=== PATIENT | female | born 1945 | race Caucasian/White ===

== ENCOUNTER 2023-05-03 10:59 | Outpatient (OUT) | payer MEDICARE, SELFPAY ==
--- NOTE | 2023-05-03 | XR_ITS ---
The [address] [address] Patient Name: MONO LUNA MRN: [id number] date: 1945 Sex: F Assigned Patient Location: [facility] Current Patient Location: [facility] Accession/Order Number: [id number] Exam Date: 05/03/2023 11:10 Report Date: 05/03/2023 12:39 At the request of: LANE JORDAN Procedure: XR ankle LT min 3V EXAM: XR ankle LT min 3V HISTORY: LEFT ANKLE PAIN COMPARISON: None. TECHNIQUE: 3 views FINDINGS: No acute fracture or dislocation. Maintained ankle mortise. Significant soft tissue swelling. XR/XR ankle LT min 3V IMPRESSION: Significant soft tissue swelling without acute fracture. If symptoms persist, further evaluation with MRI is recommended. Electronically authenticated by: DARINEL GUNTER Date: 05/03/2023 12:39
== END 2023-05-03 11:00 | disposition home or self-care (01) ==
LOC: RAD 10:59
PROVIDERS: Visit Provider Podiatrist Foot & Ankle Surgery
DX: M25.572 Pain in left ankle and joints of left foot (principal)
CPT/HCPCS: 73610

== ENCOUNTER 2023-10-04 15:08 | Outpatient (OUT) | payer MEDICARE, SELFPAY ==
--- NOTE | 2023-10-04 15:15 | XR_ITS ---
The [address] [address] Patient Name: MONO LUNA MRN: [id number] date: 1945 Sex: F Assigned Patient Location: [facility] Current Patient Location: [facility] Accession/Order Number: [id number] Exam Date: 10/04/2023 15:20 Report Date: 10/04/2023 15:35 At the request of: DURGA HANEY Procedure: XR chest 2V EXAM: XR chest 2V HISTORY: Cough and shortness of breath; technologist also state chest pain for 4 weeks. COMPARISON: Chest radiograph dated 11/15/2020. TECHNIQUE: PA and lateral views of the chest performed. FINDINGS: The trachea is midline. Stable mild prominence of the cardiac silhouette. Stable moderate atheromatous calcification at the aortic arch. The hilar shadows are stable and unremarkable. There is no consolidation, infiltrate, pleural effusion or pulmonary vascular congestion. There is no pneumothorax. The bony structures are osteopenic. There is no acute osseous abnormality. XR/XR chest 2V IMPRESSION: There is no acute cardiopulmonary process. Electronically authenticated by: LANE BRAVO Date: 10/04/2023 15:35
== END 2023-10-04 15:09 | disposition home or self-care (01) ==
LOC: RAD 15:10
PROVIDERS: PCP Nurse Practitioner; Visit Provider Nurse Practitioner
DX: R06.02 Shortness of breath (principal); R05.9 Cough, unspecified
CPT/HCPCS: 71046

== ENCOUNTER 2024-03-29 12:51 | Outpatient (OUT) | payer MEDICARE, SELFPAY ==
--- NOTE | 2024-03-29 13:00 | RT_ITS ---
The [facility] Test Date: 2024-03-29 Pat Name: MONO LUNA Department: Room: - Gender: Female Web Marketing Manager: Sabina Cox RRT : 1945 Requested By: [id number] Order Number: [id number] Reading MD: Con May Interpretive Statements Pulmonary function testing was completed according to ATS criteria. Findings were considered accurate and reproducible. Both pre- and post-bronchodilator values utilized for spirometry. Spirometry (based on pre-bronchodilator values): -FEV1/FVC: Reduced @ 69% -FEV1: Normal @ 84% -FVC: Normal @ 91% -SHF28-08%: Reduced @ 74% -There is a positive bronchodilator resposne in AQF74-22%, but diagnostic and clinical significance is unclear. Lung volumes by plethysmography (based on pre-bronchodilator values): -RV: Normal @ 98% -TLC: Normal @ 95% Diffusion capacity: -DLCO: Mild reduction @ *72% when corrected for Hb 14g/dL Flow-volume loop: -Mild obstructive pattern Impressions: -Spirometry suggests mild obstruction. There is no bronchodilator response. Lung volumes are normal. There is a mildly reduced diffusion capacity. Overall study is compatible with COPD/emphysema. Clinical correlation required. Electronically Signed On 04-03-2024 16:54:39 EDT by Con May
--- OUTSIDE RECORDS SUMMARY | 2024-03-29 13:10 | XMS_ITS | CCD ---
Author Organization [facility] CliniSyut Care Team Providers Care Any Commodity Buyer Name Role Phone LANE JORDAN Consulting Unavailable LANE JORDAN Admitting Unavailable LANE JORDAN Attending Unavailable NEELY ., DR REBEL Ji Primary Care Unavailable NEELY ., DR REBEL Ji Primary Care Unavailable LANE JORDAN Admitting Unavailable LANE JORDAN Attending Unavailable LANE JORDAN Consulting Unavailable MARIA FERNANDA JACK Consulting Unavailable NEELY ., DR REBEL Ji Primary Care Unavailable NEELY ., DR REBEL Ji Admitting Unavailable NEELY ., DR REBEL Ji Attending Unavailable NEELY ., DR REBEL Ji Consulting Unavailable EMILIA ., RONNA Consulting Unavailable NEELY ., DR REBEL Ji Primary Care Unavailable EMILIA ., RONNA Admitting Unavailable EMILIA ., RONNA Attending Unavailable NEELY ., DR REBEL Ji Consulting Unavailable NEELY ., DR REBEL Ji Primary Care Unavailable NEELY ., DR REBEL Ji Admitting Unavailable NEELY ., DR REBEL Ji Attending Unavailable ZIEBER, DR ANGLE Quan Consulting Unavailable RICK PETER Attending Unavailable RICK PETER Consulting Unavailable RICK PETER Admitting Unavailable NEELY ., DR REBEL Ji Primary Care Unavailable LANE FLORES Consulting Unavailable NEELY ., DR REBEL Ji Primary Care Unavailable ALGHOTHANI, MOHAMAD Admitting Unavailable ALGHOTHANI, MOHAMAD Attending Unavailable ALGHOTHANI, MOHAMAD Consulting Unavailable NEELY ., DR REBEL Ji Primary Care Unavailable ROME, RICK Consulting Unavailable ROME, RICK Admitting Unavailable ROME, RICK Attending Unavailable YOLANDA LOYA Consulting Unavailable ZIEBER, DR ANGLE Quan Consulting Unavailable NEELY ., DR REBEL Ji Primary Care Unavailable ROME, RICK Admitting Unavailable ROME, RICK Attending Unavailable RICK PETER Consulting Unavailable NEELY ., DR REBEL Ji Primary Care Unavailable NEELY ., DR REBEL Ji Admitting Unavailable NEELY ., DR REBEL Ji Attending Unavailable NEELY ., DR REBEL Ji Consulting Unavailable NEELY ., DR REBEL Ji Primary Care Unavailable NEELY ., DR REBEL Ji Admitting Unavailable NEELY ., DR REBEL Ji Attending Unavailable LANE JORDAN Consulting Unavailable ROSA ., HOANG PIZANO Consulting Unavailable SHARPNICOLE Consulting Unavailable SUSAN IBARRA Consulting Unavailable EMILIA ., RONNA Admitting Unavailable EMILIA ., RONNA Consulting Unavailable NEELY ., DR REBEL Ji Primary Care Unavailable EMILIA ., RONNA Attending Unavailable RICHARD DAVIS Consulting Unavailable BritneyLuzmaria Primary Care Physician [phone] Lopez Collins Referring Unavailable Zumbashley, Lopez Attending Unavailable Zumbar, Lopez Admitting Unavailable Zumbar, Lopez Attending Unavailable ZumbarLopez Admitting Unavailable Britney, Luzmaria Blake Attending Unavailable Britney, Luzmaria Blake Attending Unavailable Britney, Luzmaria Blake Attending Unavailable Britney, Luzmaria Blake Attending Unavailable Britney, Luzmaria Blake Attending Unavailable Britney, Luzmaria Blake Admitting Unavailable Britney, Luzmaria Blake Attending Unavailable Britney, Luzmaria Blake Admitting Unavailable Britney, Luzmaria Blake Referring Unavailable Danyelle Kellogg Attending Unavailable PIPER Kellogg Admitting UnavailLopez Camp Attending Unavailable Britney, Luzmaria Blake Referring Unavailable MD Lopez Collins Admitting Unavailable Zumbashley, Lopez Attending Unavailable Britney, Luzmaria Blake Referring Unavailable MD Lopez Collins Admitting Unavailable Junito Salvador Referring Unavailable Junito Salvador Attending Unavailable MD Junito Salvador Admitting Unavailable Britney, Luzmaria Blake Attending Unavailable Britney, Luzmaria Blake Consulting Unavailable Britney, Luzmaria Blake Admitting Unavailable Britney, Luzmaria Blake Referring Unavailable Britney, Luzmaria Blake Consulting Unavailable Britney, Luzmaria Blake Consulting Unavailable PANFILO DANILE Attending Unavailable GERRI TRIVEDI Attending Unavailable GERRI TRIVEDI Attending Unavailable PANFILO DANIEL Attending Unavailable VIRGILIO THOMAS Attending Unavailable VIRGILIO THOMAS Attending Unavailable Allergies Allergy Classification Reported Allergen(s) Allergy Type Date of Onset Reaction(s) Facility Angiotensin Converting Enzyme (NENA) Inhibitors (1 source) quinapril; Translations: [QUINAPRIL] Drug Allergy 05-19-20 [facility] Repository Azole Antifungals (1 source) Fluconazole; Translations: [FLUCONAZOLE] Drug Allergy 05-19-20 [facility] Repository Cephalosporins (antibiotic) (1 source) Cephalexin; Translations: [CEPHALEXIN] Drug Allergy 05-19-20 [facility] Repository NSAIDs (1 source) Naproxen; Translations: [NAPROXEN SODIUM] Drug Allergy 05-19-20 [facility] Repository Quinolones (antibiotic) (1 source) moxifloxacin; Translations: [MOXIFLOXACIN] Drug Allergy 05-19-20 [facility] Repository Sulfamethoxazole / Trimethoprim (1 source) Sulfamethoxazole / Trimethoprim; Translations: [SULFAMETHOXAZOLE-T RIMETHOPRIM] Drug Allergy 01-27-20 21 [facility] Repository Sulfonamides (antibiotic) (1 source) Sulfonamides (Antibiotic); Translations: [SULFA (SULFONAMIDE ANTIBIOTICS)] Drug Allergy 05-19-20 [facility] Repository Unclassified (1 source) AMOXICILLIN-POT CLAVULANATE; Translations: [AMOXICILLIN-POT CLAVULANATE] Propensity to adverse reactions to drug (disorder) 01-27-20 [facility] Repository (1 source) Amoxicillin / Clavulanate Drug Allergy 02-14-20 15 [facility] Repository (1 source) Aspirin Drug Allergy [facility] Repository (2 sources) Cephalexin; Translations: [cephalexin] Drug Allergy 05-29-20 13 [facility] Repository (1 source) Erythromycin Drug Allergy 05-29-20 13 [facility] Repository (2 sources) Fluconazole; Translations: [Diflucan] Drug Allergy [facility] Repository (1 source) Fluconazole Drug Allergy [facility] Repository (2 sources) moxifloxacin; Translations: [Avelox] Drug Allergy 05-29-20 13 [facility] Repository (2 sources) Naproxen; Translations: [Anaprox] Drug Allergy [facility] Repository (1 source) Sulfamethoxazole / Trimethoprim Drug Allergy 05-29-20 13 [facility] Repository (1 source) COVID-19 (SARS-CoV-2) vaccine, josee cell Drug allergy (disorder) 10-30-19 21 [facility] Repository (10 sources) Cephalexin; Translations: [cephalexin] Drug Allergy Unknown (qualifier value) [facility] (10 sources) Fluconazole; Translations: [fluconazole] Drug Allergy Unknown (qualifier value) [facility] (10 sources) moxifloxacin; Translations: [moxifloxacin] Drug Allergy Unknown (qualifier value) [facility] (10 sources) Naproxen; Translations: [naproxen] Drug Allergy Unknown (qualifier value) [facility] (11 sources) quinapril; Translations: [quinapril] Drug Allergy Unknown (qualifier value) [facility] (11 sources) Sulfonamides (Antibiotic); Translations: [sulfa drugs] Drug allergy Unknown (qualifier value) [facility] (5 sources) Erythromycin; Translations: [erythromycin] Drug Allergy Stomach upset [facility] Medications Current Medications Medication Drug Class(es) Dates Sig (Normalized) Sig (Original) Albuterol (Eqv-Ventolin HFA) 90 mcg/inh inhalation aerosol (10 sources) Start: 01-04-2023 take 2 puff(s) by inhalation every six hours Albuterol (Eqv-Ventolin HFA) 90 mcg/inh inhalation aerosol 2 puff(s), Inhalation, q6hr, 8.5 gm, Refill(s) 2, INHALE 2 PUFFS BY MOUTH EVERY 4 HOURS, [facility], 167, cm, 01/04/23 11:24:00 EDT, Height/Length Dosing, 79.3, kg, 01/04/23 11:24:00 EDT, Weight Dosing Start Date: 01/04/23 Status: Ordered amLODIPine 10 mg oral tablet (10 sources) Dihydropyridine Calcium Channel Edel Start: 11-25-2022 take 1 tablet by mouth in the morning amLODIPine 10 mg Tab TAKE 1 TABLET BY MOUTH IN THE MORNING Start Date: 11/25/22 Status: Ordered baclofen 10 mg oral tablet (2 sources) gamma-Aminobutyric Acid-ergic Agonist Start: 11-25-2022 baclofen 10 mg Tab Refills(s) 0 Start Date: 11/25/22 Status: Ordered Breast prosthetic and bra (1 source) Start: 11-14-2023 Breast prosthetic and bra Breast prosthetic and bra, See Instructions, 4 EA, 0, due to mastectomy 4 bras 1prostetic, Supply Start Date: 11/14/23 Status: Ordered calcium citrate 950 mg oral tablet (8 sources) Start: 02-10-2023 calcium (as calcium citrate) 200 mg oral tablet See Instructions, Daily, Refills(s) 0 Start Date: 02/10/23 Status: Ordered Collagen Skin Renewal (4 sources) Start: 04-21-2023 Collagen Skin Renewal Refill(s) 0 Start Date: 04/21/23 Status: Ordered famotidine 40 mg oral tablet (10 sources) Histamine-2 Receptor Antagonist Start: 01-05-2024 End: 12-30-2024 take 1 tablet by mouth once daily at bedtime famotidine 40 mg Tab 40 mg = 1 tab(s), Oral, Once a day (at bedtime), X 90 day(s), # 90 tab(s), Refills(s) 3, Pharmacy: [facility], 167, cm, 01/05/24 11:25:00 EDT, Height/Length Dosing, 80.1, kg, 01/05/24 11:25:00 EDT, Weight Dosing Start Date: 01/05/24 Stop Date: 12/30/24 Status: Ordered Start: 05-05-2023 take 1 tablet by lizeth th once daily at bedtime famotidine 40 mg Tab 40 mg = 1 tab(s), Oral, Once a day (at bedtime), # 90 tab(s), Refills(s) 0, Pharmacy: [facility], 167, cm, 03/17/23 14:09:00 EDT, Height/Length Dosing, 78, kg, 02/10/23 14:07:00 EDT, Weight Dosing Start Date: 05/05/23 Status: Ordered Start: 02-10-2023 take 1 tablet by lizeth th once daily at bedtime famotidine 40 mg Tab 40 mg = 1 tab(s), Oral, Once a day (at bedtime), # 90 tab(s), Refills(s) 0, Pharmacy: [facility], 167, cm, 01/04/23 11:24:00 EDT, Height/Length Dosing, 79.3, kg, 01/04/23 11:24:00 EDT, Weight Dosing Start Date: 02/10/23 Status: Ordered Start: 11-30-2022 take 1 tablet by lizeth th once daily at bedtime famotidine 40 mg Tab 40 mg = 1 tab(s), Oral, Once a day (at bedtime), # 90 tab(s), Refills(s) 0, Pharmacy: [facility] Start Date: 11/30/22 Status: Ordered 120 actuat fluticasone propionate 0.044 mg/actuat metered dose inhaler (11 sources) Corticosteroid Start: 01-05-2024 take 2 puff(s) by inhalation twice daily Flovent HFA 44 Aerosol = 2 puff(s), Inhalation, BID, # 10.6 gram, Refills(s) 0, Pharmacy: [facility], 167, cm, 01/05/24 11:25:00 EDT, Height/Length Dosing, 80.1, kg, 01/05/24 11:25:00 EDT, Weight Dosing Start Date: 01/05/24 Status: Ordered Start: 11-25-2022 fluticasone Na cas 0.05 mg/inh Keasbey Refill(s) 0 Start Date: 11/25/22 Status: Ordered Fosfomycin Tromethamine 3 g oral granule for reconstitution (2 sources) Start: 11-25-2022 Fosfomycin Tromethamine 3 g oral granule for reconstitution USE 1 PACKET BY MOUTH DIRECTED Start Date: 11/25/22 Status: Ordered Glucosamine (5 sources) Start: 02-10-2023 glucosamine See Instructions, daily, Refills(s) 0 Start Date: 02/10/23 Status: Ordered losartan potassium 100 mg oral tablet (10 sources) Angiotensin 2 Receptor Edel Start: 11-25-2022 take 1 tablet by mouth once daily losartan 100 mg Tab 100 mg = 1 tab(s), Oral, Daily, Refills(s) 0 Start Date: 11/25/22 Status: Ordered meloxicam 15 mg oral tablet (8 sources) Nonsteroidal Anti-inflammatory Drug Start: 12-21-2022 take 1 tablet by mouth once daily meloxicam 15 mg Tab 15 mg = 1 tab(s), Oral, Daily, # 30 tab(s), Refills(s) 0, Pharmacy: [facility], 167, cm, 12/21/22 13:10:00 EDT, Height/Length Dosing, 79.3, kg, 12/21/22 13:10:00 EDT, Weight Dosing Start Date: 12/21/22 Status: Ordered metFORMIN hydrochloride 500 mg oral tablet (1 source) Biguanide Start: 01-05-2024 take 1 tablet by mouth twice daily metformin 500 mg Tab 500 mg = 1 tab(s), Oral, BID, # 180 tab(s), Refills(s) 3, Pharmacy: [facility], 167, cm, 01/05/24 11:25:00 EDT, Height/Length Dosing, 80.1, kg, 01/05/24 11:25:00 EDT, Weight Dosing Start Date: 01/05/24 Status: Ordered Multi Vitamin+ (3 sources) Start: 04-21-2023 Multi Vitamin+ Refill(s) 0 Start Date: 04/21/23 Status: Ordered Nature's Bounty Probiotic (4 sources) Start: 04-21-2023 Nature's Bounty Probiotic Refill(s) 0 Start Date: 04/21/23 Status: Ordered predniSONE 10 mg oral tablet (2 sources) Start: 11-25-2022 take 7 tablets by mouth once daily, then take 1 tablet by mouth once daily predniSONE 10 mg Tab TAKE 7 TABLETS BY MOUTH THE FIRST DAY, THEN DECREASE BY 1 TABLET A DAY Start Date: 11/25/22 Status: Ordered Problems Active Problems Problem Classification Problem Date Documented Da te Episodic/Chronic Abdominal hernia (1 source) Diaphragmatic hernia without obstruction or gangrene; Translations: [DIAPH HERNIA W/O OBST/GANGRENE] Onset: 3 Episodic Benign neoplasm of uterus (10 sources) Uterine leiomyoma 11-26-2022 Episodic Cancer of breast (8 sources) Malignant tumor of breast 02-10-2023 Chronic Cancer of breast (1 source) Personal history of malignant neoplasm of breast; Translations: [PERS HX MALIGNANT NEOPLASM BREAST] Onset: 3 Episodic Cardiac dysrhythmias (4 sources) Supraventricular tachycardia; Translations: [SUPRAVENTRICULAR TACHYCARDIA] Onset: 2 Chronic Diabetes mellitus without complication (16 sources) Type 2 diabetes mellitus without complications; Translations: [Type 2 diabetes mellitus] Onset: 2 11-25-2022 Chronic Diabetes mellitus without complication (1 source) Prediabetes; Translations: [PREDIABETES] Onset: 3 Episodic Disorders of lipid metabolism (4 sources) Hyperlipidemia, unspecified; Translations: [Hypercholesterolemia] Onset: 2 01-05-2024 Chronic Esophageal disorders (11 sources) Gastro-esophageal reflux disease without esophagitis; Translations: [Gastroesophageal reflux disease] Onset: 3 11-25-2022 Chronic Essential hypertension (13 sources) Essential (primary) hypertension; Translations: [Hypertensive disorder] Onset: 3 11-25-2022 Chronic Genitourinary symptoms and ill-defined conditions (1 source) Personal history of urinary (tract) infections; Translations: [PERS HX URINARY TRACT INFECTIONS] Onset: 3 Episodic Glaucoma (10 sources) Glaucoma 11-26-2022 Chronic Headache; including migraine (10 sources) Episodic tension-type headache 11-25-2022 Chronic Hemorrhoids (10 sources) Hemorrhoids 11-26-2022 Episodic Malaise and fatigue (4 sources) Other fatigue; Translations: [Fatigue] Onset: 2 06-01-2023 Episodic Noninfectious gastroenteritis (1 source) Noninfective gastroenteritis and colitis, unspecified; Translations: [NONINFECTIVE GE AND COLITIS UNS] Onset: 3 Episodic Osteoarthritis (20 sources) Unspecified osteoarthritis, unspecified site; Translations: [Arthritis] Onset: 3 11-25-2022 Chronic Comment on above: L spine W L5-S1 narr owing Osteoporosis (11 sources) Age-related osteoporosis without current pathological fracture; Translations: [Osteoporosis] Onset: 3 11-26-2022 Chronic Other aftercare (1 source) Other prison (current) drug therapy; Translations: [OTH CLOTH BALE HEADER CURRENT DRUG THERAPY] Onset: 3 Episodic Other connective tissue disease (10 sources) Achilles tendinitis 11-26-2022 Episodic Other ear and sense organ disorders (8 sources) Hearing loss 02-10-2023 Chronic Other gastrointestinal disorders (4 sources) Diarrhea, unspecified; Translations: [DIARRHEA UNSPECIFIED] Onset: 3 Episodic Other lower respiratory disease (8 sources) Chronic cough 02-10-2023 Episodic Other lower respiratory disease (1 source) Cough 10-04-2023 Episodic Other lower respiratory disease (1 source) Dyspnea 10-04-2023 Episodic Other lower respiratory disease (2 sources) Other forms of dyspnea; Translations: [Other forms of dyspnea] Onset: 2 Episodic Other nutritional; endocrine; and metabolic disorders (3 sources) Excessive thirst 06-01-2023 Episodic Pneumonia (except that caused by tuberculosis or sexually transmitted disease) (10 sources) Pneumonia 11-26-2022 Episodic Residual codes; unclassified (1 source) Acquired absence of other specified parts of digestive tract; Translations: [ACQ ABSENCE OTH PART DIGESTV TRACT] Onset: 3 Episodic Residual codes; unclassified (1 source) Acquired absence of unspecified breast and nipple; Translations: [ACQUIRED ABSENCE UNS BREAST AND NIPPLE] Onset: 3 Episodic Spondylosis; intervertebral disc disorders; other back problems (4 sources) Spondylosis without myelopathy or radiculopathy, lumbar region; Translations: [SPONDYLS W/O MYELO-/RADICULOP LUMB] Onset: 3 Chronic Spondylosis; intervertebral disc disorders; other back problems (20 sources) Sciatica, unspecified side; Translations: [Sciatica, left side] Onset: 3 Episodic Thyroid disorders (10 sources) Hypothyroidism 11-25-2022 Chronic Unclassified (1 source) PERSONAL HISTORY OF COVID-19; Translations: [PERSONAL HISTORY OF COVID-19] Onset: 3 Unclassified (1 source) CONTACT W/AND (SUSP) EXPOS COVID-19; Translations: [CONTACT W/AND (SUSP) EXPOS COVID-19] Onset: 2 Unclassified (3 sources) Patient encounter status 06-01-2023 Unclassified (1 source) Other ventricular tachycardia; Translations: [Other ventricular tachycardia] Onset: 3 Viral infection (10 sources) Infectious mononucleosis 11-25-2022 Episodic Past or Other Problems Problem Classification Problem Date Documented Da te Episodic/Chronic Cardiac dysrhythmias (4 sources) Bradycardia, unspecified; Translations: [BRADYCARDIA UNSPECIFIED] Onset: 03-16-2022 Episodic Conditions associated with dizziness or vertigo (1 source) Dizziness and giddiness; Translations: [DIZZINESS AND GIDDINESS] Onset: 03-21-2022 Episodic Deficiency and other anemia (1 source) Anemia, unspecified; Translations: [ANEMIA UNSPECIFIED] Onset: 07-21-2022 Episodic Other connective tissue disease (5 sources) Peroneal tendinitis, left leg; Translations: [PERONEAL TENDINITIS LEFT LEG] Onset: 06-26-2022 Episodic Other connective tissue disease (1 source) Pain in left foot; Translations: [PAIN IN LEFT FOOT] Onset: 07-21-2022 Episodic Other non-traumatic joint disorders (5 sources) Pain in left ankle and joints of left foot; Translations: [PAIN IN LEFT ANKLE] Onset: 07-21-2022 Episodic Other non-traumatic joint disorders (1 source) Other instability, left ankle; Translations: [OTHER INSTABILITY LEFT ANKLE] Onset: 07-21-2022 Episodic Other non-traumatic joint disorders (1 source) Other specified joint disorders, left ankle and foot; Translations: [OTHER SPEC JOINT D/O LT ANKLE FOOT] Onset: 07-21-2022 Episodic Sprains and strains (2 sources) Strain of muscle(s) and tendon(s) of peroneal muscle group at lower leg level, left leg, sequela; Translations: [Sprain of other ligament of left ankle, sequela] Onset: 04-27-2022 Episodic Unclassified (10 sources) BRCA2 mutation carrier detection test 11-26-2022 Unclassified (1 source) Other ventricular tachycardia; Translations: [Other ventricular tachycardia] Onset: 03-14-2024 Viral infection (10 sources) Disease caused by 2019-nCoV 11-26-2022 Results Test Name Value Interpretation Reference Range Facility Office Visiton 03-14-2024 Follow-up visit [id number] Stephanie Wasserman 1945 F Date Provider Department Center 03/14/2024 VIRGILIO RAMÍREZ [facility] Family History Problem Relation Age of Onset Lung disease Mother Diabetes Mother's Sister Family Status - Relation Status Age at Mother Father Mother's Sister Other Level of Service:59746 AL OFFICE/OUTPATIENT ESTABLISHED MOD MDM 30 MIN Normal [facility] Reminderson 01-09-2024 Reminders - From: Luzmaria Lamas To: [facility] - Clinical; Sent: 01/06/2024 12:27:23 EDT Show up: 01/06/2024 12:27:00 EDT Subject: Ambulatory Reminder Due Date/Time: 01/07/2024 12:26:00 EDT HGBA1C is much better. continue taking metformin as she has been. Cholesterol is a little better but still elevated, triglycerides went up a little. Should consider starting a statin. would she like me to send to pharmacy? Results: Date Result Name Ind Value Ref Range 01/05/2024 11:54 Hgb A1C % 5.9 % ( - <=5.9) 01/05/2024 11:54 Chol ((H)) 215 mg/dL (120 - 200) 01/05/2024 11:54 Trig ((H)) 371 mg/dL ( - <=149) 01/05/2024 11:54 HDL 45 mg/dL 01/05/2024 11:54 LDL Direct ((H)) 137 mg/dL ( - <=129) 01/05/2024 11:54 VLDL ((H)) 74 mg/dL (7 - 40) From: Antonieta Wick (B - Clinical) To: Luzmaria Lamas; Sent: 01/09/2024 08:50:03 EDT Show up: 01/09/2024 08:49:00 EDT Subject: RE: Ambulatory Reminder Patient informed of test results and voices understanding. Patient agrees to starting statin medication. Prescription should be a 90 day script and sent to [facility]. Normal [facility] Ambulatory Visit Summaryon 0 01-05-2024 Ambulatory Visit Summary STEPHANIE WASSERMAN :1945 Visit Date:01/05/2024 Ambulatory Visit Instructions Your Diagnosis Hypercholesteremia Type 2 diabetes mellitus BMI 28.0-28.9,adult Non-smoker Your Care Team Attending Physician - Luzmaria Lamas Primary Care Physician - Luzmaria Lamas This Is Your Medications List [facility] [place]cription (Breast prosthetic and bra) albuterol (Albuterol (Eqv-Ventolin HFA) 90 mcg/inh inhalation aerosol) amlodipine (amLODIPine 10 mg Tab) ascorbic acid-collagen (Collagen Skin Renewal) bifidobacterium-lacto bacillus (Nature's Bounty Probiotic) calcium citrate (calcium (as calcium citrate) 200 mg oral tablet) famotidine (famotidine 40 mg Tab) fluticasone (Flovent HFA 44 Aerosol) fluticasone nasal (fluticasone Nasal 0.05 mg/inh Keasbey) losartan (losartan 100 mg Tab) metformin (metformin 500 mg Tab) Procedures Performed Epidural injection of lumbar spine using fluoroscopic guidance (05/09/2023), Ankle (06/12/2022), Cholecystectomy, Mastectomy. Discharge Vitals Heart Rate (Peripheral) 62 Respiratory Rate 18 Blood Pressure 118/70 Height 167.0 cm Height 66 in Weight 80.1 kg Weight 176.22 lb BMI 28.72 Medications What How Much When Why Instructions New famotidine (famotidine 40 mg Tab) 1 Tablets By Mouth Once a day (at bedtime) Duration: 90 Days Refills: 3 Pickup at [facility] New fluticasone (Flovent HFA 44 Aerosol) 2 Puffs Inhalation 2 times a day Hypercholesteremia Type 2 diabetes mellitus BMI 28.0-28.9,adult Non-smoker Pickup at [facility] New metformin (metformin 500 mg Tab) 1 Tablets By Mouth 2 times a day Type 2 diabetes mellitus Refills: 3 Pickup at [facility] Delivery Unchanged albuterol (Albuterol (Eqv-Ventolin HFA) 90 mcg/ inh inhalation aerosol) 2 Puffs Inhalation Every 6 hours INHALE 2 PUFFS BY MOUTH EVERY 4 HOURS Unchanged amlodipine (amLODIPine 10 mg Tab) TAKE 1 TABLET BY MOUTH IN THE MORNING Unchanged ascorbic acid-collagen (Collagen Skin Renewal) Unchanged bifidobacterium-lacto bacillus (Nature's Bounty Probiotic) Unchanged calcium citrate (calcium (as calcium citrate) 200 mg oral tablet) See instructions Daily Unchanged fluticasone nasal (fluticasone Nasal 0.05 mg/ inh [place]bey) Unchanged losartan (losartan 100 mg Tab) 1 Tablets By Mouth Every day Unchanged Misc Prescription (Breast prosthetic and bra) See instructions S/P mastectomy due to mastectomy 4 bras 1prostetic Pharmacy Information [facility]: [address] [place], [place] [id number] [phone] Allergies Accupril (Unknown) Anaprox (Unknown) Avelox (Unknown) Diflucan (Unknown) cephalexin (Unknown) erythromycin (Stomach upset) sulfa drugs (Unknown) Problems Ongoing - Any problem that you are currently receiving treatment for. Arthritis Breast cancer Cervical radiculitis Chronic cough Cough Diabetes mellitus, type II Episodic tension type headache Excessive thirst Fatigue GERD (gastroesophageal reflux disease) Hearing deficit HTN (hypertension) Hypercholesteremia Hypothyroidism Lower back pain Mononucleosis Osteoarthritis S/P mastectomy Sciatica Shortness of breath Type 2 diabetes mellitus Wellness examination Historical - Any problem that you are no longer receiving treatment for. 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 Please share your experience with us by completing your survey. We appreciate your feedback and thank you for choosing us for your care. Normal [facility] CHEMISTRYOrdered By: SYSTEM SYSTEM on 01-05-2024 Cholesterol [Mass/Vol] 215 mg/dL High 120 - 200 mg/dL Remisol Chem Cholesterol in HDL [Mass/Vol] 45 mg/dL Invalid Interpretation Code Remisol Chem Comment on above: Result Comment: '>= 60 LOW RISK' '<= 40 HIGH RISK' Cholesterol in LDL [Mass/Vol] 137 mg/dL High <=129mg/dL Remisol Chem Cholesterol in VLDL [Mass/Vol] 74 mg/dL High 7 - 40 mg/dL Remisol Chem Triglyceride [Mass/Vol] 371 mg/dL High <=149mg/dL Remisol Chem CHEMISTRYOrdered By: Tamiko Rowell on 01-05-2024 HbA1c (Bld) [Mass fraction] 5.9 % Normal <=5.9% [facility] ChemAutoSS Family Medicine Office/Clini c Noteon 01-05-2024 Family Medicine Office/Clinic Note HPI Staff Stephanie is a 78 year old female presenting for check up Patient is here for follow up on Diabetes. How often are you checking your blood sugars? _ times per day What are your average readings? _ Paresthesias, Ulcerations or sores? no Lisinopril, aspirin, statin therapy? Yes Foot Exam: Eye Exam: Last A1c: Hgb A1C %: 6.1 % High (06/01/23 12:04:00) Pt has only been taking Metformin once daily due to second tablet making her feel tired. Needs refill on metformin and famotidine. Over the last 2 months pt has noticed that when out walking she becomes short of breath easier. Denies being sick recently. History of Present Illness pt presents today for follow up on DM. will draw HGBA1C today Review of Systems PHQ Score Initial Depression Screen Score: 0 SCORE Physical Exam Vitals & Measurements HR: 62(Peripheral) RR: 18 BP: 118/70 SpO2: 94% HT: 66 in HT: 167.0 cm WT: 80.1 kg WT: 176.22 lb BMI: 28.72 General: alert, no acute distress ENMT: oral mucosa moist, no pharyngeal erythema or exudate Cardiovascular: regular rate and rhythm, normal peripheral perfusion Respiratory: Lungs CTA, respirations non labored Extremities: no deformity, no trauma Neurological: oriented x 4, LOC appropriate for age, CN II-XII intact, motor strength equal & normal bilaterally, speech normal Assessment/Plan 1. Hypercholesteremia (E78.00: Pure hypercholesterolemia, unspecified) will recheck lipid panel today. may consider statin. RTC 3 months Ordered: fluticasone, = 2 puff(s), Inhalation, BID, # 10.6 gram, Refills(s) 0, Pharmacy: [facility], 167, cm, 01/05/24 11:25:00 EDT, Height/Length Dosing, 80.1, kg, 01/05/24 11:25:00 EDT, Weight Dosing HgbA1c Lab Specimen Collect [id number] Lipid Panel 2. Type 2 diabetes mellitus (E11.9: Type 2 diabetes mellitus without complications) Will draw HGBA1C today. pt is taking 1/2 tab in am and 1/2 tab in Pm of metformin Ordered: fluticasone, = 2 puff(s), Inhalation, BID, # 10.6 gram, Refills(s) 0, Pharmacy: [facility], 167, cm, 01/05/24 11:25:00 EDT, Height/Length Dosing, 80.1, kg, 01/05/24 11:25:00 EDT, Weight Dosing metformin, 500 mg = 1 tab(s), Oral, BID, # 60 tab(s), Refills(s) 0, Pharmacy: [facility], 167, cm, 10/04/23 14:41:00 EST, Height/Length Dosing, 79.5, kg, 10/04/23 14:41:00 EST, Weight Dosing metformin, 500 mg = 1 tab(s), Oral, BID, # 180 tab(s), Refills(s) 3, Pharmacy: [facility], 167, cm, 01/05/24 11:25:00 EDT, Height/Length Dosing, 80.1, kg, 01/05/24 11:25:00 EDT, Weight Dosing HgbA1c Lab Specimen Collect [id number] Lipid Panel 3. BMI 28.0-28.9,adult (Z68.28: Body mass index [BMI] 28.0-28.9, adult) BMI education complete Ordered: fluticasone, = 2 puff(s), Inhalation, BID, # 10.6 gram, Refills(s) 0, Pharmacy: [facility], 167, cm, 01/05/24 11:25:00 EDT, Height/Length Dosing, 80.1, kg, 01/05/24 11:25:00 EDT, Weight Dosing HgbA1c Lab Specimen Collect [id number] Lipid Panel 4. Non-smoker (Z78.9: Other specified health status) continue not smoking Ordered: fluticasone, = 2 puff(s), Inhalation, BID, # 10.6 gram, Refills(s) 0, Pharmacy: [facility], 167, cm, 01/05/24 11:25:00 EDT, Height/Length Dosing, 80.1, kg, 01/05/24 11:25:00 EDT, Weight Dosing HgbA1c Lab Specimen Collect [id number] Lipid Panel Orders: famotidine, 40 mg = 1 tab(s), Oral, Once a day (at bedtime), X 90 day(s), # 90 tab(s), Refills(s) 3, Pharmacy: [facility], 167, cm, 01/05/24 11:25:00 EDT, Height/Length Dosing, 80.1, kg, 01/05/24 11:25:00 EDT, Weight Dosing famotidine, 40 mg = 1 tab(s), Oral, Once a day (at bedtime), # 90 tab(s), Refills(s) 1, Pharmacy: [facility], 167, cm, 06/06/23 14:18:00 EDT, Height/Length Dosing, 81.1, kg, 06/01/23 11:40:00 EDT, Weight Dosing Follow-up No qualifying data available Problem List/Past Medical History Ongoing Arthritis Breast cancer Cervical radiculitis Chronic cough Cough Diabetes mellitus, type II Episodic tension type headache Excessive thirst Fatigue GERD (gastroesophageal reflux disease) Hearing deficit HTN (hypertension) Hypercholesteremia Hypothyroidism Lower back pain Mononucleosis Osteoarthritis S/P mastectomy Sciatica Shortness of breath Type 2 diabetes mellitus Wellness examination Historical Achilles tendonitis Arthritis Breast cancer 2, 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 Medications Albuterol (Eqv-Ventolin HFA) 90 mcg/inh inhalation aerosol, 2 puff(s), Inhalation, q6hr, 2 refills amLODIPine 10 mg Tab Breast prosthetic and bra, See Instructions calcium (as calcium citrate) 200 mg o (more content not included)... Normal [facility] Comment on above: Result Comment: Elec tronically Signed By: Luzmaria Lamas\.br\Date and Time Signed: 01/05/24 13:00 EDT [id number] 01-05-2024 HbA1c (Bld) [Mass fraction] 5.9 % Normal <=5.9 [facility] Comment on above: Performed By: #### 2 [id number], [id number] ####[facility] [address] [place] [address] Lipid Panelon 01-05-2024 Cholesterol [Mass/Vol] 215 mg/dL High 120-200 [facility] Comment on above: Performed By: #### 2 [id number], [id number] ####[facility] [address] [place] [address] Cholesterol in HDL [Mass/Vol] 45 mg/dL Invalid Interpretation Code [facility] Comment on above: Result Comment: '>= 60 LOW RISK' '<= 40 HIGH RISK' Performed By: #### 2 [id number], [id number] ####[facility] [address] [place] [address] Cholesterol in LDL [Mass/Vol] 137 mg/dL High <=129 [facility] Comment on above: Performed By: #### 2 [id number], [id number] ####[facility] [address] [place] [address] Cholesterol in VLDL [Mass/Vol] 74 mg/dL High 7-40 [facility] Comment on above: Performed By: #### 2 [id number], [id number] ####[facility] [address] [place] [address] Triglyceride [Mass/Vol] 371 mg/dL High <=149 [facility] Comment on above: Performed By: #### 2 [id number], [id number] ####[facility] [address] [place] [address] RAD - MISCon 10-06-2023 RAD - MISC [id number] [facility] Physician Orderon 10-05-2023 Physician Order [id number] [facility] Ambulatory Visit Summaryon 0 10-04-2023 Ambulatory Visit Summary STEPHANIE WASSERMAN :1945 Visit Date:10/04/2023 Ambulatory Visit Instructions Your Diagnosis Cough Shortness of breath BMI 29.0-29.9,adult Non-smoker Your Care Team Attending Physician - Luzmaria Lamas Primary Care Physician - Britney PROSTHETICS ASSISTANT, Luzmaria L This Is Your Medications List albuterol (Albuterol (Eqv-Ventolin HFA) 90 mcg/inh inhalation aerosol) amlodipine (amLODIPine 10 mg Tab) ascorbic acid-collagen (Collagen Skin Renewal) azithromycin (azithromycin 250 mg Tab) benzonatate (benzonatate 200 mg oral capsule) bifidobacterium-lacto bacillus (Nature's Bounty Probiotic) calcium citrate (calcium (as calcium citrate) 200 mg oral tablet) famotidine (famotidine 40 mg Tab) fluticasone nasal (fluticasone Nasal 0.05 mg/inh Ke[place]bey) losartan (losartan 100 mg Tab) methylPREDNISolone (Medrol 4 mg Tab) multivitamin (Multi Vitamin+) Procedures Performed Epidural injection of lumbar spine using fluoroscopic guidance (05/09/2023), Ankle (06/12/2022), Cholecystectomy, Mastectomy. Discharge Vitals Temperature (Tympanic) 36.8 ?C Heart Rate (Peripheral) 80 Respiratory Rate 18 Blood Pressure 162/74 Height 167.0 cm Height 66 in Weight 79.5 kg Weight 174.9 lb BMI 28.51 Medications What How Much When Why Instructions New azithromycin (azithromycin 250 mg Tab) 1 Packets By Mouth As Directed Cough Shortness of breath BMI 29.0-29.9,adult Non-smoker Duration: 5 Days as directed on package labeling Pickup at [facility] New benzonatate (benzonatate 200 mg oral capsule) 1 Capsules By Mouth 3 times a day Cough Shortness of breath BMI 29.0-29.9,adult Non-smoker Duration: 10 Days Pickup at [facility] New methylPREDNISolone (Medrol 4 mg Tab) 1 Packets By Mouth As Directed Cough Shortness of breath BMI 29.0-29.9,adult Non-smoker Duration: 6 Days as directed on package labeling Pickup at [facility] Unchanged albuterol (Albuterol (Eqv-Ventolin HFA) 90 mcg/ inh inhalation aerosol) 2 Puffs Inhalation Every 6 hours INHALE 2 PUFFS BY MOUTH EVERY 4 HOURS Unchanged amlodipine (amLODIPine 10 mg Tab) TAKE 1 TABLET BY MOUTH IN THE MORNING Unchanged ascorbic acid-collagen (Collagen Skin Renewal) Unchanged bifidobacterium-lacto bacillus (Nature's Bounty Probiotic) Unchanged calcium citrate (calcium (as calcium citrate) 200 mg oral tablet) See instructions Daily Unchanged famotidine (famotidine 40 mg Tab) 1 Tablets By Mouth Once a day (at bedtime) Unchanged fluticasone nasal (fluticasone Nasal 0.05 mg/ inh [place]bey) Unchanged losartan (losartan 100 mg Tab) 1 Tablets By Mouth Every day Unchanged multivitamin (Multi Vitamin+) Pharmacy Information [facility]: [address] [place], [place] [id number] [phone] Allergies Accupril (Unknown) Anaprox (Unknown) Avelox (Unknown) Diflucan (Unknown) cephalexin (Unknown) erythromycin (Stomach upset) sulfa drugs (Unknown) Problems Ongoing - Any problem that you are currently receiving treatment for. Arthritis Breast cancer Cervical radiculitis Chronic cough Cough Diabetes mellitus, type II Episodic tension type headache Excessive thirst Fatigue GERD (gastroesophageal reflux disease) Hearing deficit HTN (hypertension) Hypothyroidism Lower back pain Mononucleosis Osteoarthritis Sciatica Shortness of breath Type 2 diabetes mellitus Wellness examination Historical - Any problem that you are no longer receiving treatment for. 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 Please share your experience with us by completing your survey. We appreciate your feedback and thank you for choosing us for your care. Normal [facility] Family Medicine Office/Clini c Noteon 10-04-2023 Family Medicine Office/Clinic Note HPI Staff Stephanie is a 77 year old female presenting for acute visit Pt states 2 days ago chest would hurt when taking deep breaths, has had persistent non productive cough for 1 month. Pt states did have episode of diarrhea this morning but feels better now. Denies any sinus symptoms. Has been taking Robitussin DM max. Pt states is more short of breath with excertion History of Present Illness pt presents today with cough for 1 month and worsening shortness of breath Review of Systems PHQ Score Initial Depression Screen Score: 0 SCORE ROS - Provider Constitutional: no fever, no chills, no sweats, no fatigue Respiratory: no shortness of breath, no cough, no orthopnea, no wheezing. Cardiovascular: no chest pain, no palpitations, no edema. Neurologic: no headache, no dizziness, no numbness, no weakness. Physical Exam Vitals & Measurements T: 36.8 ?C(Tympanic) HR: 80(Peripheral) RR: 18 BP: 162/74 SpO2: 97% HT: 66 in HT: 167.0 cm WT: 79.5 kg WT: 174.9 lb BMI: 28.51 General: alert, no acute distress ENMT: oral mucosa moist, no pharyngeal erythema or exudate Cardiovascular: regular rate and rhythm, normal peripheral perfusion Respiratory: Lungs CTA, respirations non labored Extremities: no deformity, no trauma Neurological: oriented x 4, LOC appropriate for age, CN II-XII intact, motor strength equal & normal bilaterally, speech normal Assessment/Plan 1. Cough (R05.9: Cough, unspecified) pt presents today with cough for 4 weeks and worsening shortness of breath. will order chest x ray pt will go to [facility]. pt states she does use her inhaler when she has coughing fits. will order z pack and medrol dose pack. as well as tessalon pearls. all questions answered. if this treatment does not help with cough will refer to pulmonology Ordered: azithromycin, = 1 packet(s), Oral, As Directed, as directed on package labeling, X 5 day(s), # 6 tab(s), Refills(s) 0, Pharmacy: [facility], 167, cm, 10/04/23 14:41:00 EST, Height/Length Dosing, 79.5, kg, 10/04/23 14:41:00 EST, Weight Dosing benzonatate, 200 mg = 1 cap(s), Oral, TID, X 10 day(s), # 30 cap(s), Refills(s) 0, Pharmacy: [facility], 167, cm, 10/04/23 14:41:00 EST, Height/Length Dosing, 79.5, kg, 10/04/23 14:41:00 EST, Weight Dosing methylPREDNISolone, = 1 packet(s), Oral, As Directed, as directed on package labeling, X 6 day(s), # 21 tab(s), Refills(s) 0, Pharmacy: [facility], 167, cm, 10/04/23 14:41:00 EST, Height/Length Dosing, 79.5, kg, 10/04/23 14:41:00 EST, Weight Dosing 2. Shortness of breath (R06.02: Shortness of breath) chest x ray ordered Ordered: azithromycin, = 1 packet(s), Oral, As Directed, as directed on package labeling, X 5 day(s), # 6 tab(s), Refills(s) 0, Pharmacy: [facility], 167, cm, 10/04/23 14:41:00 EST, Height/Length Dosing, 79.5, kg, 10/04/23 14:41:00 EST, Weight Dosing benzonatate, 200 mg = 1 cap(s), Oral, TID, X 10 day(s), # 30 cap(s), Refills(s) 0, Pharmacy: [facility], 167, cm, 10/04/23 14:41:00 EST, Height/Length Dosing, 79.5, kg, 10/04/23 14:41:00 EST, Weight Dosing methylPREDNISolone, = 1 packet(s), Oral, As Directed, as directed on package labeling, X 6 day(s), # 21 tab(s), Refills(s) 0, Pharmacy: [facility], 167, cm, 10/04/23 14:41:00 EST, Height/Length Dosing, 79.5, kg, 10/04/23 14:41:00 EST, Weight Dosing 3. BMI 29.0-29.9,adult (Z68.29: Body mass index [BMI] 29.0-29.9, adult) BMI education complete Ordered: azithromycin, = 1 packet(s), Oral, As Directed, as directed on package labeling, X 5 day(s), # 6 tab(s), Refills(s) 0, Pharmacy: [facility], 167, cm, 10/04/23 14:41:00 EST, Height/Length Dosing, 79.5, kg, 10/04/23 14:41:00 EST, Weight Dosing benzonatate, 200 mg = 1 cap(s), Oral, TID, X 10 day(s), # 30 cap(s), Refills(s) 0, Pharmacy: [facility], 167, cm, 10/04/23 14:41:00 EST, Height/Length Dosing, 79.5, kg, 10/04/23 14:41:00 EST, Weight Dosing methylPREDNISolone, = 1 packet(s), Oral, As Directed, as directed on package labeling, X 6 day(s), # 21 tab(s), Refills(s) 0, Pharmacy: [facility], 167, cm, 10/04/23 14:41:00 EST, Height/Length Dosing, 79.5, kg, 10/04/23 14:41:00 EST, Weight Dosing 4. Non-smoker (Z78.9: Other specified health status) continue not smoking Ordered: azithromycin, = 1 packet(s), Oral, As Directed, as directed on package labeling, X 5 day(s), # 6 tab(s), Refills(s) 0, [facility], 167, cm, 10/04/23 14:41:00 EST, Height/Length Dosing, 79.5, kg, 10/04/23 14:41:00 EST, Weight Dosing benzonatate, 200 mg = 1 cap(s), Oral, TID, X 10 day(s), # 30 cap(s), Refills(s) 0, Pharmacy: [facility], 167, cm, 10/04/23 14:41:00 EST, Height/Length Dosing, 79.5, kg, 10/04/23 14:41:00 EST, Weight Dosing methylPREDNISolone, = 1 packet(s), Oral, As Directed, as directed on package labelin (more content not included)... [facility] Comment on above: Result Comment: Elec tronically Signed By: Luzmaria Lamas\.br\Date and Time Signed: 10/04/23 15:03 EST Consent for Treatmenton 05-14 Consent for Treatment [id number] .00CD:127 [facility] Consultation Noteon 06-06-20 Consultation Note Patient: STEPHANIE WASSERMAN Age: 77 years Sex: Female : 1945 Associated Diagnoses: None Author: Danyelle Kellogg PA-C Subjective Chief complaint Continued lower back pain. Patient is a 77-year-old female. She presents today for follow-up after undergoing L5-S1 epidural steroid injection. This was done on 05/09/2023 and she states did not help her lower back pain very much?25% but does state that her radicular symptoms are resolved. Unfortunate, she still has lower back pain. She states that this is very bothersome. It can be a 6/10 depending on her activities. Walking and standing makes it worse. It does get better if she sits down. Walking, standing, bending, twisting, and being physically active makes the back hurt. Previous physical therapy did not help. Anti-inflammatory medications do not help. She wonders what her options are to get some of her lower back pain resolved. She states though that she is somewhat frustrated about how much she had to pay for the injection so she is unsure how many of these she wants to have to do. Health Status Allergies: Allergic Reactions (Selected) Severity Not Documented Accupril- Unknown. Anaprox- Unknown. Avelox- Unknown. Cephalexin- Unknown. Diflucan- Unknown. Erythromycin- Stomach upset. Sulfa drugs- Unknown., Allergies (7) Active Reaction Accupril Unknown Anaprox Unknown Avelox Unknown cephalexin Unknown Diflucan Unknown erythromycin Stomach upset sulfa drugs Unknown Current medications: (Selected) Prescriptions Prescribed Albuterol (Eqv-Ventolin HFA) 90 mcg/inh inhalation aerosol: 2 puff(s), Inhalation, q6hr, 8.5 gm, Refill(s) 2, INHALE 2 PUFFS BY MOUTH EVERY 4 HOURS, [facility], 167, cm, 01/04/23 11:24:00 EDT, Height/Length Dosing, 79.3, kg, 01/04/23 11:24:00 EDT, Weight Dosing famotidine 40 mg Tab: 40 mg = 1 tab(s), Oral, Once a day (at bedtime), # 90 tab(s), Refills(s) 0, Pharmacy: [facility], 167, cm, 03/17/23 14:09:00 EDT, Height/Length Dosing, 78, kg, 02/10/23 14:07:00 EDT, Weight Dosing Documented Medications Documented Collagen Skin Renewal: Refill(s) 0 Multi Vitamin+: Refill(s) 0 Nature's Bounty Probiotic: Refill(s) 0 amLODIPine 10 mg Tab: TAKE 1 TABLET BY MOUTH IN THE MORNING calcium (as calcium citrate) 200 mg oral tablet: See Instructions, Daily, Refills(s) 0 fluticasone Nasal 0.05 mg/inh Keasbey: Refill(s) 0 losartan 100 mg Tab: Refills(s) 0 Problem list: All Problems Cervical radiculitis / SNOMED CT 16669846 / Confirmed Episodic tension type headache / SNOMED CT 200178275 / Confirmed GERD (gastroesophageal reflux disease) / SNOMED CT 309590678 / Confirmed HTN (hypertension) / SNOMED CT 8802755470 / Confirmed Hypothyroidism / SNOMED CT 53412650 / Confirmed Diabetes mellitus, type II / SNOMED CT 776427677 / Confirmed Sciatica / SNOMED CT 18932003 / Confirmed Arthritis / SNOMED CT 8400665 / Confirmed Mononucleosis / SNOMED CT 882706105 / Confirmed Chronic cough / SNOMED CT 136667792 / Confirmed Hearing deficit / SNOMED CT 34105344 / Confirmed Breast cancer / SNOMED CT 826599234 / Confirmed Osteoarthritis / SNOMED CT 7292457734 / Confirmed Lower back pain / SNOMED CT 370344478 / Confirmed Wellness examination / SNOMED CT 767829475 / Confirmed Fatigue / SNOMED CT 450465877 / Confirmed Type 2 diabetes mellitus / SNOMED CT 087716321 / Confirmed Excessive thirst / SNOMED CT 13524651 / Confirmed Resolved: COVID-19 / SNOMED CT 1620702473 Resolved: Hemorrhoids / SNOMED CT 944371202 Resolved: Pneumonia / SNOMED CT 533031087 Resolved: Arthritis / SNOMED CT 3595113 L spine W L5-S1 narrowing Resolved: Breast cancer 2, 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 Eye: Normal conjunctiva. HENT: Normocephalic, Normal hearing. Cardiovascular: No edema. Musculoskeletal Normal range of motion. Normal strength. Pain with compression the bilateral lumbar facet joints Increased lower back pain with bilateral facet loading 5/5 lower extremity strength Integumentary: Warm, Dry, [place]. Injection site well-healed Neurologic: Alert, Oriented. Psychiatric: Cooperative, Appropriate mood & affect. Results Review * Final Report * Reason For Exam M54.17, M48.062 POWERSCRIBE REPORT IMPRESSION: DEGENERATIVE CHANGES OF THE LUMBAR SPINE DETAILED. EXAM: MRI of the lumbar spine without contrast History: Low back pain Technique: Multiplanar multisequence MRI of the lum (more content not included)... Normal [facility] Comment on above: Result Comment: Elec tronically Signed By: Danyelle Kellogg PA-C\.br\Date and Time Signed: 06/06/23 14:31 EDT\.br\Electronically Co-Signed By: Harlan Solomon DO\.br\Date and Time Co-Signed: 06/07/23 11:02 EDT Office/Clinic Note-Physician on 06-06-2023 Office/Clinic Note-Physician [id number] .00CD:[address] [facility] Patient Correspondenceon Patient Correspondence [id number] .00CD:[address] [facility] Patient Correspondence [id number] .00CD:127 [facility] Patient History Officeon Patient History Office [id number] .00CD:127 [facility] Ambulatory Visit Summaryon 0 06-01-2023 Ambulatory Visit Summary OMIDSTEPHANIE RAJAN :1945 Visit Date:06/01/2023 Ambulatory Visit Instructions Your Diagnosis Wellness examination Fatigue Type 2 diabetes mellitus Excessive thirst Your Care Team Attending Physician - Luzmaria Lamas Primary Care Physician - Luzmaria Lamas This Is Your Medications List albuterol (Albuterol (Eqv-Ventolin HFA) 90 mcg/inh inhalation aerosol) amlodipine (amLODIPine 10 mg Tab) ascorbic acid-collagen (Collagen Skin Renewal) bifidobacterium-lacto bacillus (Nature's Bounty Probiotic) calcium citrate (calcium (as calcium citrate) 200 mg oral tablet) famotidine (famotidine 40 mg Tab) fluticasone nasal (fluticasone Nasal 0.05 mg/inh Keasbey) losartan (losartan 100 mg Tab) meloxicam (meloxicam 15 mg Tab) multivitamin (Multi Vitamin+) Procedures Performed Ankle (06/12/2022), Cholecystectomy, Mastectomy. Discharge Vitals Heart Rate (Peripheral) 60 Respiratory Rate 18 Blood Pressure 138/70 Height 167 cm Height 66 in Weight 81.14 kg Weight 178.508 lb BMI 29.09 What to do next Scheduled Follow-Up Appointments Tuesday 2:00 PM EDT With: Danyelle Kellogg PA-C Where: [facility] Medications What How Much When Instructions Unchanged albuterol (Albuterol (Eqv-Ventolin HFA) 90 mcg/ inh inhalation aerosol) 2 Puffs Inhalation Every 6 hours INHALE 2 PUFFS BY MOUTH EVERY 4 HOURS Unchanged amlodipine (amLODIPine 10 mg Tab) TAKE 1 TABLET BY MOUTH IN THE MORNING Unchanged ascorbic acid-collagen (Collagen Skin Renewal) Unchanged bifidobacterium-lacto bacillus (Nature's Bounty Probiotic) Unchanged calcium citrate (calcium (as calcium citrate) 200 mg oral tablet) See instructions Daily Unchanged famotidine (famotidine 40 mg Tab) 1 Tablets By Mouth Once a day (at bedtime) Unchanged fluticasone nasal (fluticasone Nasal 0.05 mg/ inh [place]) Unchanged losartan (losartan 100 mg Tab) Unchanged meloxicam (meloxicam 15 mg Tab) 1 Tablets By Mouth Every day Unchanged multivitamin (Multi Vitamin+) Allergies Accupril (Unknown) Anaprox (Unknown) Avelox (Unknown) Diflucan (Unknown) cephalexin (Unknown) erythromycin (Stomach upset) sulfa drugs (Unknown) Problems Ongoing - Any problem that you are currently receiving treatment for. Arthritis Breast cancer Cervical radiculitis Chronic cough Diabetes mellitus, type II Episodic tension type headache Excessive thirst Fatigue GERD (gastroesophageal reflux disease) Hearing deficit HTN (hypertension) Hypothyroidism Lower back pain Mononucleosis Osteoarthritis Sciatica Type 2 diabetes mellitus Wellness examination Historical - Any problem that you are no longer receiving treatment for. 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 Auto Diffon 06-01-2023 Basophils/100 WBC (Bld) 1.2 % Normal 0.0-2.0 [facility] Comment on above: Order Comment: Order Added by Discern Expert. Performed By: #### 2 394563, 5806408, 5121076, 483674887, 18979015, 6333867, 0047111 ####[facility] [address] [place] [address] Basophils/Leukocytes Auto (Bld) [Pure # fraction] 0.1 E9/L Normal 0.0-0.2 [facility] Comment on above: Order Comment: Order Added by Discern Expert. Performed By: #### 2 203949, 0736918, 8050255, 498480547, 19470534, 6074212, 3436062 ####[facility] [address] [place] [address] Eosinophils/100 WBC (Bld) 4.1 % Normal 0.0-8.0 [facility] Comment on above: Order Comment: Order Added by Discern Expert. Performed By: #### 2 265218, 5810534, 9536204, 354322243, 16863237, 7953260, 2322165 ####[facility] [address] [place] [address] Eosinophils/Leukocyte s Auto (Bld) [Pure # fraction] 0.3 E9/L Normal 0.0-0.5 [facility] Comment on above: Order Comment: Order Added by Eemly Expert. Performed By: #### 2 498987, 5252050, 7347551, 887115075, 17845003, 7855763, 7201523 ####[facility] [address] [place] [address] Lymphocytes/100 WBC (Bld) 33.7 % Normal 14.0-50.0 [facility] Comment on above: Order Comment: Order Added by Discern Expert. Performed By: #### 2 313955, 4482216, 3938698, 870079046, 68243290, 7467502, 8642376 ####[facility] [address] [place] [address] Lymphocytes/Leukocyte s Auto (Bld) [Pure # fraction] 2.1 E9/L Normal 1.0-4.0 [facility] Comment on above: Order Comment: Order Added by Discern Expert. Performed By: #### 2 488554, 6189568, 3940596, 282084473, 80965019, 3748051, 7127553 ####[address] [address] Monocytes/100 WBC (Bld) 12.7 % Normal 4.0-14.0 [facility] Comment on above: Order Comment: Order Added by Emely Expert. Performed By: #### 2 804785, 5863697, 5760087, 498612370, 77770744, 1105070, 0374485 ####[facility] [address] [place] [address] Monocytes/Leukocytes Auto (Bld) [Pure # fraction] 0.8 E9/L Normal 0.2-1.0 [facility] Comment on above: Order Comment: Order Added by Emely Expert. Performed By: #### 2 003434, 4924358, 2912451, 548486834, 76861041, 5693329, 2029367 ####[facility] [address] [place] [address] Neutrophils/100 WBC (Bld) 48.3 % Normal 36.0-75.0 [facility] Comment on above: Order Comment: Order Added by Emely Expert. Performed By: #### 2 816559, 6688422, 7886146, 802802647, 08202454, 2642407, 6477430 ####[facility] [address] [place] [address] Neutrophils/Leukocyte s Auto (Bld) [Pure # fraction] 3.0 E9/L Normal 2.0-7.5 [facility] Comment on above: Order Comment: Order Added by Discern Expert. Performed By: #### 2 454147, 6853057, 6069416, 845776583, 55363281, 3645036, 2872540 ####[facility] [address] [place] [address] CBC w/ Auto Diffon Erythrocyte distribution width (RBC) [Ratio] 14.4 % High 10.9-14.2 [facility] Comment on above: Performed By: #### 2 785032, 2482048, 8315683, 031568718, 18019221, 8419522, 0943446 ####[address] [place] [address] Hematocrit (Bld) [Volume fraction] 41.3 % Normal 34.0-46.0 [facility] Comment on above: Performed By: #### 2 747371, 1155338, 7762901, 216642451, 38134833, 2169733, 1387000 ####[facility] [address] [place] [address] Hemoglobin (Bld) [Mass/Vol] 13.9 g/dL Normal 12.0-16.0 [facility] Comment on above: Performed By: #### 2 430935, 7665581, 8052280, 419685238, 03124472, 4899607, 5985844 ####[facility] [address] [place] [address] MCH (RBC) [Entitic mass] 29.6 pg Normal 27.0-34.0 [facility] Comment on above: Performed By: #### 2 328141, 9792130, 4765928, 990509765, 69552335, 1567509, 2626474 ####[facility] [address] [place] [address] MCHC (RBC) [Mass/Vol] 33.7 g/dL Normal 31.4-36.0 [facility] Comment on above: Performed By: #### 2 268238, 2681637, 2365389, 485968902, 89507025, 7495100, 5013832 ####[address] [place] [address] MCV (RBC) [Entitic vol] 87.7 fL Normal 80.0-100.0 [facility] Comment on above: Performed By: #### 2 382949, 8561017, 5062364, 838584552, 98555028, 9934748, 2493155 ####[address] [address] Platelet mean volume (Bld) [Entitic vol] 8.8 fL Normal 6.4-10.8 [facility] Comment on above: Performed By: #### 2 359497, 8369508, 3891654, 748344105, 75074693, 4689192, 6245489 ####[address] [address] Platelets (Bld) [#/Vol] 258.0 E9/L Normal 150.0-500.0 [facility] Comment on above: Performed By: #### 2 581541, 6145659, 7962610, 267202076, 61329874, 2790906, 9095541 ####[address] [address] RBC (Bld) [#/Vol] 4.7 E12/L Normal 4.3-5.9 [facility] Comment on above: Performed By: #### 2 305789, 1794258, 6109463, 459056091, 19198534, 8740097, 0469846 ####[address] [address] WBC corrected for nucl RBC Auto (Bld) [#/Vol] 6.2 E9/L Normal 4.0-11.0 [facility] Comment on above: Performed By: #### 2 701420, 1260209, 3125241, 671538841, 69175979, 5318600, 1413951 ####[facility] [address] [place] [address] CHEMISTRYOrdered By: SYSTEM SYSTEM on 06-01-2023 Albumin [Mass/Vol] 4.3 g/dL Normal 3.3 - 5.0 gm/dL [facility] Albumin/Globulin [Mass ratio] 1.2 {ratio} Normal 1.1 - 2.2 [facility] ALP [Catalytic activity/Vol] 61 [iU]/d Normal 21 - 98 Int._Unit/L [facility] ALT No additional P-5'-P [Catalytic activity/Vol] 19 [iU]/d Normal 6 - 46 Int._Unit/L [facility] Anion gap [Moles/Vol] 10 mmol/L Normal 6 - 16 mEq/L F [facility] AST [Catalytic activity/Vol] 20 [iU]/d Normal 5 - 43 Int._Unit/L [facility] Bilirubin [Mass/Vol] 0.6 mg/dL Normal 0.0 - 1 .1 mg/dL [facility] Calcium [Mass/Vol] 10.2 mg/dL Normal 8.9 - 11. 1 mg/dL [facility] Chloride [Moles/Vol] 108 mmol/L Normal 101 - 1 11 mmol/L [facility] Cholesterol [Mass/Vol] 252 mg/dL High 120 - 200 mg/dL [facility] Cholesterol in HDL [Mass/Vol] 55 mg/dL Invalid Interpretation Code [facility] Cholesterol in LDL [Mass/Vol] 156 mg/dL High <=129mg/dL [facility] Cholesterol in VLDL [Mass/Vol] 61 mg/dL High 7 - 40 mg/dL [facility] CO2 [Moles/Vol] 27 mmol/L Normal 21 - 31 mmol/L [facility] Creatinine [Mass/Vol] 0.8 mg/dL Normal 0.5 - 1.3 mg/dL [facility] GFR/1.73 sq M.predicted among non-blacks MDRD (S/P/Bld) [Vol rate/Area] 75 mL/min/1.73 m2 Normal >=59mL/min/1. 73 m2 [facility] Chem S Globulin (S) [Mass/Vol] 3.6 g/dL Normal 1.4 - 4.0 gm/dL [facility] Glucose [Mass/Vol] 113 mg/dL Normal 55 - 199 mg/dL [facility] Potassium [Moles/Vol] 4.3 mmol/L Normal 3.5 - 5.3 mmol/L [facility] Protein [Mass/Vol] 7.9 g/dL High 6.0 - 7.8 gm/dL [facility] Sodium [Moles/Vol] 141 mmol/L Normal 135 - 145 mmol/L [facility] Triglyceride [Mass/Vol] 303 mg/dL High <=149mg/dL [facility] TSH Qn 2.15 m[IU]/L Normal 0.34 - 5.60 mcIU/mL [facility] Urea nitrogen [Mass/Vol] 24 mg/dL High 5 - 21 mg/dL [facility] Urea nitrogen/Creatinine [Mass ratio] 30 mg/mg High 10 - 20 [facility] CHEMISTRYOrdered By: Judith Quick se on 06-01-2023 HbA1c (Bld) [Mass fraction] 6.1 % High <=5.9% [facility] ChemAutoSS CMPon 06-01-2023 Albumin [Mass/Vol] 4.3 g/dL Normal 3.3-5.0 [facility] Comment on above: Performed By: #### 2 284895, 3721254, 7087819, 585708651, 94869290, 2635193, 8573503 ####[facility] [address] [place] [address] Albumin/Globulin (S) [Mass conc ratio] 1.2 Normal 1.1-2.2 [facility] Comment on above: Performed By: #### 2 003267, 4021748, 3599871, 993938320, 25802450, 1092144, 5632882 ####[facility] [address] [place] [address] ALP [Catalytic activity/Vol] 61 Int._Unit/L Normal 21-98 [facility] Comment on above: Performed By: #### 2 324575, 4322969, 1807717, 867860903, 48012955, 9920136, 4347270 ####[facility] [address] [place] [address] ALT No additional P-5'-P [Catalytic activity/Vol] 19 Int._Unit/L Normal 6-46 [facility] Comment on above: Performed By: #### 2 536525, 2560882, 7748054, 591142053, 88846987, 5651023, 4997473 ####[facility] [address] [place] [address] Anion gap [Moles/Vol] 10 mmol/L Normal 6-16 [facility] Comment on above: Performed By: #### 2 116371, 4621111, 4588682, 524544422, 96924878, 1170923, 2185165 ####[facility] [address] [place] [address] AST [Catalytic activity/Vol] 20 Int._Unit/L Normal 5-43 [facility] Comment on above: Performed By: #### 2 558659, 4565522, 5776114, 127606286, 89278524, 6264341, 8613137 ####[facility] [address] [place] [address] Bilirubin [Mass/Vol] 0.6 mg/dL Normal 0.0-1.1 [facility] Comment on above: Performed By: #### 2 077007, 9428579, 0375824, 548805943, 39070868, 0413840, 0727450 ####[facility] [address] [place] [address] Calcium [Mass/Vol] 10.2 mg/dL Normal 8.9-11.1 [facility] Comment on above: Performed By: #### 2 900112, 2351929, 9429395, 813686872, 44984187, 2106399, 6550474 ####[facility] [address] [place] [address] Chloride [Moles/Vol] 108 mmol/L Normal 101-111 [facility] Comment on above: Performed By: #### 2 519666, 4637612, 8436524, 100217809, 87999438, 3978085, 4567091 ####[facility] [address] [place] [address] CO2 [Moles/Vol] 27 mmol/L Normal 21-31 [facility] Comment on above: Performed By: #### 2 869851, 1167704, 6113720, 367469827, 79382945, 6674181, 9430412 ####[facility] [address] [place] [address] Creatinine [Mass/Vol] 0.8 mg/dL Normal 0.5-1.3 [facility] Comment on above: Performed By: #### 2 309862, 7379506, 3007827, 434644721, 40538877, 0962298, 5451813 ####[facility] [address] [place] [address] Globulin (S) [Mass/Vol] 3.6 g/dL Normal 1.4-4.0 [facility] Comment on above: Performed By: #### 2 428984, 5401426, 4752044, 374686449, 99305997, 9497515, 4301476 ####[facility] [address] [place] [address] Glucose [Mass/Vol] 113 mg/dL Normal 55-199 [facility] Comment on above: Result Comment: If t his glucose result represents a fasting glucose, interpretation should refer to the following reference range: 55-99 mg/dL Performed By: #### 2 950070, 9333625, 1064021, 964745275, 41299321, 0081142, 4700619 ####[facility] [address] [place] [address] Potassium [Moles/Vol] 4.3 mmol/L Normal 3.5-5.3 [facility] Comment on above: Performed By: #### 2 289818, 9985682, 5438011, 130747263, 45092261, 0334010, 6112315 ####[facility] [address] [place] [address] Protein [Mass/Vol] 7.9 g/dL High 6.0-7.8 [facility] Comment on above: Performed By: #### 2 897947, 4717614, 9829329, 638906124, 53879959, 6941173, 9168123 ####[facility] [address] [place] [address] Sodium [Moles/Vol] 141 mmol/L Normal 135-145 [facility] Comment on above: Performed By: #### 2 022143, 1137679, 2199420, 383411680, 95194874, 0829273, 2756001 ####[facility] [address] [place] [address] Urea nitrogen [Mass/Vol] 24 mg/dL High 5-21 [facility] Comment on above: Performed By: #### 2 908657, 6904055, 9849370, 980587777, 13721179, 3921976, 1848464 ####[facility] [address] [place] [address] Urea nitrogen/Creatinine [Mass ratio] 30 No Units High 10-20 [facility] Comment on above: Performed By: #### 2 328621, 4418186, 6209041, 040355456, 72236446, 4388182, 9457968 ####[facility] [address] [place] [address] Family Medicine Office/Clini c Noteon 06-01-2023 Family Medicine Office/Clinic Note HPI Staff Stephanie is a 77 year old female presenting to discuss DM Patient is here for follow up on Diabetes. How often are you checking your blood sugars? 1 times per day What are your average readings? 120'140's Paresthesias, Ulcerations or sores? no Lisinopril, aspirin, statin therapy? Yes Foot Exam: Eye Exam: Last A1c: no labs within the last year, did have ER visit in 12/2022 [facility] Questions/Concerns: pt states BS are running in the 140's and has been more thirsty Todays fasting blood sugar was 128 and yesterday 142 History of Present Illness pt presents today to establish care. is in need of well visit with labs Review of Systems PHQ Score Initial Depression Screen Score: 0 ROS - Provider Constitutional: no fever, no chills, no sweats, no fatigue Respiratory: no shortness of breath, no cough, no orthopnea, no wheezing. Cardiovascular: no chest pain, no palpitations, no edema. Neurologic: no headache, no dizziness, no numbness, no weakness. Physical Exam Vitals & Measurements HR: 60(Peripheral) RR: 18 BP: 138/70 SpO2: 97% HT: 66 in HT: 167 cm WT: 81.14 kg WT: 178.508 lb BMI: 29.09 General: alert, no acute distress ENMT: oral mucosa moist, no pharyngeal erythema or exudate Cardiovascular: regular rate and rhythm, normal peripheral perfusion Respiratory: Lungs CTA, respirations non labored Extremities: no deformity, no trauma Neurological: oriented x 4, LOC appropriate for age, CN II-XII intact, motor strength equal & normal bilaterally, speech normal Assessment/Plan 1. Wellness examination (Z00.00: Encounter for general adult medical examination without abnormal findings) pt presents today to establish care. wellness labs drawn in office today. all questions answered. RTC as needed Ordered: CBC w/ Auto Diff Comprehensive Metabolic Panel HgbA1c Lab Specimen Collect 14493 Lipid Panel Thyroid Stimulating Hormone 2. Fatigue (R53.83: Other fatigue) will order CBC and TSH Ordered: CBC w/ Auto Diff Comprehensive Metabolic Panel HgbA1c Lab Specimen Collect 43270 Lipid Panel Thyroid Stimulating Hormone 3. Type 2 diabetes mellitus (E11.9: Type 2 diabetes mellitus without complications) pt states she is not sure when her last HGBA1C was checked. will draw in office today. Fasting BS has been elevated recently Ordered: CBC w/ Auto Diff Comprehensive Metabolic Panel HgbA1c Lab Specimen Collect 40566 Lipid Panel Thyroid Stimulating Hormone 4. Excessive thirst (R63.1: Polydipsia) HGBA1C done in office today Ordered: CBC w/ Auto Diff Comprehensive Metabolic Panel HgbA1c Lab Specimen Collect 52466 Lipid Panel Thyroid Stimulating Hormone Follow-up No qualifying data available Problem List/Past Medical History Ongoing Arthritis Breast cancer Cervical radiculitis Chronic cough Diabetes mellitus, type II Episodic tension type headache Excessive thirst Fatigue GERD (gastroesophageal reflux disease) Hearing deficit HTN (hypertension) Hypothyroidism Lower back pain Mononucleosis Osteoarthritis Sciatica Type 2 diabetes mellitus Wellness examination Historical Achilles tendonitis Arthritis Breast cancer 2, 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 Medications Albuterol (Eqv-Ventolin HFA) 90 mcg/inh inhalation aerosol, 2 puff(s), Inhalation, q6hr, 2 refills amLODIPine 10 mg Tab calcium (as calcium citrate) 200 mg oral tablet, See Instructions Collagen Skin Renewal famotidine 40 mg Tab, 40 mg= 1 tab(s), Oral, Once a day (at bedtime) fluticasone Nasal 0.05 mg/inh [place] losartan 100 mg Tab meloxicam 15 mg Tab, 15 mg= 1 tab(s), Oral, Daily Multi Vitamin+ Nature's Bounty Probiotic Allergies Accupril (Unknown) Anaprox (Unknown) Avelox (Unknown) Diflucan (Unknown) cephalexin (Unknown) erythromycin (Stomach upset) sulfa drugs (Unknown) Social History Alcohol - Denies Alcohol Use, 01/04/2023 Household alcohol concerns: No., 01/04/2023 Substance Abuse - Denies Substance Abuse, 01/04/2023 Household substance abuse concerns: No., 01/04/2023 Tobacco - Denies Tobacco Use, 01/04/2023 Never (less than 100 in lifetime) Tobacco Use:. Never Smokeless Tobacco Use:. Household tobacco concerns: No., 06/01/2023 Family History Family history is negative Immunizations Vaccine Date Status influenza virus vaccine, inactivated 05/27/2022 Recorded influenza virus vaccine, inactivated 06/19/2021 Recorded SARS-CoV-2 (COVID-19) mRNA-1273 vaccine 10/30/2020 Recorded influenza virus vaccine, inactivated 05/27/2020 Recorded influenza virus vaccine, inactivated 06/07/2019 Recorded influenza virus vaccine, inactivated 05/31/2018 Recorded pneumococcal 13-valent vaccine 04/10/2018 Recorded influenza virus vaccine, inactivated 08/29/2017 Recorded (more content not included)... Normal [facility] Comment on above: Result Comment: Elec tronically Signed By: Britney PATEL, Luzmaria Blake\.br\Date and Time Signed: 06/01/23 13:07 EDT HEMATOLOGYOrdered By: SYSTEM SYSTEM on 06-01-2023 Basophils/100 WBC (Bld) 1.2 % Normal 0.0 - 2.0 % [facility] HemeAutoSS Basophils/Leukocytes Auto (Bld) [Pure # fraction] 0.1 E9/L Normal 0.0 - 0.2 E9/L [facility] HemeAutoSS Eosinophils/100 WBC (Bld) 4.1 % Normal 0.0 - 8.0 % [facility] HemeAutoSS Eosinophils/Leukocyte s Auto (Bld) [Pure # fraction] 0.3 E9/L Normal 0.0 - 0.5 E9/L [facility] HemeAutoSS Lymphocytes/100 WBC (Bld) 33.7 % Normal 14.0 - 50.0 % [facility] HemeAutoSS Lymphocytes/Leukocyte s Auto (Bld) [Pure # fraction] 2.1 E9/L Normal 1.0 - 4.0 E9/L [facility] HemeAutoSS Monocytes/100 WBC (Bld) 12.7 % Normal 4.0 - 14.0 % [facility] HemeAutoSS Monocytes/Leukocytes Auto (Bld) [Pure # fraction] 0.8 E9/L Normal 0.2 - 1.0 E9/L [facility] HemeAutoSS Neutrophils/100 WBC (Bld) 48.3 % Normal 36.0 - 75.0 % [facility] HemeAutoSS Neutrophils/Leukocyte s Auto (Bld) [Pure # fraction] 3.0 E9/L Normal 2.0 - 7.5 E9/L [facility] HemeAutoSS HEMATOLOGYOrdered By: Daryl Daniel on 06-01-2023 Erythrocyte distribution width (RBC) [Ratio] 14.4 % High 10.9 - 14.2 % [facility] HemeAutoSS Hematocrit (Bld) [Volume fraction] 41.3 % Normal 34.0 - 46.0 % [facility] HemeAutoSS Hemoglobin (Bld) [Mass/Vol] 13.9 g/dL Normal 12.0 - 16.0 gm/dL [facility] HemeAutoSS MCH (RBC) [Entitic mass] 29.6 pg Normal 27.0 - 34.0 pg [facility] HemeAutoSS MCHC (RBC) [Mass/Vol] 33.7 g/dL Normal 31.4 - 36.0 gm/dL [facility] HemeAutoSS MCV (RBC) [Entitic vol] 87.7 fL Normal 80.0 - 100.0 fL [facility] HemeAutoSS Platelet mean volume (Bld) [Entitic vol] 8.8 fL Normal 6.4 - 10.8 fL [facility] HemeAutoSS Platelets (Bld) [#/Vol] 258.0 E9/L Normal 150.0 - 500.0 E9/L [facility] HemeAutoSS RBC (Bld) [#/Vol] 4.7 E12/L Normal 4.3 - 5.9 E12/L [facility] HemeAutoSS WBC corrected for nucl RBC Auto (Bld) [#/Vol] 6.2 E9/L Normal 4.0 - 11.0 E9/L [facility] HemeAutoSS [id number] 06-01-2023 HbA1c (Bld) [Mass fraction] 6.1 % High <=5.9 [facility] Comment on above: Performed By: #### 2 205497, 9514623, 0719274, 434045750, 06462487, 8789926, 3093701 ####[facility] [address] [place] [address] Lipid Panelon 06-01-2023 Cholesterol [Mass/Vol] 252 mg/dL High 120-200 [facility] Comment on above: Performed By: #### 2 440207, 7801980, 1236461, 753757423, 66016367, 0066218, 7478107 ####[facility] [address] [place] [address] Cholesterol in HDL [Mass/Vol] 55 mg/dL Invalid Interpretation Code [facility] Comment on above: Result Comment: HDL > or equal to 60 mg/dL: Low cardiovascular risk HDL < 40 mg/dL : High cardiovascular risk Performed By: #### 2 313198, 4365603, 0968646, 130505634, 97140869, 8677851, 9239701 ####[facility] [address] [place] [address] Cholesterol in LDL [Mass/Vol] 156 mg/dL High <=129 [facility] Comment on above: Performed By: #### 2 750720, 9690599, 8466472, 565342983, 05904082, 0925479, 3071580 ####[facility] [address] [place] [address] Cholesterol in VLDL [Mass/Vol] 61 mg/dL High 7-40 [facility] Comment on above: Performed By: #### 2 963257, 8593973, 8094066, 603913690, 48615462, 0980334, 6001184 ####[facility] [address] [place] [address] Triglyceride [Mass/Vol] 303 mg/dL High <=149 [facility] Comment on above: Performed By: #### 2 355716, 7866847, 3808928, 496265144, 67559560, 4405197, 0421259 ####[facility] [address] [place] [address] TSHon 06-01-2023 TSH Qn 2.15 m[IU]/L Normal 0.34-5.60 [facility] Comment on above: Performed By: #### 2 186744, 9305239, 2126691, 856379912, 74296541, 4060880, 6478757 ####[facility] [address] [place] [address] eGFRon 06-01-2023 GFR/1.73 sq M.predicted among non-blacks MDRD (S/P/Bld) [Vol rate/Area] 75 mL/min/1.73 m2 Normal >=59 [facility] Comment on above: Order Comment: Order added by Discern Expert. Result Comment: Phone Manager darnell kidney disease could be indicated at eGFR's of less than 60 mL/min/1.73m2. Kidney failure is indicated at less than 15 mL/min/1.73m2. Performed By: #### 2 424187, 1864191, 8921861, 713719857, 10971644, 0403134, 6607773 ####[facility] [address] [place] [address] Consultation Noteon 05-10-20 Consultation Note [id number]#1 .00CD:127 [facility] Consultation Note [id number]#1. 00CD:127 [facility] CHEMISTRYOrdered By: Lab ROP User on 05-09-2023 Glucose [Mass/Vol] 93 mg/dL Normal 55 - 99 mg/dL FTM C POC Subsection POC Device SN [id number] Invalid Interpretation Code [facility] POC Subsection POC User ID [id number] Invalid Interpretation Code [facility] POC Subsection POC Username JESSICA KIRKPATRICK Invalid Interpretation Code [facility] POC Subsection Capillary Glucose POCon 04-13 Glucose [Mass/Vol] 93 mg/dL Normal 55-99 [facility] Comment on above: Performed By: #### 2 [id number] ####[facility] [address] [place] [address] Consent for Procedure/Surger yon 05-09-2023 Consent for Procedure/Surgery [id number] .00CD:127 [facility] Consent for Treatmenton 04-13 Consent for Treatment [id number]#1 .00CD:127 [facility] Discharge Instructionson Discharge Instructions [id number]#1 .00CD:127 [facility] IntraOperative Documentson 0 05-09-2023 IntraOperative Documents [id number] .00CD:127 [facility] Main OR Intraoperative Recor don 05-09-2023 Main OR Intraoperative Record IntraOp Document Type [facility] Summary Primary Physician: Junito Salvador MD Finalized Date/Time: 05/09/23 13:15:11 Pt. Name: STEPHANIE WASSERMAN/Sex: 1945 Female Med Rec #: [id number] Physician: Junito Salvador MD Financial #: [id number] Pt. Type: P Room/Bed: / Admit/Disch: 05/09/23 12:26:45 - Institution: Case Times [facility] Entry 1 Patient Times In Room 05/09/23 13:08:00 Out Room 05/09/23 13:15:00 Procedure Times Start 05/09/23 13:11:00 Stop 05/09/23 13:14:00 Anesthesia Times Last Modified By: Tamiko Martinez RN 05/09/23 13:14:46 Case Attendance FTPM Entry 1 Entry 2 Entry 3 Case Attendee Madeleine GARSIA, Junito Martinez RN, Tamiko Davila RN, Radha Role Performed Surgeon - Primary Service Unit Operator - Primary Scrub - Primary Time In 05/09/23 13:08:00 05/09/23 13:08:00 05/09/23 13:08:00 Time Out 05/09/23 13:15:00 05/09/23 13:15:00 05/09/23 13:15:00 Procedure LUMBAR EPIDURAL STEROID LUMBAR EPIDURAL STEROID LUMBAR EPIDURAL STEROID INJECTION(.) INJECTION(.) INJECTION(.) Comments Last Modified By: Tamiko Martinez RN, RN, Tamiko Barrett RN 05/09/23 13:14:47 05/09/23 13:14:47 05/09/23 13:14:47 Entry 4 Case Attendee Raheem DONG(RJohanne Cerrato Role Performed Hvac Journeyman Time In 05/09/23 13:08:00 Time Out 05/09/23 13:15:00 Procedure LUMBAR EPIDURAL STEROID INJECTION(.) Comments Last Modified By: Tamiko Martinez RN 05/09/23 13:14:47 Perioperative Protocols FTPM Pre-Care Text: Implements protective measures prior to operative or invasive procedure, confirms identity before the operative or invasive procedure, verifies operative procedure, surgical site, and laterality Entry 1 Procedure(s) LUMBAR EPIDURAL STEROID Patient Identity Birthday, ID Band INJECTION(.) Verified (select at Check, Patient least 2): Participation Consents / H and P HandP, Surgery/Procedure Operative Site Present Verified Consent Marking Verified Surgical Site Yes Laterality Verified Yes Verified Procedure Verified Yes Correct Patient Yes Position Verified Availability Equipment, Medication, Prep Dry Yes Verified (If X-ray Applicable) PreOp Antibiotic No Time Out Tamiko Martinez RN, Giovanni HENDRICKSON, Madeleine Garcia MD, Raheem Jeffery(R), Johanne Time Out Complete 05/09/23 13:08:00 Outcomes Met? Yes Last Modified By: Tamiko Martinez RN 05/09/23 13:08:35 Post-Care Text: The patient is free from signs and symptoms of injury caused by extraneous objects Allergy Information FTPM Pre-Care Text: Verifies allergies Entry 1 Allergies Reviewed? Yes Allergies Reviewed Self/Patient With Outcomes Met? Yes Last Modified By: Tamiko Martinez RN 05/09/23 12:54:02 Post-Care Text: The patient received appropriate medication(s) safely administered during the perioperative period Surgical Procedures FTPM Entry 1 Procedure Description Procedure LUMBAR EPIDURAL STEROID Modifiers . INJECTION Surgeon Description L5-S1 LESI Primary Procedure Yes Primary Surgeon Madeleine GARSIA, Junito Weldon Start 05/09/23 13:11:00 Stop 05/09/23 13:14:00 Anesthesia Type None Surgical Service Pain Management Wound Class 1 - Clean Last Modified By: Tamiko Martinez RN 05/09/23 13:14:49 General Case Data FTPM Pre-Care Text: Classifies surgical wound, implements aseptic technique, initiates traffic control Entry 1 Case Information OR Pain Proc Room Case Level Level 2 Wound Class 1 - Clean Specialty Pain Management Preop Diagnosis M54.17 Postop Same As Preop Yes Postop Diagnosis M54.17 Outcomes Met? Yes Last Modified By: Tamiko Martinez RN 05/09/23 13:08:44 Post-Care Text: The patient is free from signs and symptoms of infection Skin Assessment (Pre Procedure) FTPM Pre-Care Text: Implements protective measures to prevent skin/ tissue injury due to thermal or mechanical sources Evaluates for signs and symptoms of physical injury to skin and tissue Entry 1 Skin Integrity Intact, [place], Warm, and Skin Abnormality No Dry Outcomes Met? Yes Last Modified By: Tamiko Martinez RN 05/09/23 12:54:10 Post-Care Text: The patient is free from signs and symptoms of injury caused by extraneous objects Patient Positioning FTPM Pre-Care Text: Identifies physical alterations that require additional precautions for procedure-specific positioning, verifies presence of prosthetics or corrective devices, positions the patient, evaluates the patient for signs and symptoms of injury as a result of positioning Entry 1 Procedure LUMBAR EPIDURAL STEROID Body Position Prone INJECTION(.) Feet Uncrossed? Yes Left Arm Position Resting at Side Right Arm Position Resting at Side Left Leg Position Extended Right Leg Position Extended Positioning Device Pillow Under Head Large, Safety Strap, Pillow Large Under Knees Press Points Checked Yes By Tamiko Martinez RN Outcomes (more content not included)... Normal [facility] Main OR Preoperative Recordo n 05-09-2023 Main OR Preoperative Record Holding Area Document Type FTPM Summary Primary Physician: Junito Salvador MD Finalized Date/Time: 05/09/23 12:49:52 Pt. Name: JEREMY STEPHANIECHRISTINA KinneyB./Sex: 1945 Female Med Rec #: [id number] Physician: Junito Salvador MD Financial #: [id number] Pt. Type: P Room/Bed: / Admit/Disch: 05/09/23 12:26:45 - Institution: Case Times Holding FTPM Pre-Care Text: Verifies consent for planned procedure, identifies individual values and wishes concerning care, includes family members in perioperative teaching Secures patient's records' belongings, and valuables, maintains patient's dignity and privacy, and maintains patient confidentiality Entry 1 In Holding 05/09/23 12:46:00 Outcomes Met? Yes Last Modified By: Bruna Kirkpatrick RN 05/09/23 12:47:02 Post-Care Text: The patient participates in decisions affecting his or her perioperative plan of care The patient's right to privacy is maintained Surgery Checklist FTPM Entry 1 Patient Birthday, ID Band Procedure History and Physical, Identification: Check, Patient Verification: Surgical Consent, With Participation Patient NPO after Midnight: No Date/Time: 05/09/23 12:47:00 Results Reviewed 0800 eggs toast and Personal Items: Cataract Lens Implant, Comments: water. Glasses, Jewelry Personal Items Pt. wearing glasses, Complaints of Pain: Yes Comment: three rings and bilateral hearing aids Pain Comment: 8/10 lower back pain Operative Site Yes Marking: Marked By: Dr. Salvador Location: L5-S1 Availability Equipment, X-Ray Verified: Does Patient Smoke No Patient states Yes Comment - Adult daughter-Nancy postop adult Supervision supervision available Case Cancelled in No Holding Area see comments below for reason Last Modified By: Bruna Kirkpatrick RN 05/09/23 12:49:51 Finalized By: Bruna Kirkpatrick RN Document Signatures Signed By: Bruna Kirkpatrick RN 05/09/23 12:49 Normal [facility] Operative Reporton Operative Report Patient: STEPHANIE WASSERMAN Age: 77 years Sex: Female : 1945 Associated Diagnoses: None Author: Junito Salvador MD Procedure Procedure: Lumbar Epidural Steroid Injection with Fluoroscopic Guidance at L5/S1 Diagnosis: Lumbosacral radiculitis Anesthesia: Local The patient was identified in the pre-op area. The procedure, including risks benefits and alternatives was discussed with the patient. The patient agreed to proceed. Informed consent was obtained and the site(s) marked. The patient was brought to the procedure room and placed in the prone position with padding under the abdomen to reduce lumbar lordosis. Time out was taken. The back was prepped and draped in sterile fashion with Chloraprep. Skin and subcutaneous tissues were anesthetized with 6 mL of Lidocaine 2% through a 25G needle. An 18G Touhy needle was then advanced under fluoroscopic guidance (A/P and contralateral oblique views) onto the inferior lamina and then advanced cephalad into the L5/S1 epidural space using loss of resistance technique with a plastic BIANCA syringe. Isovue 2mL was injected under live fluoroscopy which demonstrated appropriate epidural spread without vascular uptake. After confirmation of negative aspiration, 6mL of PF normal saline and 10mg of PF dexamethasone (in 1mL) were injected. The needle was removed and a bandage applied. The patient was brought to the recovery area in stable condition and then monitored for an appropriate period of time. The patient was discharged home in good condition with post-procedure instructions. No apparent complications. Epidural injection procedure Physical Exam: vital signs Vital Signs 05/09/2023 12:42 EDT Heart Rate Monitored 58 bpm LOW SpO2 98 % 05/09/2023 12:41 EDT Temperature Axillary 36.8 DegC HI 05/09/2023 12:41 EDT Systolic Blood Pressure 155 mmHg HI Diastolic Blood Pressure 80 mmHg Mean Arterial Pressure, Monitered 105 mmHg 05/09/2023 12:41 EDT Respiratory Rate 15 br/min . Normal [facility] Comment on above: Result Comment: Elec tronically Signed By: Madeleine GARSIA, Junito Weldon\.br\Date and Time Signed: 05/09/23 13:15 EDT Office Visiton 05-06-2023 Follow-up visit [id number] Stephanie Wasserman 1945 F Date Provider Department Center 05/06/2023 VIRGILIO RAMÍREZ CARD [facility] Family History Problem Relation Age of Onset Lung disease Mother Diabetes Mother's Sister Family Status - Relation Status Age at Mother Father Mother's Sister Other Level of Service:53737 AL OFFICE/OUTPATIENT ESTABLISHED MOD MDM 30-39 MIN Normal [facility] Patient Correspondenceon Patient Correspondence [id number]# 1.00CD:[address] [facility] Insurance Correspondence Off iceon 04-21-2023 Insurance Correspondence Office [id number]#1 .00CD:[address] [facility] Retail - Clinical Noteon Retail - Clinical Note [id number]#1 .00CD:127 [facility] Consent for Treatmenton Consent for Treatment [id number]# 1.00CD:127 [facility] Consultation Noteon 03-17-20 Consultation Note Chief complaint: Low back and left leg pain History of present illness: This is a 77-year-old female here for a chief complaint of low back and left leg pain. The patient rates the pain as a 0-1 out of 10 at rest. She states that if she is standing the pain will get more severe and it can get up to an 8 out of 10. She has been doing her physical therapy exercises which do seem to have helped. She states the pain will still go down her left leg but it has not been nearly as problematic. She does not have any significant right-sided symptoms. She denies numbness or weakness. The patient denies additional neurologic symptoms or issues with bladder or bowel control. The patient's past medical, surgical, and social history along with medications and allergies were reviewed. Review of systems was done on 10 systems Physical examination: General: Pleasant white female in no acute distress. Patient appears well-nourished. Vital signs stable Head exam: Head is normocephalic and external ears are normal Neck exam: No tenderness Cardiovascular exam: No signs of poor perfusion and no peripheral edema Respiratory exam: Breathing is unlabored and there is no wheezing present Abdomen exam: Abdomen soft and nondistended Back exam: No tenderness Musculoskeletal exam: Strength 5 out of 5. Muscle tone is normal. Neurologic exam: Sensation intact. Reflexes diminished but symmetric Psych exam: Affect is appropriate. Alert and oriented Skin exam: No lesions Assessment: The patient's signs and symptoms are consistent with lumbosacral radiculopathy, lumbar stenosis with neurogenic claudication, and lumbosacral spondylosis. We reviewed the patient's imaging. Her MRI was notable for multilevel degenerative disc disease and spondylosis but most significantly she has severe central spinal stenosis at L4-5 and moderate stenosis at L3-4 and L5-S1. Oswestry disability index score was 20% OARRS report was reviewed and was appropriate Plan: We discussed options. She has had pain for over 3 months. She has had some benefit from physical therapy and is able to manage things for now so we can hold off on interventions. If the pain were to worsen she would be an appropriate candidate for an lumbar epidural steroid injection. In a worst case scenario we could consider surgical consultation but I think she would have to get a lot worse before she would really need to consider that. For now I advised her to continue with the exercises she learned in therapy. We discussed the potential risks and benefits of this plan and the patient was in agreement to proceed. We will have the patient follow-up on an as-needed basis for repeat evaluation. Normal [facility] Comment on above: Result Comment: Chantelle armendariz Signed By: Lopez Collins MD\.boogie\Date and Time Signed: 03/17/23 21:39 EDT Office/Clinic Note-Physician on 03-17-2023 Office/Clinic Note-Physician [id number]# 1.00CD:[address] [facility] Patient Correspondenceon Patient Correspondence [id number]# 1.00CD:[address] [facility] Patient History Officeon Patient History Office [id number]# 1.00CD:[address] [facility] MRI Spine Lumbar w/o Contras ton 03-07-2023 MRI Spine Lumbar w/o Contrast Exam Date/Time: 03/01/2023 16:20 EDT Reason for Exam: M54.17, M48.062 Report IMPRESSION: DEGENERATIVE CHANGES OF THE LUMBAR SPINE DETAILED. EXAM: MRI of the lumbar spine without contrast History: Low back pain Technique: Multiplanar multisequence MRI of the lumbar spine was obtained without intravenous contrast. Comparison: MRI lumbar spine 11/11/2017 Findings: The conus medullaris ends normally. Mild dextroscoliosis of the lower lumbar spine. Straightening of the lumbar lordosis. The vertebral body heights are well maintained. There is no aggressive bone marrow signal abnormality. Disc desiccation throughout the lumbar spine. Moderate intervertebral disc height loss at L3-L4 and L4-L5 and mild intervertebral disc height loss at L1-L2 and L2-L3. Multilevel degenerative endplate spurring. L1-L2: Small disc bulge. Mild facet arthropathy. Mild bilateral neuroforaminal stenosis. No spinal canal stenosis. L2-L3: Small disc bulge. Mild facet arthropathy. Ligamentum flavum thickening. Mild spinal canal stenosis. Mild bilateral neuroforaminal stenosis. L3-L4: Small disc bulge. Moderate facet arthropathy. Ligament flavum thickening. Moderate spinal canal stenosis. Moderate right and severe left neuroforaminal stenosis. L4-L5: Small disc bulge. Moderate facet arthropathy. Ligamentum flavum thickening. Severe spinal canal stenosis. Moderate to severe bilateral neuroforaminal stenosis. L5-S1: Small disc bulge. Moderate facet arthropathy. Moderate left and severe right neuroforaminal stenosis. Moderate spinal canal stenosis. Overall these degenerative changes have mildly progressed since prior examination. Visualized paravertebral soft tissues appear within normal limits as visualized. A few round hyperintense T2 structures of the right kidney most likely represent renal cysts. Report Ordering Provider: Lopez Collins FINAL REPORT Dictated: 03/07/2023 10:28 am King Salazar DO Signed (Electronic Signature): 03/07/2023 10:28 am Signed by: King Salazar DO Transcribed by: ALEXANDREA Technologist: GWYN Technical Comments None [facility] Consent for Treatmenton 02-11 Consent for Treatment [id number]#1 .00CD:[address] [facility] RAD - MRI Screening Formon 0 03-01-2023 RAD - MRI Screening Form [id number]# 1.00CD:127 [facility] Insurance Correspondence Off iceon 02-21-2023 Insurance Correspondence Office [id number]# 1.00CD:127 [facility] Outside Records Officeon Outside Records Office [id number]# 1.00CD:127 [facility] Physician Orderon 02-21-2023 Physician Order [id number]#1 .00CD:127 [facility] Physician Order [id number]# 1.00CD:127 [facility] Radiology Outside Office [employer] yon 02-16-2023 Radiology Outside Office Copy [id number]# 1.00CD:127 [facility] Patient History Officeon Patient History Office [id number]# 1.00CD:127 [facility] XR Hip 2-3 Views Lefton XR Hip 2-3 Views Left Exam Date/Time: 02/10/2023 15:24 EDT Reason for Exam: M54.17, M16.12 Report IMPRESSION: NEGATIVE LEFT HIP. EXAM: XR Hip 2-3 Views Left DATE: 02/10/2023 CLINICAL HISTORY: M54.17, M16.12. COMPARISON: None available. TECHNIQUE: AP and lateral radiographs of the left hip were obtained. FINDINGS: There is no displaced fracture, dislocation, significant degenerative changes, evidence of avascular necrosis, or other findings of concern identified. Ordering Provider: Lopez Collins FINAL REPORT Dictated: 02/13/2023 5:03 pm Andrea Dudley MD Signed (Electronic Signature): 02/13/2023 5:03 pm Signed by: Andrea Dudley MD Transcribed by: ALEXANDREA Technologist: HAYDE, Technical Comments Radiation Dose: Ka,r in mGy = na DAP = na Normal [facility] XR Spine Lumbar Complete Inc luding Bendion 02-13-2023 XR Spine Lumbar Complete Including Bendi Exam Date/Time: 02/10/2023 15:25 EDT Reason for Exam: M54.17, M16.12 Report IMPRESSION: MODERATE ROTARY DEXTROSCOLIOSIS AND ADVANCED LUMBAR SPONDYLOSIS, DESCRIBED. NO EVIDENCE OF INSTABILITY WITH FLEXION OR EXTENSION POSITIONING. EXAM: XR Spine Lumbar Complete Including Bendi DATE: 02/10/2023 CLINICAL HISTORY: M54.17, M16.12. COMPARISON: None available. TECHNIQUE: Upright AP, neutral, flexion and extension lateral, and routine oblique and coned-down AP and lateral views of the lumbar spine were obtained. FINDINGS: Moderate rotary dextroscoliosis is present with advanced asymmetric degenerative disc disease predominantly along the left side of the convexity of the curvature, with prominent posterolateral endplate osteophytosis and hypertrophic facet changes. Approximately 5 to 6 mm of retrolisthesis of L3 over L4 (and to a lesser extent L2 or L3 and L4 over L5) do not significantly change with flexion and extension positioning. There is no acute fracture, worrisome bone destruction, or acute findings identified. The sacroiliac joints are unremarkable. Ordering Provider: Lopez Collins FINAL REPORT Dictated: 02/13/2023 5:06 pm Andrea Dudley MD Signed (Electronic Signature): 02/13/2023 5:06 pm Signed by: Andrea Dudley MD Transcribed by: ALEXANDREA Technologist: HAYDE Technical Comments Radiation Dose: Ka,r in mGy = na DAP = na Normal [facility] Consultation Noteon 02-12-20 Consultation Note Chief complaint: Low back and left leg pain History of present illness: This is a 77-year-old female here for a chief complaint of severe low back and left leg pain. The patient rates the pain as a 5 out of 10. She reports that she has had the symptoms for over 6 months. There was no obvious cause. The pain is constant but much worse when she is standing and walking. She reports that she can stand for about 10 minutes before she has to sit. When she does sit the symptoms will improve rather quickly. In addition to the pain in the left leg she will get a sensation of heaviness and weakness. She denies loss of bladder or bowel control or loss of balance. She denies any significant right-sided symptoms. She has tried ibuprofen with limited benefit. She has been through physical therapy with limited benefit. She does not want to be on opiates. She also does not want to have surgery but is interested in a cortisone injection if that would help. The patient denies additional neurologic symptoms or issues with bladder or bowel control. The patient's past medical, surgical, and social history along with medications and allergies were reviewed. Review of systems was done on 10 systems Physical examination: General: Pleasant white female in no acute distress. Patient appears well-nourished. Vital signs stable Head exam: Head is normocephalic and external ears are normal Neck exam: No tenderness Cardiovascular exam: No signs of poor perfusion and no peripheral edema Respiratory exam: Breathing is unlabored and there is no wheezing present Abdomen exam: Abdomen soft and nondistended Back exam: No tenderness Musculoskeletal exam: Strength 5 out of 5 with exception of 4-5 for dorsiflexion of the left foot and left great toe. Pain with external rotation of the left hip. Neurologic exam: Sensation intact. Reflexes diminished but symmetric. Psych exam: Affect is appropriate. Alert and oriented Skin exam: No lesions Assessment: The patient's signs and symptoms are consistent with lumbosacral radiculopathy, lumbar stenosis with neurogenic claudication, and arthropathy of the left hip. We reviewed the patient's imaging. Her lumbar x-ray was notable for a mild dextroscoliosis centered at L4 as well as some severe multilevel degenerative disc disease. Oswestry disability index score was 46% OARRS report was reviewed and was appropriate Plan: We discussed options. We will check an x-ray of her left hip to rule out coexisting hip pathology however her symptoms are very consistent with neurogenic claudication so we will check a lumbar MRI to evaluate for significant neural impingement. If this is confirmed we will most likely proceed with a lumbar epidural steroid injection however before we decide for sure on that I went to get the imaging first. We discussed the potential risks and benefits of this plan and the patient was in agreement to proceed. I will see the patient for follow-up after the MRI for repeat evaluation. [facility] Comment on above: Result Comment: Elec tronically Signed By: Dennis GARSIA, Lopez\.br\Date and Time Signed: 02/10/23 22:28 EDT Consent for Treatmenton Consent for Treatment [id number]#1 .00CD:127 [facility] Consent for Treatment [id number]#1 .00CD:127 [facility] HIPAA Forms Officeon 023 HIPAA Forms Office [id number]#1 .00CD:127 [facility] Legal Correspondence Officeo n 02-10-2023 Legal Correspondence Office [id number]#1 .00CD:127 [facility] Legal Correspondence Office [id number]#1 .00CD:127 [facility] Office/Clinic Note-Physician on 02-10-2023 Office/Clinic Note-Physician [id number]#1 .00CD:127 [facility] Patient Correspondenceon Patient Correspondence [id number]#1 .00CD:127 [facility] Patient Correspondence [id number]#1 .00CD:[address] [facility] Patient Correspondence [id number]#1 .00CD:[address] [facility] Patient Correspondence [id number]#1 .00CD:127 [facility] Patient Correspondence [id number]#1 .00CD:127 [facility] Patient Correspondence [id number]#1 .00CD:127 [facility] Physician Orderon 02-10-2023 Physician Order [id number]#1 .00CD:127 [facility] Physician Order [id number]# 1.00CD:127 [facility] Lab Reportson 02-08-2023 Lab Reports [id number]#1 .00CD:127 [facility] RAD - Mammography Reporton 0 01-21-2023 RAD - Mammography Report [id number]# 1.00CD:127 [facility] MA Mamm Screen w/CAD if perf and 3D RTon 01-20-2023 MA Mamm Screen w/CAD if perf and 3D RT Exam Date/Time: 01/19/2023 15:47 EDT Reason for Exam: Z12.31;Screening Report IMPRESSION: BIRADS 2 BENIGN FINDINGS, NORMAL INTERVAL FOLLOW-UP.12 MONTH RECALL. CLINICAL HISTORY: Screening, Z12.31. COMPARISON: 02/12/2020. COMMENT: The patient has had prior left mastectomy. Routine views and tomosynthesis views of the right breast were obtained. There are scattered areas of fibroglandular density. Small nodular densities are stable in appearance. There are benign breast calcifications. No dominant breast mass nor neoplastic calcifications are identified. There has been no significant change from the previous exam. The examination was reviewed with Computer Aided Detection. Breast Density: No Mammography is very important to your health. The current [employer] [place] [employer] and National [employer] guidelines recommends annual mammography beginning at age 40. This facility utilizes a reminder system to ensure all patients receive reminder notifications at the appropriate time based on the recommendations of this exam. Board Certified Radiologists. Accredited by the ACR and FDA. Ordering Provider: Luzmaria Tan FINAL REPORT Dictated: 01/20/2023 2:26 pm Jamin Garcias M.D. Signed (Electronic Signature): 01/20/2023 2:26 pm Signed by: Jamin Garcias M.D. Transcribed by: ALEXANDREA Technologist: MENA Assessment: BI-RADS Category 2-Benign finding Recommendation: Normal interval follow-up Normal [facility] RAD - Mammography Reporton 0 01-20-2023 RAD - Mammography Report [id number]# 1.00CD:[address] [facility] Consent for Treatmenton 01-10 Consent for Treatment [id number]#1 .00CD:[address] [facility] GI PANEL (PCR)on 01-10-2023 Adenovirus F 40/41 Not detected Normal NOT DETECTED [facility] Comment on above: Performed By: #### G IPANEL #### [facility] [address] [place] [address] Dr. Lakshmi Smith Astrovirus Not detected Normal NOT DETECTED [facility] Comment on above: Performed By: #### G IPANEL #### [facility] [address] [place] [address] Dr. Lakshmi Smith C. Diff toxin A/B Not detected Normal NOT DETECTED [facility] Comment on above: Performed By: #### G IPANEL #### [facility] [address] [place] [address] Dr. Lakshmi Smith Campylobacter Not detected Normal NOT DETECTED [facility] Comment on above: Performed By: #### G IPANEL #### [facility] [address] [place] [address] Dr. Lakshmi Smith Cryptosporidium Not detected Normal NOT DETECTED [facility] Comment on above: Performed By: #### G IPANEL #### [facility] [address] [address] [address] Lakshmi Smith Cyclos. Cayetanensis Not detected Normal NOT DETECTED [facility] Comment on above: Performed By: #### G IPANEL #### [facility] [address] [address] [address] Lakshmi Smith E. Coli O157 Not Applicable Normal Not Applicable [facility] Comment on above: Performed By: #### G IPANEL #### [facility] [address] [address] [address] Lakshmi Smith E. histolytica Not detected Normal NOT DETECTED [facility] Comment on above: Performed By: #### G IPANEL #### [facility] [address] [address] [address] Lakshmi Smith EAEC Not detected Normal NOT DETECTED [facility] Comment on above: Performed By: #### G IPANEL #### [facility] [address] [address] [address] Lakshmi Smith EIEC Not detected Normal NOT DETECTED [facility] Comment on above: Performed By: #### G IPANEL #### [facility] [address] [place] [address] Dr. Lakshmi Smith EPEC Not detected Normal NOT DETECTED [facility] Comment on above: Performed By: #### G IPANEL #### [facility] [address] [place] [address] Dr. Lakshmi Smith ETEC Not detected Normal NOT DETECTED [facility] Comment on above: Performed By: #### G IPANEL #### [facility] [address] [place] [address] Dr. Lakshmi Smith G. Lamblia Not detected Normal NOT DETECTED [facility] Comment on above: Performed By: #### G IPANEL #### [facility] [address] [place] [address] Dr. Lakshmi Smith GIPANEL CONTROLS PASSED Normal [facility] Comment on above: Performed By: #### G IPANEL #### [facility] [address] [place] [address] Dr. Lakshmi NOONAN [facility] HEAD[facility] GI PANEL BACTERIA Normal T [facility] Comment on above: Performed By: #### G IPANEL #### [facility] [address] [place] [address] Dr. Lakshmi PEREZ ECOLI GI PANEL DIARRHEAGENIC E.COLI / SHIGELLA Normal [facility] Comment on above: Performed By: #### G IPANEL #### [facility] [address] [place] [address] Dr. Lakshmi PEREZ INFO SEE BELOW Normal [facility] Comment on above: Result Comment: EAEC - Enteroaggregative E. Coli EPEC- Enteropathogenic E. Coli ETEC- Enterotoxigenic E. Coli lt/st STEC- Shigella-like toxin-producing E. Coli stx1/stx2 EIEC- Shigella/Enteroinvasive E. Coli Performed By: #### G IPANEL #### [facility] [address] [place] [address] Dr. Lakshmi PEREZ PARASITES GI PANEL PARASITES Normal [facility] Comment on above: Performed By: #### G IPANEL #### [facility] [address] [place] [address] Dr. Lakshmi PEREZ VIRUS GI PANEL VIRUSES Normal [facility] Comment on above: Performed By: #### G IPANEL #### [facility] [address] [place] [address] Dr. Lakshmi Smith Norovirus GI/GII Not detected Normal NOT DETECTED [facility] Comment on above: Performed By: #### G IPANEL #### [facility] [address] [place] [address] Dr. Lakshmi Smith P. Shigelloides Not detected Normal NOT DETECTED [facility] Comment on above: Performed By: #### G IPANEL #### [facility] [address] [place] [address] Dr. Lakshmi Smith Rotavirus A Detected Abnormal NOT DETECTED [facility] Comment on above: Performed By: #### G IPANEL #### [facility] [address] [place] [address] Dr. Lakshmi Smith Salmonella Not detected Normal NOT DETECTED [facility] Comment on above: Performed By: #### G IPANEL #### [facility] [address] [place] [address] Dr. Lakshmi Smith Sapovirus Not detected Normal NOT DETECTED [facility] Comment on above: Performed By: #### G IPANEL #### [facility] [address] [place] [address] Dr. Lakshmi Smith STEC Not detected Normal NOT DETECTED [facility] Comment on above: Performed By: #### G IPANEL #### [facility] [address] [place] [address] Dr. Lakshmi Smith Vibrio Not detected Normal NOT DETECTED [facility] Comment on above: Performed By: #### G IPANEL #### [facility] [address] [place] [address] Dr. Lakshmi Smith Vibrio Cholera Not detected Normal NOT DETECTED [facility] Comment on above: Performed By: #### G IPANEL #### [facility] [address] [place] [address] Dr. Lakshmi Smith Y. Enterocolitica Not detected Normal NOT DETECTED [facility] Comment on above: Performed By: #### G IPANEL #### [facility] [address] [place] [address] Dr. Lakshmi Smith CBC AUTO DIFFon 01-09-2023 BASO # 0.0 103/ul Normal 0.0-0.1 [facility] Comment on above: Performed By: #### C BC ####[facility] [address] [place], [place] [address]Dr. Lakshmi Smith Basophils/100 WBC (Bld) 0.3 % Normal 0.2-2.0 [facility] Comment on above: Performed By: #### C BC ####[facility] [address] [place], [place] [address]Dr. Lakshmi Smith EO # 0.5 103/ul Normal 0.0-0.7 [facility] Comment on above: Performed By: #### C BC ####[facility] [address] [place], [place] [address]Dr. Lakshmi Smith Eosinophils/100 WBC (Bld) 5.6 % Normal 0.9-7.0 [facility] Comment on above: Performed By: #### C BC ####[facility] [address] [address]Dr. Lakshmi Smith Erythrocyte distribution width (RBC) [Ratio] 13.9 % Normal 11.0-15.0 [facility] Comment on above: Performed By: #### C BC ####[facility] [address] [address]Dr. Lakshmi Smith Hematocrit (Bld) [Volume fraction] 45.6 % Normal 36.0-48.0 [facility] Comment on above: Performed By: #### C BC ####[facility] [address] [place], [place] [address]Dr. Lakshmi Smith Hemoglobin (Bld) [Mass/Vol] 15.2 g/dL Normal 12.0-16.0 [facility] Comment on above: Performed By: #### C BC ####[facility] [address] [place], [place] [address]Dr. Lakshmi Smith IG # 0.06 10e3/ul Critically high 0.00-0.03 [facility] Comment on above: Performed By: #### C BC ####[facility] [address] [place], [place] [address]Dr. Lakshmi Smith IG % 0.6 % Critically high 0.0-0.5 [facility] Comment on above: Performed By: #### C BC ####[facility] [address] [place], [place] [address]Dr. Lakshmi Smith LYMPH # 2.2 103/ul Normal 1.2-3.8 [facility] Comment on above: Performed By: #### C BC ####[facility] [address] [place], [place] [address]Dr. Lakshmi Smith Lymphocytes/100 WBC (Bld) 23.4 % Normal 20.5-60.0 [facility] Comment on above: Performed By: #### C BC ####[facility] [address] [address]Dr. Lakshmi Luis MANUAL DIFF REQ NO Normal [facility] Comment on above: Performed By: #### C BC ####[facility] [address] [address]Dr. Lakshmi Smith MCH (RBC) [Entitic mass] 29.8 pg Normal 26.7-34.0 [facility] Comment on above: Performed By: #### C BC ####[facility] [address] [address]Dr. Lakshmi Luis MCHC (RBC) [Mass/Vol] 33.3 g/dL Normal 29.9-35.2 [facility] Comment on above: Performed By: #### C BC ####[facility] [address] [place], [place] [address]Dr. Lakshmi Luis MCV (RBC) [Entitic vol] 89.4 fL Normal 81.0-99.0 [facility] Comment on above: Performed By: #### C BC ####[facility] [address] [place], [place] [address]Dr. Lakshmi Luis MONO # 1.3 103/ul Critically high 0.3-0.8 [facility] Comment on above: Performed By: #### C BC ####[facility] [address] [place], [place] [address]Dr. Robertajulien Smith Monocytes/100 WBC (Bld) 13.1 % Critically high 1.7-12.0 [facility] Comment on above: Performed By: #### C BC ####[facility] [address] [address]Dr. Robertajulien Luis NEUT # 5.4 103/ul Normal 1.4-6.5 [facility] Comment on above: Performed By: #### C BC ####[facility] [address] [place], [place] [address]Dr. Lakshmi Smith Neutrophils/100 WBC (Bld) 57.0 % Normal 43.0-75.0 [facility] Comment on above: Performed By: #### C BC ####[facility] [address] [place], [place] [address]Nr. Lakshmi Smith Platelet mean volume (Bld) [Entitic vol] 10.4 fL Normal 9.5-13.5 [facility] Comment on above: Performed By: #### C BC ####[facility] [address] [place], [place] [address]Cr. Lakshmi Smith PLT 290 103/ul Normal 150-450 [facility] Comment on above: Performed By: #### C BC ####[facility] [address] [place], [place] [address]Gq. Lakshmi Smith RBC 5.10 106/ul Normal 4.20-5.40 [facility] Comment on above: Performed By: #### C BC ####[facility] [address] [place], [place] [address]Vx. Lakshmi Smith WBC 9.5 103/ul Normal 4.0-11.0 [facility] Comment on above: Performed By: #### C BC ####[facility] [address] [place], [place] [address]Wb. Lakshmi Smith CT ABD/PELVIS WO CONon 01-09 CT ABD/PELVIS WO CON EXAMINATION: CT ABDOMEN AND PELVIS WITHOUT IV CONTRAST CLINICAL HISTORY: Generalized abdominal pain with nausea, vomiting and diarrhea TECHNIQUE: Non-IV contrast imaging of the abdomen and pelvis was performed using standard technique, scanning from just above the dome of the diaphragm to the symphysis pubis. Unenhanced imaging is limited for the evaluation of some intra-abdominal and pelvic pathology. All CT scans at this facility use dose modulation, iterative reconstruction, and/or weight based dosing when appropriate to reduce radiation dose to as low as reasonably achievable. Contrast: IV: None COMPARISON: None. RESULT: Abdomen / Pelvis: Liver: Diffuse hepatic steatosis. No focal hepatic lesion. Biliary: S/p cholecystectomy. Spleen: No splenomegaly. Pancreas: Unremarkable. Adrenals: Normal. Kidneys: 2 mm left inferior pole nonobstructing calculus. No hydronephrosis. Subcentimeter right interpolar region simple cyst. GI Tract: No bowel dilation. Fluid filled nondistended small bowel and colonic loops, nonspecific, but can be seen in the setting of enterocolitis. Otherwise, no significant bowel dilation or wall thickening.. Colonic diverticulosis without diverticulitis. Appendix is unremarkable. Lymph Nodes: No lymphadenopathy. Mesentery/peritoneum: No ascites. Retroperitoneum: No mass. Vasculature: Atherosclerotic vascular disease without aneurysm. Pelvis: No mass or ascites. Urinary bladder is unremarkable. Bones/Soft Tissues: No acute abnormality. Lower thorax: Unremarkable. IMPRESSION: 1. Nonspecific fluid-filled small bowel and colonic loops, concerning for enterocolitis. 2. Colonic diverticulosis without diverticulitis. 3. 2 mm left inferior pole nonobstructing calculus. No hydronephrosis. Electronically authenticated by: RICHARD DAVIS Date: 2023-01-09 10:41 Normal [facility] ER URINE PROFILEon 3 Bilirubin Ql (U) Negative Normal NEGATIVE [facility] Comment on above: Performed By: #### E RUR #### [facility] [address] [place] [address] Dr. Lakshmi Smith Clarity (U) CLEAR Normal CLEAR [facility] Comment on above: Performed By: #### E RUR #### [facility] [address] [place] [address] Dr. Lakshmi Smith Color (U) YELLOW Normal YELLOW [facility] Comment on above: Performed By: #### E RUR #### [facility] [address] [place] [address] Dr. Lakshmi VERMA A micrscopic examination will be performed if indicated. Normal [facility] Comment on above: Performed By: #### E RUR #### [facility] [address] [place] [address] Dr. Lakshmi Smith Glucose Ql (U) Negative Normal NEGATIVE [facility] Comment on above: Performed By: #### E RUR #### [facility] [address] [place] [address] Dr. Lakshmi Smith Hemoglobin Ql (U) Negative Normal NEGATIVE [facility] Comment on above: Performed By: #### E RUR #### [facility] [address] [place] [address] Dr. Lakshmi Smtih Ketones Ql (U) Negative Normal NEGATIVE [facility] Comment on above: Performed By: #### E RUR #### [facility] [address] [place] [address] Dr. Lakshmi Smith LEUKOCYTES Negative Normal NEGATIVE [facility] Comment on above: Performed By: #### E RUR #### [facility] [address] [place] [address] Dr. Lakshmi Smith Nitrite Ql (U) Negative Normal NEGATIVE [facility] Comment on above: Performed By: #### E RUR #### [facility] [address] [place] [address] Dr. Lakshmi Smith pH (U) 5.5 [pH] Normal 5-9 [facility] Comment on above: Performed By: #### E RUR #### [facility] [address] [place] [address] Dr. Lakshmi Smith Protein (U) [Mass/Vol] 30 mg/dL Abnormal NEGATIVE/ TRACE [facility] Comment on above: Performed By: #### E RUR #### [facility] [address] [place] [address] Dr. Lakshmi Smith SPEC GRAVITY 1.025 Normal 1.005-<=1.025 [facility] Comment on above: Performed By: #### E RUR #### [facility] [address] [place] [address] Dr. Lakshmi Smith UR MICRO IND NOT INDICATED Normal [facility] Comment on above: Performed By: #### E RUR #### [facility] [address] [place] [address] Dr. Lakshmi Smith Urobilinogen Qn (U) 0.2 {Jamir'U}/dL Normal 0.2 - 1. 0 [facility] Comment on above: Performed By: #### E RUR #### [facility] [address] [place] [address] Dr. Lakshmi Smith LIPASEon 01-09-2023 Lipase [Catalytic activity/Vol] 111.0 U/L Normal 73.0-393.0 [facility] Comment on above: Performed By: #### L IPA, CMP #### [facility] [address] [place] [address] Dr. Lakshmi Smith PROF 14(COMP METB)on 023 Albumin [Mass/Vol] 3.6 g/dL Normal 3.4-5.0 [facility] Comment on above: Performed By: #### L IPA, CMP #### [facility] [address] [place] [address] Dr. Lakshmi Smith Albumin/Globulin [Mass ratio] 0.8 {ratio} Normal [facility] Comment on above: Performed By: #### L IPA, CMP #### [facility] [address] [place] [address] Dr. Lakshmi Smith ALP [Catalytic activity/Vol] 72 U/L Normal 46-116 [facility] Comment on above: Performed By: #### L IPA, CMP #### [facility] [address] [place] [address] Dr. Lakshmi Smith ALT [Catalytic activity/Vol] 32 U/L Normal 14-59 [facility] Comment on above: Performed By: #### L IPA, CMP #### [facility] [address] [place] [address] Dr. Lakshmi Smith Anion gap [Moles/Vol] 11.6 mmol/L Normal [facility] Comment on above: Performed By: #### L IPA, CMP #### [facility] [address] [place] [address] Dr. Lakshmi Smith AST [Catalytic activity/Vol] 29 U/L Normal 15-37 [facility] Comment on above: Performed By: #### L IPA, CMP #### [facility] [address] [place] [address] Dr. Lakshmi Smith Bilirubin [Mass/Vol] 0.3 mg/dL Normal 0.2-1.0 [facility] Comment on above: Performed By: #### L IPA, CMP #### [facility] [address] [place] [address] Dr. Lakshmi Smith Calcium [Mass/Vol] 8.2 mg/dL Critically low 8.5-10.1 [facility] Comment on above: Performed By: #### L IPA, CMP #### [facility] [address] [address] [address] Lakshmi Smith Chloride [Moles/Vol] 110 mmol/L Critically high 98-107 [facility] Comment on above: Performed By: #### L IPA, CMP #### [facility] [address] [address] [address] Lakshmi Smith CO2 [Moles/Vol] 22.7 mmol/L Normal 21.0-32.0 [facility] Comment on above: Performed By: #### L IPA, CMP #### [facility] [address] [address] [address] Lakshmi Smith Creatinine [Mass/Vol] 1.01 mg/dL Normal 0.55-1.02 [facility] Comment on above: Performed By: #### L IPA, CMP #### [facility] [address] [place] [address] Dr. Lakshmi Smith EGFR-AF RWANDAN >60 Normal >=60 [facility] Comment on above: Performed By: #### L IPA, CMP #### [facility] [address] [address] [address] Lakshmi Smith EGFR-NON AF RWANDAN 53 mL/min/1.73m2 Critically low >=60 [facility] Comment on above: Performed By: #### L IPA, CMP #### [facility] [address] [address] [address] Lakshmi Smith Globulin (S) [Mass/Vol] 4.3 g/dL Normal [facility] Comment on above: Performed By: #### L IPA, CMP #### [facility] [address] [address] [address] Lakshmi Smith Glucose [Mass/Vol] 113 mg/dL Critically high 74-106 [facility] Comment on above: Performed By: #### L IPA, CMP #### [facility] [address] [address] [address] Lakshmi Smith Potassium [Moles/Vol] 3.3 mmol/L Critically low 3.5-5.1 [facility] Comment on above: Performed By: #### L IPA, CMP #### [facility] [address] [address] [address] Lakshmi Smith Protein [Mass/Vol] 7.9 g/dL Normal 6.4-8.2 [facility] Comment on above: Performed By: #### L IPA, CMP #### [facility] [address] [address] [address] Lakshmi Smith Sodium [Moles/Vol] 141 mmol/L Normal 136-145 [facility] Comment on above: Performed By: #### L IPA, CMP #### [facility] [address] [address] [address] Lakshmi Smith Urea nitrogen [Mass/Vol] 26.0 mg/dL Critically high 7.0-18.0 [facility] Comment on above: Performed By: #### L IPA, CMP #### [facility] [address] [address] [address] Lakshmi Smith Urea nitrogen/Creatinine [Mass ratio] 25.7 mg/mg Normal [facility] Comment on above: Performed By: #### L IPA, CMP #### [facility] [address] [address] [address] Lakshmi Smith XR LSPINE MIN 4 VIEWSon 10-13 XR LSPINE MIN 4 VIEWS EXAMINATION: XR LSPINE MIN 4 VIEWS HISTORY: Low back pain co-occurrent with neuralgia of left sciatic nerve ; low back and right leg pain COMPARISON: XR L-spine 08/18/2020 FINDINGS: BONES: Prominent right convex curvature of lumbar spine. Straightening of the normal lordotic curvature. No compression fracture or bone lesion. Moderate degenerative facet arthropathy L3-4 through L5-S1. DISC SPACES: Moderate marked narrowing L2-3 through L4-5. Mild narrowing L5-S1. PARASPINOUS: Atherosclerotic disease of the distal aorta. OTHER: Negative. IMPRESSION: 1. Multilevel moderate marked degenerative changes of the lumbar spine; slightly progressed. Electronically authenticated by: ANGLE NGUYEN Date: 2022-10-27 15:02 Normal [facility] XR ANKLE LT MIN 3 Von 2021 XR ANKLE LT MIN 3 V EXAM: XR ANKLE LT NC N 3 V HISTORY: Pain of left ankle joint COMPARISON: 04/08/2022 TECHNIQUE: 3 views of the left ankle were obtained. FINDINGS: There is no evidence of an acute fracture or dislocation. There may be mild diffuse narrowing of the ankle joint. No osteochondral injury is identified. The subtalar joints are intact. A small osteophyte arises from the insertion site of the Achilles tendon. Diffuse soft tissue swelling is seen about the distal leg, ankle and foot, more prominent along the lateral aspect. IMPRESSION: No acute fracture or dislocation. No osteochondral injury. Mild diffuse narrowing of the ankle joint may be present and is unchanged. Remainder the joint spaces are intact. A tiny osteophyte arises from the insertion site of the Achilles tendon. Diffuse soft tissue swelling about the distal leg, ankle and foot is noted, more prominent along the lateral aspect of the ankle. Except for increasing soft tissue swelling at the ankle, the overall appearance is unchanged. Electronically authenticated by: LANE FLORES Date: 2022-08-25 20:09 Normal [facility] POINT OF CARE GLUCOSEon 06-13 Glucose [Mass/Vol] 110 mg/dL Critically high 74-106 [facility] Comment on above: Performed By: #### P OCGLUC ####[facility] [address] [place], [place] [address]Ml. Lakshmi Smith Glucose [Mass/Vol] 125 mg/dL Critically high 74-106 [facility] Comment on above: Performed By: #### P OCGLUC ####[facility] [address] [place], [place] [address]Ps. Lakshmi Smith Covid-19 PCR ([facility])on 06-13 SARS-CoV-2 (COVID-19) RNA EDWARD+probe Ql (Unsp spec) Not detected Normal NOT DETECTED [facility] Comment on above: Result Comment: This test is not yet approved or cleared by the [place] FDA. When there are no FDA-approved or cleared tests available, and other criteria are met, FDA can make tests available under an emergency access mechanism called an Emergency Use Authorization (EUA). The EUA for this test is supported by the [place] of Health and Human Service's (HHS's) declaration that circumstances exist to justify the emergency use of in vitro diagnostics for the detection and/or diagnosis of the virus that causes COVID-19. This EUA will remain in effect (meaning this test can be used) for the duration of the COVID-19 declaration justifying emergency of IVDs, unless it is terminated or revoked by FDA (after which the test may no longer be used). When diagnostic testing is negative, the possibility of a false negative should be considered in the context of a patient's recent exposures and the presence of clinical signs and symptoms consistent with SARS-CoV-2. Performed By: #### C VDSHRIN[facility] CHILDREN'[facility] #### [facility] [address] [address] [address] Lakshmi Smith CBC AUTO DIFFon 06-24-2022 BASO # 0.1 103/ul Normal 0.0-0.1 [facility] Comment on above: Performed By: #### C BC ####[facility] [address] [place] [address]DrCristal Smith Basophils/100 WBC (Bld) 1.3 % Normal 0.2-2.0 [facility] Comment on above: Performed By: #### C BC ####[facility] Qchbtmmlzu25[address] [place] [address]DrCristal Smith EO # 0.5 103/ul Normal 0.0-0.7 [facility] Comment on above: Performed By: #### C BC ####[facility] Hviosfnqrs46[address] [place] [address]DrCristal Smith Eosinophils/100 WBC (Bld) 6.8 % Normal 0.9-7.0 [facility] Comment on above: Performed By: #### C BC ####[facility] Vhmhxdxcjr[address] [place] [address]Dr. Lakshmi Smith Erythrocyte distribution width (RBC) [Ratio] 13.7 % Normal 11.0-15.0 [facility] Comment on above: Performed By: #### C BC ####[facility] [address]onmbyxls5[address] [place] [address]DrCristal Smith Hematocrit (Bld) [Volume fraction] 36.5 % Normal 36.0-48.0 [facility] Comment on above: Performed By: #### C BC ####[facility] Xxttucwpam44[address] [place] [id number]. Lakshmi Smith Hemoglobin (Bld) [Mass/Vol] 12.3 g/dL Normal 12.0-16.0 [facility] Comment on above: Performed By: #### C BC ####[facility] Euqvlsrcvv85[address] [place] [id number]. Lakshmi Smith IG # 0.03 10e3/ul Normal 0.00-0.03 [facility] Comment on above: Performed By: #### C BC ####[facility] Sjitvowwci[address] [place], [place] [address]Dr. Lakshmi Smith IG % 0.4 % Normal 0.0-0.5 [facility] Comment on above: Performed By: #### C BC ####[facility] [address]fzb[address] [place], [place] [address]Dr. Lakshmi Smith LYMPH # 2.1 103/ul Normal 1.2-3.8 [facility] Comment on above: Performed By: #### C BC ####[facility] Wwyhdovicj[address] [place], [place] [address]Dr. Lakshmi Smith Lymphocytes/100 WBC (Bld) 28.2 % Normal 20.5-60.0 [facility] Comment on above: Performed By: #### C BC ####[facility] Qvhvhskpjq[address] [place], [place] [address]Dr. Lakshmi Smith MANUAL DIFF REQ NO Normal [facility] Comment on above: Performed By: #### C BC ####[facility] [address]jhssoyb[address] [place], [place] [address]Dr. Lakshmi Smith MCH (RBC) [Entitic mass] 29.4 pg Normal 26.7-34.0 [facility] Comment on above: Performed By: #### C BC ####[facility] Tlytqxivbs[address] [place], [place] [address]Dr. Lakshmi Smith MCHC (RBC) [Mass/Vol] 33.7 g/dL Normal 29.9-35.2 [facility] Comment on above: Performed By: #### C BC ####[facility] Snwcvirekv60[address] [place] [id number]. Lakshmi Smith MCV (RBC) [Entitic vol] 87.3 fL Normal 81.0-99.0 [facility] Comment on above: Performed By: #### C BC ####[facility] Uixyzzyxrr45[address] [place] [id number]. Lakshmi Smith MONO # 0.7 103/ul Normal 0.3-0.8 [facility] Comment on above: Performed By: #### C BC ####[facility] Kacgfnzrpp38[address] [place] [id number]. Lakshmi Smith Monocytes/100 WBC (Bld) 9.6 % Normal 1.7-12.0 [facility] Comment on above: Performed By: #### C BC ####[facility] Ecxtckttig[address] [place], [place] [address]Dr. Lakshmi Smith NEUT # 4.1 103/ul Normal 1.4-6.5 [facility] Comment on above: Performed By: #### C BC ####[facility] Gatxayyld[address] [place], [place] [address]Dr. Lakshmi Smith Neutrophils/100 WBC (Bld) 53.7 % Normal 43.0-75.0 [facility] Comment on above: Performed By: #### C BC ####[facility] Unkne[address]iru[address] [place], [place] [id number]. Lakshmi Smith Platelet mean volume (Bld) [Entitic vol] 10.2 fL Normal 9.5-13.5 [facility] Comment on above: Performed By: #### C BC ####[facility] Lvhdeeyopg[address] [place] [id number]. Lakshmi Smith PLT 252 103/ul Normal 150-450 [facility] Comment on above: Performed By: #### C BC ####[facility] V[address]qtqstmuv[address] [place], [place] [address]Dr. Lakshmi Smith RBC 4.18 106/ul Critically low 4.20-5.40 [facility] Comment on above: Performed By: #### C BC ####[facility] Mkeukmaawx[address] [place] [address]Dr. Lakshmi Smith WBC 7.5 103/ul Normal 4.0-11.0 [facility] Comment on above: Performed By: #### C BC ####[facility] [address]iajfrxauz[address] [place] [id number]. Lkashmi Smith PROF CHEM 8 (BAS METB)on Anion gap [Moles/Vol] 11.7 mmol/L Normal [facility] Comment on above: Performed By: #### B MP #### [facility] [address] [place] [address] [address] Lakshmi Smith Calcium [Mass/Vol] 9.9 mg/dL Normal 8.5-10.1 [facility] Comment on above: Performed By: #### B MP #### [facility] [address] [place] [address] [address] Lakshmi Smith Chloride [Moles/Vol] 103 mmol/L Normal 98-107 [facility] Comment on above: Performed By: #### B MP #### [facility] [address] [place] [address] [address] Lakshmi Smith CO2 [Moles/Vol] 31.1 mmol/L Normal 21.0-32.0 [facility] Comment on above: Performed By: #### B MP #### [facility] [address] [address] [address] Lakshmi Smith Creatinine [Mass/Vol] 1.03 mg/dL Critically high 0.55-1.02 [facility] Comment on above: Performed By: #### B MP #### [facility] [address] [address] [address] Lakshmi Smith EGFR-AF RWANDAN >60 Normal >=60 [facility] Comment on above: Performed By: #### B MP #### [facility] [address] [address] [address] Lakshim Smith EGFR-NON AF RWANDAN 52 mL/min/1.73m2 Critically low >=60 [facility] Comment on above: Performed By: #### B MP #### [facility] [address] [place] [address] [address] Lakshmi Smith Glucose [Mass/Vol] 148 mg/dL Critically high 74-106 T [facility] Comment on above: Performed By: #### B MP #### [facility] [address] [address] [address] Lakshmi Smith Potassium [Moles/Vol] 3.8 mmol/L Normal 3.5-5.1 [facility] Comment on above: Performed By: #### B MP #### [facility] [address] [address] [address] Lakshmi Smith Sodium [Moles/Vol] 142 mmol/L Normal 136-145 [facility] Comment on above: Performed By: #### B MP #### [facility] [address] [address] [address] Lakshmi Smith Urea nitrogen [Mass/Vol] 24.0 mg/dL Critically high 7.0-18.0 [facility] Comment on above: Performed By: #### B MP #### [facility] [address] [address] [address] Lakshmi Smith Urea nitrogen/Creatinine [Mass ratio] 23.3 mg/mg Normal [facility] Comment on above: Performed By: #### B MP #### [facility] [address] [address] [address] Lakshmi Smith ECHOCARDIO M/2D COMPLETEon 0 04-30-2022 ECHOCARDIO M/2D COMPLETE Patient: STEPHANIE WASSERMAN Exam Date: 04/30/2022 : 1945 Gender:F Ordering : CARYN GRECO Admission #: [id number] Family : Order #: [id number] CLICK HERE TO VIEW EXAM ECHOCARDIOGRAM REPORT PROCEDURE: CARDIO PULMONARY ECHOCARDIO M/2D COMP INDICATIONS: Supraventricular tachycardia COMPARISON: None. DESCRIPTION: COMPLETE ECHOCARDIOGRAM Real-time transthoracic echocardiography with 2D, M-mode, spectral and color flow Doppler performed. QUALITY: Technical quality was good. LEFT VENTRICLE: Normal chamber size. Moderate concentric left ventricular hypertrophy. Global left ventricular systolic function is normal. Calculated left ventricular ejection fraction is 62%. LV EF: DIASTOLIC: Diastolic function is indeterminate. ATRIAL SEPTUM: LEFT ATRIUM: Moderate dilatation. RIGHT ATRIUM: Mild dilatation. RIGHT VENTRICLE: Normal chamber size. Normal right ventricular systolic function. TRICUSPID VALVE: Normal mobility and thickness. No stenosis with trivial regurgitation. No evidence of pulmonary hypertension. RVSP is 30 mmHg MITRAL VALVE: Normal mobility and thickness. No mitral valve prolapse. No evidence of mitral valve stenosis. There is no mitral annular calcification. Trivial mitral regurgitation. AORTIC VALVE: Normal trileaflet appearance. No visible sclerosis. Normal leaflet mobility. No evidence of aortic valve stenosis. Trivial aortic regurgitation. AORTIC ROOT: Normal diameter and appearance. PULMONIC VALVE: Normal thickness and mobility. No stenosis. Trivial regurgitation. PERICARDIUM: No evidence of pericardial effusion. IVC: Collapses with inspirations. PLEURA: CONCLUSION: 1. There is moderate concentric left ventricular hypertrophy. Overall systolic function is normal with no segmental wall motion abnormalities. LVEF is 60 to 65%. 2. Right ventricle is normal in size and systolic function. 3. Mild to moderate atrial dilatation. 4. No significant valvular dysfunction. 5. Normal right-sided pressures. 6. No pericardial effusion. Dictated by: Daniel Florian M.D. on 04/30/2022 at 19:07 Approved by: Daniel Florian M.D. on 04/30/2022 at 19:10 Normal [facility] MRI ANKLE LT WO CONon 2021 MRI ANKLE LT WO CON EXAM: MRI ANKLE LT W O CON HISTORY: Peroneal tendinitis chronic posterior left ankle pain. Previous tendon repair June 2021. COMPARISON: Left ankle x-rays 04/08/2022. MRI 03/13/2021. TECHNIQUE: Multiplanar multisequence MRI of the left ankle was performed without contrast. This included axial T1, axial T2, oblique axial PD fat-sat, sagittal T1, sagittal T2, sagittal PD fat-sat, coronal T1 and coronal T2 imaging. FINDINGS: JOINTS: No talar dome osteochondral lesion is seen. The talonavicular and calcaneocuboid joints appear preserved. Subtalar joints appear preserved. The tarsometatarsal alignment appears preserved on this non-weightbearing study. The interosseous component of the Lisfranc ligament is identified and is intact. BONES: No focal bone marrow edema is identified. No T1 fracture line is noted. LIGAMENTS: The anterior talofibular ligament is intact. The calcaneofibular and posterior talofibular ligament appears intact. The deep and superficial fibers of the deltoid ligament are intact. Superior medial band of the spring ligament is identified and is intact. The anterior and posterior tibiofibular ligaments are intact. TENDONS: Flexor and extensor tendons are intact. There is thickening of the peroneal retinaculum compatible with scar. Peroneal tendons appear intact. No tenosynovitis is identified. Achilles tendon is intact. SINUS TARSI: Normal fat signal is seen sinus tarsi. PLANTAR FASCIA: Plantar fascia is intact. No adjacent soft tissue or bone marrow edema identified. TARSAL TUNNEL: No mass lesion in tarsal tunnel is identified. IMPRESSION: 1. Susceptibility artifact along the lateral ankle with some thickening of the common peroneal retinaculum. No tendon tear or tenosynovitis is identified. 2. No talar dome osteochondral lesion. No fracture. No acute ligamentous injury. Electronically authenticated by: YOLANDA LOYA Date: 2022-04-25 16:47 Normal [facility] XR pre/post mri xrayon 03-13 XR pre/post mri xray [facility] Main [place] [address] [place] [address] MRI Report Signed Patient: Stephanie Wasserman MR#: [id number] : 1945 Acct:[id number] Age/Sex: 75 / F ADM Date: 03/13/21 Loc: Room: Type: [facility] Attending Dr: Dalila Rodriguez NP Ordering Provider: Dalila Rodriguez NP Date of Service: 03/13/21 MR/MR ankle LT wo con: S93.492A ([id number]) XR/XR pre/post mri xray: S93.492A Copies to: Dalila Rodriguez NP MRI left ankle and plain radiographs left ankle 03/13/2021. CLINICAL DATA: Lateral ankle pain. TECHNIQUE: MRI of the left ankle was performed. Two plain radiographs of the left ankle were obtained. COMPARISON: None. MRI FINDINGS: The posterior talofibular ligament is thickened and demonstrates signal changes consistent with partial tearing. There may also be partial tearing of the calcaneofibular ligament. The anterior talofibular ligament is intact. The tibiofibular and deltoid ligaments also appear intact. The anterior and posterior tibial tendons, the flexor and tar boiler tendons, the peroneus tendons, and the Achilles tendon appear intact. No suspicious bony signal abnormality is identified. Mild soft tissue edematous changes are seen. No fluid collection is visualized. PLAIN RADIOGRAPHS FINDINGS: No acute fracture or dislocation is identified. No other bony abnormality is seen. Mild generalized soft tissue swelling is noted. MR/MR ankle LT wo con IMPRESSION: 1. Thickened posterior talofibular ligament demonstrating signal changes consistent with partial tearing. 2. Potential partial tearing of the calcaneofibular ligament. 3. No tendon injury or bony abnormality. 4. Mild soft tissue edematous changes. Impression dictated by: Cuba Powell Jr., M.D.03/13/2021 8:30 PM Dictation Location: [place] [address] Transcribed By: [facility] 03/13/212029 Dictated By: Cuba Powell Jr, MD 03/13/212004 Signed By: 03/13/212029 [facility] Vital Signs Date Time Vital Sign Value Performing Clinician Emmanuel jacobson 06-06-2023 14:10-0400 Diastolic blood pressure 70 mm[Hg] [facility] 06-06-2023 14:10-0400 Heart rate 67 /min [facility] 06-06-2023 14:10-0400 Mean blood pressure 93 mm[Hg] [facility] 06-06-2023 14:10-0400 Respiratory rate 14 /min [facility] 06-06-2023 14:10-0400 Systolic blood pressure 140 mm[Hg] Danyelle Kellogg [facility] 05-09-2023 13:18-0400 Heart rate 59 /min Junito Salvador [facility] 05-09-2023 13:18-0400 SaO2% (BldA) [Mass fraction] 100 % Junito Salvador [facility] 05-09-2023 13:18-0400 Diastolic blood pressure 66 mm[Hg] Junito Madeleine [facility] 05-09-2023 13:18-0400 Mean blood pressure 98 mm[Hg] Junito Madeleine [facility] 05-09-2023 13:18-0400 Systolic blood pressure 161 mm[Hg] Junito Madeleine [facility] 05-09-2023 13:18-0400 Respiratory rate 16 /min Junito Madeleine [facility] 05-09-2023 13:10-0400 Diastolic blood pressure 81 mm[Hg] Junito Madeleine [facility] 05-09-2023 13:10-0400 Heart rate 72 /min Junito Madeleine [facility] 05-09-2023 13:10-0400 Respiratory rate 14 /min Junito Madeleine [facility] 05-09-2023 13:10-0400 SaO2% (BldA) [Mass fraction] 98 % Junito Madeleine [facility] 05-09-2023 13:10-0400 Systolic blood pressure 165 mm[Hg] Junito Madeleine [facility] 05-09-2023 12:42-0400 Heart rate 58 /min Junito Madeleine [facility] 05-09-2023 12:42-0400 SaO2% (BldA) [Mass fraction] 98 % Junito Madeleine [facility] 05-09-2023 12:41-0400 Body temperature 98.24 [degF] Junito Madeleine [facility] 05-09-2023 12:41-0400 Diastolic blood pressure 80 mm[Hg] Junito Madeleine [facility] 05-09-2023 12:41-0400 Mean blood pressure 105 mm[Hg] Junito Madeleine [facility] 05-09-2023 12:41-0400 Systolic blood pressure 155 mm[Hg] Junito Madeleine [facility] 05-09-2023 12:41-0400 Respiratory rate 15 /min Junito Madeleine [facility] 03-17-2023 14:02-0400 Diastolic blood pressure 66 mm[Hg] Lopez Zumbar [facility] 03-17-2023 14:02-0400 Heart rate 64 /min Lopez Zumbar [facility] 03-17-2023 14:02-0400 Mean blood pressure 94 mm[Hg] Lopez Zumbar [facility] 03-17-2023 14:02-0400 Respiratory rate 14 /min Lopez Zumbar [facility] 03-17-2023 14:02-0400 Systolic blood pressure 149 mm[Hg] Lopez Zumbar [facility] 02-10-2023 13:42-0400 Diastolic blood pressure 71 mm[Hg] Lopez Zumbar [facility] 02-10-2023 13:42-0400 Heart rate 64 /min Lopez Zumbar [facility] 02-10-2023 13:42-0400 Mean blood pressure 94 mm[Hg] Lopez Zumbar [facility] 02-10-2023 13:42-0400 Respiratory rate 12 /min Lopez Collins [facility] 02-10-2023 13:42-0409 Systolic blood pressure 141 mm[Hg] Lopez Collins [facility] Encounters Encounter Date Encounter Type Care Provider Facility Start: 03-14-2024 End: 03-16-2024 ambulatory VIRGILIO WILLIAM [facility] Start: 03-06-2024 End: 03-06-2024 ambulatory PANFILO A FELTER Not Available Start: 02-28-2024 End: 02-28-2024 ambulatory GERRI TRIVEDI Not Available Start: 02-02-2024 End: 02-02-2024 ambulatory GERRI TRIVEDI Not Available Start: 01-10-2024 End: 01-10-2024 ambulatory PANFILO A FELTER Not Available Start: 01-05-2024 End: 01-06-2024 ambulatory Luzmaria L Britney Facility:[facility] Start: 01-05-2024 End: 01-05-2024 Lab Drop off Luzmaria L Britney [facility] Start: 10-04-2023 End: 10-05-2023 ambulatory Luzmaria L Britney Facility:[facility] Start: 06-06-2023 End: 06-07-2023 ambulatory Luzmaria L Britney Facility:[facility] Start: 06-06-2023 End: 06-06-2023 Pain Management Danyelle Kellogg [facility] Start: 06-01-2023 End: 06-02-2023 ambulatory Luzmaria L Britney Facility:[facility] Start: 06-01-2023 End: 06-01-2023 Lab Drop off Luzmaria L Britney [facility] Start: 05-09-2023 End: 05-10-2023 ambulatory Junito Salvador Facility:[facility] Start: 05-09-2023 End: 05-09-2023 Pain Management Junito Salvador [facility] Start: 05-06-2023 End: 05-06-2023 ambulatory VIRGILIO THOMAS [facility] Start: 03-17-2023 End: 03-18-2023 ambulatory Lopez Zumbar Facility:[facility] Start: 03-17-2023 End: 03-17-2023 Pain Management Lopez Zumbar [facility] Start: 03-01-2023 End: 03-02-2023 ambulatory Lopez Zumbar Facility:[facility] Start: 03-01-2023 End: 03-01-2023 Patient encounter procedure Lopez Zumbar [facility] Start: 02-10-2023 End: 02-11-2023 ambulatory Lopez Zumbar Facility:[facility] Start: 02-10-2023 End: 02-11-2023 ambulatory Lopez Zumbar Facility:[facility] Start: 02-10-2023 End: 02-10-2023 Patient encounter procedure Lopez Zumbar [facility] Start: 02-10-2023 End: 02-10-2023 Pain Management Lopez Zumbar [facility] Start: 01-19-2023 End: 01-20-2023 ambulatory Luzmaria L Britney Facility:[facility] Start: 01-19-2023 End: 01-19-2023 Patient encounter procedure Luzmaria L Britney [facility] Start: 01-10-2023 End: 01-10-2023 ambulatory RONNA NIETO . Facility: Start: 01-09-2023 End: 01-09-2023 ambulatory RONNA NIETO . Facility:[facility] Start: 12-23-2022 End: 01-14-2023 Pre-admission assessment Lopez Collins [facility] Start: 11-02-2022 End: 11-19-[address] REBEL NEELY . Facility:[facility] Start: 10-27-2022 End: 10-28-[address] ERBEL NEELY . Facility:[facility] Start: 08-24-2022 End: 08-25-2022 ambulatory RICK PETER Facility:[facility] Start: 07-11-2022 Encounter for preprocedural laboratory examination [facility] Start: 07-08-2022 End: 07-09-[address] REBEL NEELY . Facility:[facility] Start: 07-05-2022 End: 07-06-2022 ambulatory [facility] Fatemeh [facility] Facility:[facility] Start: 07-05-2022 End: 07-06-2022 Encounter for preprocedural laboratory examination [facility] Fatemeh [facility] Facility:[facility] Start: 06-26-2022 Encounter for preprocedural cardiovascular examination [facility] Start: 06-24-2022 End: 06-25-[address] REBEL NEELY . Facility:[facility] Start: 04-30-2022 End: 05-01-[address] REBEL NEELY . Facility:[facility] Start: 04-23-2022 End: 04-24-[address] REBEL NEELY . Facility:[facility] Start: 04-08-2022 End: 04-09-[address] ANGLE NGUYEN Facility:[facility] Start: 03-16-2022 End: 03-17-[address] REBEL NEELY . Facility:[facility] Procedures Date Procedure Procedure Detail Performing Clinician Start: 05-09-2023 Epidural injection o f lumbar spine using fluoroscopic guidance Danyelle Kellogg Comment on above: L5/S1- 25% relief Start: 06-12-2022 Ankle region structu re (body structure) Lopez Collins Comment on above: [facility] Lopez Zumb ar Excision of breast tissue Melvina hall Zumbar History of mastectomy S/P mastectomy Luzmaria Tan Immunizations Immunization Date Immunization Notes Care Provider Yvette mantilla 05-27-2022 influenza virus vaccine, unspecified formulation Lopez Zumbar [facility] 06-19-2021 influenza virus vaccine, unspecified formulation Lopez Zumbar [facility] 10-30-2020 SARS-CoV-2 (COVID-19 ) mRNA-1273 vaccine Lopez Zumbar [facility] 05-27-2020 influenza virus vaccine, unspecified formulation Lopez Zumbar [facility] 06-07-2019 influenza virus vaccine, unspecified formulation Lopez Zumbar [facility] 05-31-2018 influenza virus vaccine, unspecified formulation Lopez Zumbar [facility] 04-10-2018 pneumococcal conjuga te vaccine, 13 valent Lopez Zumbar [facility] 08-29-2017 influenza virus vaccine, unspecified formulation Lopez Zumbar [facility] 06-28-2017 influenza virus vaccine, unspecified formulation Lopez Zumbar [facility] 06-11-2016 influenza virus vaccine, unspecified formulation Lopez Zumbar [facility] 06-12-2015 influenza virus vaccine, unspecified formulation Lopez Zumbar [facility] 05-23-2015 influenza virus vaccine, unspecified formulation Lopez Zumbar [facility] Payers Date Payer Category Payer Medicare [id number] 1945 Unknown [id number] 2.16.84 [id number] 1945 Unknown [id number] 2.16.84 [id number] 1945 Unknown [id number] 2.16.84 [id number] 1945 Unknown [id number] 2.16.84 [id number] 1945 Unknown [id number] 2.16.84 0.1.884856.3.579.2.593 1945 Unknown [id number] 2.16.84 0.1.305918.3.579.2.593 1945 Unknown [id number] 2.16.84 0.1.028150.3.579.2.593 1945 Unknown [id number] 2.16.84 0.1.685888.3.579.2.593 1945 Unknown [id number] 2.16.84 0.1.176251.3.579.2.593 1945 Unknown [id number] 2.16.84 0.1.990491.3.579.2.593 1945 Unknown [id number] 2.16.84 0.1.191346.3.579.2.593 1945 Unknown [id number] 2.16.84 0.1.243070.3.579.2.593 1945 Unknown [id number] 2.16.8 40.1.877123.3.579.2.727 1944 Unknown [id number] 2.16.8 40.1.089164.3.579.2.727 1944 Unknown [id number] 2.16.8 40.1.979310.3.579.2.727 1944 Unknown [id number] 2.16.8 40.1.414702.3.579.2.727 1944 Unknown [id number] 2.16.8 40.1.279882.3.579.2.727 1944 Unknown [id number] 2.16.8 40.1.111812.3.579.2.727 1944 Unknown [id number] 2.16.8 40.1.140671.3.579.2.727 1944 Unknown [id number] 2.16.8 40.1.815316.3.579.2.727 1944 Unknown [id number] 2.16.8 40.1.172072.3.579.2.727 1944 Unknown [id number] 2.16.8 40.1.246210.3.579.2.727 1944 Unknown [id number] 2.16.8 40.1.166956.3.579.2.727 1944 Unknown [id number] 2.16.8 40.1.805636.3.579.2.727 1944 Unknown [id number] 2.16.8 40.1.542069.3.579.2.727 1944 Unknown [id number] 2.16.84 0.1.448829.3.579.2.1259 1944 Unknown [id number] 2.16.84 0.1.937202.3.579.2.1259 1944 Unknown [id number] 2.16.84 0.1.554669.3.579.2.1259 1944 Unknown [id number] 2.16.84 0.1.780289.3.579.2.1259 Social History Date Type Detail Facility Start: 01-04-2023 End: 01-05-2024 Tobacco smoking status Never smoked tobacco (finding) [facility] Sex Assigned At Female [facility] Functional Status Date Assessment Result Facility 06-06-2023 Functional Status N/A [facility] 05-09-2023 Functional Status N/A [facility] 03-17-2023 Functional Status N/A [facility] 02-10-2023 Functional Status N/A [facility] Clinical Notes 04-09-2022 to 03-14-2024 Laboratory Note Date & Type Note Facility [facility]-14[facility]24 [facility] FULLER, no SOB with res t or ADLs Will order echocardiogram to assess cardiac function and valvular function Pulm function test to assess function for any obstructive process- and asked pt to F/U with PCP to review PFT [facility] 03-14-2024 Note PCP has started pt o n lipitor for elevated Chol/LDL Denied any myalgias [facility] 03-14-2024 Note Pt admits b/p at ruperto e typically is <130/76-80 and controlled Continue losartan and norvasc [facility] 03-14-2024 Note Stable, no concernin g symptoms, palpitations, lightheadedness/dizziness or syncope [facility] 03-14-2024 Note [facility] CARDIOLOGY PROGR ESS NOTE HPI: Stephanie Wasserman is a 78 y.o. female here for routine 1 year f/U HPI Pleasant 78-year-old female presents to clinic for routine follow-up. Known history of hypertension, hyperlipidemia, nonsustained VT of which she has refused ischemic evaluation or taking a beta-edel for Management. Admits worsening SOB with exertion over the last 2-3 months, denied SOB with ADLs or rest. Denied orthopnea, chest pain, palpitations, lightheadedness or syncope. Admits worsening swelling of lower legs especially with the heat this summer. Visit Vitals BP 152/74 (BP Location: Right arm, Patient Position: Sitting) Pulse 66 Ht 1.676 m (5' 6 ) Wt 78.5 kg (173 lb) SpO2 96% BMI 27.92 kg/m??? Smoking Status Never BSA 1.91 m??? Allergies Allergen Reactions Accupril [Quinapril] Amoxicillin-Pot Clavulanate Other reaction(s): GI Disturbance Anaprox [Naproxen Sodium] Avelox [Moxifloxacin] Cephalexin Diflucan [Fluconazole] Sulfa (Sulfonamide Antibiotics) Sulfamethoxazole-Trimethoprim Hives Medications: Current Outpatient Medications on File Prior to Visit Medication Sig Dispense Refill albuterol 90 mcg/actuation inhaler INHALE 2 PUFFS BY MOUTH EVERY 4 HOURS amLODIPine (Norvasc) 10 mg tablet TAKE 1 TABLET EVERY MORNING 90 tablet 3 atorvastatin (Lipitor) 20 mg tablet Take 20 mg by mouth at bedtime. calcium citrate (Calcitrate) 200 mg (950 mg) tablet See Instructions, Daily, Refills(s) 0 famotidine (Pepcid) 40 mg tablet fluticasone (Flonase) 50 mcg/actuation nasal spray USE 2 SPRAY(S) IN EACH NOSTRIL ONCE DAILY losartan (Cozaar) 100 mg tablet Take 1 tablet (100 mg) by mouth once daily as directed. 90 tablet 3 metFORMIN (Glucophage) 500 mg tablet Take 500 mg by mouth with breakfast and with evening meal. omeprazole (PriLOSEC) [address] capsule Take 20 mg by mouth before breakfast. No current facility-administered medications on file prior to visit. Physical Exam: Constitutional: Appearance: Normal appearance. Without apparent distress HENT: Head: Normocephalic and atraumatic. Nose: Nose normal. Mouth/Throat: Mouth: Mucous membranes are moist. Eyes: Extraocular Movements: Extraocular movements intact. Conjunctiva/sclera: Conjunctivae normal. Neck: Vascular: No JVD. Cardiovascular: Rate and Rhythm: Normal rate and regular rhythm. Pulses: Dorsalis pedis pulses are 3 on the right side and 3on the left side. Posterior tibial pulses are 3 on the right side and 3 on the left side. Heart sounds: Normal heart sounds, S1 normal and S2 normal. Pulmonary: Effort: Pulmonary effort is normal. Breath sounds: Normal breath sounds. Abdominal: General: Bowel sounds are normal. Palpations: Abdomen is soft. Musculoskeletal: General: Normal range of motion. Cervical back: Normal range of motion. Right lower le-2+ pitting edema. Left lower le-2+ pitting edema. Skin: General: Skin is warm and dry. Capillary Refill: Capillary refill takes less than 2 seconds. Neurological: General: No focal deficit present. Mental Status: She is alert and oriented to person, place, and time. Psychiatric: Mood and Affect: Mood normal. Behavior: Behavior normal. Thought Content: Thought content normal. Judgment: Judgment normal. Labs:- reviewed with pt 01/05/24 A1C 5.9- normal Chol 215, Trig 371, HDL 45, LDL 137 01/20/2019 Chol 209, Trig 179, HDL 49, LDL 124 12/2022 CBC normal Renal function normal Liver function normal Last lab values have been reviewed CV Testin04/30/22 Echo 03/16/22 Holter Assessment/Plan: Non-sustained ventricular tachycardia (CMS/HCC) Stable, no concerning symptoms, palpitations, lightheadedness/dizziness or syncope Hypertension Pt admits b/p at home typically is <130/76-80 and controlled Continue losartan and norvasc Hyperlipidemia PCP has started pt on lipitor for elevated Chol/LDL Denied any myalgias Dyspnea on exertion FULLER, no SOB with rest or ADLs Will order echocardiogram to assess cardiac function and valvular function Pulm function test to assess function for any obstructive process- and asked pt to F/U with PCP to review PFT Diabetes mellitus, type II (CMS/HCC) Diabetes is managed by PCP RTC 3 months after diagnostic testing completed [facility] 03-14-2024 Note Patient here for 1 y ear follow up NSVT, hypertension, and hyperlipidemia. Had lipid profile in December 2023 and was started on atorvastatin per PCP. She is c/o worsening FULLER. Denies chest pain and palpitations. Has LE edema but denies increased or weight gain. Review of Systems Constitutional: Positive for malaise/fatigue. Cardiovascular: Positive for dyspnea on exertion (worsening) and leg swelling. Musculoskeletal: Positive for arthritis, back pain and joint pain. Neurological: Positive for light-headedness and loss of balance. All other systems reviewed and are negative. [facility] 10-06-2023 Evaluation + Plan note Future Scheduled [id number] 10/06/23 [facility] 06-06-2023 Evaluation + Plan note Extrac wendi from: Title:Pain Managment Follow up Author:Danyelle Goins Date:06/06/23 Impression and Plan Patient is a 77-year-old female with a past medical history significant lumbar stenosis, lumbosacral neuritis, and lumbosacral spondylosis. Recent L5-S1 epidural steroid injection did resolve her radicular symptoms but her back pain is still very much a problem. This affects her ambulatory status. This affects her quality of life and her activities throughout the day. Affects her ability to get comfortable. We reviewed the MRI. Based on her MRI findings, her pain pattern, and her failure to get any significant relief with previous conservative treatments I recommended to patient bilateral L4-5 and L5-S1 facet medial branch block for diagnostic purposes. This to be done under fluoroscopy. If she gets significant relief she may be a future candidate for RFA. Procedure was discussed. Risks and benefits were discussed. Patient is unsure yet what she wants to do. She will take the information home and call us with what she decides to do. ALFREDA score: 24% [facility]08-28-2023 Note [id number]:[id number] 05-06-2023 NotePrescription for lipid profile provided to patient Continue heart healthy dietOhio[facility]23 Note Hypertension is Well-controlled blood pressure 108/64 continue amlodipine and losartan Recent kidney function in December [facility] 05-06-2023 NoteCurrently patient denies any concerning symptoms She still does not want to take a beta-edel or have any ischemic evaluation Discussed with patient red flag symptoms and when to call office or 911 and she voiced understanding and agreementOhioHealth [facility]08-25-2023 NoteUTP CARDIOLOGY PROGRESS NOTE HPI: Stephanie Wasserman is a 77 y.o. female here for Routine follow-up for nonsustained VT, hypertension, hyperlipidemia HPI Pleasant 77-year-old female presents to clinic for routine follow-up. Known history of hypertension, hyperlipidemia, nonsustained VT of which she has refused ischemic evaluation or taking a beta-edel for Management. Currently denies chest pain, orthopnea, palpitations, lightheadedness, dizziness, syncope and she reports typical shortness of breath with exertion. States stairclimbing is what makes her the most short of breath with exertion. Review of Systems Constitutional: Negative. Respiratory: Reports typical shortness of breath with exertion no worse than usual Cardiovascular: Negative. Neurological: Negative. All other systems reviewed and are negative. Visit Vitals BP 108/64 (BP Location: Right arm, Patient Position: Sitting) Pulse 60 Ht 1.676 m (5' 6 ) Wt 79.8 kg (176 lb) SpO2 99% BMI 28.41 kg/m??? Smoking Status Never BSA 1.93 m??? Allergies Allergen Reactions Accupril [Quinapril] Amoxicillin-Pot Clavulanate Other reaction(s): GI Disturbance Anaprox [Naproxen Sodium] Avelox [Moxifloxacin] Cephalexin Diflucan [Fluconazole] Sulfa (Sulfonamide Antibiotics) Sulfamethoxazole-Trimethoprim Hives Medications: Current Outpatient Medications on File Prior to Visit Medication Sig Dispense Refill albuterol 90 mcg/actuation inhaler INHALE 2 PUFFS BY MOUTH EVERY 4 HOURS amLODIPine (Norvasc) 10 mg tablet Take 1 tablet (10 mg) by mouth in the morning. 90 tablet 3 calcium citrate (Calcitrate) 200 mg (950 mg) tablet See Instructions, Daily, Refills(s) 0 famotidine (Pepcid) 40 mg tablet fluticasone (Flonase) 50 mcg/actuation nasal spray USE 2 SPRAY(S) IN EACH NOSTRIL ONCE DAILY losartan (Cozaar) 100 mg tablet Take 1 tablet (100 mg) by mouth in the morning. 90 tablet 3 [DISCONTINUED] acetaminophen (Tylenol) 500 mg tablet TAKE 1 TABLET BY MOUTH 4 TIMES DAILY NEEDED FOR PAIN [DISCONTINUED] BD Alcohol Swabs pads, medicated [DISCONTINUED] fosfomycin (Monurol) 3 gram packet USE 1 PACKET BY MOUTH DIRECTED [DISCONTINUED] meloxicam (Mobic) 15 mg tablet Take 15 mg by mouth in the morning. [DISCONTINUED] ondansetron ODT (Zofran-ODT) 4 mg disintegrating tablet DISSOLVE 1 TABLET IN MOUTH ONCE DAILY NEEDED FOR NAUSEA [DISCONTINUED] Senna Laxative 8.6 mg tablet TAKE 1 TABLET BY MOUTH TWICE DAILY NEEDED FOR CONSTIPATION [DISCONTINUED] traMADol (Ultram) 50 mg tablet Take 50-100 mg by mouth every 6 (six) hours if needed. [DISCONTINUED] True Metrix Glucose Test Strip strip [DISCONTINUED] TRUEplus Lancets 33 gauge misc No current facility-administered medications on file prior to visit. Physical Exam: Constitutional: Appearance: Normal appearance. Without apparent distress HENT: Head: Normocephalic and atraumatic. Nose: Nose normal. Mouth/Throat: Mouth: Mucous membranes are moist. Eyes: Extraocular Movements: Extraocular movements intact. Conjunctiva/sclera: Conjunctivae normal. Neck: Vascular: No JVD. Cardiovascular: Rate and Rhythm: Normal rate and regular rhythm. Pulses: Dorsalis pedis pulses are 3 on the right side and 3on the left side. Posterior tibial pulses are 3 on the right side and 3 on the left side. Heart sounds: Normal heart sounds, S1 normal and S2 normal. Pulmonary: Effort: Pulmonary effort is normal. Breath sounds: Normal breath sounds. Abdominal: General: Bowel sounds are normal. Palpations: Abdomen is soft. Musculoskeletal: General: Normal range of motion. Cervical back: Normal range of motion. Right lower leg: Non pitting edema. Left lower leg: No pitting edema. Skin: General: Skin is warm and dry. Capillary Refill: Capillary refill takes less than 2 seconds. Neurological: General: No focal deficit present. Mental Status: She is alert and oriented to person, place, and time. Psychiatric: Mood and Affect: Mood normal. Behavior: Behavior normal. Thought Content: Thought content normal. Judgment: Judgment normal. Labs: Reviewed labs from December 2022 states she was inpatient for rotavirus CBC normal, renal function normal, potassium was slightly low, liver function was normal Last lab values have been reviewed CV Testin04/30/22 Echo 03/16/22 Holter No echocardiogram results found for the past 12 months Assessment/Plan: Non-sustained ventricular tachycardia (CMS/HCC) Currently patient denies any concerning symptoms She still does not want to take a beta-edel or have any ischemic evaluation Discussed with patient red flag symptoms and when to call office or 911 and she voiced understanding and agreement Hypertension Hypertension is Well-controlled blood pressure 108/64 continue amlodipine and losartan Recent kidney function in December was normal Hyperlipidemia Prescription for lipid profile provided to patient (more content not included)...[facility]08-25-2023 NotePatient here for 6 mo follow up hypertension and NSVT. She had labs in December 2022. Denies chest pain and palpitations. Says her FULLER may be slightly worse than last visit. Review of Systems Cardiovascular: Positive for dyspnea on exertion and leg swelling. Musculoskeletal: Positive for arthritis, back pain and joint pain. Neurological: Positive for loss of balance. All other systems reviewed and are negative.[facility] 03-17-2023 Evaluation + Plan noteExtracted from: Title:Clinical Document Author:Arielle Collins MD Date:03/17/23 Chief complaint: Low back an d left leg pain History of present illness: This is a 77-year-old female here for a chief complaint of low back and left leg pain. The patient rates the pain as a 0-1 out of 10 at rest. She states that if she is standing the pain will get more severe and it can get up to an 8 out of 10. She has been doing her physical therapy exercises which do seem to have helped. She states the pain will still go down her left leg but it has not been nearly as problematic. She does not have any significant right-sided symptoms. She denies numbness or weakness. The patient denies additional neurologic symptoms or issues with bladder or bowel control. The patient's past medical, surgical, and social history along with medications and allergies were reviewed. Review of systems was done on 10 systems Physical examination: General: Pleasant white female in no acute distress. Patient appears well- nourished. Vital signs stable Head exam: Head is normocephalic and external ears are normal Neck exam: No tenderness Cardiovascular exam: No signs of poor perfusion and no peripheral edema Respiratory exam: Breathing is unlabored and there is no wheezing present Abdomen exam: Abdomen soft and nondistended Back exam: No tenderness Musculoskeletal exam: Strength 5 out of 5. Muscle tone is normal. Neurologic exam: Sensation intact. Reflexes diminished but symmetric Psych exam: Affect is appropriate. Alert and oriented Skin exam: No lesions Assessment: The patient's signs and symptoms are consistent with lumbosacral radiculopathy, lumbar stenosis with neurogenic claudication, and lumbosacral spondylosis. We reviewed the patient's imaging. Her MRI was notable for multilevel degenerative disc disease and spondylosis but most significantly she has severe central spinal stenosis at L4-5 and moderate stenosis at L3-4 and L5-S1. Oswestry disability index score was 20% OAR[facility] report was reviewed and was appropriate Plan: We discussed options. She has had pain for over 3 months. She has had some benefit from physical therapy and is able to manage things for now so we can hold off on interventions. If the pain were to worsen she would be an appropriate candidate for an lumbar epidural steroid injection. In a worst case scenario we could consider surgical consultation but I think she would have to get a lot worse before she would really need to consider that. For now I advised her to continue with the exercises she learned in therapy. We discussed the potential risks and benefits of this plan and the patient was in agreement to proceed. We will have the patient follow-up on an as-needed basis for repeat evaluation. [facility]06-01-2023 Evaluation + Plan noteExtracted from: Title:Clinical Document Author:Arielle Collins MD Date:02/10/23 Chief complaint: Low back an d left leg pain History of present illness: This is a 77-year-old female here for a chief complaint of severe low back and left leg pain. The patient rates the pain as a 5 out of 10. She reports that she has had the symptoms for over 6 months. There was no obvious cause. The pain is constant but much worse when she is standing and walking. She reports that she can stand for about 10 minutes before she has to sit. When she does sit the symptoms will improve rather quickly. In addition to the pain in the left leg she will get a sensation of heaviness and weakness. She denies loss of bladder or bowel control or loss of balance. She denies any significant right-sided symptoms. She has tried ibuprofen with limited benefit. She has been through physical therapy with limited benefit. She does not want to be on opiates. She also does not want to have surgery but is interested in a cortisone injection if that would help. The patient denies additional neurologic symptoms or issues with bladder or bowel control. The patient's past medical, surgical, and social history along with medications and allergies were reviewed. Review of systems was done on 10 systems Physical examination: General: Pleasant white female in no acute distress. Patient appears well- nourished. Vital signs stable Head exam: Head is normocephalic and external ears are normal Neck exam: No tenderness Cardiovascular exam: No signs of poor perfusion and no peripheral edema Respiratory exam: Breathing is unlabored and there is no wheezing present Abdomen exam: Abdomen soft and nondistended Back exam: No tenderness Musculoskeletal exam: Strength 5 out of 5 with exception of 4-5 for dorsiflexion of the left foot and left great toe. Pain with external rotation of the left hip. Neurologic exam: Sensation intact. Reflexes diminished but symmetric. Psych exam: Affect is appropriate. Alert and oriented Skin exam: No lesions Assessment: The patient's signs and symptoms are consistent with lumbosacral radiculopathy, lumbar stenosis with neurogenic claudication, and arthropathy of the left hip. We reviewed the patient's imaging. Her lumbar x-ray was notable for a mild dextroscoliosis centered at L4 as well as some severe multilevel degenerative disc disease. Oswestry disability index score was 46% OARRS report was reviewed and was appropriate Plan: We discussed options. We will check an x-ray of her left hip to rule out coexisting hip pathology however her symptoms are very consistent with neurogenic claudication so we will check a lumbar MRI to evaluate for significant neural impingement. If this is confirmed we will most likely proceed with a lumbar epidural steroid injection however before we decide for sure on that I went to get the imaging first. We discussed the potential risks and benefits of this plan and the patient was in agreement to proceed. I will see the patient for follow-up after the MRI for repeat evaluation. Future Appointments Appointment Date:03/17/2023 01:45:00 PM Scheduled Provider:Lopez Collins MD Location:[facility] Appointment Type:Pain Management - Follow Up (FT) [facility]07-29-2022 NotePROCEDURE: XR ANKLE LT MIN 3 V HISTORY: Pain of left ankle joint after falling COMPARISON: XR ankle left 07/06/2021 FINDINGS: BONES:No fracture, acute abnormality, or significant arthropathy. SOFT TISSUES:No visible soft tissue swelling. EFFUSION:None visible. OTHER: Negative. IMPRESSION: 1. No acute bone abnormality or significant degenerative joint disease. Electronically authenticated by: ANGLE NGUYEN Date: 2022-04-09 08:05[facility] No data available for this section [facility] Future Appointments Appointment Date:03/17/2023 01:45:00 PM Scheduled Provider:Lopez Collins MD Location:[facility] Appointment Type:Pain Management - Follow Up ([facility]) [facility] Future Appointments Appointment Date:06/06/2023 02:00:00 PM Scheduled Provider:Danyelle Kellogg PA-C Location:[facility] Appointment Type:Pain Management - Follow Up ([facility]) [facility] No data available for this section [facility] No data available for this section [facility] Summary Purpose Family History No Family History Records FoundNo Family History Records Found No data available for this section No Family History Records FoundNo Family History Records FoundNo Family History Records Found Advance Directives No Advanced Directives Records FoundNo Advanced Directives Records FoundNo Advanced Directives Records FoundNo Advanced Directives Records FoundNo Advanced Directives Records Found Additional Source Comments INFORMATION SOURCE (unrecogn ized section and content) DATE CREATED AUTHOR 12/15/2021 [facility] DATE CREATED AUTHOR AUTHOR'S ORGANIZ ATION 01/14/2023 [facility] DATE CREATED AUTHOR AUTHOR'S ORGANIZ ATION 01/09/2024 [facility] DATE CREATED AUTHOR AUTHOR'S ORGANIZ ATION 03/07/2024 [facility] DATE CREATED AUTHOR AUTHOR'S ORGANIZ ATION 03/16/2024 [facility] Patient Care team informatio n (unrecognized section and content) Personnel Name: Luzmaria Lamas Address: Address: [address] [place] [address]- Personnel Name: Luzmaria Lamas Address: Address: [address] [place] [address]- Personnel Name: Luzmraia Lamas Address: Address: [address] [place] [address]- Personnel Name: Luzmaria Lamas Address: Address: [address] [place] [address]- Personnel Name: Luzmaria Lamas Address: Address: [address] [place] [address]- Personnel Name: Luzmaria Lamas Address: Address: [address] [place], [place] [address]- Personnel Name: Luzmaria Lamas Address: Address: [address] [place] [id number]- Personnel Name: Luzmaria Lamas Address: Address: [address] [place], [place] [address]- Personnel Name: Luzmaria Lamas Address: Address: [address] [place] [address]- Personnel Name: Luzmaria Lamas Address: Address: [address] [place] [address]- FOR RECORDS PERTAINING TO PATIENTS WHO ARE OR HAVE BEEN ENROLLED IN A CHEMICAL DEPENDENCY/SUBSTANCEABUSE PROGRAM, SOME INFORMATION MAY BE OMITTED. This clinical summary was aggregated from multiple sources. Caution should be exercised in using it in the provision of clinical care. This summary normalizes information from multiple sources, and as a consequence, information in this document may materially change the coding, format and clinical context of patient data. In addition, data may be omitted in some cases. CLINICAL DECISIONS SHOULD BE BASED ON THE PRIMARY CLINICAL RECORDS. [facility] [employer] [facility]. provides no warranty or guarantee of the accuracy or completeness of information in this document.
[2024-03-29] MEDS: ALBUTEROL SULFATE 2.5 MG/3 ML VIAL NEB IH (14:22)
== END 2024-03-29 12:52 | disposition home or self-care (01) ==
PROVIDERS: PCP Nurse Practitioner; Visit Provider Nurse Practitioner
DX: R06.09 Other forms of dyspnea (principal)
CPT/HCPCS: 36415; 85018; 94060; 94726; 94729

== ENCOUNTER 2024-04-13 12:45 | Outpatient (OUT) | payer MEDICARE, SELFPAY ==
--- NOTE | 2024-04-13 12:47 | CA_ITS ---
Patient Name: MONO LUNA MR#: [id number] : 1945 Exam Date: 04/13/2024 Ordering Doctor: VIRGILIO THOMAS ECHOCARDIOGRAM REPORT PROCEDURE: CA ECHO DOPPLER COMPLETE INDICATIONS: FULLER COMPARISON: None. DESCRIPTION: COMPLETE ECHOCARDIOGRAM Real-time transthoracic echocardiography with 2D, M-mode, spectral and color flow Doppler performed. QUALITY: Technical quality was good. LEFT VENTRICLE: Normal chamber size. Moderate concentric left ventricular hypertrophy. Global left ventricular systolic function is normal. LV EF: Visual estimation of left ventricular ejection fraction is 65-70%. DIASTOLIC: Grade I diastolic dysfunction. ATRIAL SEPTUM: LEFT ATRIUM: Normal chamber size. RIGHT ATRIUM: Moderate dilatation. RIGHT VENTRICLE: Normal chamber size. Normal right ventricular systolic function. TRICUSPID VALVE: Normal mobility and thickness. No stenosis with mild regurgitation. Mild pulmonary hypertension. RVSP 37 mmHg MITRAL VALVE: Normal mobility and thickness. No evidence of mitral valve stenosis. Mild mitral annular calcification. Trivial mitral regurgitation. AORTIC VALVE: Normal trileaflet appearance. No visible sclerosis. Normal leaflet mobility. No evidence of aortic valve stenosis. No aortic regurgitation. AORTIC ROOT: Normal diameter and appearance. PULMONIC VALVE: Normal thickness and mobility. No stenosis. Trivial regurgitation. PERICARDIUM: No evidence of pericardial effusion. IVC: Collapses with inspirations. Normal size. PLEURA: CONCLUSION: 1. Moderate concentric left ventricular hypertrophy with normal systolic function. LVEF is 65 to 70%. 2. Normal right ventricular size and systolic function. 3. No significant valvular dysfunction. 4. Grade 1 diastolic dysfunction. 5. Mildly elevated right-sided pressures. Adult Echocardiography Procedure Report Left Ventricle LVEDD (3.7 - 5.6 cm): 4.63 cm LVESD (2.2 - 4.0 cm): 2.88 cm LVIVS thickness (0.6 - 1.2 cm): 1.26 cm LVPW thickness (0.5 - 1.0 cm): 1.20 cm e': 0.07 m/s E - e': 11.32 LVOT Max Gradient: 5.08 mm[Hg] LVOT Area (cm2): 1.13 m/s Peak Velocity (LVOT): 1.13 m/s Mean Velocity (LVOT): 0.79 m/s LVOT Diameter 1.83 cm Left Ventricular Ejection Fraction: 65-70 % Left Atrium LA Volume Index (2D A2C): 26.15 ml/m2 Left Atrium Systolic Dimension: 3.15 cm Mitral Valve MV E to A Ratio: 0.66 Mitral Valve A-Wave Peak Velocity: 1.17 m/s Mitral Valve E-Wave Peak Velocity: 0.77 m/s Right Ventricle RV Internal Diastolic Dimension: 2.87 cm Aorta AO Root Diam: 2.77 cm Ascending Ao Diam: 2.95 cm Aortic Valve AoV Area (Peak Anton): 1.73 cm2, 1.73 cm2 AoV Area (VTI): 1.73 cm2, 1.73 cm2 Peak Velocity(Antegrade Flow): 1.71 m/s Peak Gradient(Antegrade Flow): 11.75 mm[Hg] Mean Velocity(Antegrade Flow): 1.16 m/s Mean Gradient(Antegrade Flow): 6.14 mm[Hg] Velocity Time Integral: 40.37 cm Tricuspid Valve Peak Velocity (Regurgitant Flow): 2.78 m/s, 2.91 m/s, 2.92 m/s Pulmonic Valve Mean Gradient: 4.19 mm[Hg] Mean Velocity: 0.97 m/s Peak Velocity: 1.33 m/s, 1.34 m/s Peak Gradient: 7.08 mm[Hg], 7.18 mm[Hg] Right Atrium Right Atrium Systolic Pressure: 33.53 ml, 33.53 ml Dictated by: Daniel Florian M.D. on 04/13/2024 at 17:16 Approved by: Daniel Florian M.D. on 04/13/2024 at 17:19
--- OUTSIDE RECORDS SUMMARY | 2024-04-13 12:54 | XMS_ITS | CCD ---
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 Role Phone LANE JORDAN Consulting Unavailable [...] RICK Admitting Unavailable ROME, RICK Attending Unavailable LOYA, YOLANDA Consulting Unavailable ZIEBER, DR ANGLE Quan Consulting Unavailable NEELY ., DR REBEL Ji Primary Care Unavailable ROME, RICK Admitting Unavailable RICK PETER Attending Unavailable ROME, RICK Consulting Unavailable NEELY ., DR REBEL Ji Primary Care Unavailable NEELY ., DR REBEL Ji Admitting Unavailable NEELY ., DR REBEL Ji Attending Unavailable NEELY ., DR REBEL Ji Consulting Unavailable NEELY ., DR REBEL Ji Primary Care Unavailable NEELY ., DR REBEL Ji Admitting Unavailable NEELY ., DR REBEL Ji Attending Unavailable LANE JORDAN Consulting Unavailable ROSA ., HOANG PIZANO Consulting Unavailable SHARP, NICOLE Consulting Unavailable STACEYSUSAN Consulting Unavailable EMILIA ., RONNA Admitting Unavailable EMILIA ., RONNA Consulting Unavailable NEELY ., DR REBEL Ji Primary Care Unavailable EMILIA ., RONNA Attending Unavailable RICHARD DAVIS Consulting Unavailable BritneyLuzmaria fererira Primary Care Physician [phone] PANFILO DANIEL Attending Unavailable FAROOQ, GERRI Ji Attending Unavailable FAROOQ, GERRI Ji Attending Unavailable FELTER, PANFILO Malik Attending Unavailable WILLIAM, VIRGILIO Attending Unavailable WILLIAM, VIRGILIO Attending Unavailable Britney, Luzmaria Blake Admitting Unavailable Britney, Luzmaria Blake Attending Unavailable Britney, Luzmaria Blake Admitting Unavailable Britney, Luzmaria Blake Attending Unavailable PIPER Kellogg Danyelle Admitting Unavailabl Danyelle Salas Attending Unavailable Britney, Luzmaria Blake Referring Unavailable Britney, Luzmaria Blake Attending Unavailable Britney, Luzmaria Blake Attending Unavailable Britney, Luzmaria Blake Attending Unavailable Britney, Luzmaria Blake Attending Unavailable Britney, Luzmaria Blkae Attending Unavailable Britney, Luzmaria Blake Attending Unavailable Junito Salvador Attending Unavailable Junito Salvador Referring Unavailable MD Junito Salvador Admitting Unavailable Allergies Allergy Classification Reported Allergen(s) Allergy Type Date of Onset Reaction(s) Facility Angiotensin Converting Enzyme (NENA) Inhibitors (1 source) quinapril; Translations: [QUINAPRIL] Drug Allergy 05-19-20 [facility] Repository Azole Antifungals (1 source) Fluconazole; Translations: [FLUCONAZOLE] Drug Allergy 05-19-20 [facility] Cephalosporins (antibiotic) (1 source) Cephalexin; Translations: [CEPHALEXIN] Drug Allergy 05-19-20 [facility] NSAIDs (1 source) Naproxen; Translations: [NAPROXEN SODIUM] Drug Allergy 05-19-20 [facility] Quinolones (antibiotic) (1 source) moxifloxacin; Translations: [MOXIFLOXACIN] Drug Allergy 05-19-20 [facility] Sulfamethoxazole / Trimethoprim (1 source) Sulfamethoxazole / Trimethoprim; Translations: [SULFAMETHOXAZOLE-T RIMETHOPRIM] Drug Allergy 01-27-20 21 [facility] Rep[facility] Sulfonamides (antibiotic) (1 source) Sulfonamides (Antibiotic); Translations: [SULFA (SULFONAMIDE ANTIBIOTICS)] Drug Allergy 05-19-20 [facility] Unclassified (1 source) AMOXICILLIN-POT CLAVULANATE; Translations: [AMOXICILLIN-POT CLAVULANATE] Propensity to adverse reactions to drug (disorder) 01-27-20 21 [facility] Repository (1 source) Amoxicillin / Clavulanate Drug Allergy 02-14-20 15 [facility] Repository (1 source) Aspirin Drug Allergy [facility] Rep[facility] (2 sources) Cephalexin; Translations: [cephalexin] Drug Allergy 05-29-20 13 [facility] Repository (1 source) Erythromycin Drug Allergy 05-29-20 13 [facility] Rep[facility] (2 sources) Fluconazole; Translations: [Diflucan] Drug Allergy [facility] (1 source) Fluconazole Drug Allergy [facility] Rep[facility] (2 sources) moxifloxacin; Translations: [Avelox] Drug Allergy 05-29-20 13 [facility] (2 sources) Naproxen; Translations: [Anaprox] Drug Allergy [facility] (1 source) Sulfamethoxazole / Trimethoprim Drug Allergy 05-29-20 13 [facility] Rep[facility] (1 source) COVID-19 (SARS-CoV-2) vaccine, josee cell Drug allergy (disorder) 10-30-19 21 [facility] Repository (10 sources) Cephalexin; Translations: [cephalexin] Drug Allergy Unknown (qualifier value) [facility] (10 sources) Fluconazole; Translations: [fluconazole] Drug Allergy Unknown (qualifier value) [facility] (10 sources) moxifloxacin; Translations: [moxifloxacin] Drug Allergy Unknown (qualifier value) [facility] (10 sources) Naproxen; Translations: [naproxen] Drug Allergy Unknown (qualifier value) [facility] (11 sources) quinapril; Translations: [quinapril] Drug Allergy Unknown (qualifier value) [facility] (11 sources) Sulfonamides (Antibiotic); Translations: [sulfa drugs] Drug allergy Unknown (qualifier value) [facility] (5 sources) Erythromycin; Translations: [erythromycin] Drug Allergy Stomach upset [facility] Medications Current Medications Medication Drug Class(es) Dates Sig (Normalized) Sig (Original) Albuterol (Eqv-Ventolin HFA) 90 mcg/inh inhalation aerosol (10 sources) Start: 01-04-2023 take 2 puff(s) by inhalation every six hours Albuterol (Eqv-Ventolin HFA) 90 mcg/inh inhalation aerosol 2 puff(s), Inhalation, q6hr, 8.5 gm, Refill(s) 2, INHALE 2 PUFFS BY MOUTH EVERY 4 HOURS, [facility], 167, cm, 01/04/23 11:24:00 EDT, [...] day(s), # 90 tab(s), Refills(s) 3, Pharmacy: [facility], 167, cm, 01/05/24 11:25:00 EDT, Height/Length Dosing, 80.1, kg, 01/05/24 11:25:00 EDT, Weight Dosing Start Date: 01/05/24 Stop Date: 12/30/24 Status: Ordered Start: 05-05-2023 take 1 tablet by lizeth th once daily at bedtime famotidine 40 mg Tab 40 mg = 1 tab(s), Oral, Once a day (at bedtime), # 90 tab(s), Refills(s) 0, Pharmacy: [facility], 167, cm, 03/17/23 14:09:00 EDT, Height/Length Dosing, 78, kg, 02/10/23 14:07:00 EDT, Weight Dosing Start Date: 05/05/23 Status: Ordered Start: 02-10-2023 take 1 tablet by lizeth th once daily at bedtime famotidine 40 mg Tab 40 mg = 1 tab(s), Oral, Once a day (at bedtime), # 90 tab(s), Refills(s) 0, Pharmacy: [facility], 167, cm, 01/04/23 11:24:00 EDT, Height/Length Dosing, 79.3, kg, 01/04/23 11:24:00 EDT, Weight Dosing Start Date: 02/10/23 Status: Ordered Start: 11-30-2022 take 1 tablet by lizeth th once daily at bedtime famotidine 40 mg Tab 40 mg = 1 tab(s), Oral, Once a day (at bedtime), # 90 tab(s), Refills(s) 0, Pharmacy: [facility] Start Date: 11/30/22 Status: Ordered 120 actuat fluticasone propionate 0.044 mg/actuat metered dose inhaler (11 sources) Corticosteroid Start: 01-05-2024 take 2 puff(s) by inhalation twice daily Flovent HFA 44 Aerosol = 2 puff(s), Inhalation, BID, # 10.6 gram, Refills(s) 0, Pharmacy: [facility], 167, cm, 01/05/24 11:25:00 EDT, Height/Length Dosing, 80.1, kg, 01/05/24 11:25:00 EDT, Weight Dosing Start Date: 01/05/24 Status: Ordered Start: 11-25-2022 fluticasone Na cas 0.05 mg/inh Nowata Refill(s) 0 Start Date: 11/25/22 Status: Ordered [...] Daily, # 30 tab(s), Refills(s) 0, Pharmacy: [facility], 167, cm, 12/21/22 13:10:00 EDT, Height/Length Dosing, 79.3, kg, 12/21/22 13:10:00 EDT, Weight Dosing Start Date: 12/21/22 Status: Ordered metFORMIN hydrochloride 500 mg oral tablet (1 source) Biguanide Start: 01-05-2024 take 1 tablet by mouth twice daily metformin 500 mg Tab 500 mg = 1 tab(s), Oral, BID, # 180 tab(s), Refills(s) 3, Pharmacy: [facility], 167, cm, 01/05/24 11:25:00 [...] 11-26-2022 Chronic Other aftercare (1 source) Other longterm (current) drug therapy; Translations: [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 CURRENT DRUG THERAPY] Onset: 3 Episodic Other [...] and metabolic disorders (3 sources) Excessive thirst 09-20-2023 Episodic Pneumonia (except that caused by tuberculosis [...] Test Name Value Interpretation Reference Range Facility Family Medicine Office/Clini c Noteon 03-28-2024 Family Medicine Office/Clinic Note Family Medicine Office/Clinic Note HPI Staff Stephanie is a 78 year old female presenting to discuss medications and other options Put on metformin and she cannot take it, makes her feel dizzy and was fainting, feels it was making her glucose levels drop Stopped it this week History of Present Illness pt presents today to discuss metformin Review of Systems PHQ Score Initial Depression Screen Score: 0 SCORE Physical Exam Vitals & Measurements T: 36.8 ?C(Temporal Artery) HR: 68(Peripheral) RR: 16 BP: 130/72 SpO2: 98% HT: 66 in HT: 167 cm WT: 80.2 kg WT: 176.44 lb BMI: 28.76 General: alert, no acute distress ENMT: oral mucosa moist, no pharyngeal erythema or exudate Cardiovascular: regular rate and rhythm, normal peripheral perfusion Respiratory: Lungs CTA, respirations non labored Extremities: no deformity, no trauma Neurological: oriented x 4, LOC appropriate for age, CN II-XII intact, motor strength equal & normal bilaterally, speech normal Assessment/Plan 1. Type 2 diabetes mellitus with hypercholesterolemia (E11.69: Type 2 diabetes mellitus with other specified complication) HGBA1C is 5.3 in December. pt feels her sugars have been low and stopped taking metformin this week. will check HGBA1C in 3 months. we will then determine if we need to restart medication. pt encouraged to keep low carb low sugar diet. Ordered: budesonide/formoterol/g lycopyrrolate, 2 puff(s), Inhalation, BID, 10.7 gm, Refill(s) 5, [facility], 167, cm, 03/28/24 15:04:00 EDT, Height/Length Dosing, 80.2, kg, 03/28/24 15:04:00 EDT, Weight Dosing Body Mass Index (BMI) documented 3008F Current tobacco non-user 1036F Depression Screening Negative 3352F Most recent diastolic blood pressure <80 mm Hg 3078F Patient screen for fall risk: no falls in last year or 1 fall with no injury in last year 1101F Systolic BP 130-139 mm Hg (Most Recent) 3075F 2. Shortness of breath (R06.02: Shortness of breath) still having SOB on exertion is scheduled for PFT tomorrow. refill on albuterol sent. breztri samples provided and rx sent. also has echo scheduled next week 3. BMI 28.0-28.9,adult (Z68.28: Body mass index [BMI] 28.0-28.9, adult) BMI education given Ordered: budesonide/formoterol/g lycopyrrolate, 2 puff(s), Inhalation, BID, 10.7 gm, Refill(s) 5, [facility], 167, cm, 03/28/24 15:04:00 EDT, Height/Length Dosing, 80.2, kg, 03/28/24 15:04:00 EDT, Weight Dosing fluticasone, = 2 puff(s), Inhalation, BID, # 10.6 gram, Refills(s) 0, Pharmacy: [facility], 167, cm, 01/05/24 11:25:00 EDT, Height/Length Dosing, 80.1, kg, 01/05/24 11:25:00 EDT, Weight Dosing Body Mass Index (BMI) documented 3008F Current tobacco non-user 1036F Depression Screening Negative 3352F Most recent diastolic blood pressure <80 mm Hg 3078F Patient screen for fall risk: no falls in last year or 1 fall with no injury in last year 1101F Systolic BP 130-139 mm Hg (Most Recent) 3075F 4. Overweight (E66.3: Overweight) see above Ordered: budesonide/formoterol/g lycopyrrolate, 2 puff(s), Inhalation, BID, 10.7 gm, Refill(s) 5, [facility], 167, cm, 03/28/24 15:04:00 EDT, Height/Length Dosing, 80.2, kg, 03/28/24 15:04:00 EDT, Weight Dosing Body Mass Index (BMI) documented 3008F Current tobacco non-user 1036F Depression Screening Negative 3352F Most recent diastolic blood pressure <80 mm Hg 3078F Patient screen for fall risk: no falls in last year or 1 fall with no injury in last year 1101F Systolic BP 130-139 mm Hg (Most Recent) 3075F 5. Nonsmoker (Z78.9: Other specified health status) continue not smoking Ordered: budesonide/formoterol/g lycopyrrolate, 2 puff(s), Inhalation, BID, 10.7 gm, Refill(s) 5, [facility], 167, cm, 03/28/24 15:04:00 EDT, Height/Length Dosing, 80.2, kg, 03/28/24 15:04:00 EDT, Weight Dosing fluticasone, = 2 puff(s), Inhalation, BID, # 10.6 gram, Refills(s) 0, Pharmacy: [facility], 167, cm, 01/05/24 11:25:00 EDT, Height/Length Dosing, 80.1, kg, 01/05/24 11:25:00 EDT, Weight Dosing Body Mass Index (BMI) documented 3008F Current tobacco non-user 1036F Depression Screening Negative 3352F Most recent diastolic blood pressure <80 mm Hg 3078F Patient screen for fall risk: no falls in last year or 1 fall with no injury in last year 1101F Systolic BP 130-139 mm Hg (Most Recent) 3075F Orders: albuterol, 2 puff(s), Inhalation, q6hr, 8.5 gm, Refill(s) 6, INHALE 2 PUFFS BY MOUTH EVERY 4 HOURS, [facility], 167, cm, 03/28/24 15:04:00 EDT, Height/Length Dosing, 80.2, kg, 03/28/24 15:04:00 EDT, Weight Dosing albuterol, 2 puff(s), Inhalation, q6hr, 8.5 gm, Refill(s) 2, INHALE 2 PUFFS BY MOUTH EVERY 4 HOURS, [facility], 167, cm, 01/04/23 11:24:00 EDT, Height/Length Dosing, 79.3, kg, 01/04/23 11:24:00 EDT, Weight Dosing Follow-up No qualifying data available Problem List/Past Medical Hist (more content not included)... Normal [facility] Comment on above: Result Comment: Elec tronically Signed By: Luzmaria Lamas\.br\Date and Time Signed: 03/28/24 15:31 EDT Office Visiton 03-14-2024 Follow-up visit [id number] Stephanie Wasserman 1945 F Date Provider Department Center 03/14/2024 VIRGILIO RAM[facility]REZ [facility] Family History Problem Relation Age of Onset Lung disease Mother Diabetes Mother's Sister Family Status - Relation Status Age at Mother Father Mother's Sister Other Level of Service:41755 NH OFFICE/OUTPATIENT ESTABLISHED MOD MDM 30 MIN Normal [facility] Reminderson 01-09-2024 Reminders - From: Luzmaria Lamas To: [facility] - Clinical; Sent: 01/06/2024 12:27:23 EDT Show [...] a 90 day script and sent to [facility]. Normal [facility] Ambulatory Visit Summaryon 0 01-05-2024 Ambulatory Visit Summary STEPHANIE WASSERMAN :1945 Visit Date:01/05/2024 Ambulatory Visit Instructions Your Diagnosis Hypercholesteremia Type 2 diabetes mellitus BMI 28.0-28.9,adult Non-smoker Your Care Team Attending Physician - Luzmaria Lamas Primary Care Physician - Luzmaria Lamas This Is Your Medications List [facility] Prescription (Breast prosthetic and bra) albuterol (Albuterol (Eqv-Ventolin HFA) 90 mcg/inh inhalation aerosol) amlodipine (amLODIPine 10 mg Tab) ascorbic acid-collagen (Collagen Skin Renewal) bifidobacterium-lactoba cillus (Nature's Bounty Probiotic) calcium citrate (calcium (as calcium citrate) 200 mg oral tablet) famotidine (famotidine 40 mg Tab) fluticasone (Flovent HFA 44 Aerosol) fluticasone nasal (fluticasone Nasal 0.05 mg/inh Nowata) losartan (losartan 100 mg Tab) metformin (metformin [...] Duration: 90 Days Refills: 3 Pickup at [facility] New fluticasone (Flovent HFA 44 Aerosol) 2 Puffs Inhalation 2 times a day Hypercholesteremia Type 2 diabetes mellitus BMI 28.0-28.9,adult Non-smoker Pickup at [facility] New metformin (metformin 500 mg Tab) 1 Tablets By Mouth 2 times a day Type 2 diabetes mellitus Refills: 3 Pickup at [facility] Delivery Unchanged albuterol (Albuterol (Eqv-Ventolin HFA) 90 mcg/ inh inhalation aerosol) 2 Puffs Inhalation Every 6 hours INHALE 2 PUFFS BY MOUTH EVERY 4 HOURS Unchanged amlodipine (amLODIPine 10 mg Tab) TAKE 1 TABLET BY MOUTH IN THE MORNING Unchanged ascorbic acid-collagen (Collagen Skin Renewal) Unchanged bifidobacterium-lactoba cillus (Nature's Bounty Probiotic) Unchanged calcium citrate (calcium (as calcium citrate) 200 mg oral tablet) See instructions Daily Unchanged fluticasone nasal (fluticasone Nasal 0.05 mg/ inh Nowata) Unchanged losartan (losartan 100 mg Tab) 1 Tablets By Mouth Every day Unchanged Misc Prescription (Breast prosthetic and bra) See instructions 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 Normal [facility] CHEMISTRYOrdered By: Oopl[employer] SYSTEM on 01-05-2024 Cholesterol [Mass/Vol] 215 mg/dL [...] (Bld) [Mass fraction] 5.9 % Normal <=5.9% [facility] ChemAutoSS Family Medicine Office/Clini c Noteon 01-05-2024 [...] BID, # 10.6 gram, Refills(s) 0, Pharmacy: [facility], 167, cm, 01/05/24 11:25:00 EDT, Height/Length Dosing, 80.1, kg, 01/05/24 11:25:00 EDT, Weight Dosing HgbA1c Lab Specimen Collect [id number] Lipid Panel 2. Type 2 diabetes mellitus (E11.9: Type 2 diabetes mellitus without complications) Will draw HGBA1C today. pt is taking 1/2 tab in am and 1/2 tab in Pm of metformin Ordered: fluticasone, = 2 puff(s), Inhalation, BID, # 10.6 gram, Refills(s) 0, Pharmacy: [facility], 167, cm, 01/05/24 11:25:00 EDT, Height/Length Dosing, 80.1, kg, 01/05/24 11:25:00 EDT, Weight Dosing metformin, 500 mg = 1 tab(s), Oral, BID, # 60 tab(s), Refills(s) 0, Pharmacy: [facility], 167, cm, 10/04/23 14:41:00 EST, Height/Length Dosing, 79.5, kg, 10/04/23 14:41:00 EST, Weight Dosing metformin, 500 mg = 1 tab(s), Oral, BID, # 180 tab(s), Refills(s) 3, Pharmacy: [facility], 167, cm, 01/05/24 11:25:00 EDT, Height/Length Dosing, 80.1, kg, 01/05/24 11:25:00 EDT, Weight Dosing HgbA1c Lab Specimen Collect [id number] Lipid Panel 3. BMI 28.0-28.9,adult (Z68.28: Body mass index [BMI] 28.0-28.9, adult) BMI education complete Ordered: fluticasone, = 2 puff(s), Inhalation, BID, # 10.6 gram, Refills(s) 0, [email or web address], 167, cm, 01/05/24 11:25:00 EDT, Height/Length Dosing, 80.1, kg, 01/05/24 11:25:00 EDT, Weight Dosing HgbA1c Lab Specimen Collect [id number] Lipid Panel 4. Non-smoker (Z78.9: Other specified health status) continue not smoking Ordered: fluticasone, = 2 puff(s), Inhalation, BID, # 10.6 gram, Refills(s) 0, Pharmacy: [facility], 167, cm, 01/05/24 11:25:00 EDT, Height/Length Dosing, 80.1, kg, 01/05/24 11:25:00 EDT, Weight Dosing HgbA1c Lab Specimen Collect [id number] Lipid Panel Orders: famotidine, 40 mg = 1 tab(s), Oral, Once a day (at bedtime), X 90 day(s), # 90 tab(s), Refills(s) 3, Pharmacy: [facility], 167, cm, 01/05/24 11:25:00 EDT, Height/Length Dosing, 80.1, kg, 01/05/24 11:25:00 EDT, Weight Dosing famotidine, 40 mg = 1 tab(s), Oral, Once a day (at bedtime), # 90 tab(s), Refills(s) 1, Pharmacy: [facility], 167, cm, 06/06/23 14:18:00 EDT, [...] o (more content not included)... Normal [facility] Comment on above: Result Comment: Elec tronically Signed By: Luzmaria Lamas\.boogie\Date and Time Signed: 01/05/24 13:00 EDT [id number] 01-05-2024 HbA1c (Bld) [Mass fraction] 5.9 % Normal <=5.9 [facility] Comment on above: Performed By: #### 2 [id number], [id number] ####[facility] [address] [place] [address] Lipid Panelon 01-05-2024 Cholesterol [Mass/Vol] 215 mg/dL High 120-200 [facility] Comment on above: Performed By: #### 2 [id number], [id number] ####[facility] [address] [place] [address] Cholesterol in HDL [Mass/Vol] 45 mg/dL Invalid Interpretation Code [facility] Comment on above: Result Comment: '>= 60 LOW RISK' '<= 40 HIGH RISK' Performed By: #### 2 [id number], [id number] ####[facility] [address] [place] [address] Cholesterol in LDL [Mass/Vol] 137 mg/dL High <=129 [facility] Comment on above: Performed By: #### 2 [id number], [id number] ####[facility] [address] [place] [address] Cholesterol in VLDL [Mass/Vol] 74 mg/dL High 7-40 [facility] Comment on above: Performed By: #### 2 [id number], [id number] ####[facility] [address] [place] [address] Triglyceride [Mass/Vol] 371 mg/dL High <=149 [facility] Comment on above: Performed By: #### 2 [id number], [id number] ####[facility] [address] [place] [address] RAD - MISCon 10-06-2023 RAD - MISC [id number] IFF Normal [facility] Physician Orderon 10-05-2023 Physician Order [id number] IFF Normal [facility] Ambulatory Visit Summaryon 0 10-04-2023 Ambulatory [...] Tab) benzonatate (benzonatate 200 mg oral capsule) bifidobacterium-lactoba cillus (Nature's Bounty Probiotic) calcium citrate (calcium (as calcium citrate) 200 mg oral tablet) famotidine (famotidine 40 mg Tab) fluticasone nasal (fluticasone Nasal 0.05 mg/inh Nowata) losartan (losartan 100 mg Tab) methylPREDNISolone (Medrol [...] as directed on package labeling Pickup at [facility] New benzonatate (benzonatate 200 mg oral capsule) 1 Capsules By Mouth 3 times a day Cough Shortness of breath BMI 29.0-29.9,adult Non-smoker Duration: 10 Days Pickup at [facility] New methylPREDNISolone (Medrol 4 mg Tab) 1 Packets By Mouth As Directed Cough Shortness of breath BMI 29.0-29.9,adult Non-smoker Duration: 6 Days as directed on package labeling Pickup at [facility] Unchanged albuterol (Albuterol (Eqv-Ventolin HFA) 90 mcg/ inh inhalation aerosol) 2 Puffs Inhalation Every 6 hours INHALE 2 PUFFS BY MOUTH EVERY 4 HOURS Unchanged amlodipine (amLODIPine 10 mg Tab) TAKE 1 TABLET BY MOUTH IN THE MORNING Unchanged ascorbic acid-collagen (Collagen Skin Renewal) Unchanged bifidobacterium-lactoba cillus (Nature's Bounty Probiotic) Unchanged calcium citrate (calcium (as calcium citrate) 200 mg oral tablet) See instructions Daily Unchanged famotidine (famotidine 40 mg Tab) 1 Tablets By Mouth Once a day (at bedtime) Unchanged fluticasone nasal (fluticasone Nasal 0.05 mg/ inh Nowata) Unchanged losartan (losartan 100 mg Tab) 1 Tablets By Mouth Every day Unchanged multivitamin (Multi Vitamin+) Pharmacy Information [facility]: [address], [place] [phone] Allergies Accupril (Unknown) Anaprox (Unknown) Avelox (Unknown) [...] choosing us for your care. Normal [facility] Family Medicine Office/Clini c Noteon [...] chest x ray pt will go to [facility]. pt states she does use her inhaler when she has coughing fits. will order z pack and medrol dose pack. as well as tessalon pearls. all questions answered. if this treatment does not help with cough will refer to pulmonology Ordered: azithromycin, = 1 packet(s), Oral, As Directed, as directed on package labeling, X 5 day(s), # 6 tab(s), Refills(s) 0, Pharmacy: [facility], 167, cm, 10/04/23 14:41:00 EST, Height/Length Dosing, 79.5, kg, 10/04/23 14:41:00 EST, Weight Dosing benzonatate, 200 mg = 1 cap(s), Oral, TID, X 10 day(s), # 30 cap(s), Refills(s) 0, [email or web address], [facility], cm, 10/04/23 14:41:00 EST, Height/Length Dosing, 79.5, kg, 10/04/23 14:41:00 EST, Weight Dosing methylPREDNISolone, = 1 packet(s), Oral, As Directed, as directed on package labeling, X 6 day(s), # 21 tab(s), Refills(s) 0, [email or web address], 167, cm, 10/04/23 14:41:00 EST, Height/Length Dosing, 79.5, kg, 10/04/23 14:41:00 EST, Weight Dosing 2. Shortness of breath (R06.02: Shortness of breath) chest x ray ordered Ordered: azithromycin, = 1 packet(s), Oral, As Directed, as directed on package labeling, X 5 day(s), # 6 tab(s), Refills(s) 0, [email or web address], 167, cm, 10/04/23 14:41:00 EST, Height/Length Dosing, 79.5, kg, 10/04/23 14:41:00 EST, Weight Dosing benzonatate, 200 mg = 1 cap(s), Oral, TID, X 10 day(s), # 30 cap(s), Refills(s) 0, Pharmacy: [facility], 167, cm, 10/04/23 14:41:00 EST, Height/Length Dosing, 79.5, kg, 10/04/23 14:41:00 EST, Weight Dosing methylPREDNISolone, = 1 packet(s), Oral, As Directed, as directed on package labeling, X 6 day(s), # 21 tab(s), Refills(s) 0, Pharmacy: [facility], 167, cm, 10/04/23 14:41:00 EST, Height/Length Dosing, 79.5, kg, 10/04/23 14:41:00 EST, Weight Dosing 3. BMI 29.0-29.9,adult (Z68.29: Body mass index [BMI] 29.0-29.9, adult) BMI education complete Ordered: azithromycin, = 1 packet(s), Oral, As Directed, as directed on package labeling, X 5 day(s), # 6 tab(s), Refills(s) 0, Pharmacy: [facility], 167, cm, 10/04/23 14:41:00 EST, Height/Length Dosing, 79.5, kg, 10/04/23 14:41:00 EST, Weight Dosing benzonatate, 200 mg = 1 cap(s), Oral, TID, X 10 day(s), # 30 cap(s), Refills(s) 0, Pharmacy: [facility], 167, cm, 10/04/23 14:41:00 EST, Height/Length Dosing, 79.5, kg, 10/04/23 14:41:00 EST, Weight Dosing methylPREDNISolone, = 1 packet(s), Oral, As Directed, as directed on package labeling, X 6 day(s), # 21 tab(s), Refills(s) 0, Pharmacy: [facility], 167, cm, 10/04/23 14:41:00 EST, Height/Length Dosing, 79.5, kg, 10/04/23 14:41:00 EST, Weight Dosing 4. Non-smoker (Z78.9: Other specified health status) continue not smoking Ordered: azithromycin, = 1 packet(s), Oral, As Directed, as directed on package labeling, X 5 day(s), # 6 tab(s), Refills(s) 0, Pharmacy: [facility], 167, cm, 10/04/23 14:41:00 EST, Height/Length Dosing, 79.5, kg, 10/04/23 14:41:00 EST, Weight Dosing benzonatate, 200 mg = 1 cap(s), Oral, TID, X 10 day(s), # 30 cap(s), Refills(s) 0, Pharmacy: [facility], 167, cm, 10/04/23 14:41:00 EST, Height/Length Dosing, 79.5, kg, 10/04/23 14:41:00 EST, Weight Dosing methylPREDNISolone, = 1 packet(s), Oral, As Directed, as directed on package labelin (more content not included)... Normal [facility] Comment on above: Result Comment: Elec tronically Signed By: Britney PATEL, Luzmaria Blake\.br\Date and Time Signed: 10/04/23 15:03 EST Consent for Treatmenton 05-14 Consent for Treatment [id number]#1.00C D:[address] [facility] Consultation Noteon 06-06-20 Consultation Note Patient: [...] 2 PUFFS BY MOUTH EVERY 4 HOURS, [facility], 167, cm, 01/04/23 11:24:00 EDT, Height/Length Dosing, 79.3, kg, 01/04/23 11:24:00 EDT, Weight Dosing famotidine 40 mg Tab: 40 mg = 1 tab(s), Oral, Once a day (at bedtime), # 90 tab(s), Refills(s) 0, Pharmacy: [facility], 167, cm, 03/17/23 14:09:00 EDT, Height/Length Dosing, 78, kg, 02/10/23 14:07:00 EDT, Weight Dosing Documented Medications Documented Collagen Skin Renewal: Refill(s) 0 Multi Vitamin+: Refill(s) 0 Nature's Bounty Probiotic: Refill(s) 0 amLODIPine 10 mg Tab: TAKE 1 TABLET BY MOUTH IN THE MORNING calcium (as calcium citrate) 200 mg oral tablet: See Instructions, Daily, Refills(s) 0 fluticasone Nasal 0.05 mg/inh Nowata: Refill(s) 0 losartan 100 mg Tab: Refills(s) 0 Problem list: All Problems Cervical radiculitis / SNOMED CT 19174340 / Confirmed Episodic tension type headache / SNOMED CT 313644178 / Confirmed GERD (gastroesophageal reflux disease) / SNOMED CT 092959925 / Confirmed HTN (hypertension) / SNOMED CT 4108674140 / Confirmed Hypothyroidism / SNOMED CT 09034169 / Confirmed Diabetes mellitus, type II / SNOMED CT 161058606 / Confirmed Sciatica / SNOMED CT 02800423 / Confirmed Arthritis / SNOMED CT 0770469 / Confirmed Mononucleosis / SNOMED CT 540496886 / Confirmed Chronic cough / SNOMED CT 060687587 / Confirmed Hearing deficit / SNOMED CT 09624303 / Confirmed Breast cancer / SNOMED CT 339566884 / Confirmed Osteoarthritis / SNOMED CT 1203020527 / Confirmed Lower back pain / SNOMED CT 112932746 / Confirmed Wellness examination / SNOMED CT 883553732 / Confirmed Fatigue / SNOMED CT 597370676 / Confirmed Type 2 diabetes mellitus / SNOMED CT 780621808 / Confirmed Excessive thirst / SNOMED CT 49054468 / Confirmed Resolved: COVID-19 / SNOMED CT 0738652196 Resolved: Hemorrhoids / SNOMED CT 062458188 Resolved: Pneumonia / SNOMED CT 594884530 Resolved: Arthritis / SNOMED CT 2369195 L spine W L5-S1 narrowing Resolved: Breast cancer 2, early onset gene mutation carrier detection test / SNOMED CT 9681128716 Resolved: Fibroids / SNOMED CT 574239921 Resolved: Glaucoma / SNOMED CT 49059117 Resolved: Achilles tendonitis / SNOMED CT 2704944271 Resolved: Osteoporosis / SNOMED CT 109193639 Objective Vital Signs 06/06/2023 14:10 EDT Peripheral [...] 5/5 lower extremity strength Integumentary: Warm, Dry, [place]. Injection site well-healed Neurologic: Alert, Oriented. Psychiatric: Cooperative, Appropriate mood & affect. Results Review * Final Report * Reason For Exam M54.17, M48.062 POWERSCRIBE REPORT IMPRESSION: DEGENERATIVE CHANGES OF THE LUMBAR SPINE DETAILED. EXAM: MRI of the lumbar spine without contrast History: Low back pain Technique: Multiplanar multisequence MRI of the lum (more content not included)... Normal [facility] Comment on above: Result Comment: Elec tronically Signed By: Danyelle Kellogg PA-C\.br\Date and Time Signed: 06/06/23 14:31 EDT\.br\Electronically Co-Signed By: Harlan Solomon DO\.br\Date and Time Co-Signed: 06/07/23 11:02 EDT Office/Clinic Note-Physician on 06-06-2023 Office/Clinic Note-Physician [id number]#1.00C D:[address] [facility] Patient Correspondenceon Patient Correspondence [id number]#1.00C D:[address] [facility] Patient Correspondence [id number]#1.00C D:[address] [facility] Patient History Officeon Patient History Office [id number]#1.00C D:[address] [facility] Ambulatory Visit Summaryon 0 06-01-2023 Ambulatory Visit Summary STEPHANIE WASSERMAN :1945 Visit Date:06/01/2023 Ambulatory Visit Instructions Your Diagnosis Wellness examination Fatigue Type 2 diabetes mellitus Excessive thirst Your Care Team Attending Physician - Luzmaria Lamas Primary Care Physician - Luzmaria Lamas This Is Your Medications List albuterol (Albuterol (Eqv-Ventolin HFA) 90 mcg/inh inhalation aerosol) amlodipine (amLODIPine 10 mg Tab) ascorbic acid-collagen (Collagen Skin Renewal) bifidobacterium-lactoba cillus (Nature's Bounty Probiotic) calcium citrate (calcium (as calcium citrate) 200 mg oral tablet) famotidine (famotidine 40 mg Tab) fluticasone nasal (fluticasone Nasal 0.05 mg/inh [place]) losartan (losartan 100 mg Tab) meloxicam (meloxicam [...] Unchanged ascorbic acid-collagen (Collagen Skin Renewal) Unchanged bifidobacterium-lactoba cillus (Nature's Bounty Probiotic) Unchanged calcium citrate (calcium (as calcium citrate) 200 mg oral tablet) See instructions Daily Unchanged famotidine (famotidine 40 mg Tab) 1 Tablets By Mouth Once a day (at bedtime) Unchanged fluticasone nasal (fluticasone Nasal 0.05 mg/ inh [place]) Unchanged losartan (losartan 100 mg Tab) Unchanged [...] Fibroids Glaucoma Hemorrhoids Osteoporosis Pneumonia Normal [facility] Auto Diffon 06-01-2023 Basophils/100 WBC (Bld) 1.2 % Normal 0.0-2.0 [facility] Comment on above: Order Comment: Order Added by Discern Expert. Performed By: #### 2 400735, 2970398, 2990865, 099778712, 92136415, 5123601, 7997350 ####[address] [place] [address] Basophils/Leukocytes Auto (Bld) [Pure # fraction] 0.1 E9/L Normal 0.0-0.2 [facility] Comment on above: Order Comment: Order Added by Discern Expert. Performed By: #### 2 019119, 7725609, 8845075, 198727367, 00019537, 6238200, 7088263 ####[address] [address] Eosinophils/100 WBC (Bld) 4.1 % Normal 0.0-8.0 [facility] Comment on above: Order Comment: Order Added by Discern Expert. Performed By: #### 2 988694, 7447335, 2222878, 136503430, 18807173, 4954082, 3116680 ####[address] [address] Eosinophils/Leukocyt es Auto (Bld) [Pure # fraction] 0.3 E9/L Normal 0.0-0.5 [facility] Comment on above: Order Comment: Order Added by Discern Expert. Performed By: #### 2 090731, 8663026, 2171208, 278991702, 78115236, 1973733, 3829506 ####[address] [address] Lymphocytes/100 WBC (Bld) 33.7 % Normal 14.0-50.0 [facility] Comment on above: Order Comment: Order Added by Discern Expert. Performed By: #### 2 284121, 3852065, 3967989, 379493092, 82290624, 8506174, 6274707 ####[address] [address] Lymphocytes/Leukocyt es Auto (Bld) [Pure # fraction] 2.1 E9/L Normal 1.0-4.0 [facility] Comment on above: Order Comment: Order Added by Discern Expert. Performed By: #### 2 486086, 5487469, 0622270, 165962493, 19293720, 1763513, 3997505 ####[address] [place] [address] Monocytes/100 WBC (Bld) 12.7 % Normal 4.0-14.0 [facility] Comment on above: Order Comment: Order Added by Discern Expert. Performed By: #### 2 688710, 6184474, 9444883, 985676230, 83932337, 7026835, 7799458 ####[address] [place] [address] Monocytes/Leukocytes Auto (Bld) [Pure # fraction] 0.8 E9/L Normal 0.2-1.0 [facility] Comment on above: Order Comment: Order Added by Emely Expert. Performed By: #### 2 778103, 3266671, 0468198, 612924970, 74314236, 8307772, 5016281 ####[address] [address] Neutrophils/100 WBC (Bld) 48.3 % Normal 36.0-75.0 [facility] Comment on above: Order Comment: Order Added by Discern Expert. Performed By: #### 2 002325, 4058249, 2164050, 536397216, 64262840, 9300081, 8994872 ####[address] [address] Neutrophils/Leukocyt es Auto (Bld) [Pure # fraction] 3.0 E9/L Normal 2.0-7.5 [facility] Comment on above: Order Comment: Order Added by Discern Expert. Performed By: #### 2 931584, 2001199, 5169109, 431045374, 12160592, 0027766, 4929666 ####[address] [place] [address] CBC w/ Auto Diffon 3 Erythrocyte distribution width (RBC) [Ratio] 14.4 % High 10.9-14.2 [facility] Comment on above: Performed By: #### 2 208876, 7087883, 1881593, 548172268, 59863756, 3990677, 3620064 ####[facility] [address] [place] [address] Hematocrit (Bld) [Volume fraction] 41.3 % Normal 34.0-46.0 [facility] Comment on above: Performed By: #### 2 251133, 1418981, 7380047, 628949260, 97365959, 5927045, 1233025 ####[facility] [address] [place] [address] Hemoglobin (Bld) [Mass/Vol] 13.9 g/dL Normal 12.0-16.0 [facility] Comment on above: Performed By: #### 2 361419, 7039442, 5720763, 491992481, 14665984, 0961780, 7475200 ####[address] [address] MCH (RBC) [Entitic mass] 29.6 pg Normal 27.0-34.0 [facility] Comment on above: Performed By: #### 2 701620, 2363043, 9377880, 213298574, 32446044, 6603397, 6750459 ####[address] [address] MCHC (RBC) [Mass/Vol] 33.7 g/dL Normal 31.4-36.0 [facility] Comment on above: Performed By: #### 2 881351, 5064814, 0516996, 433027500, 57574666, 8613091, 3000465 ####[address] [address] MCV (RBC) [Entitic vol] 87.7 fL Normal 80.0-100.0 [facility] Comment on above: Performed By: #### 2 826832, 2829656, 0737328, 354861149, 53134656, 1080905, 7211209 ####[facility] [address] [place] [address] Platelet mean volume (Bld) [Entitic vol] 8.8 fL Normal 6.4-10.8 [facility] Comment on above: Performed By: #### 2 780616, 0055855, 1837090, 571720686, 53622701, 7448046, 0116776 ####[facility] [address] [place] [address] Platelets (Bld) [#/Vol] 258.0 E9/L Normal 150.0-500.0 [facility] Comment on above: Performed By: #### 2 755820, 4423988, 8322078, 020630298, 30228097, 5979075, 7924950 ####[facility] [address] [place] [address] RBC (Bld) [#/Vol] 4.7 E12/L Normal 4.3-5.9 [facility] Comment on above: Performed By: #### 2 312676, 9588327, 0170492, 890213681, 33520152, 1466479, 2500876 ####[address] [place] [address] WBC corrected for nucl RBC Auto (Bld) [#/Vol] 6.2 E9/L Normal 4.0-11.0 [facility] Comment on above: Performed By: #### 2 417885, 8277543, 6907444, 281879064, 87681077, 6999881, 2447305 ####[facility] [address] [place] [address] CHEMISTRYOrdered By: SYSTEM SYSTEM on 06-01-2023 Albumin [...] 10 mmol/L Normal 6 - 16 mEq/L [facility] Remisol AST [Catalytic activity/Vol] 20 [iU]/d Normal [...] 75 mL/min/1.73 m2 Normal >=59mL/min/1. 73 m2 [facility] Chem S Globulin (S) [Mass/Vol] 3.6 g/dL Normal 1.4 - 4.0 gm/dL [facility] Remisol Glucose [Mass/Vol] 113 mg/dL Normal 55 - 199 mg/dL [facility] Remisol Potassium [Moles/Vol] 4.3 mmol/L Normal 3.5 - 5.3 mmol/L [facility] Remisol Protein [Mass/Vol] 7.9 g/dL High 6.0 - 7.8 gm/dL [facility] Remisol Sodium [Moles/Vol] 141 mmol/L Normal 135 - 145 mmol/L [facility] Remisol Triglyceride [Mass/Vol] 303 mg/dL High <=149mg/dL [facility] Remisol TSH Qn 2.15 m[IU]/L Normal 0.34 - 5.60 mcIU/mL [facility] Remisol Urea nitrogen [Mass/Vol] 24 mg/dL High 5 - 21 mg/dL [facility] Remisol Urea nitrogen/Creatinine [Mass ratio] 30 mg/mg High 10 - 20 [facility] Remisol CHEMISTRYOrdered By: Judith Quick se on 06-01-2023 HbA1c (Bld) [Mass fraction] 6.1 % High <=5.9% [facility] ChemAutoSS CMPon 06-01-2023 Albumin [Mass/Vol] 4.3 g/dL Normal 3.3-5.0 [facility] Comment on above: Performed By: #### 2 877664, 4270864, 8735609, 308565859, 49330000, 3727998, 9490609 ####[facility] [address] [place] [address] Albumin/Globulin (S) [Mass conc ratio] 1.2 Normal 1.1-2.2 [facility] Comment on above: Performed By: #### 2 156857, 5006409, 5492091, 958630971, 95096553, 0392058, 7077980 ####[facility] [address] [place] [address] ALP [Catalytic activity/Vol] 61 Int._Unit/L Normal 21-98 [facility] Comment on above: Performed By: #### 2 168979, 1501342, 1154830, 742020738, 45063857, 7901915, 3319911 ####[facility] [address] [place] [address] ALT No additional P-5'-P [Catalytic activity/Vol] 19 Int._Unit/L Normal 6-46 [facility] Comment on above: Performed By: #### 2 167957, 9560815, 2998996, 747642901, 84364266, 2046051, 6817213 ####[facility] [address] [place] [address] Anion gap [Moles/Vol] 10 mmol/L Normal 6-16 [facility] Comment on above: Performed By: #### 2 518564, 2908014, 6315586, 949039260, 84505877, 2059204, 8915690 ####[facility] [address] [place] [address] AST [Catalytic activity/Vol] 20 Int._Unit/L Normal 5-43 [facility] Comment on above: Performed By: #### 2 454490, 0747748, 3359540, 006043353, 86779050, 4989139, 5895665 ####[facility] [address] [place] [address] Bilirubin [Mass/Vol] 0.6 mg/dL Normal 0.0-1.1 [facility] Comment on above: Performed By: #### 2 128665, 0046880, 4459270, 804104486, 62732346, 7859929, 6366114 ####[facility] [address] [place] [address] Calcium [Mass/Vol] 10.2 mg/dL Normal 8.9-11.1 [facility] Comment on above: Performed By: #### 2 846907, 5106433, 0566863, 329136837, 31014085, 8504687, 9438156 ####[facility] [address] [place] [address] Chloride [Moles/Vol] 108 mmol/L Normal 101-111 [facility] Comment on above: Performed By: #### 2 618102, 1050013, 5385056, 501149666, 16911884, 8575009, 7013934 ####[facility] [address] [place] [address] CO2 [Moles/Vol] 27 mmol/L Normal 21-31 [facility] Comment on above: Performed By: #### 2 147620, 3018971, 7884469, 545163249, 40269839, 8177454, 9420367 ####[facility] [address] [place] [address] Creatinine [Mass/Vol] 0.8 mg/dL Normal 0.5-1.3 [facility] Comment on above: Performed By: #### 2 007116, 0450327, 2434254, 001222246, 36592008, 2191407, 0281713 ####[facility] [address] [place] [address] Globulin (S) [Mass/Vol] 3.6 g/dL Normal 1.4-4.0 [facility] Comment on above: Performed By: #### 2 218602, 8887579, 2206345, 870418567, 93099485, 1761285, 3940622 ####[facility] [address] [place] [address] Glucose [Mass/Vol] 113 mg/dL Normal 55-199 [facility] Comment on above: Result Comment: If t his glucose result represents a fasting glucose, interpretation should refer to the following reference range: 55-99 mg/dL Performed By: #### 2 868871, 4893140, 6958209, 662580962, 09852762, 2689180, 2865944 ####[facility] [address] [place] [address] Potassium [Moles/Vol] 4.3 mmol/L Normal 3.5-5.3 [facility] Comment on above: Performed By: #### 2 247201, 5577236, 8532031, 061970452, 64127526, 9624593, 4238394 ####[facility] [address] [place] [address] Protein [Mass/Vol] 7.9 g/dL High 6.0-7.8 [facility] Comment on above: Performed By: #### 2 524731, 4271908, 0544806, 221698852, 33364484, 6676868, 3567554 ####[facility] [address] [place] [address] Sodium [Moles/Vol] 141 mmol/L Normal 135-145 [facility] Comment on above: Performed By: #### 2 577694, 7874673, 3684743, 142088010, 40365322, 8176485, 7304756 ####[facility] [address] [place] [address] Urea nitrogen [Mass/Vol] 24 mg/dL High 5-21 [facility] Comment on above: Performed By: #### 2 641252, 0023921, 4302355, 388084073, 45137411, 2547155, 6874831 ####[facility] [address] [place] [address] Urea nitrogen/Creatinine [Mass ratio] 30 No Units High 10-20 [facility] Comment on above: Performed By: #### 2 674781, 3584209, 4905452, 845904636, 37746627, 4857865, 6371762 ####[facility] [address] [place] [address] Family Medicine Office/Clini c Noteon 06-01-2023 Family [...] year, did have ER visit in 12/2022 [facility] Questions/Concerns: pt states BS are running in [...] Comprehensive Metabolic Panel HgbA1c Lab Specimen Collect 75394 Lipid Panel Thyroid Stimulating Hormone 2. Fatigue (R53.83: Other fatigue) will order CBC and TSH Ordered: CBC w/ Auto Diff Comprehensive Metabolic Panel HgbA1c Lab Specimen Collect 56203 Lipid Panel Thyroid Stimulating Hormone 3. Type 2 diabetes mellitus (E11.9: Type 2 diabetes mellitus without complications) pt states she is not sure when her last HGBA1C was checked. will draw in office today. Fasting BS has been elevated recently Ordered: CBC w/ Auto Diff Comprehensive Metabolic Panel HgbA1c Lab Specimen Collect 16467 Lipid Panel Thyroid Stimulating Hormone 4. Excessive thirst (R63.1: Polydipsia) HGBA1C done in office today Ordered: CBC w/ Auto Diff Comprehensive Metabolic Panel HgbA1c Lab Specimen Collect 75300 Lipid Panel Thyroid Stimulating Hormone Follow-up No [...] day (at bedtime) fluticasone Nasal 0.05 mg/inh [place] losartan 100 mg Tab meloxicam 15 mg [...] Recorded (more content not included)... Normal [facility] Comment on above: Result Comment: Elec tronically Signed By: Luzmaria Lamas\.br\Date and Time Signed: 06/01/23 13:07 EDT HEMATOLOGYOrdered By: SYSTEM SYSTEM on 06-01-2023 Basophils/100 WBC (Bld) 1.2 % Normal 0.0 - 2.0 % [facility] HemeAutoSS Basophils/Leukocytes Auto (Bld) [Pure # fraction] 0.1 E9/L Normal 0.0 - 0.2 E9/L [facility] HemeAutoSS Eosinophils/100 WBC (Bld) 4.1 % Normal 0.0 - 8.0 % [facility] HemeAutoSS Eosinophils/Leukocyt es Auto (Bld) [Pure # fraction] 0.3 E9/L Normal 0.0 - 0.5 E9/L [facility] HemeAutoSS Lymphocytes/100 WBC (Bld) 33.7 % Normal 14.0 - 50.0 % [facility] HemeAutoSS Lymphocytes/Leukocyt es Auto (Bld) [Pure # fraction] 2.1 E9/L Normal 1.0 - 4.0 E9/L [facility] HemeAutoSS Monocytes/100 WBC (Bld) 12.7 % Normal 4.0 - 14.0 % [facility] HemeAutoSS Monocytes/Leukocytes Auto (Bld) [Pure # fraction] 0.8 E9/L Normal 0.2 - 1.0 E9/L [facility] HemeAutoSS Neutrophils/100 WBC (Bld) 48.3 % Normal 36.0 - 75.0 % [facility] HemeAutoSS Neutrophils/Leukocyt es Auto (Bld) [Pure # fraction] 3.0 E9/L [...] 87.7 fL Normal 80.0 - 100.0 fL [facility] HemeAutoSS Platelet mean volume (Bld) [Entitic vol] 8.8 fL Normal 6.4 - 10.8 fL [facility] HemeAutoSS Platelets (Bld) [#/Vol] 258.0 E9/L Normal 150.0 - 500.0 E9/L [facility] HemeAutoSS RBC (Bld) [#/Vol] 4.7 E12/L Normal 4.3 - 5.9 E12/L [facility] HemeAutoSS WBC corrected for nucl RBC Auto (Bld) [#/Vol] 6.2 E9/L Normal 4.0 - 11.0 E9/L [facility] HemeAutoSS DycM2mdk 06-01-2023 HbA1c (Bld) [Mass fraction] 6.1 % High <=5.9 [facility] Comment on above: Performed By: #### 2 174382, 2818269, 4182968, 745698871, 14149685, 5545993, 6175935 ####[facility] [address] [place] [address] Lipid Panelon 06-01-2023 Cholesterol [Mass/Vol] 252 mg/dL High 120-200 [facility] Comment on above: Performed By: #### 2 650864, 9364722, 1773297, 827421658, 38550616, 2008205, 2589311 ####[facility] [address] [place] [address] Cholesterol in HDL [Mass/Vol] 55 mg/dL Invalid Interpretation Code [facility] Comment on above: Result Comment: HDL > or equal to 60 mg/dL: Low cardiovascular risk HDL < 40 mg/dL : High cardiovascular risk Performed By: #### 2 698678, 9284660, 1037845, 032062595, 09804870, 1866060, 7613666 ####[facility] [address] [place] [address] Cholesterol in LDL [Mass/Vol] 156 mg/dL High <=129 [facility] Comment on above: Performed By: #### 2 667955, 7650899, 2017765, 488475788, 89706228, 0285841, 9503087 ####[facility] [address] [place] [address] Cholesterol in VLDL [Mass/Vol] 61 mg/dL High 7-40 [facility] Comment on above: Performed By: #### 2 125484, 9334523, 3904017, 329169074, 56838660, 2056522, 6579153 ####[facility] [address] [place] [address] Triglyceride [Mass/Vol] 303 mg/dL High <=149 [facility] Comment on above: Performed By: #### 2 441395, 6978596, 6835188, 741204564, 59014985, 2966997, 4756882 ####[facility] [address] [place] [address] TSHon 06-01-2023 TSH Qn 2.15 m[IU]/L Normal 0.34-5.60 [facility] Comment on above: Performed By: #### 2 743944, 5737755, 9274949, 445198762, 94120271, 5774084, 0319623 ####[facility] [address] [place] [address] eGFRon 06-01-2023 GFR/1.73 sq M.predicted among non-blacks MDRD (S/P/Bld) [Vol rate/Area] 75 mL/min/1.73 m2 Normal >=59 [facility] Comment on above: Order Comment: Order added by Discern Expert. Result Comment: Sailing Officer darnell kidney disease could be indicated at eGFR's of less than 60 mL/min/1.73m2. Kidney failure is indicated at less than 15 mL/min/1.73m2. Performed By: #### 2 [id number], [id number], [id number], [id number], [id number], [id number], [id number] ####[facility] [address] [place] [address] Consultation Noteon 05-10-20 23 Consultation Note [id number]#1.00C D:[address] [facility] Consultation Note [id number] [id number]#1.00CD :127 Normal [facility] CHEMISTRYOrdered By: Lab ROP User on 05-09-2023 Glucose [Mass/Vol] 93 mg/dL Normal 55 - 99 mg/dL FTM C POC Subsection POC Device SN [id number] Invalid Interpretation Code [facility] POC Subsection POC User ID [id number] Invalid Interpretation Code [facility] POC Subsection POC Username JESSICA KIRKPATRICK Invalid Interpretation Code [facility] POC Subsection Capillary Glucose POCon 04-13 Glucose [Mass/Vol] 93 mg/dL Normal 55-99 [facility] Comment on above: Performed By: #### 2 [id number] ####[facility] [address] [place] [address] Consent for Procedure/Surger yon 05-09-2023 Consent for Procedure/Surgery [id number]#1.00C D:[address] [facility] Consent for Treatmenton 04-13 Consent for Treatment [id number]#1.00C D:[address] [facility] Discharge Instructionson Discharge Instructions [id number]#1.00C D:[address] [facility] IntraOperative Documentson 0 05-09-2023 IntraOperative Documents [id number]#1.00C D:[address] [facility] Main OR Intraoperative Recor don 05-09-2023 Main OR Intraoperative Record IntraOp Document Type FTPM Summary Primary Physician: Junito Salvador MD Finalized Date/Time: 05/09/23 13:15:11 Pt. Name: STEPHANIE WASSERMAN/Sex: 1945 Female Med Rec #: [id number] Physician: Junito Salvador MD Financial #: [id number] Pt. Type: P Room/Bed: / Admit/Disch: 05/09/23 12:26:45 - Institution: Case Times FTPM Entry 1 Patient Times In Room 05/09/23 13:08:00 Out Room 05/09/23 13:15:00 Procedure Times Start 05/09/23 13:11:00 Stop 05/09/23 13:14:00 Anesthesia Times Last Modified By: Juan HENDRICKSON, Tamiko Malik 05/09/23 13:14:46 Case Attendance FTPM Entry 1 Entry 2 Entry 3 Case Attendee Madeleine GARSIA, Junito Martinez RN, Radha Hare RN Role Performed Surgeon - Primary Returned Goods Inspector - Primary Scrub - Primary Time In 05/09/23 13:08:00 05/09/23 13:08:00 05/09/23 13:08:00 Time Out 05/09/23 13:15:00 05/09/23 13:15:00 05/09/23 13:15:00 Procedure LUMBAR EPIDURAL STEROID LUMBAR EPIDURAL STEROID LUMBAR EPIDURAL STEROID INJECTION(.) INJECTION(.) INJECTION(.) Comments Last Modified By: Tamiko Martinez RN, RN, Tamiko Barrett RN 05/09/23 13:14:47 05/09/23 13:14:47 05/09/23 13:14:47 Entry 4 Case Attendee Raheem RT(R)Johanne Role Performed Fixed Wing Pilot Time In 05/09/23 13:08:00 Time Out 05/09/23 [...] Antibiotic No Time Out Tamiko Martinez RN, Smith RN, Kelly, Goldner MD, Raheem Jeffery RT(R)Johanne Time Out Complete 05/09/23 13:08:00 Outcomes Met? [...] L5-S1 LESI Primary Procedure Yes Primary Surgeon Junito Salvador MD Start 05/09/23 13:11:00 Stop 05/09/23 13:14:00 Anesthesia [...] and tissue Entry 1 Skin Integrity Intact, [place], Warm, and Skin Abnormality No Dry Outcomes [...] Outcomes (more content not included)... Normal [facility] Main OR Preoperative Recordo n 05-09-2023 Main OR Preoperative Record Holding Area Document Type FTPM Summary Primary Physician: Junito Salvador MD Finalized Date/Time: 05/09/23 12:49:52 Pt. Name: STEPHANIE WASSERMAN.O.B./Sex: 1945 Female Med Rec #: [id number] Physician: Junito Salvador MD Financial #: [id number] Pt. Type: P Room/Bed: / Admit/Disch: 05/09/23 [...] No Patient states Yes Comment - Adult daughter-Nanyc postop adult Supervision supervision available Case Cancelled in No Holding Area see comments below for reason Last Modified By: Bruna Kirkpatrick RN 05/09/23 12:49:51 Finalized By: Bruna Kirkpatrick RN Document Signatures Signed By: Bruna Kirkpatrick RN 05/09/23 12:[address] [facility] Operative Reporton Operative Report Patient: STEPHANIE WASSERMAN [...] Respiratory Rate 15 br/min . Normal [facility] Comment on above: Result Comment: Elec tronically Signed By: Junito Salvador MD\.br\Date and Time Signed: 05/09/23 13:15 EDT Office Visiton 05-06-2023 Follow-up visit [id number] Stephanie Wasserman 1945 F Date Provider Department Center 05/06/2023 Radha-VIRGILIO THOMAS CARD [facility] Family History Problem Relation Age of Onset Lung disease Mother Diabetes Mother's Sister Family Status - Relation Status Age at Mother Father Mother's Sister Other Level of Service:81892 [place] OFFICE/OUTPATIENT ESTABLISHED MOD MDM 30-39 MIN Normal [facility] Patient Correspondenceon Patient Correspondence [id number] CD:[address] [facility] Insurance Correspondence Off iceon 04-21-2023 Insurance Correspondence Office [id number]#1.00C D:[address] [facility] Retail - Clinical Noteon Retail - Clinical Note [id number]#1.00C D:[address] [facility] GI PANEL (PCR)on 01-10-2023 Adenovirus F 40/41 Not detected Normal NOT DETECTED [facility] Comment on above: Performed By: #### G IPANEL #### [facility] [address] [place] [address] Dr. Lakshmi Smith Astrovirus Not detected Normal NOT DETECTED [facility] Comment on above: Performed By: #### G IPANEL #### [facility] [address] [place] [address] Dr. Lakshmi Smith C. Diff toxin A/B Not detected Normal NOT DETECTED [facility] Comment on above: Performed By: #### G IPANEL #### [facility] [address] [address] [address] Lakshmi Smith Campylobacter Not detected Normal NOT DETECTED [facility] Comment on above: Performed By: #### G IPANEL #### [facility] [address] [place] [address] Dr. Lakshmi Smith Cryptosporidium Not detected Normal NOT DETECTED [facility] Comment on above: Performed By: #### G IPANEL #### [facility] [address] [place] [address] Dr. Lakshmi Smith Cyclos. Cayetanensis Not detected Normal NOT DETECTED [facility] Comment on above: Performed By: #### G IPANEL #### [facility] [address] [place] [address] Dr. Lakshmi Smith E. Coli O157 Not Applicable Normal Not Applicable [facility] Comment on above: Performed By: #### G IPANEL #### [facility] [address] [place] [address] Dr. Lakshmi Smith E. histolytica Not detected Normal NOT DETECTED [facility] Comment on above: Performed By: #### G IPANEL #### [facility] [address] [place] [address] Dr. Lakshmi Smith EAEC Not detected Normal NOT DETECTED [facility] Comment on above: Performed By: #### G IPANEL #### [facility] [address] [place] [address] Dr. Lakshmi Smith EIEC Not detected Normal NOT DETECTED [facility] Comment on above: Performed By: #### G IPANEL #### [facility] [address] [place] [address] Dr. Lakshmi Smith EPEC Not detected Normal NOT DETECTED [facility] Comment on above: Performed By: #### G IPANEL #### [facility] [address] [place] [address] Dr. Lakshmi Smith ETEC Not detected Normal NOT DETECTED [facility] Comment on above: Performed By: #### G IPANEL #### [facility] [address] [place] [address] Dr. Lakshmi Talavera. Lamblia Not detected Normal NOT DETECTED [facility] Comment on above: Performed By: #### G IPANEL #### [facility] [address] [place] [address] Dr. Lakshmi PALOMINOL CONTROLS PASSED Normal [facility] Comment on above: Performed By: #### G IPANEL #### [facility] [address] [place] [address] Dr. Lakshmi NOONAN BETSY HEADER GI PANEL BACTERIA Normal [facility] Comment on above: Performed By: #### G IPANEL #### [facility] [address] [place] [address] Dr. Lakshmi PEREZ ECOLI GI PANEL DIARRHEAGEN IC E.COLI / SHIGELLA Normal [facility] Comment on above: Performed By: #### G IPANEL #### [facility] [address] [place] [address] Dr. Lakshmi PEREZ INFO SEE BELOW Normal [facility] Comment on above: Result Comment: EAEC - Enteroaggregative E. Coli EPEC- Enteropathogenic E. Coli ETEC- Enterotoxigenic E. Coli lt/st STEC- Shigella-like toxin-producing E. Coli stx1/stx2 EIEC- Shigella/Enteroinvasive E. Coli Performed By: #### G IPANEL #### [facility] [address] [place] [address] Dr. Lakshmi PEREZ PARASITES GI PANEL PARASITES Normal [facility] Comment on above: Performed By: #### G IPANEL #### [facility] [address] [place] [address] Dr. Lakshmi PEREZ VIRUS GI PANEL VIRUSES Normal [facility] Comment on above: Performed By: #### G IPANEL #### [facility] [address] [place] [address] Dr. Lakshmi Smith Norovirus GI/GII Not detected Normal NOT DETECTED [facility] Comment on above: Performed By: #### G IPANEL #### [facility] [address] [place] [address] Dr. Lakshmi Smith P. Shigelloides Not detected Normal NOT DETECTED [facility] Comment on above: Performed By: #### G IPANEL #### [facility] [address] [place] [address] Dr. Lakshmi Smith Rotavirus A Detected Abnormal NOT DETECTED The [facility] Comment on above: Performed By: #### G IPANEL #### [facility] [address] [place] [address] Dr. Lakshmi Smith Salmonella Not detected Normal NOT DETECTED [facility] Comment on above: Performed By: #### G IPANEL #### [facility] [address] [place] [address] Dr. Lakshmi Smith Sapovirus Not detected Normal NOT DETECTED [facility] Comment on above: Performed By: #### G IPANEL #### [facility] [address] [address] [address] Lakshmi Smith STEC Not detected Normal NOT DETECTED [facility] Comment on above: Performed By: #### G IPANEL #### [facility] [address] [address] [address] Lakshmi Smith Vibrio Not detected Normal NOT DETECTED [facility] Comment on above: Performed By: #### G IPANEL #### [facility] [address] [address] [address] Lakshmi Smith Vibrio Cholera Not detected Normal NOT DETECTED [facility] Comment on above: Performed By: #### G IPANEL #### [facility] [address] [place] [address] Dr. Lakshmi Smith Y. Enterocolitica Not detected Normal NOT DETECTED [facility] Comment on above: Performed By: #### G IPANEL #### [facility] [address] [address] [address] Lakshmi Smith CBC AUTO DIFFon 01-09-2023 BASO # 0.0 103/ul Normal 0.0-0.1 [facility] Comment on above: Performed By: #### C BC ####[facility] [address] [address]Dr. Lakshmi Smith Basophils/100 WBC (Bld) 0.3 % Normal 0.2-2.0 [facility] Comment on above: Performed By: #### C BC ####[facility] [address] [address]DrCristal Smith EO # 0.5 103/ul Normal 0.0-0.7 [facility] Comment on above: Performed By: #### C BC ####[facility] [address] [address]DrCristal Smith Eosinophils/100 WBC (Bld) 5.6 % Normal 0.9-7.0 [facility] Comment on above: Performed By: #### C BC ####[facility] [address] [address]Dr. Lakshmi Smith Erythrocyte distribution width (RBC) [Ratio] 13.9 % Normal 11.0-15.0 [facility] Comment on above: Performed By: #### C BC ####[facility] [address] [address]Dr. Lakshmi Smith Hematocrit (Bld) [Volume fraction] 45.6 % Normal 36.0-48.0 [facility] Comment on above: Performed By: #### C BC ####[facility] [address] [place], [place] [address]Dr. Lakshmi Smith Hemoglobin (Bld) [Mass/Vol] 15.2 g/dL Normal 12.0-16.0 [facility] Comment on above: Performed By: #### C BC ####[facility] [address] [place], [place] [address]Dr. Robetrajulien Smith IG # 0.06 10e3/ul Critically high 0.00-0.03 [facility] Comment on above: Performed By: #### C BC ####[facility] [address] [place], [place] [address]Dr. Lakshmi Smith IG % 0.6 % Critically high 0.0-0.[address] [facility] Comment on above: Performed By: #### C BC ####[facility] [address] [place], [place] [address]Dr. Lakshmi Smith LYMPH # 2.2 103/ul Normal 1.2-3.8 [facility] Comment on above: Performed By: #### C BC ####[facility] [address] [place], [place] [address]Dr. Lakshmi Smith Lymphocytes/100 WBC (Bld) 23.4 % Normal 20.5-60.0 [facility] Comment on above: Performed By: #### C BC ####[facility] [address] [place], [place] [address]Dr. aLkshmi Smith MANUAL DIFF REQ NO Normal The [facility] Comment on above: Performed By: #### C BC ####[facility] [address] [place], [place] [address]Dr. Lakshmi Smith MCH (RBC) [Entitic mass] 29.8 pg Normal 26.7-34.0 [facility] Comment on above: Performed By: #### C BC ####[facility] [address] [address]Dr. Lakshmi Smith MCHC (RBC) [Mass/Vol] 33.3 g/dL Normal 29.9-35.2 [facility] Comment on above: Performed By: #### C BC ####[facility] [address] [address]Dr. Lakshmi Smith MCV (RBC) [Entitic vol] 89.4 fL Normal 81.0-99.0 [facility] Comment on above: Performed By: #### C BC ####[facility] [address] [address]Dr. Lakshmi Smith MONO # 1.3 103/ul Critically high 0.3-0.[address] [facility] Comment on above: Performed By: #### C BC ####[facility] [address] [address]Dr. Lakshmi Smith Monocytes/100 WBC (Bld) 13.1 % Critically high 1.7-12.0 [facility] Comment on above: Performed By: #### C BC ####[facility] [address] [address]Dr. Lakshmi Smith NEUT # 5.4 103/ul Normal 1.4-6.5 [facility] Comment on above: Performed By: #### C BC ####[facility] [address] [address]Dr. Lakshmi Smtih Neutrophils/100 WBC (Bld) 57.0 % Normal 43.0-75.0 [facility] Comment on above: Performed By: #### C BC ####[facility] [address] [address]Dr. Lakshmi Smith Platelet mean volume (Bld) [Entitic vol] 10.4 fL Normal 9.5-13.5 [facility] Comment on above: Performed By: #### C BC ####[facility] [address] [place], [place] [address]Cc. Lakshmi Smith PLT 290 103/ul Normal 150-450 [facility] Comment on above: Performed By: #### C BC ####[facility] [address] [place], [place] [address]Fe. Lakshmi Smith RBC 5.10 106/ul Normal 4.20-5.40 [facility] Comment on above: Performed By: #### C BC ####[facility] [address] [place], [place] [address]Lf. Lakshmi Smith WBC 9.5 103/ul Normal 4.0-11.0 [facility] Comment on above: Performed By: #### C BC ####[facility] [address] [place], [place] [address]Gn. Lakshmi Smith CT ABD/PELVIS WO CONon 01-09 CT ABD/PELVIS WO CON EXAMINATION: CT ABD OMEN AND PELVIS WITHOUT IV CONTRAST CLINICAL HISTORY: [...] RICHARD DAVIS Date: 2023-01-09 10:41 Normal [facility] ER URINE PROFILEon 3 Bilirubin Ql (U) Negative Normal NEGATIVE [facility] Comment on above: Performed By: #### E RUR #### [facility] [address] [place] [address] Dr. Lakshmi Smith Clarity (U) CLEAR Normal CLEAR [facility] Comment on above: Performed By: #### E RUR #### [facility] [address] [place] [address] Dr. Lakshmi Smith Color (U) YELLOW Normal YELLOW [facility] Comment on above: Performed By: #### E RUR #### [facility] [address] [place] [address] Dr. Lakshmi Smith ERUJUDAH A micrscopic examination will be performed if indicated. Normal [facility] Comment on above: Performed By: #### E RUR #### [facility] [address] [place] [address] Dr. Lakshmi Smith Glucose Ql (U) Negative Normal NEGATIVE [facility] Comment on above: Performed By: #### E RUR #### [facility] [address] [address] [address] Lakshmi Smith Hemoglobin Ql (U) Negative Normal NEGATIVE [facility] Comment on above: Performed By: #### E RUR #### [facility] [address] [place] [address] Dr. Lakshmi Smith Ketones Ql (U) Negative Normal NEGATIVE [facility] Comment on above: Performed By: #### E RUR #### [facility] [address] [place] [address] Dr. Lakshmi Smith LEUKOCYTES Negative Normal NEGATIVE [facility] Comment on above: Performed By: #### E RUR #### [facility] [address] [place] [address] Dr. Lakshmi Smith Nitrite Ql (U) Negative Normal NEGATIVE [facility] Comment on above: Performed By: #### E RUR #### [facility] [address] [place] [address] Dr. Lakshmi Smith pH (U) 5.5 [pH] Normal 5-9 [facility] Comment on above: Performed By: #### E RUR #### [facility] [address] [place] [address] Dr. Lakshmi Smith Protein (U) [Mass/Vol] 30 mg/dL Abnormal NEGATIVE/ TRACE [facility] Comment on above: Performed By: #### E RUR #### [facility] [address] [place] [address] Dr. Lakshmi Smith SPEC GRAVITY 1.025 Normal 1.005-<=1.[address] [facility] Comment on above: Performed By: #### E RUR #### [facility] [address] [place] [address] Dr. Lakshmi Smith UR MICRO IND NOT INDICATED Normal The [facility] Comment on above: Performed By: #### E RUR #### [facility] [address] [place] [address] Dr. Lakshmi Smith Urobilinogen Qn (U) 0.2 {Jamir'U}/dL Normal 0.2 - 1. 0 [facility] Comment on above: Performed By: #### E RUR #### [facility] [address] [place] [address] Dr. Lakshmi Smith LIPASEon 01-09-2023 Lipase [Catalytic activity/Vol] 111.0 U/L Normal 73.0-393.0 [facility] Comment on above: Performed By: #### L IPA, CMP #### [facility] [address] [place] [address] Dr. Lakshmi Smith PROF 14(COMP METB)on 023 Albumin [Mass/Vol] 3.6 g/dL Normal 3.4-5.0 [facility] Comment on above: Performed By: #### L IPA, CMP #### [facility] [address] [address] [address] Lakshmi Smith Albumin/Globulin [Mass ratio] 0.8 {ratio} Normal [facility] Comment on above: Performed By: #### L IPA, CMP #### [facility] [address] [address] [address] Lakshmi Smith ALP [Catalytic activity/Vol] 72 U/L Normal 46-116 [facility] Comment on above: Performed By: #### L IPA, CMP #### [facility] [address] [address] [address] Lakshmi Smith ALT [Catalytic activity/Vol] 32 U/L Normal 14-59 [facility] Comment on above: Performed By: #### L IPA, CMP #### [facility] [address] [address] [address] Lakshmi Smith Anion gap [Moles/Vol] 11.6 mmol/L Normal [facility] Comment on above: Performed By: #### L IPA, CMP #### [facility] [address] [address] [address] Lakshmi Smith AST [Catalytic activity/Vol] 29 U/L Normal 15-37 [facility] Comment on above: Performed By: #### L IPA, CMP #### [facility] [address] [address] [address] Lakshmi Smith Bilirubin [Mass/Vol] 0.3 mg/dL Normal 0.2-1.0 [facility] Comment on above: Performed By: #### L IPA, CMP #### [facility] [address] [address] [address] Lakshmi Smith Calcium [Mass/Vol] 8.2 mg/dL Critically low 8.5-10.1 [facility] Comment on above: Performed By: #### L IPA, CMP #### [facility] [address] [address] [address] Lakshmi Smith Chloride [Moles/Vol] 110 mmol/L Critically high 98-107 [facility] Comment on above: Performed By: #### L IPA, CMP #### [facility] [address] [address] [address] Lakshmi Smith CO2 [Moles/Vol] 22.7 mmol/L Normal 21.0-32.0 [facility] Comment on above: Performed By: #### L IPA, CMP #### [facility] [address] [address] [address] Lakshmi Smith Creatinine [Mass/Vol] 1.01 mg/dL Normal 0.55-1.02 [facility] Comment on above: Performed By: #### L IPA, CMP #### [facility] [address] [address] [address] Lakshmi Smith EGFR-AF ITALIAN >60 Normal >=60 [facility] Comment on above: Performed By: #### L IPA, CMP #### [facility] [address] [address] [address] Lakshmi Smith EGFR-NON AF ITALIAN 53 mL/min/1.73m2 Critically low >=60 [facility] Comment on above: Performed By: #### L IPA, CMP #### [facility] [address] [address] [address] Lakshmi Smith Globulin (S) [Mass/Vol] 4.3 g/dL Normal [facility] Comment on above: Performed By: #### L IPA, CMP #### [facility] [address] [address] [address] Lakshmi Smith Glucose [Mass/Vol] 113 mg/dL Critically high 74-106 [facility] Comment on above: Performed By: #### L IPA, CMP #### [facility] [address] [address] [address] Lakshmi Smith Potassium [Moles/Vol] 3.3 mmol/L Critically low 3.5-5.1 [facility] Comment on above: Performed By: #### L IPA, CMP #### [facility] [address] [address] [address] Lakshmi Smith Protein [Mass/Vol] 7.9 g/dL Normal 6.4-8.2 [facility] Comment on above: Performed By: #### L IPA, CMP #### [facility] [address] [address] [address] Lakshmi Smith Sodium [Moles/Vol] 141 mmol/L Normal 136-145 [facility] Comment on above: Performed By: #### L IPA, CMP #### [facility] [address] [address] [address] Lakshmi Smith Urea nitrogen [Mass/Vol] 26.0 mg/dL Critically high 7.0-18.0 [facility] Comment on above: Performed By: #### L IPA, CMP #### [facility] [address] [address] [address] Lakshmi Smith Urea nitrogen/Creatinine [Mass ratio] 25.7 mg/mg Normal [facility] Comment on above: Performed By: #### L IPA, CMP #### [facility] [address] [address] [address] Lakshmi Smith XR LSPINE MIN 4 [...] by: ANGLE NGUYEN Date: 2022-10-27 15:02 Normal [facility] XR ANKLE LT MIN 3 Von 2021 XR ANKLE LT MIN 3 V EXAM: XR ANKLE LT NM N 3 V HISTORY: Pain of left [...] LANE FLORES Date: 2022-08-25 20:09 Normal [facility] POINT OF CARE GLUCOSEon 06-13 Glucose [Mass/Vol] 110 mg/dL Critically high 74-106 [facility] Comment on above: Performed By: #### P OCGLUC ####[facility] [address] [id number]. Lakshmi Smith Glucose [Mass/Vol] 125 mg/dL Critically high 74-106 [facility] Comment on above: Performed By: #### P OCGLUC ####[facility] [address] [phone]. Lakshmi Smith Covid-19 PCR ([facility])on 06-13 SARS-CoV-2 (COVID-19) RNA EDWARD+probe Ql (Unsp spec) Not detected Normal NOT DETECTED [facility] Comment on above: Result Comment: This test is not yet approved or cleared by the [place] FDA. When there are no FDA-approved or cleared tests available, and other criteria are met, FDA can make tests available under an emergency access mechanism called an Emergency Use Authorization (EUA). The EUA for this test is supported by the [place] of Health and Human Service's (HHS's) declaration [...] consistent with SARS-CoV-2. Performed By: #### [facility] #### [facility] [address], [place] [address] Dr. Lakshmi Smith CBC AUTO DIFFon 06-24-2022 BASO # 0.1 103/ul Normal 0.0-0.1 [facility] Comment on above: Performed By: #### C BC ####[facility] [address] [address]Dr. Lakshmi Smith Basophils/100 WBC (Bld) 1.3 % Normal 0.2-2.0 [facility] Comment on above: Performed By: #### C BC ####[facility] [address] [address]Dr. Lakshmi Smith EO # 0.5 103/ul Normal 0.0-0.7 [facility] Comment on above: Performed By: #### C BC ####[facility] [address] [address]Dr. Lakshmi Smith Eosinophils/100 WBC (Bld) 6.8 % Normal 0.9-7.0 [facility] Comment on above: Performed By: #### C BC ####[facility] [address] [phone]. Lakshmi Smith Erythrocyte distribution width (RBC) [Ratio] 13.7 % Normal 11.0-15.0 [facility] Comment on above: Performed By: #### C BC ####[facility] [address] [phone] Smith Hematocrit (Bld) [Volume fraction] 36.5 % Normal 36.0-48.0 [facility] Comment on above: Performed By: #### C BC ####[facility] [address] [phone]. Lakshmi Smith Hemoglobin (Bld) [Mass/Vol] 12.3 g/dL Normal 12.0-16.0 [facility] Comment on above: Performed By: #### C BC ####[facility] [address] [phone]. Lakshmi Smith IG # 0.03 10e3/ul Normal 0.00-0.03 [facility] Comment on above: Performed By: #### C BC ####[facility] [address] [phone]. Lakshmi Smith IG % 0.4 % Normal 0.0-0.5 [facility] Comment on above: Performed By: #### C BC ####[facility] [address] [address]Dr. Lakshmi Luis LYMPH # 2.1 103/ul Normal 1.2-3.8 [facility] Comment on above: Performed By: #### C BC ####[facility] [address] [address]Dr. Lakshmi Smith Lymphocytes/100 WBC (Bld) 28.2 % Normal 20.5-60.0 [facility] Comment on above: Performed By: #### C BC ####[facility] [address] [phone]. Lakshmi Smith MANUAL DIFF REQ NO Normal [facility] Comment on above: Performed By: #### C BC ####[facility] [address] [phone]. Lakshmi Luis MCH (RBC) [Entitic mass] 29.4 pg Normal 26.7-34.0 [facility] Comment on above: Performed By: #### C BC ####[facility] [address] [place], [place] [id number]. Lakshmi Smith MCHC (RBC) [Mass/Vol] 33.7 g/dL Normal 29.9-35.2 [facility] Comment on above: Performed By: #### C BC ####[facility] [address] [phone]. Lakshmi Smith MCV (RBC) [Entitic vol] 87.3 fL Normal 81.0-99.0 [facility] Comment on above: Performed By: #### C BC ####[facility] [address] [phone]. Lakshmi Smith MONO # 0.7 103/ul Normal 0.3-0.8 [facility] Comment on above: Performed By: #### C BC ####[facility] [address] [phone]. Lakshmi Smith Monocytes/100 WBC (Bld) 9.6 % Normal 1.7-12.0 [facility] Comment on above: Performed By: #### C BC ####[facility] [address] [phone]. Lakshmi Smith NEUT # 4.1 103/ul Normal 1.4-6.5 [facility] Comment on above: Performed By: #### C BC ####[facility] [address] [phone]. Lakshmi Smith Neutrophils/100 WBC (Bld) 53.7 % Normal 43.0-75.0 [facility] Comment on above: Performed By: #### C BC ####[facility] [address] [phone]. Lakshmi Smith Platelet mean volume (Bld) [Entitic vol] 10.2 fL Normal 9.5-13.5 [facility] Comment on above: Performed By: #### C BC ####[facility] [address] [phone]. Lakshmi Smith PLT 252 103/ul Normal 150-450 [facility] Comment on above: Performed By: #### C BC ####[facility] [address] [phone]. Lakshmi Smith RBC 4.18 106/ul Critically low 4.20-5.[address] [facility] Comment on above: Performed By: #### C BC ####[facility] [address] [phone]. Lakshmi Smith WBC 7.5 103/ul Normal 4.0-11.0 [facility] Comment on above: Performed By: #### C BC ####[facility] [address] [address]Dr. Lakshmi Smith PROF CHEM 8 (BAS METB)on Anion gap [Moles/Vol] 11.7 mmol/L Normal [facility] Comment on above: Performed By: #### B MP #### [facility] [address] [address] [address] Lakshmi Smith Calcium [Mass/Vol] 9.9 mg/dL Normal 8.5-10.1 [facility] Comment on above: Performed By: #### B MP #### [facility] [address] [address] [address] Lakshmi Smith Chloride [Moles/Vol] 103 mmol/L Normal 98-107 [facility] Comment on above: Performed By: #### B MP #### [facility] [address] [address] [address] Lakshmi Smith CO2 [Moles/Vol] 31.1 mmol/L Normal 21.0-32.0 [facility] Comment on above: Performed By: #### B MP #### [facility] [address] [address] [address] Lakshmi Smith Creatinine [Mass/Vol] 1.03 mg/dL Critically high 0.55-1.02 [facility] Comment on above: Performed By: #### B MP #### [facility] [address] [address] [address] Lakshmi Smith EGFR-AF ITALIAN >60 Normal >=60 [facility] Comment on above: Performed By: #### B MP #### [facility] [address] [address] [address] Lakshmi Smith EGFR-NON AF ITALIAN 52 mL/min/1.73m2 Critically low >=60 [facility] Comment on above: Performed By: #### B MP #### [facility] [address] [address] [address] Lakshmi Smith Glucose [Mass/Vol] 148 mg/dL Critically high 74-106 [facility] Comment on above: Performed By: #### B MP #### [facility] [address], [place] [address] Dr. Lakshmi Smith Potassium [Moles/Vol] 3.8 mmol/L Normal 3.5-5.1 [facility] Comment on above: Performed By: #### B MP #### [facility] [address], [place] [address] Dr. Lakshmi Smith Sodium [Moles/Vol] 142 mmol/L Normal 136-145 [facility] Comment on above: Performed By: #### B MP #### [facility] [address], [place] [address] Dr. Lakshmi Smith Urea nitrogen [Mass/Vol] 24.0 mg/dL Critically high 7.0-18.0 [facility] Comment on above: Performed By: #### B MP #### [facility] [address] [address] [address] Lakshmi Smith Urea nitrogen/Creatinine [Mass ratio] 23.3 mg/mg Normal [facility] Comment on above: Performed By: #### B MP #### [facility] [phone] Lakshmi Smith ECHOCARDIO M/2D COMPLETEon 0 04-30-2022 ECHOCARDIO M/2D COMPLETE Patient: STEPHANIE WASSERMAN Exam Date: 04/30/2022 : 1945 Gender:F Ordering : RODRIGUEJASON FANNIE Admission #: [id number] Family : Order #: [id number] CLICK HERE TO VIEW EXAM ECHOCARDIOGRAM REPORT [...] Florian M.D. on 04/30/2022 at 19:10 Normal [facility] MRI ANKLE LT WO CONon 2021 [...] by: YOLANDA LOYA Date: 2022-04-25 16:47 Normal [facility] XR pre/post mri xrayon 03-13 XR pre/post mri xray [facility] [place] [address] [place] [address] MRI Report Signed Patient: Stephanie Wasserman MR#: [id number] : 1945 Acct:[id number] Age/Sex: 75 / F ADM Date: 03/13/21 Loc: MR Room: Type: [facility] Attending Dr: Dalila Rodriguez NP Ordering Provider: Dalila Rodriguez NP Date of Service: 03/13/21 MR/MR ankle LT wo con: S93.492A ([id number]) XR/XR pre/post mri xray: S93.492A Copies to: [...] and posterior tibial tendons, the flexor and scaffolding helper tendons, the peroneus tendons, and the Achilles [...] Powell Jr., M.D.03/13/2021 8:30 PM Dictation Location: [address] [place] [address] Transcribed By: [facility] 03/13/212029 Dictated By: Cuba Powell Jr, MD 03/13/212004 Signed By: 03/13/212029 [facility] Vital Signs Date Time Vital Sign Value Performing Clinician Emmanuel jacobson 06-06-2023 14:10-0400 Diastolic blood pressure 70 mm[Hg] Danyelle Kellogg [facility] 06-06-2023 14:10-0400 Heart rate 67 /min [place] Kellogg [facility] 06-06-2023 14:10-0400 Mean blood pressure 93 mm[Hg] Danyelle Kellogg [facility] 06-06-2023 14:10-0400 Respiratory rate 14 /min Danyelle Kellogg [facility] 06-06-2023 14:10-0400 Systolic blood pressure 140 mm[Hg] Danyelle Kellogg [facility] 05-09-2023 13:18-0400 Heart rate 59 /min Junito Salvador [facility] 05-09-2023 13:18-0400 SaO2% (BldA) [Mass fraction] 100 % Junito Salvador [facility] 05-09-2023 13:18-0400 Diastolic blood pressure 66 mm[Hg] Junito Salvador [facility] 05-09-2023 13:18-0400 Mean blood pressure 98 mm[Hg] Junito Madeleine [facility] 05-09-2023 13:18-0400 Systolic blood pressure 161 mm[Hg] Junito Madeleine [facility] 05-09-2023 13:18-0400 Respiratory rate 16 /min Junito Madeleine [facility] 05-09-2023 13:10-0400 Diastolic blood pressure 81 mm[Hg] Junito Madeleine [facility] 05-09-2023 13:10-0400 Heart rate 72 /min Junito Madeleine [facility] 05-09-2023 13:10-0400 Respiratory rate 14 /min Junito Madeleine [facility] 05-09-2023 13:10-0400 SaO2% (BldA) [Mass fraction] 98 % Junito Madeleine [facility] 05-09-2023 13:10-0400 Systolic blood pressure 165 mm[Hg] Juntio Madeleien [facility] 05-09-2023 12:42-0400 Heart rate 58 /min Junito Madeleine [facility] 05-09-2023 12:42-0400 SaO2% (BldA) [Mass fraction] 98 % Junito Madeleine [facility] 05-09-2023 12:41-0400 Body temperature 98.24 [degF] Junito Madeleine [facility] 05-09-2023 12:41-0400 Diastolic blood pressure 80 mm[Hg] Junito Madeleine [facility] 05-09-2023 12:41-0400 Mean blood pressure 105 mm[Hg] Junito Madeleine [facility] 05-09-2023 12:41-0400 Systolic blood pressure 155 mm[Hg] Junito Madeleine [facility] 05-09-2023 12:41-0400 Respiratory rate 15 /min Junito Madeleine [facility] 03-17-2023 14:02-0400 Diastolic blood pressure 66 mm[Hg] Lopez Zumbar [facility] 03-17-2023 14:02-0400 Heart rate 64 /min Lopez Zumbar [facility] 03-17-2023 14:02-0400 Mean blood pressure 94 mm[Hg] Lopez Zumbar [facility] 03-17-2023 14:02-0400 Respiratory rate 14 /min Lopez Zumbar [facility] 03-17-2023 14:02-0400 Systolic blood pressure 149 mm[Hg] Lopez Zumbar [facility] 02-10-2023 13:42-0400 Diastolic blood pressure 71 mm[Hg] Lopez Zumbar [facility] 02-10-2023 13:42-0400 Heart rate 64 /min Lopez Zumbar [facility] 02-10-2023 13:42-0400 Mean blood pressure 94 mm[Hg] Lopez Zumbar [facility] 02-10-2023 13:42-0400 Respiratory rate 12 /min Lopez Zumbar [facility] 02-10-2023 13:42-0400 Systolic blood pressure 141 mm[Hg] Lopez Zumbar [facility] Encounters Encounter Date Encounter Type Care Provider Facility Start: 06-28-2024 ambulatory Luzmaria L Britney Facility: [facility] José Start: 03-28-2024 End: 03-28-2024 ambulatory Luzmaria L Britney Facility:[facility] José Start: 03-14-2024 End: 03-16-2024 ambulatory VIRGILIO WILLIAM [facility] Start: 03-06-2024 End: 03-06-2024 ambulatory PANFILO A FELTER Not Available Start: 02-28-2024 End: 02-28-2024 ambulatory GERRI RTIVEDI Not Available Start: 02-02-2024 End: 02-02-2024 ambulatory GERRI TRIVEDI Not Available Start: 01-10-2024 End: 01-10-2024 ambulatory PANFILO A FELTER Not Available Start: 01-05-2024 End: 01-05-2024 Lab Drop off Luzmaria L Britney [facility] Start: 01-05-2024 End: 01-05-2024 ambulatory Luzmaria L Britney Facility:[facility] Start: 10-04-2023 End: 10-04-2023 ambulatory Luzmaria L Britney Facility:[facility] José Start: 06-06-2023 End: 06-06-2023 ambulatory PA-C Danyelle Kellogg Facility:[facility] Start: 06-06-2023 End: 06-06-2023 Pain Management Danyelle Kellogg [facility] Start: 06-01-2023 End: 06-01-2023 Lab Drop off Luzmaria L Britney [facility] Start: 06-01-2023 End: 06-01-2023 ambulatory Luzmaria L Britney Facility:[facility] Start: 05-09-2023 End: 05-09-2023 ambulatory Junito aSlvador Facility:[facility] Start: 05-09-2023 End: 05-09-2023 Pain Management Junito D Madeleine [facility] Start: 05-06-2023 End: 05-06-2023 ambulatory VIRGILIO WILLIAM [facility] Start: 03-17-2023 End: 03-17-2023 Pain Management Lopez Quinonezar [facility] Start: 03-01-2023 End: 03-01-2023 Patient encounter procedure Lopez Blackmanumbar [facility] Start: 02-10-2023 End: 02-10-2023 Patient encounter procedure Lopez Blackmanumbar [facility] Start: 02-10-2023 End: 02-10-2023 Pain Management Lopez Blackmanumbar [facility] Start: 01-19-2023 End: 01-19-2023 Patient encounter procedure Luzmaria Tan [facility] Start: 01-10-2023 End: 01-10-2023 ambulatory RONNA NIETO . Facility:[facility] Start: 01-09-2023 End: 01-09-2023 ambulatory RONNA NIETO . Facility:[facility] Start: 12-23-2022 End: 01-14-2023 Pre-admission assessment Lopez Quinonezar [facility] Start: 11-02-2022 End: 11-19-[address] REBEL NEELY . Facility:[facility] Start: 10-27-2022 End: 10-28-[address] REBEL ENELY . Facility:[facility] Start: 08-24-2022 End: 08-25-2022 ambulatory RICK PETER Facility:[facility] Start: 07-11-2022 Encounter for preprocedural laboratory examination [facility] Start: 07-08-2022 End: 07-09-[address] REBEL NEELY . Facility:[facility] Start: 07-05-2022 End: 07-06-2022 ambulatory [facility] [address] [address] Facility:[facility] Start: 07-05-2022 End: 07-06-2022 Encounter for preprocedural laboratory examination [facility] Facility:[facility] Start: 06-26-2022 Encounter for preprocedural cardiovascular examination [facility] Start: 06-24-2022 End: 06-25-[address] REBEL NEELY . Facility:[facility] Start: 04-30-2022 End: 05-01-[address] REBEL NEELY . Facility:[facility] Start: 04-23-2022 End: 04-24-[address] REBEL NEELY . Facility:[facility] Start: 04-08-2022 End: 04-09-[address] ANGLE NGUYEN Facility:[facility] Start: 03-16-2022 End: 03-17-[address] REBEL NEELY . Facility: Procedures Date Procedure Procedure Detail Performing Clinician Start: 05-09-2023 Epidural injection o f lumbar spine using fluoroscopic guidance Danyelle Kellogg Comment on above: L5/S1- 25% relief Start: 06-12-2022 Ankle region structu re (body structure) Lopez Blackmanumbar Comment on above: josé Cholecystectomy Lopez Zumb ar Excision of breast tissue Za isabel Zumbar History of mastectomy S/P mastectomy Luzmaria Britney Immunizations Immunization Date Immunization Notes Care Provider Yvette mantilla 05-27-2022 influenza virus vaccine, unspecified formulation Lopez Zumbar [facility] 06-19-2021 influenza virus vaccine, unspecified formulation Lopez Zumbar [facility] 10-30-2020 SARS-CoV-2 (COVID-19 ) mRNA-5393 vaccine Lopez Zumbar [facility] 05-27-2020 influenza virus vaccine, unspecified formulation Lopez Zumbar [facility] 06-07-2019 influenza virus vaccine, unspecified formulation Lopez Zumbar [facility] 05-31-2018 influenza virus vaccine, unspecified formulation Lopez Zumbar [facility] 04-10-2018 pneumococcal conjuga te vaccine, 13 valent Lopez Zumbar [facility] 08-29-2017 influenza virus vaccine, unspecified formulation Lopez Zumbar [facility] 06-28-2017 influenza virus vaccine, unspecified formulation Lopez Zumbar [facility] 06-11-2016 influenza virus vaccine, unspecified formulation Lopez Zumbar [facility] 06-12-2015 influenza virus vaccine, unspecified formulation Lopez Zumbar [facility] 05-23-2015 influenza virus vaccine, unspecified formulation Lopez Zumbar [facility] Payers Date Payer Category Payer Medicare [id number] 1945 Unknown [id number] 2.16.84 0.1.080526.3.579.2.593 1945 Unknown [id number] 2.16.84 0.1.419751.3.579.2.593 1945 Unknown [id number] 2.16.84 0.1.268017.3.579.2.593 1945 Unknown [id number] 2.16.84 0.1.975657.3.579.2.593 1945 Unknown [id number] 2.16.84 0.1.470951.3.579.2.593 1945 Unknown [id number] 2.16.84 0.1.139794.3.579.2.593 1945 Unknown [id number] 2.16.84 0.1.242510.3.579.2.593 1945 Unknown [id number] 2.16.84 0.1.152188.3.579.2.593 1945 Unknown [id number] 2.16.84 0.1.999675.3.579.2.593 1945 Unknown [id number] 2.16.84 0.1.515869.3.579.2.593 1945 Unknown [id number] 2.16.84 0.1.791905.3.579.2.593 1945 Unknown [id number] 2.16.84 0.1.911164.3.579.2.593 1945 Unknown [id number] 2.16.84 0.1.813123.3.579.2.1259 1945 Unknown [id number] 2.16.84 0.1.731903.3.579.2.1259 1945 Unknown [id number] 2.16.84 0.1.499525.3.579.2.1259 1945 Unknown [id number] 2.16.84 0.1.858669.3.579.2.1259 1945 Unknown [id number] 2.16.8 40.1.478863.3.579.2.727 1945 Unknown [id number] 2.16.8 40.1.800600.3.579.2.727 1945 Unknown [id number] 2.16.8 40.1.808961.3.579.2.727 1945 Unknown [id number] 2.16.8 40.1.645709.3.579.2.727 1945 Unknown [id number] 2.16.8 40.1.461192.3.579.2.727 1945 Unknown [id number] 2.16.8 40.1.200640.3.579.2.727 1945 Unknown [id number] 2.16.8 40.1.494137.3.579.2.727 1945 Unknown [id number] 2.16.8 40.1.481794.3.579.2.727 1945 Unknown [id number] 2.16.8 40.1.494399.3.579.2.727 1945 Unknown [id number] 2.16.8 40.1.500362.3.579.2.727 Social History Date Type Detail Facility Start: 01-04-2023 End: 01-05-2024 Tobacco smoking status Never smoked tobacco (finding) [facility] Sex Assigned At Female [facility] Tobacco smoking status Never Fishe [facility] Functional Status Date Assessment Result Facility 06-06-2023 Functional Status N/A [facility] 05-09-2023 Functional Status N/A [facility] 03-17-2023 Functional Status N/A [facility] 02-10-2023 Functional Status N/A [facility] Clinical Notes 04-09-2022 to 03-14-2024 Laboratory Note Date & Type Note Facility 03-14-2024 Note Diabetes is managed by PCP Ana [facility] 03-14-2024 Note FULLER, no SOB with res t or ADLs Will order echocardiogram to assess cardiac function and valvular function Pulm function test to assess function for any obstructive process- and asked pt to F/U with PCP to review PFT [facility] 03-14-2024 Note PCP has started pt o n lipitor for elevated Chol/LDL Denied any myalgias [facility] 03-14-2024 Note Pt admits b/p at ruperto e typically is <130/76-80 and controlled Continue losartan and norvasc [facility] 03-14-2024 Note Stable, no concernin g symptoms, palpitations, lightheadedness/dizziness or syncope [facility] 03-14-2024 Note UTP CARDIOLOGY PROGR ESS NOTE [...] 3 months after diagnostic testing completed [facility] 03-14-2024 Note Patient here for 1 y [...] other systems reviewed and are negative. [facility] 10-06-2023 Evaluation + Plan note Future Scheduled [id number] 10/06/23 [facility] 06-06-2023 Evaluation + Plan note Extrac [...] she decides to do. ALFREDA score: 24% [facility]08-28-2023 Note [id number]#[id number]:127Kristian [facility] 05-06-2023 NotePrescription for lipid profile provided to patient Continue heart healthy [facility]Un[facility]08-[facility]-2023 Note Hypertension is Well-controlled blood pressure 108/64 continue amlodipine and losartan Recent kidney function in December was normalUnOhio [facility] 05-06-2023 NoteCurrently patient denies any concerning symptoms She still does not want to take a beta-edel or have any ischemic evaluation Discussed with patient red flag symptoms and when to call office or 911 and she voiced understanding and agreementUnOhio State Health System08-25-2023 NoteUTP CARDIOLOGY PROGRESS NOTE HPI: Stephanie Wasserman [...] provided to patient (more content not included)...[facility]08-25-2023 NotePatient here for 6 mo follow up [...] All other systems reviewed and are negative.[facility] 03-17-2023 Evaluation + Plan noteExtracted from: Title:Clinical [...] on an as-needed basis for repeat evaluation. [facility]06-01-2023 Evaluation + Plan noteExtracted from: Title:Clinical [...] 01:45:00 PM Scheduled Provider:Lopez Collins MD Location:FT.[facility] Appointment Type:Pain Management - Follow Up (FT) [facility]07-29-2022 NotePROCEDURE: XR ANKLE LT MIN 3 V HISTORY: Pain of left ankle joint after falling COMPARISON: XR ankle left 07/06/2021 FINDINGS: BONES:No fracture, acute abnormality, or significant arthropathy. SOFT TISSUES:No visible soft tissue swelling. EFFUSION:None visible. OTHER: Negative. IMPRESSION: 1. No acute bone abnormality or significant degenerative joint disease. Electronically authenticated by: ANGLE NGUYEN Date: 2022-04-09 08:05[facility] No data available for this section [facility] Future Appointments Appointment Date:03/17/2023 01:45:00 PM Scheduled Provider:Lopez Collins MD Location:[facility] Appointment Type:Pain Management - [facility] ([facility] Future Appointments Appointment Date:06/06/2023 02:00:00 PM Scheduled Provider:Danyelle Kellogg PA-C Location:[facility] Appointment Type:Pain Management - [facility] No data available for this section [facility] No data available for this section [facility] Summary Purpose Family History No Family [...] section and content) DATE CREATED AUTHOR 12/15/2021 [facility] DATE CREATED AUTHOR AUTHOR'S ORGANIZ ATION 01/14/2023 [facility] DATE CREATED AUTHOR AUTHOR'S ORGANIZ ATION 03/07/2024 [facility] EPIC DATE CREATED AUTHOR AUTHOR'S ORGANIZ ATION 03/16/2024 [facility] DATE CREATED AUTHOR AUTHOR'S ORGANIZ ATION 03/30/2024 Kristian Car [facility] Patient Care team informatio n (unrecognized section and content) Personnel Name: Luzmaria Lamas L Address: Address: [address] [place] [address]- Personnel Name: Britney PATEL Luzmaria L Address: Address: [address] [place] [address]- Personnel Name: Lee Ann Lamasdi L Address: Address: [address] [place] [address]- Personnel Name: Britney PATEL Luzmaria L Address: Address: [address] [place] [address]- Personnel Name: Britney PATEL Luzmaria L Address: Address: [address] [place] [address]- Personnel Name: Britney PATEL Luzmaria L Address: Address: [address] [place] [address]- Personnel Name: Britney PATEL Luzmaria L Address: Address: [address] [place] [address]- Personnel Name: Britney PATEL Luzmaria L Address: Address: [address] [place] [address]- Personnel Name: Britney PATEL Luzmaria L Address: Address: [address] [place] [address]- Personnel Name: Britney PATEL Luzmaria L Address: Address: [address] [place] [address]- FOR RECORDS PERTAINING TO PATIENTS WHO ARE [...] BE BASED ON THE PRIMARY CLINICAL RECORDS. [facility] [employer] [facility]. provides no warranty or guarantee of the accuracy or completeness of information in this document.
== END 2024-04-13 12:46 | disposition home or self-care (01) ==
LOC: CARD 12:45
PROVIDERS: PCP Nurse Practitioner; Visit Provider Nurse Practitioner
DX: R06.09 Other forms of dyspnea (principal); I10 Essential (primary) hypertension
CPT/HCPCS: 93306

== ENCOUNTER 2024-05-07 10:23 | Outpatient (OUT) | payer MEDICARE, SELFPAY ==
--- OUTSIDE RECORDS SUMMARY | 2024-05-07 10:45 | XMS_ITS | CCD ---
Author Organization [facility] Care Team Providers Care Director Business Systems Name Role Phone LANE JORDAN Consulting Unavailable LANE JORDAN Admitting Unavailable LANE JORDAN Attending Unavailable SNELL ., DR REBEL Ji Primary Care Unavailable SNELL ., DR REBEL Ji Primary Care Unavailable NIKKI, LANE Weldon Admitting Unavailable NIKKI, LANE Weldon Attending Unavailable LANE JORDAN Consulting Unavailable MARIA FERNANDA JACK Consulting Unavailable SNELL ., DR REBEL Ji Primary Care Unavailable SNELL ., DR REBEL Ji Admitting Unavailable SNELL ., DR REBEL Ji Attending Unavailable SNELL ., DR REBEL Ji Consulting Unavailable EMILIA ., RONNA Consulting Unavailable SNELL ., DR REBEL Ji Primary Care Unavailable EMILIA ., RONNA Admitting Unavailable EMILIA ., RONNA Attending Unavailable SNELL ., DR REBEL Ji Consulting Unavailable SNELL ., DR REBEL Ji Primary Care Unavailable SNELL ., DR REBEL Ji Admitting Unavailable SNELL ., DR REBEL Ji Attending Unavailable ZIEBER, DR ANGLE Quan Consulting Unavailable RICK PETER Attending Unavailable RICK PETER Consulting Unavailable RICK PETER Admitting Unavailable SNELL ., DR REBEL Ji Primary Care Unavailable LANE FLORES Consulting Unavailable SNELL ., DR REBEL Ji Primary Care Unavailable ALGHOTHANI, MOHAMAD Admitting Unavailable ALGHOTHANI, MOHAMAD Attending Unavailable ALGHOTHANI, MOHAMAD Consulting Unavailable SNELL ., DR REBEL Ji Primary Care Unavailable ROME, RICK Consulting Unavailable ROME, RICK Admitting Unavailable ROME, RICK Attending Unavailable LOYA, YOLANDA Consulting Unavailable ZIEBER, DR ANGLE Quan Consulting Unavailable SNELL ., DR REBEL Ji Primary Care Unavailable ROME, RICK Admitting Unavailable ROME, RICK Attending Unavailable ROME, RICK Consulting Unavailable SNELL ., DR REBEL Ji Primary Care Unavailable SNELL ., DR REBEL Ji Admitting Unavailable SNELL ., DR REBEL Ji Attending Unavailable SNELL ., DR REBEL Ji Consulting Unavailable SNELL ., DR REBEL Ji Primary Care Unavailable SNELL ., DR REBEL Ji Admitting Unavailable SNELL ., DR REBEL Ji Attending Unavailable LANE JORDAN Consulting Unavailable ROSA ., HOANG PIZANO Consulting Unavailable SHARP, NICOLE Consulting Unavailable STACEYSUSAN CLIFTON Consulting Unavailable EMILIA ., RONNA Admitting Unavailable EMILIA ., RONNA Consulting Unavailable SNELL ., DR REBEL Ji Primary Care Unavailable EMILIA ., RONNA Attending Unavailable CR DAVISKA Consulting Unavailable Britney, Luzmaria L Primary Care Physician PANFILO DANIEL Attending Unavailable GERRI TRIVEDI Attending Unavailable GERRI TRIVEDI Attending Unavailable PANFILO DANIEL Attending Unavailable WILLIAM, PREETI Attending Unavailable WILLIAM, PREETI Attending Unavailable Britney, TARGET WORKER Luzmaria L Attending Unavailable Britney, TARGET WORKER Luzmaria Lou Attending Unavailable Britney, TARGET WORKER Luzmaria L Attending Unavailable Britney, TARGET WORKER Luzmaria L Attending Unavailable Britney, TARGET WORKER Luzmaria L Attending Unavailable Britney, TARGET WORKER Luzmaria L Attending Unavailable MD Junito Salvador Admitting Unavailable Madeleine, Junito Weldon Attending Unavailable Junito Salvador Referring Unavailable Britney, TARGET WORKER Luzmaria L Admitting Unavailable Britney, TARGET WORKER Luzmaria Lou Attending Unavailable Britney, TARGET WORKER Luzmaria L Admitting Unavailable Britney, TARGET WORKER Luzmaria L Attending Unavailable Britney, TARGET WORKER Luzmaria L Admitting Unavailable Britney, TARGET WORKER Luzmaria L Attending Unavailable PIPER Kellogg Admitting UnavailDanyelle Mark Attending Unavailable Britney, TARGET WORKER Luzmaria L Referring Unavailable Jason Timmons Attending Unavailable Jason Timmons Referring Unavailable Britney, TARGET WORKER Luzmaria L Attending Unavailable Britney, TARGET WORKER Luzmaria Lou Attending Unavailable Britney, TARGET WORKER Luzmaria L Admitting Unavailable Britney, TARGET WORKER Luzmaria L Attending Unavailable Britney, TARGET WORKER Luzmaria L Referring Unavailable Allergies Allergy Classification Reported Allergen(s) Allergy Type Date of Onset Reaction(s) Facility (1 source) Amoxicillin / Clavulanate Drug Allergy 02-14-20 15 [facility] Repository (1 source) Aspirin Drug Allergy [facility] Rep[facility] (4 sources) Cephalexin; Translations: [CEPHALEXIN] Drug Allergy 05-29-20 13 [facility] Repository (1 source) Erythromycin Drug Allergy 05-29-20 13 [facility] Rep[facility] (3 sources) Fluconazole; Translations: [Diflucan] Drug Allergy [facility] Rep[facility] (2 sources) Fluconazole; Translations: [FLUCONAZOLE] Drug Allergy 05-19-20 22 [facility] Repository (3 sources) moxifloxacin; Translations: [Avelox] Drug Allergy 05-29-20 13 [facility] Rep[facility] (3 sources) Naproxen; Translations: [Anaprox] Drug Allergy [facility] Repository (1 source) Sulfamethoxazole / Trimethoprim Drug Allergy 05-29-20 13 [facility] Rep[facility] (1 source) COVID-19 (SARS-CoV-2) vaccine, josee cell Drug allergy (disorder) 10-30-19 21 [facility] Rep[facility] (12 sources) Cephalexin; Translations: [cephalexin] Drug Allergy Unknown (qualifier value) [facility] (12 sources) Fluconazole; Translations: [fluconazole] Drug Allergy Unknown (qualifier value) [facility] (13 sources) moxifloxacin; Translations: [moxifloxacin] Drug Allergy 05-19-20 22 Unknown (qualifier value) [facility] (12 sources) Naproxen; Translations: [naproxen] Drug Allergy Unknown (qualifier value) [facility] (15 sources) quinapril; Translations: [quinapril] Drug Allergy 05-19-20 22 Unknown (qualifier value) [facility] (14 sources) Sulfonamides (Antibiotic); Translations: [sulfa drugs] Drug allergy Unknown (qualifier value) [facility] (8 sources) Erythromycin; Translations: [erythromycin] Drug Allergy Stomach upset [facility] (1 source) Naproxen; Translations: [NAPROXEN SODIUM] Drug Allergy 05-19-20 22 [facility] Repository (1 source) Sulfamethoxazole / Trimethoprim; Translations: [SULFAMETHOXAZOLE-T RIMETHOPRIM] Drug Allergy 01-27-20 21 [facility] Repository (1 source) Sulfonamides (Antibiotic); Translations: [SULFA (SULFONAMIDE ANTIBIOTICS)] Propensity to adverse reactions to drug (disorder) 05-19-20 [facility] Repository (1 source) AMOXICILLIN-POT CLAVULANATE; Translations: [AMOXICILLIN-POT CLAVULANATE] Propensity to adverse reactions to drug (disorder) 01-27-20 [facility] Repository Medications Current Medications Medication Drug Class(es) Dates Sig (Normalized) Sig (Original) Albuterol (Eqv-Ventolin HFA) 90 mcg/inh inhalation aerosol (12 sources) Start: 04-23-2024 take 2 puff(s) by inhalation every six hours Albuterol (Eqv-Ventolin HFA) 90 mcg/inh inhalation aerosol 2 puff(s), Inhalation, q6hr, 8.5 gm, Refill(s) 6, INHALE 2 PUFFS BY MOUTH EVERY 4 HOURS, [facility], 167, cm, 04/23/24 15:13:00 EDT, Height/Length Dosing, 79.7, kg, 04/23/24 15:13:00 EDT, Weight Dosing Start Date: 04/23/24 Status: Ordered Start: 01-04-2023 take 2 puff(s) by in halation every six hours Albuterol (Eqv-Ventolin HFA) 90 mcg/inh inhalation aerosol 2 puff(s), Inhalation, q6hr, 8.5 gm, Refill(s) 2, INHALE 2 PUFFS BY MOUTH EVERY 4 HOURS, [facility], 167, cm, 01/04/23 11:24:00 EDT, Height/Length Dosing, 79.3, kg, 01/04/23 11:24:00 EDT, Weight Dosing Start Date: 01/04/23 Status: Ordered amLODIPine 10 mg oral tablet (12 sources) Dihydropyridine Calcium Channel Edel Start: 11-25-2022 take 1 tablet by mouth in the morning amLODIPine 10 mg Tab TAKE 1 TABLET BY MOUTH IN THE MORNING Start Date: 11/25/22 Status: Ordered atorvastatin 20 mg oral tablet (2 sources) HMG-CoA Reductase Inhibitor Start: 01-13-2024 take 1 tablet by mouth once daily atorvastatin 20 mg Tab 20 mg = 1 tab(s), Oral, Daily, # 90 tab(s), Refills(s) 3, Pharmacy: [facility], 167, cm, 01/05/24 11:25:00 EDT, Height/Length Dosing, 80.1, kg, 01/05/24 11:25:00 EDT, Weight Dosing Start Date: 01/13/24 Status: Ordered baclofen 10 mg oral tablet (2 sources) gamma-Aminobutyric Acid-ergic Agonist Start: 11-25-2022 baclofen 10 mg Tab Refills(s) 0 Start Date: 11/25/22 Status: Ordered Breast prosthetic and bra (3 sources) Start: 11-14-2023 Breast prosthetic and bra Breast prosthetic and bra, See Instructions, 4 EA, 0, due to mastectomy 4 bras 1prostetic, Supply Start Date: 11/14/23 Status: Ordered Breztri Aerosphere inhalation aerosol (2 sources) Start: 03-28-2024 take 2 puff(s) by inhalation twice daily Breztri Aerosphere inhalation aerosol 2 puff(s), Inhalation, BID, 10.7 gm, Refill(s) 5, [facility], 167, cm, 03/28/24 15:04:00 EDT, Height/Length Dosing, 80.2, kg, 03/28/24 15:04:00 EDT, Weight Dosing Start Date: 03/28/24 Status: Ordered calcium citrate 950 mg oral tablet (10 sources) Start: 02-10-2023 calcium (as calcium citrate) 200 mg oral tablet See Instructions, Daily, Refills(s) 0 Start Date: 02/10/23 Status: Ordered Collagen Skin Renewal (6 sources) Start: 04-21-2023 Collagen Skin Renewal Refill(s) 0 Start Date: 04/21/23 Status: Ordered famotidine 40 mg oral tablet (12 sources) Histamine-2 Receptor Antagonist Start: 01-05-2024 End: 12-30-2024 take 1 tablet by mouth once daily at bedtime famotidine 40 mg Tab 40 mg = 1 tab(s), Oral, Once a day (at bedtime), X 90 day(s), # 90 tab(s), Refills(s) 3, Pharmacy: [facility], 167, cm, 01/05/24 11:25:00 EDT, Height/Length Dosing, 80.1, kg, 01/05/24 11:25:00 EDT, Weight Dosing Start Date: 01/05/24 Stop Date: 12/30/24 Status: Ordered Start: 05-05-2023 take 1 tablet by lizeth once daily at bedtime famotidine 40 mg Tab 40 mg = 1 tab(s), Oral, Once a day (at bedtime), # 90 tab(s), Refills(s) 0, Pharmacy: [facility], 167, cm, 03/17/23 14:09:00 EDT, Height/Length Dosing, 78, kg, 02/10/23 14:07:00 EDT, Weight Dosing Start Date: 05/05/23 Status: Ordered Start: 02-10-2023 take 1 tablet by [facility] once daily at bedtime famotidine 40 mg Tab 40 mg = 1 tab(s), Oral, Once a day (at bedtime), # 90 tab(s), Refills(s) 0, Pharmacy: [facility], 167, cm, 01/04/23 11:24:00 EDT, Height/Length Dosing, 79.3, kg, 01/04/23 11:24:00 EDT, Weight Dosing Start Date: 02/10/23 Status: Ordered Start: 11-30-2022 take 1 tablet by [facility] once daily at bedtime famotidine 40 mg Tab 40 mg = 1 tab(s), Oral, Once a day (at bedtime), # 90 tab(s), Refills(s) 0, [email or web address] Start Date: 11/30/22 Status: Ordered 120 actuat fluticasone propionate 0.044 mg/actuat metered dose inhaler (13 sources) Corticosteroid Start: 01-05-2024 take 2 puff(s) by inhalation twice daily Flovent HFA 44 Aerosol = 2 puff(s), Inhalation, BID, # 10.6 gram, Refills(s) 0, [facility], 167, cm, 01/05/24 11:25:00 EDT, Height/Length Dosing, 80.1, kg, 01/05/24 11:25:00 EDT, Weight Dosing Start Date: 01/05/24 Status: Ordered Start: 11-25-2022 fluticasone Na cas 0.05 mg/inh [place] Refill(s) 0 Start Date: 11/25/22 Status: Ordered Fosfomycin Tromethamine 3 g oral granule for reconstitution (2 sources) Start: 11-25-2022 Fosfomycin Tromethamine 3 g oral granule for reconstitution USE 1 PACKET BY MOUTH DIRECTED Start Date: 11/25/22 Status: Ordered Glucosamine (5 sources) Start: 02-10-2023 glucosamine See Instructions, daily, Refills(s) 0 Start Date: 02/10/23 Status: Ordered losartan potassium 100 mg oral tablet (12 sources) Angiotensin 2 Receptor Edel Start: 11-25-2022 [...] Daily, # 30 tab(s), Refills(s) 0, Pharmacy: [facility], 167, cm, 12/21/22 13:10:00 EDT, Height/Length Dosing, 79.3, kg, 12/21/22 13:10:00 EDT, Weight Dosing Start Date: 12/21/22 Status: Ordered metFORMIN hydrochloride 500 mg oral tablet (3 sources) Biguanide Start: 04-23-2024 take 1 tablet by mouth twice daily metformin 500 mg Tab 500 mg = 1 tab(s), Oral, BID, # 180 tab(s), Refills(s) 1, Pharmacy: [facility], 167, cm, 04/23/24 15:13:00 EDT, Height/Length Dosing, 79.7, kg, 04/23/24 15:13:00 EDT, Weight Dosing Start Date: 04/23/24 Status: Ordered Start: 01-05-2024 take 1 tablet by lizeth th twice daily metformin 500 mg Tab 500 mg = 1 tab(s), Oral, BID, # 180 tab(s), Refills(s) 3, Pharmacy: [facility], 167, cm, 01/05/24 11:25:00 EDT, Height/Length Dosing, 80.1, kg, 01/05/24 11:25:00 EDT, Weight Dosing Start Date: 01/05/24 Status: Ordered Misc DME Prescription (2 sources) Start: 04-17-2024 Misc DME Presc ription Misc DME Prescription, See Instructions, 1 kit(s), 1, True metrix air meter kit, [facility], Supply, 167, cm, 03/28/24 15:04:00 EDT, Height/Length Dosing, 80.2, kg, 03/28/24 15:04:00 EDT, Weight Dosing Start Date: 04/17/24 Status: Ordered Multi Vitamin+ (3 sources) Start: 04-21-2023 Multi Vitamin+ Refill(s) 0 Start Date: 04/21/23 Status: Ordered Nature's Bounty Probiotic (6 sources) Start: 04-21-2023 Nature's Bount y Probiotic Refill(s) 0 Start Date: 04/21/23 Status: [...] Onset: 3 Episodic Benign neoplasm of uterus (12 sources) Uterine leiomyoma 11-26-2022 Episodic Cancer of breast (8 sources) Malignant tumor of breast 02-10-2023 Chronic Cancer of breast (3 sources) Personal history of malignant neoplasm of breast; Translations: [History of malignant neoplasm of breast] Onset: 3 03-27-2024 Episodic Comment on above: Noted in 11/19/[address] Snell and 12/21/2022 office note. Added per outpatient CDI policy and marked breast cancer as not chronic. Cardiac dysrhythmias (4 sources) Supraventricular tachycardia; Translations: [SUPRAVENTRICULAR TACHYCARDIA] Onset: 2 Chronic Diabetes mellitus without complication (20 sources) Type 2 diabetes mellitus without complications; Translations: [Type 2 diabetes mellitus] Onset: 2 11-25-2022 Chronic Comment on above: Linked per outpatien t CDI policy. Diabetes mellitus without complication (1 source) Prediabetes; Translations: [PREDIABETES] Onset: 3 Episodic Disorders of lipid metabolism (6 sources) Hyperlipidemia, unspecified; Translations: [Hypercholesterolemia] Onset: 2 01-05-2024 Chronic Esophageal disorders (13 sources) Gastro-esophageal reflux disease without esophagitis; Translations: [Gastroesophageal reflux disease] Onset: 3 11-25-2022 Chronic Essential hypertension (15 sources) Essential (primary) hypertension; Translations: [Hypertensive disorder] Onset: 3 11-25-2022 Chronic Genitourinary symptoms and ill-defined conditions (1 source) Personal history of urinary (tract) infections; Translations: [PERS HX URINARY TRACT INFECTIONS] Onset: 3 Episodic Glaucoma (12 sources) Glaucoma 11-26-2022 Chronic Headache; including migraine (12 sources) Episodic tension-type headache 11-25-2022 Chronic Hemorrhoids (12 sources) Hemorrhoids 11-26-2022 Episodic Malaise and fatigue (6 sources) Other fatigue; Translations: [Fatigue] Onset: 2 06-01-2023 Episodic Noninfectious gastroenteritis (1 source) Noninfective gastroenteritis and colitis, unspecified; Translations: [NONINFECTIVE GE AND COLITIS UNS] Onset: 3 Episodic Osteoarthritis (20 sources) Unspecified osteoarthritis, unspecified site; Translations: [Arthritis] Onset: 3 11-25-2022 Chronic Comment on above: L spine W L5-S1 narr owing Osteoporosis (13 sources) Age-related osteoporosis without current pathological fracture; Translations: [Osteoporosis] Onset: 3 11-26-2022 Chronic Other aftercare (1 source) 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; Translations: [OTH SHAKE MAKER CURRENT DRUG THERAPY] Onset: 3 Episodic Other connective tissue disease (12 sources) Achilles tendinitis 11-26-2022 Episodic Other ear and sense organ disorders (10 sources) Hearing loss 02-10-2023 Chronic Other gastrointestinal disorders (4 sources) Diarrhea, unspecified; Translations: [DIARRHEA UNSPECIFIED] Onset: 3 Episodic Other lower respiratory disease (8 sources) Chronic cough 02-10-2023 Episodic Other lower respiratory disease (3 sources) Cough 10-04-2023 Episodic Other lower respiratory disease (3 sources) Dyspnea 10-04-2023 Episodic Other lower respiratory disease (2 sources) Other forms of dyspnea; Translations: [Other forms of dyspnea] Onset: 2 Episodic Other nutritional; endocrine; and metabolic disorders (5 sources) Excessive thirst 06-01-2023 Episodic Pneumonia (except that caused by tuberculosis or sexually transmitted disease) (12 sources) Pneumonia 11-26-2022 Episodic Residual codes; unclassified [...] left side] Onset: 3 Episodic Thyroid disorders (12 sources) Hypothyroidism 11-25-2022 Chronic Unclassified (1 source) PERSONAL HISTORY OF COVID-19; Translations: [PERSONAL HISTORY OF COVID-19] Onset: 3 Unclassified (1 source) CONTACT W/AND (SUSP) EXPOS COVID-19; Translations: [CONTACT W/AND (SUSP) EXPOS COVID-19] Onset: 2 Unclassified (7 sources) Patient encounter status 06-01-2023 Unclassified (1 source) Other ventricular tachycardia; Translations: [Other ventricular tachycardia] Onset: 3 Viral infection (12 sources) Infectious mononucleosis 03-16-2023 Episodic Past or Other Problems Problem Classification [...] left ankle, sequela] Onset: 04-27-2022 Episodic Unclassified (12 sources) BRCA2 mutation carrier detection test 11-26-2022 Unclassified (1 source) Other ventricular tachycardia; Translations: [Other ventricular tachycardia] Onset: 03-14-2024 Viral infection (12 sources) Disease caused by 2019-nCoV 11-26-2022 Results Test Name Value Interpretation Reference Range Facility [place] Mamm Screen w/CAD if perf and 3D RTon 05-04-2024 MA Mamm Screen w/CAD if perf and 3D RT Exam Date/Time: 05/01/2024 10:26 EDT Reason for Exam: Z12.31;Screening Report IMPRESSION: BIRADS 2 BENIGN FINDINGS, NORMAL INTERVAL FOLLOW-UP Follow-up: 12 MONTH RECALL Density: Category B - Scattered areas of fibroglandular density. Vascular calcifications: Present. EXAM: MA Mamm Screen w/CAD if perf and 3D RT DATE: 05/01/2024 10:09 AM CLINICAL HISTORY: Screening, Z12.31. COMPARISONS: 01/19/2023, 02/12/2020, and 01/15/2016. TECHNIQUE: Routine full-field digital mammograms and 3D breast tomosynthesis were obtained of the right breast. FINDINGS: There are no developing densities, suspicious microcalcifications, or areas of architectural distortion identified on the current study. No significant changes are identified from the prior studies, given differences in technique and positioning. Stable nodular densities. Dense Breast: No. CAD analysis was performed and used in the interpretation. Board Certified Radiologists. Accredited by the ACR and FDA. MAMMOGRAPHY IS VERY IMPORTANT TO YOUR HEALTH. THE CURRENT [employer] GUIDELINES RECOMMENDS ANNUAL MAMMOGRAPHY BEGINNING AT AGE 40. THIS FACILITY UTILIZES A REMINDER SYSTEM TO ENSURE ALL PATIENTS RECEIVE REMINDER NOTIFICATIONS AT THE APPROPRIATE TIME BASED ON THE RECOMMENDATIONS OF THIS EXAM. Report Ordering Provider: Luzmaria Tan FINAL REPORT Dictated: 05/04/2024 3:12 pm Andrea Dudley MD Signed (Electronic Signature): 05/04/2024 3:12 pm Signed by: Andrea Dudley MD Transcribed by: ALEXANDREA Technologist: MENA Assessment: BI-RADS Category 2-Benign finding Recommendation: Normal interval follow-up Normal [facility] Reminderson 04-30-2024 Reminders Reminders From: Luzmaria Lamas To: [facility] - Clinical; Sent: 04/30/2024 07:53:00 EDT Show up: 04/30/2024 07:53:00 EDT Subject: Ambulatory Reminder Due Date/Time: 05/01/2024 07:52:00 EDT HGBA1C was 5.7. this is great! Results: Date Result Name Value Ref Range 04/23/2024 15:50 Hgb A1C % 5.7 % ( - <=5.9) Stephanie called and advised of A1C results Normal [facility] [id number] 08-17-2024 HbA1c (Bld) [Mass fraction] 5.7 % Normal <=5.9 [facility] Comment on above: Performed By: #### [id number] #### [facility] [address] [place] [address] Family Medicine Office/Clini c Noteon 04-23-2024 Family Medicine Office/Clinic Note Family Medicine Office/Clinic Note HPI Staff Stephanie is a 78 year old female presenting with discussing meds. Message from 04/16/24- She stopped taking Metformin 500 mg a couple weeks ago. Her fasting blood sugar w/o Metformin 500 mg 120-130's fasting blood sugar w Metformin 500 mg 115 or so She stopped taking this MIRTA.. sugar started going high after a few days later. Started this back up. Sugar has still been high.. yesterday it was good but today she feels really ran down and no energy She states she will need a new prescription at [facility] in [place] ( Metformin 500 mg) History of Present Illness pt presents today for follow up on DM Review of Systems PHQ Score Initial Depression Screen Score: 0 SCORE Physical Exam Vitals & Measurements T: 36.9 ?C(Oral) HR: 60(Peripheral) RR: 16 BP: 120/88 SpO2: 96% HT: 66 in HT: 167.0 cm WT: 79.7 kg WT: 175.34 lb BMI: 28.58 General: alert, no acute distress ENMT: oral mucosa moist, no pharyngeal erythema or exudate Cardiovascular: regular rate and rhythm, normal peripheral perfusion Respiratory: Lungs CTA, respirations non labored Extremities: no deformity, no trauma Neurological: oriented x 4, LOC appropriate for age, CN II-XII intact, motor strength equal & normal bilaterally, speech normal Assessment/Plan 1. Type 2 diabetes mellitus (E11.9: Type 2 diabetes mellitus without complications) pt decided to stop taking metformin then her sugars started running high and she was not feeling the best. she restarted metformin about 1 weeks ago. will check HGAB1C today. pt to return in 3 months for follow up. pt states her blood sugar was 140 this morning and she feels awful, but she ate [employer] last night. discussed making healthy food choices. pt would like refresher on diabetic diet. pt states she is upset that she can't control her blood sugars like she used to. educated her about diabetes being a progressive disease and that as we get older it is more difficult to control. refills sent. RTC 3 months Ordered: metformin, 500 mg = 1 tab(s), Oral, BID, # 180 tab(s), Refills(s) 1, Pharmacy: [facility], 167, cm, 04/23/24 15:13:00 EDT, Height/Length Dosing, 79.7, kg, 04/23/24 15:13:00 EDT, Weight Dosing [facility] Internal Ambulatory Referral HgbA1c 2. Breast cancer screening by mammogram (Z12.31: Encounter for screening mammogram for malignant neoplasm of breast) mammogram ordered Ordered: [place] Mamm Screen w/CAD if perf and 3D Junior 3. BMI 28.0-28.9,adult (Z68.28: Body mass index [BMI] 28.0-28.9, adult) BMI education Ordered: metformin, 500 mg = 1 tab(s), Oral, BID, # 180 tab(s), Refills(s) 1, Pharmacy: [facility], 167, cm, 04/23/24 15:13:00 EDT, Height/Length Dosing, 79.7, kg, 04/23/24 15:13:00 EDT, Weight Dosing [facility] Internal Ambulatory Referral MA Mamm Screen w/CAD if perf and 3D Junior 4. Non-smoker (Z78.9: Other specified health status) continue not smoking Ordered: metformin, 500 mg = 1 tab(s), Oral, BID, # 180 tab(s), Refills(s) 1, Pharmacy: [facility], 167, cm, 04/23/24 15:13:00 EDT, Height/Length Dosing, 79.7, kg, 04/23/24 15:13:00 EDT, Weight Dosing [facility] Internal Ambulatory Referral MA Mamm Screen w/CAD if perf and 3D Junior Orders: albuterol, 2 puff(s), Inhalation, q6hr, 8.5 gm, Refill(s) 6, INHALE 2 PUFFS BY MOUTH EVERY 4 HOURS, [facility] [facility], 167, cm, 03/28/24 15:04:00 EDT, Height/Length Dosing, 80.2, kg, 03/28/24 15:04:00 EDT, Weight Dosing albuterol, 2 puff(s), Inhalation, q6hr, 8.5 gm, Refill(s) 6, INHALE 2 PUFFS BY MOUTH EVERY 4 HOURS, [facility], 167, cm, 04/23/24 15:13:00 EDT, Height/Length Dosing, 79.7, kg, 04/23/24 15:13:00 EDT, Weight Dosing Misc Prescription, test strips true metrix, See Instructions, 100 EA, 12, test stripts to test BS daily e.11.69, [facility], Supply, 167, cm, 03/28/24 15:04:00 EDT, Height/Length Dosing, 80.2, kg, 03/28/24 15:04:00 EDT, Weight Dosing Misc Prescription, lancets, See Instructions, 100 EA, 12, to check BS daily e11.69, [facility], Supply, 167, cm, 03/28/24 15:04:00 EDT, Height/Length Dosing, 80.2, kg, 03/28/24 15:04:00 EDT, Weight Dosing Follow-up No qualifying data available Problem List/Past Medical History Ongoing Breast cancer screening by mammogram Cervical radiculitis Cough Episodic tension type headache Excessive thirst Fatigue GERD (gastroesophageal reflux disease) Hearing deficit History of breast cancer HTN (hypertension) Hypercholesteremia Hypothyroidism Lower back pain Mononucleosis Osteoarthritis S/P mastectomy Sciatica Shortness of breath Type 2 diabetes mellitus Type 2 diabetes mellitus with hypercholesterolemia Wellness examination Historical Achilles tendonitis Arthritis Breast cancer 2, early onset gene mutation carrier detection test COVID-19 Fibroids Glaucoma Hemorrhoids Osteoporosis Pneumonia Procedure/Surgical History Epidural inj (more content not included)... Normal [facility] Comment on above: Result Comment: Elec tronically Signed By: Luzmaria Lamas\.br\Date and Time Signed: 04/23/24 15:43 EDT Orders Onlyon 04-23-2024 Orders Only [id number] Stephanie Wasserman 1945 F Date Provider Department Center 04/23/2024 PREETI RAMÍREZ [facility]. Family History Problem Relation Age of Onset Lung disease Mother Diabetes Mother's Sister Family Status - Relation Status Age at Mother Father Mother's Sister Other [facility] 36on 04-17-2024 36 Regarding echo resul t from 04/13/2024: AREN Díaz MA Provider called pt to review echocardiogram results, and recommended to start hydrochlorothiazide 12.5 mg daily for water retention and HTN, and to call office for any concerns- lightheadedness/dizzine ss, near syncope or syncope. If she does well on this medication will send script for Losartan 100mg/hydrochlorothiazi de 12.5 mg daily- for now sent 30 day script with refills for hydrochlorothiazide in light she thinks she has 3-4 months worth of losartan currently. Asked her to call office when she has only 1-2 months of pills left of losartan so we can send the Thubrikar Aortic Valveo med script into her mail order pharmacy- she voiced understanding. D/W with her to have BMP drawn in 1-2 weeks after starting hydrochlorothiazide to check renal function and electrolytes- she voiced understanding I stopped her losartan- so they don't send her another 3 months of it. Please call her in 1-2 weeks to see how she is doing, is leg swelling ok, B/P ok and remind her to come get BMP done please. Thanks! BMP faxed to [facility]. Margret, can you put this message in your box for a reminder phone call in 1-2 weeks? Thanks. [facility] Orders Onlyon 04-16-2024 Orders Only [id number] Stephanie Wasserman 1945 F Date Provider Department Center 04/16/2024 120-PREETI THOMAS [facility]. Family History Problem Relation Age of Onset Lung disease Mother Diabetes Mother's Sister Family Status - Relation Status Age at Mother Father Mother's Sister Other [facility] Family Medicine Office/Clini c Noteon 03-28-2024 Family [...] puff(s), Inhalation, BID, 10.7 gm, Refill(s) 5, [facility], 167, cm, 03/28/24 15:04:00 [...] puff(s), Inhalation, BID, 10.7 gm, Refill(s) 5, [facility], 167, cm, 03/28/24 15:04:00 EDT, Height/Length Dosing, 80.2, kg, 03/28/24 15:04:00 EDT, Weight Dosing fluticasone, = 2 puff(s), Inhalation, BID, # 10.6 gram, Refills(s) 0, Pharmacy: [email or web address], 167, cm, 01/05/24 11:25:00 [...] puff(s), Inhalation, BID, 10.7 gm, Refill(s) 5, [facility], 167, cm, 03/28/24 15:04:00 [...] puff(s), Inhalation, BID, 10.7 gm, Refill(s) 5, [facility], 167, cm, 03/28/24 15:04:00 EDT, Height/Length Dosing, 80.2, kg, 03/28/24 15:04:00 EDT, Weight Dosing fluticasone, = 2 puff(s), Inhalation, BID, # 10.6 gram, Refills(s) 0, Pharmacy: [facility], 167, cm, 01/05/24 11:25:00 [...] 2 PUFFS BY MOUTH EVERY 4 HOURS, [email or web address], 167, cm, 03/28/24 15:04:00 EDT, Height/Length Dosing, 80.2, kg, 03/28/24 15:04:00 EDT, Weight Dosing albuterol, 2 puff(s), Inhalation, q6hr, 8.5 gm, Refill(s) 2, INHALE 2 PUFFS BY MOUTH EVERY 4 HOURS, [facility]28, 167, cm, 01/04/23 11:24:00 EDT, Height/Length Dosing, 79.3, kg, 01/04/23 11:24:00 EDT, Weight Dosing Follow-up No qualifying data available Problem List/Past Medical Hist (more content not included)... Normal [facility] Comment on above: Result Comment: Elec tronically Signed By: Luzmaria Lamas\.br\Date and Time Signed: 03/28/24 15:31 EDT Office Visiton 03-14-2024 Follow-up visit [id number] Stephanie Wasserman 1945 F Date Provider Department Center 03/14/2024 PREETI RAMÍREZ Family History Problem Relation Age of Onset Lung disease Mother Diabetes Mother's Sister Family Status - Relation Status Age at Mother Father Mother's Sister Other Level of Service:42010 UT OFFICE/OUTPATIENT ESTABLISHED MOD MDM 30 MIN Normal [facility] Reminderson 01-09-2024 Reminders - From: Luzmaria Lamas To: [facility] - Clinical; Sent: 01/06/2024 12:27:23 EDT Show [...] a 90 day script and sent to [email or web address]. Normal [facility] Ambulatory Visit Summaryon 0 01-05-2024 Ambulatory Visit Summary STEPHANIE WASSERMAN :1945 Visit Date:01/05/2024 Ambulatory Visit Instructions Your Diagnosis Hypercholesteremia Type 2 diabetes mellitus BMI 28.0-28.9,adult Non-smoker Your Care Team Attending Physician - Luzmaria Lamas Primary Care Physician - Luzmaria Lamas This Is Your Medications List [facility] Prescription (Breast prosthetic and bra) albuterol (Albuterol (Eqv-Ventolin HFA) 90 mcg/inh inhalation aerosol) amlodipine (amLODIPine 10 mg Tab) ascorbic acid-collagen (Collagen Skin Renewal) bifidobacterium-lactoba cillus (Nature's Bounty Probiotic) calcium citrate (calcium (as calcium citrate) 200 mg oral tablet) famotidine (famotidine 40 mg Tab) fluticasone (Flovent HFA 44 Aerosol) fluticasone nasal (fluticasone Nasal 0.05 mg/inh [place]) losartan (losartan 100 mg Tab) metformin (metformin [...] Duration: 90 Days Refills: 3 Pickup at [facility] New fluticasone (Flovent HFA 44 Aerosol) 2 Puffs Inhalation 2 times a day Hypercholesteremia Type 2 diabetes mellitus BMI 28.0-28.9,adult Non-smoker Pickup at [facility] New metformin (metformin 500 mg Tab) 1 Tablets By Mouth 2 times a day Type 2 diabetes mellitus Refills: 3 Pickup at [facility] Unchanged albuterol (Albuterol (Eqv-Ventolin [...] fluticasone nasal (fluticasone Nasal 0.05 mg/ inh [place]) Unchanged losartan (losartan 100 mg Tab) 1 Tablets By Mouth Every day Unchanged [facility] Prescription (Breast prosthetic and bra) See instructions S/P mastectomy due to mastectomy 4 bras 1prostetic Pharmacy Information [facility]: [address] [place], [place] [phone] Allergies Accupril (Unknown) Anaprox (Unknown) Avelox (Unknown) [...] for choosing us for your care. Normal [facility] CHEMISTRYOrdered By: SYSTEM SYSTEM on 01-05-2024 [...] (Bld) [Mass fraction] 5.9 % Normal <=5.9% [facility] ChemAutoSS Family Medicine Office/Clini c Noteon 01-05-2024 Family Medicine Office/Clinic Note HPI Staff Brown is a 78 year old female presenting [...] BID, # 10.6 gram, Refills(s) 0, Pharmacy: [facility], 167, cm, 01/05/24 11:25:00 EDT, Height/Length Dosing, 80.1, kg, 01/05/24 11:25:00 EDT, Weight Dosing HgbA1c Lab Specimen Collect [id number] Lipid Panel 2. Type 2 diabetes mellitus (E11.9: Type 2 diabetes mellitus without complications) Will draw HGBA1C today. pt is taking 1/2 tab in am and 1/2 tab in Pm of metformin Ordered: fluticasone, = 2 puff(s), Inhalation, BID, # 10.6 gram, Refills(s) 0, Pharmacy: [facility], 167, cm, 01/05/24 11:25:00 EDT, Height/Length Dosing, 80.1, kg, 01/05/24 11:25:00 EDT, Weight Dosing metformin, 500 mg = 1 tab(s), Oral, BID, # 60 tab(s), Refills(s) 0, [facility], 167, cm, 10/04/23 14:41:00 EST, Height/Length Dosing, 79.5, kg, 10/04/23 14:41:00 EST, Weight Dosing metformin, 500 mg = 1 tab(s), Oral, BID, # 180 tab(s), Refills(s) 3, [facility], 167, cm, 01/05/24 11:25:00 EDT, Height/Length Dosing, 80.1, kg, 01/05/24 11:25:00 EDT, Weight Dosing HgbA1c Lab Specimen Collect 79114 Lipid Panel 3. BMI 28.0-28.9,adult (Z68.28: Body mass index [BMI] 28.0-28.9, adult) BMI education complete Ordered: fluticasone, = 2 puff(s), Inhalation, BID, # 10.6 gram, Refills(s) 0, [facility]: [facility], 167, cm, 01/05/24 11:25:00 EDT, Height/Length Dosing, 80.1, kg, 01/05/24 11:25:00 EDT, Weight Dosing HgbA1c Lab Specimen Collect 57478 Lipid Panel 4. Non-smoker (Z78.9: Other specified health status) continue not smoking Ordered: fluticasone, = 2 puff(s), Inhalation, BID, # 10.6 gram, Refills(s) 0, [facility]: [facility], 167, cm, 01/05/24 11:25:00 EDT, Height/Length Dosing, 80.1, kg, 01/05/24 11:25:00 EDT, Weight Dosing HgbA1c Lab Specimen Collect 17718 Lipid Panel Orders: famotidine, 40 mg = 1 tab(s), Oral, Once a day (at bedtime), X 90 day(s), # 90 tab(s), Refills(s) 3, [facility], 167, cm, 01/05/24 11:25:00 EDT, Height/Length Dosing, 80.1, kg, 01/05/24 11:25:00 EDT, Weight Dosing famotidine, 40 mg = 1 tab(s), Oral, Once a day (at bedtime), # 90 tab(s), Refills(s) 1, Pharmacy: [facility], 167, cm, 06/06/23 14:18:00 [...] mg o (more content not included)... Normal [facility] Comment on above: Result Comment: Elec tronically Signed By: Luzmaria Lamas\.boogie\Date and Time Signed: 01/05/24 13:00 EDT [id number] 01-05-2024 HbA1c (Bld) [Mass fraction] 5.9 % Normal <=5.9 [facility] Comment on above: Performed By: #### 2 [id number], [id number] ####[facility] [address] [place] [address] Lipid Panelon 01-05-2024 Cholesterol [Mass/Vol] 215 mg/dL High 120-200 [facility] Comment on above: Performed By: #### 2 [id number], [id number] ####[facility] [address] [place] [address] Cholesterol in HDL [Mass/Vol] 45 mg/dL Invalid Interpretation Code [facility] Comment on above: Result Comment: '>= 60 LOW RISK' '<= 40 HIGH RISK' Performed By: #### 2 [id number], [id number] ####[facility] [address] [place] [address] Cholesterol in LDL [Mass/Vol] 137 mg/dL High <=129 [facility] Comment on above: Performed By: #### 2 [id number], [id number] ####[facility] [address] [place] [address] Cholesterol in VLDL [Mass/Vol] 74 mg/dL High 7-40 [facility] Comment on above: Performed By: #### 2 [id number], [id number] ####[facility] [address] [place] [address] Triglyceride [Mass/Vol] 371 mg/dL High <=149 [facility] Comment on above: Performed By: #### 2 [id number], [id number] ####[facility] [address] [place] [address] RAD - MISCon 10-06-2023 RAD - MISC [id number]#1.00T IFF Normal [facility] Physician Orderon 10-05-2023 Physician Order [id number]#1.00T IFF Normal [facility] Ambulatory Visit Summaryon 0 10-04-2023 Ambulatory [...] Tab) fluticasone nasal (fluticasone Nasal 0.05 mg/inh [place]) losartan (losartan 100 mg Tab) methylPREDNISolone (Medrol [...] as directed on package labeling Pickup at [facility] New benzonatate (benzonatate 200 mg oral capsule) 1 Capsules By Mouth 3 times a day Cough Shortness of breath BMI 29.0-29.9,adult Non-smoker Duration: 10 Days Pickup at [facility] New methylPREDNISolone (Medrol 4 mg Tab) 1 Packets By Mouth As Directed Cough Shortness of breath BMI 29.0-29.9,adult Non-smoker Duration: 6 Days as directed on package labeling Pickup at [facility] Unchanged albuterol (Albuterol (Eqv-Ventolin HFA) 90 mcg/ inh inhalation aerosol) 2 Puffs Inhalation Every 6 hours INHALE 2 PUFFS BY MOUTH EVERY 4 HOURS Unchanged amlodipine (amLODIPine 10 mg Tab) TAKE 1 TABLET BY MOUTH IN THE MORNING Unchanged ascorbic acid-collagen (Collagen Skin Renewal) Unchanged bifidobacterium-lactoba cillus ([employer]'s Bounty Probiotic) Unchanged calcium citrate (calcium (as calcium citrate) 200 mg oral tablet) See instructions Daily Unchanged famotidine (famotidine 40 mg Tab) 1 Tablets By Mouth Once a day (at bedtime) Unchanged fluticasone nasal (fluticasone Nasal 0.05 mg/ inh [place]) Unchanged losartan (losartan 100 mg Tab) 1 Tablets By Mouth Every day Unchanged multivitamin (Multi Vitamin+) Pharmacy Information [facility]: [address] [place], [place] [phone] Allergies Accupril (Unknown) Anaprox (Unknown) Avelox (Unknown) [...] choosing us for your care. Normal [facility] Family Medicine Office/Clini c Noteon 10-04-2023 Family [...] chest x ray pt will go to [facility]. pt states she does use her inhaler when she has coughing fits. will order z pack and medrol dose pack. as well as tessalon pearls. all questions answered. if this treatment does not help with cough will refer to pulmonology Ordered: azithromycin, = 1 packet(s), Oral, As Directed, as directed on package labeling, X 5 day(s), # 6 tab(s), Refills(s) 0, Pharmacy: [facility], 167, cm, 10/04/23 14:41:00 EST, Height/Length Dosing, 79.5, kg, 10/04/23 14:41:00 EST, Weight Dosing benzonatate, 200 mg = 1 cap(s), Oral, TID, X 10 day(s), # 30 cap(s), Refills(s) 0, Pharmacy: [facility], 167, cm, 10/04/23 14:41:00 EST, Height/Length Dosing, 79.5, kg, 10/04/23 14:41:00 EST, Weight Dosing methylPREDNISolone, = 1 packet(s), Oral, As Directed, as directed on package labeling, X 6 day(s), # 21 tab(s), Refills(s) 0, Pharmacy: [facility], 167, cm, 10/04/23 14:41:00 EST, Height/Length Dosing, 79.5, kg, 10/04/23 14:41:00 EST, Weight Dosing 2. Shortness of breath (R06.02: Shortness of breath) chest x ray ordered Ordered: azithromycin, = 1 packet(s), Oral, As Directed, as directed on package labeling, X 5 day(s), # 6 tab(s), Refills(s) 0, Pharmacy: [facility], 167, cm, 10/04/23 14:41:00 EST, Height/Length Dosing, 79.5, kg, 10/04/23 14:41:00 EST, Weight Dosing benzonatate, 200 mg = 1 cap(s), Oral, TID, X 10 day(s), # 30 cap(s), Refills(s) 0, Pharmacy: [facility] Delivery, 167, cm, 10/04/23 14:41:00 EST, Height/Length Dosing, 79.5, kg, 10/04/23 14:41:00 EST, Weight Dosing methylPREDNISolone, = 1 packet(s), Oral, As Directed, as directed on package labeling, X 6 day(s), # 21 tab(s), Refills(s) 0, Pharmacy: [facility], 167, cm, 10/04/23 14:41:00 EST, Height/Length Dosing, 79.5, kg, 10/04/23 14:41:00 EST, Weight Dosing 3. BMI 29.0-29.9,adult (Z68.29: Body mass index [BMI] 29.0-29.9, adult) BMI education complete Ordered: azithromycin, = 1 packet(s), Oral, As Directed, as directed on package labeling, X 5 day(s), # 6 tab(s), Refills(s) 0, Pharmacy: [facility], 167, cm, 10/04/23 14:41:00 EST, Height/Length Dosing, 79.5, kg, 10/04/23 14:41:00 EST, Weight Dosing benzonatate, 200 mg = 1 cap(s), Oral, TID, X 10 day(s), # 30 cap(s), Refills(s) 0, Pharmacy: [facility], 167, cm, 10/04/23 14:41:00 EST, Height/Length Dosing, 79.5, kg, 10/04/23 14:41:00 EST, Weight Dosing methylPREDNISolone, = 1 packet(s), Oral, As Directed, as directed on package labeling, X 6 day(s), # 21 tab(s), Refills(s) 0, Pharmacy: [facility], 167, cm, 10/04/23 14:41:00 EST, Height/Length Dosing, 79.5, kg, 10/04/23 14:41:00 EST, Weight Dosing 4. Non-smoker (Z78.9: Other specified health status) continue not smoking Ordered: azithromycin, = 1 packet(s), Oral, As Directed, as directed on package labeling, X 5 day(s), # 6 tab(s), Refills(s) 0, Pharmacy: [facility], 167, cm, 10/04/23 14:41:00 EST, Height/Length Dosing, 79.5, kg, 10/04/23 14:41:00 EST, Weight Dosing benzonatate, 200 mg = 1 cap(s), Oral, TID, X 10 day(s), # 30 cap(s), Refills(s) 0, Pharmacy: [facility], 167, cm, 10/04/23 14:41:00 EST, Height/Length Dosing, 79.5, kg, 10/04/23 14:41:00 EST, Weight Dosing methylPREDNISolone, = 1 packet(s), Oral, As Directed, as directed on package labelin (more content not included)... Normal [facility] Comment on above: Result Comment: Elec tronically Signed By: Luzmaria Lamas\.br\Date and Time Signed: 10/04/23 15:03 EST Consent for Treatmenton 05-14 Consent for Treatment [id number]#1.00C D:127 [facility] Consultation Noteon 06-06-20 Consultation Note Patient: [...] 2 PUFFS BY MOUTH EVERY 4 HOURS, [facility], 167, cm, 01/04/23 11:24:00 EDT, Height/Length Dosing, 79.3, kg, 01/04/23 11:24:00 EDT, Weight Dosing famotidine 40 mg Tab: 40 mg = 1 tab(s), Oral, Once a day (at bedtime), # 90 tab(s), Refills(s) 0, Pharmacy: [facility], 167, cm, 03/17/23 14:09:00 EDT, Height/Length Dosing, 78, kg, 02/10/23 14:07:00 EDT, Weight Dosing Documented Medications Documented Collagen Skin Renewal: Refill(s) 0 Multi Vitamin+: Refill(s) 0 Nature's Bounty Probiotic: Refill(s) 0 amLODIPine 10 mg Tab: TAKE 1 TABLET BY MOUTH IN THE MORNING calcium (as calcium citrate) 200 mg oral tablet: See Instructions, Daily, Refills(s) 0 fluticasone Nasal 0.05 mg/inh [place]: Refill(s) 0 losartan 100 mg Tab: Refills(s) 0 Problem list: All Problems Cervical radiculitis / SNOMED CT 38922904 / Confirmed Episodic tension type headache / SNOMED CT 825590333 / Confirmed GERD (gastroesophageal reflux disease) / SNOMED CT 508790296 / Confirmed HTN (hypertension) / SNOMED CT 9134571643 / Confirmed Hypothyroidism / SNOMED CT 86698057 / Confirmed Diabetes mellitus, type II / SNOMED CT 436400587 / Confirmed Sciatica / SNOMED CT 62602689 / Confirmed Arthritis / SNOMED CT 0841344 / Confirmed Mononucleosis / SNOMED CT 959190476 / Confirmed Chronic cough / SNOMED CT 043245323 / Confirmed Hearing deficit / SNOMED CT 25488455 / Confirmed Breast cancer / SNOMED CT 742327942 / Confirmed Osteoarthritis / SNOMED CT 2869322920 / Confirmed Lower back pain / SNOMED CT 604222275 / Confirmed Wellness examination / SNOMED CT 066340131 / Confirmed Fatigue / SNOMED CT 336164242 / Confirmed Type 2 diabetes mellitus / SNOMED CT 987836207 / Confirmed Excessive thirst / SNOMED CT 14657930 / Confirmed Resolved: COVID-19 / SNOMED CT 0426847268 Resolved: Hemorrhoids / SNOMED CT 758251746 Resolved: Pneumonia / SNOMED CT 012070907 Resolved: Arthritis / SNOMED CT 5633547 L spine W L5-S1 narrowing Resolved: Breast cancer 2, early onset gene mutation carrier detection test / SNOMED CT 5307286472 Resolved: Fibroids / SNOMED CT 739166206 Resolved: Glaucoma / SNOMED CT 07936409 Resolved: Achilles tendonitis / SNOMED CT 9811732063 Resolved: Osteoporosis / SNOMED CT 834627129 Objective Vital Signs 06/06/2023 14:10 EDT Peripheral [...] 5/5 lower extremity strength Integumentary: Warm, Dry, [place]. Injection site well-healed Neurologic: Alert, Oriented. Psychiatric: Cooperative, Appropriate mood & affect. Results Review * Final Report * Reason For Exam M54.17, M48.062 POWERSCRIBE REPORT IMPRESSION: DEGENERATIVE CHANGES OF THE LUMBAR SPINE DETAILED. EXAM: MRI of the lumbar spine without contrast History: Low back pain Technique: Multiplanar multisequence MRI of the lum (more content not included)... Normal [facility] Comment on above: Result Comment: Elec tronically Signed By: Danyelle Kellogg PA-C\.br\Date and Time Signed: 06/06/23 14:31 EDT\.br\Electronically Co-Signed By: Harlan Solomon DO\.br\Date and Time Co-Signed: 06/07/23 11:02 EDT Office/Clinic Note-Physician on 06-06-2023 Office/Clinic Note-Physician [id number]#1.00C D:127 Normal [facility] Patient Correspondenceon Patient Correspondence [id number]#1.00C D:127 Normal [facility] Patient Correspondence [id number]#1.00C D:127 Normal [facility] Patient History Officeon Patient History Office [id number]#1.00C D:127 Normal [facility] Ambulatory Visit Summaryon 0 06-01-2023 Ambulatory [...] Tab) fluticasone nasal (fluticasone Nasal 0.05 mg/inh [place]) losartan (losartan 100 mg Tab) meloxicam (meloxicam [...] fluticasone nasal (fluticasone Nasal 0.05 mg/ inh [place]) Unchanged losartan (losartan 100 mg Tab) Unchanged [...] COVID-19 Fibroids Glaucoma Hemorrhoids Osteoporosis Pneumonia Normal [facility] Auto Diffon 06-01-2023 Basophils/100 WBC (Bld) 1.2 % Normal 0.0-2.0 [facility] Comment on above: Order Comment: Order Added by Discern Expert. Performed By: #### 2 [id number], [id number], [id number], [id number] ####[facility] [address] [place] [address] Basophils/Leukocytes Auto (Bld) [Pure # fraction] 0.1 E9/L Normal 0.0-0.2 [facility] Comment on above: Order Comment: Order Added by Discern Expert. Performed By: #### 2 [id number], [id number], [id number], [id number] ####[facility] [address] [place] [address] Eosinophils/100 WBC (Bld) 4.1 % Normal 0.0-8.0 [facility] Comment on above: Order Comment: Order Added by Discern Expert. Performed By: #### 2 016995, [id number], [id number], [id number], [id number], [id number], [id number] ####[facility] [address] [place] [address] Eosinophils/Leukocyt es Auto (Bld) [Pure # fraction] 0.3 E9/L Normal 0.0-0.5 [facility] Comment on above: Order Comment: Order Added by Discern Expert. Performed By: #### 2 972109, [id number], [id number], [id number], [id number], [id number], [id number] ####[facility] [address] [place] [address] Lymphocytes/100 WBC (Bld) 33.7 % Normal 14.0-50.0 [facility] Comment on above: Order Comment: Order Added by Discern Expert. Performed By: #### 2 219491, 7356664, 2554502, 441524517, 94496693, 5802393, 4043974 ####[facility] [address] [place] [address] Lymphocytes/Leukocyt es Auto (Bld) [Pure # fraction] 2.1 E9/L Normal 1.0-4.0 [facility] Comment on above: Order Comment: Order Added by Discern Expert. Performed By: #### 2 368970, 6518184, 5225161, 360864174, 50650375, 1244742, 6783635 ####[facility] [address] [place] [address] Monocytes/100 WBC (Bld) 12.7 % Normal 4.0-14.0 [facility] Comment on above: Order Comment: Order Added by Emely Expert. Performed By: #### 2 180383, 0274055, 4766884, 659688726, 05019846, 8719048, 1524578 ####[address] [address] Monocytes/Leukocytes Auto (Bld) [Pure # fraction] 0.8 E9/L Normal 0.2-1.0 [facility] Comment on above: Order Comment: Order Added by Emely Expert. Performed By: #### 2 920487, 3075111, 9799592, 373953648, 72752046, 5621521, 4167210 ####[facility] [address] [place] [address] Neutrophils/100 WBC (Bld) 48.3 % Normal 36.0-75.0 [facility] Comment on above: Order Comment: Order Added by Emely Expert. Performed By: #### 2 491233, 3713991, 7845114, 216733269, 60017734, 5651136, 1618046 ####[facility] [address] [place] [address] Neutrophils/Leukocyt es Auto (Bld) [Pure # fraction] 3.0 E9/L Normal 2.0-7.5 [facility] Comment on above: Order Comment: Order Added by Discern Expert. Performed By: #### 2 117394, 9365815, 0540470, 505825818, 20760273, 5680104, 0437865 ####[address] [place] [address] CBC w/ Auto Diffon 3 Erythrocyte distribution width (RBC) [Ratio] 14.4 % High 10.9-14.2 [facility] Comment on above: Performed By: #### 2 844875, 7005719, 8065917, 004616947, 06365878, 7446346, 5303681 ####[address] [address] Hematocrit (Bld) [Volume fraction] 41.3 % Normal 34.0-46.0 [facility] Comment on above: Performed By: #### 2 251857, 7093197, 8702115, 883968897, 25469053, 2228164, 3248505 ####[address] [address] Hemoglobin (Bld) [Mass/Vol] 13.9 g/dL Normal 12.0-16.0 [facility] Comment on above: Performed By: #### 2 085305, 8242714, 3013721, 751810074, 43162488, 9220070, 0867945 ####[address] [address] MCH (RBC) [Entitic mass] 29.6 pg Normal 27.0-34.0 [facility] Comment on above: Performed By: #### 2 052882, 4861845, 7166904, 338342352, 95259598, 2430883, 5451979 ####[address] [address] MCHC (RBC) [Mass/Vol] 33.7 g/dL Normal 31.4-36.0 [facility] Comment on above: Performed By: #### 2 334779, 9114536, 6107088, 796542357, 46007217, 3023928, 3077668 ####[address] [place] [address] MCV (RBC) [Entitic vol] 87.7 fL Normal 80.0-100.0 [facility] Comment on above: Performed By: #### 2 482474, 6646327, 2611767, 858949380, 63169351, 2789574, 6518375 ####[address] [address] Platelet mean volume (Bld) [Entitic vol] 8.8 fL Normal 6.4-10.8 [facility] Comment on above: Performed By: #### 2 612502, 3575889, 9287086, 399239495, 54505235, 8337843, 7803485 ####[address] [address] Platelets (Bld) [#/Vol] 258.0 E9/L Normal 150.0-500.0 [facility] Comment on above: Performed By: #### 2 904929, 2106022, 2494221, 024670674, 03623418, 9552695, 9125550 ####[address] [address] RBC (Bld) [#/Vol] 4.7 E12/L Normal 4.3-5.9 [facility] Comment on above: Performed By: #### 2 669344, 9022427, 1800673, 595887686, 32772631, 8296659, 7185402 ####[address] [address] WBC corrected for nucl RBC Auto (Bld) [#/Vol] 6.2 E9/L Normal 4.0-11.0 [facility] Comment on above: Performed By: #### 2 107700, 0090464, 3935718, 325058250, 70070440, 1018876, 5051392 ####[facility] [id number] CHEMISTRYOrdered By: SYSTEM SYSTEM on 06-01-2023 Albumin [...] 2.15 m[IU]/L Normal 0.34 - 5.60 mcIU/mL [facility] Remisol Urea nitrogen [Mass/Vol] 24 mg/dL High 5 - 21 mg/dL [facility] Remisol Urea nitrogen/Creatinine [Mass ratio] 30 mg/mg High 10 - 20 [facility] CHEMISTRYOrdered By: Judith Quick se on 06-01-2023 HbA1c (Bld) [Mass fraction] 6.1 % High <=5.9% [facility] ChemAutoSS CMPon 06-01-2023 Albumin [Mass/Vol] 4.3 g/dL Normal 3.3-5.0 [facility] Comment on above: Performed By: #### 2 039978, 6055485, 0438363, 240264446, 10518974, 5308620, 1010097 ####[facility] [address] [place] [address] Albumin/Globulin (S) [Mass conc ratio] 1.2 Normal 1.1-2.2 [facility] Comment on above: Performed By: #### 2 965303, 6954997, 8599055, 143545428, 38659662, 2395404, 0299116 ####[facility] [address] [place] [address] ALP [Catalytic activity/Vol] 61 Int._Unit/L Normal 21-98 [facility] Comment on above: Performed By: #### 2 771276, 8241649, 8880109, 146850427, 52598674, 0928070, 0863599 ####[facility] [address] [place] [address] ALT No additional P-5'-P [Catalytic activity/Vol] 19 Int._Unit/L Normal 6-46 [facility] Comment on above: Performed By: #### 2 697984, 9607025, 9138757, 315397520, 49582946, 8871501, 7439337 ####[facility] [address] [place] [address] Anion gap [Moles/Vol] 10 mmol/L Normal 6-16 [facility] Comment on above: Performed By: #### 2 395413, 2205626, 6180265, 558755683, 91366933, 8080201, 1007868 ####[facility] [address] [place] [address] AST [Catalytic activity/Vol] 20 Int._Unit/L Normal 5-43 [facility] Comment on above: Performed By: #### 2 629200, 9869136, 1771274, 785796895, 70740550, 9473263, 6809425 ####[facility] [address] [place] [address] Bilirubin [Mass/Vol] 0.6 mg/dL Normal 0.0-1.1 [facility] Comment on above: Performed By: #### 2 377381, 8658860, 4219565, 503748094, 61645053, 1883754, 5313749 ####[facility] [address] [place] [address] Calcium [Mass/Vol] 10.2 mg/dL Normal 8.9-11.1 [facility] Comment on above: Performed By: #### 2 182539, 8838007, 9941341, 741165877, 48654254, 2284776, 0737669 ####[facility] [address] [place] [address] Chloride [Moles/Vol] 108 mmol/L Normal 101-111 [facility] Comment on above: Performed By: #### 2 955564, 0826981, 1863910, 486815855, 95815919, 4138832, 9960664 ####[facility] [address] [place] [address] CO2 [Moles/Vol] 27 mmol/L Normal 21-31 [facility] Comment on above: Performed By: #### 2 844911, 9275695, 6668520, 368896158, 97878247, 6599111, 6054509 ####[facility] [address] [place] [address] Creatinine [Mass/Vol] 0.8 mg/dL Normal 0.5-1.3 [facility] Comment on above: Performed By: #### 2 740895, 4521510, 9477245, 907910030, 58975637, 3446369, 0389208 ####[facility] [address] [place] [address] Globulin (S) [Mass/Vol] 3.6 g/dL Normal 1.4-4.0 [facility] Comment on above: Performed By: #### 2 330082, 7338214, 1960715, 902055087, 81759824, 2459542, 6558810 ####[facility] [address] [place] [address] Glucose [Mass/Vol] 113 mg/dL Normal 55-199 [facility] Comment on above: Result Comment: If t his glucose result represents a fasting glucose, interpretation should refer to the following reference range: 55-99 mg/dL Performed By: #### 2 481766, 0440489, 9364066, 973162935, 15448227, 7162815, 7747020 ####[facility] [address] [place] [address] Potassium [Moles/Vol] 4.3 mmol/L Normal 3.5-5.3 [facility] Comment on above: Performed By: #### 2 858279, 1748164, 7099779, 363999348, 32221348, 0968137, 8006263 ####[facility] [address] [place] [address] Protein [Mass/Vol] 7.9 g/dL High 6.0-7.8 [facility] Comment on above: Performed By: #### 2 708682, 9705267, 4787884, 722422864, 22217471, 4267175, 7973244 ####[facility] [address] [place] [address] Sodium [Moles/Vol] 141 mmol/L Normal 135-145 [facility] Comment on above: Performed By: #### 2 454199, 9800807, 4853141, 026956321, 07712316, 2627393, 7448489 ####[facility] [address] [place] [address] Urea nitrogen [Mass/Vol] 24 mg/dL High 5-21 [facility] Comment on above: Performed By: #### 2 496931, 0408137, 7953028, 762652779, 95764456, 2089924, 7823055 ####[facility] [address] [place] [address] Urea nitrogen/Creatinine [Mass ratio] 30 No Units High 10-20 [facility] Comment on above: Performed By: #### 2 312665, 7018621, 1627635, 881821608, 80386923, 6054450, 9986670 ####[facility] [address] [place] [address] Family Medicine Office/Clini c Noteon 06-01-2023 Family [...] year, did have ER visit in 12/2022 [facility] Questions/Concerns: pt states BS are running in [...] Comprehensive Metabolic Panel HgbA1c Lab Specimen Collect 23384 Lipid Panel Thyroid Stimulating Hormone 2. Fatigue (R53.83: Other fatigue) will order CBC and TSH Ordered: CBC w/ Auto Diff Comprehensive Metabolic Panel HgbA1c Lab Specimen Collect 15744 Lipid Panel Thyroid Stimulating Hormone 3. Type 2 diabetes mellitus (E11.9: Type 2 diabetes mellitus without complications) pt states she is not sure when her last HGBA1C was checked. will draw in office today. Fasting BS has been elevated recently Ordered: CBC w/ Auto Diff Comprehensive Metabolic Panel HgbA1c Lab Specimen Collect 45621 Lipid Panel Thyroid Stimulating Hormone 4. Excessive thirst (R63.1: Polydipsia) HGBA1C done in office today Ordered: CBC w/ Auto Diff Comprehensive Metabolic Panel HgbA1c Lab Specimen Collect 78910 Lipid Panel Thyroid Stimulating Hormone Follow-up No [...] day (at bedtime) fluticasone Nasal 0.05 mg/inh [place] losartan 100 mg Tab meloxicam 15 mg [...] 08/29/2017 Recorded (more content not included)... Normal [facility] Comment on above: Result Comment: Elec [...] 87.7 fL Normal 80.0 - 100.0 fL FT HemeAutoSS Platelet mean volume (Bld) [Entitic vol] 8.8 fL Normal 6.4 - 10.8 fL [facility] HemeAutoSS Platelets (Bld) [#/Vol] 258.0 E9/L Normal 150.0 - 500.0 E9/L FT HemeAutoSS RBC (Bld) [#/Vol] 4.7 E12/L Normal 4.3 - 5.9 E12/L [facility] HemeAutoSS WBC corrected for nucl RBC Auto (Bld) [#/Vol] 6.2 E9/L Normal 4.0 - 11.0 E9/L [facility] HemeAutoSS [id number] 06-01-2023 HbA1c (Bld) [Mass fraction] 6.1 % High <=5.9 [facility] Comment on above: Performed By: #### 2 911548, 1900245, 0812010, 279117797, 63206376, 0404007, 9313695 ####[facility] [address] [place] [address] Lipid Panelon 06-01-2023 Cholesterol [Mass/Vol] 252 mg/dL High 120-200 [facility] Comment on above: Performed By: #### 2 702978, 1597515, 7392319, 526964145, 63808387, 3057953, 6531962 ####[facility] [address] [place] [address] Cholesterol in HDL [Mass/Vol] 55 mg/dL Invalid Interpretation Code [facility] Comment on above: Result Comment: HDL > or equal to 60 mg/dL: Low cardiovascular risk HDL < 40 mg/dL : High cardiovascular risk Performed By: #### 2 994658, 5249522, 7137257, 449976712, 61884418, 5456722, 0946278 ####[facility] [address] [place] [address] Cholesterol in LDL [Mass/Vol] 156 mg/dL High <=129 [facility] Comment on above: Performed By: #### 2 948607, 7298912, 7441390, 364010081, 19798766, 8610513, 5199772 ####[facility] [address] [place] [address] Cholesterol in VLDL [Mass/Vol] 61 mg/dL High 7-40 [facility] Comment on above: Performed By: #### 2 692683, 7479536, 9447533, 723104381, 21065908, 3527619, 1892280 ####[facility] [address] [place] [address] Triglyceride [Mass/Vol] 303 mg/dL High <=149 [facility] Comment on above: Performed By: #### 2 887165, 1833832, 0517501, 863194532, 05649827, 8023790, 0711347 ####[facility] [address] [place] [address] TSHon 06-01-2023 TSH Qn 2.15 m[IU]/L Normal 0.34-5.60 [facility] Comment on above: Performed By: #### 2 757395, 1606942, 7984598, 927638923, 82244956, 0644980, 0699979 ####[address] [place] [address] eGFRon 06-01-2023 GFR/1.73 sq M.predicted among non-blacks MDRD (S/P/Bld) [Vol rate/Area] 75 mL/min/1.73 m2 Normal >=59 [facility] Comment on above: Order Comment: Order added by Discern Expert. Result Comment: [employer] darnell kidney disease could be indicated at eGFR's of less than 60 mL/min/1.73m2. Kidney failure is indicated at less than 15 mL/min/1.73m2. Performed By: #### 2 011740, 5920421, 9793528, 645198424, 61142630, 7572494, 0281073 ####[facility] [address] [place] [address] Consultation Noteon 05-10-20 23 Consultation Note [id number]#1.00CD :127 Normal [facility] CHEMISTRYOrdered By: Lab ROP User on 05-09-2023 Glucose [Mass/Vol] 93 mg/dL Normal 55 - 99 mg/dL FT C POC Subsection POC Device SN [id number] Invalid Interpretation Code [facility] POC Subsection POC User ID [id number] Invalid Interpretation Code [facility] POC Subsection POC Username JESSICA KIRKPATRICK Invalid Interpretation Code [facility] POC Subsection Capillary Glucose POCon 04-13 Glucose [Mass/Vol] 93 mg/dL Normal 55-99 [facility] Comment on above: Performed By: #### 2 [id number] ####[facility] [address] [place] [address] Consent for Procedure/Surger yon 05-09-2023 Consent for Procedure/Surgery [id number] D:127 Normal [facility] Consent for Treatmenton 04-13 Consent for Treatment [id number]#1.00C D:127 [facility] Discharge Instructionson Discharge Instructions [id number]#1.00C D:127 Normal [facility] IntraOperative Documentson 0 05-09-2023 IntraOperative Documents [id number]#1.00C D:127 [facility] Main OR Intraoperative Recor don 05-09-2023 Main OR Intraoperative Record IntraOp Document Type FT[facility] Summary Primary Physician: Junito Salvador MD Finalized Date/Time: 05/09/23 13:15:11 Pt. Name: STEPHANIE WASSERMAN/Sex: 1945 Female Med Rec #: [id number] Physician: Junito Salvador MD Financial #: [id number] Pt. Type: P Room/Bed: / Admit/Disch: 05/09/23 12:26:45 - Institution: Case Times FT[facility] Entry 1 Patient Times In Room 05/09/23 13:08:00 Out Room 05/09/23 13:15:00 Procedure Times Start 05/09/23 13:11:00 Stop 05/09/23 13:14:00 Anesthesia Times Last Modified By: Tamiko Matrinez RN 05/09/23 13:14:46 Case Attendance FT[facility] Entry 1 Entry 2 Entry 3 Case Attendee Madeleine GARSIA, Junito Martinez RN, Radha Hare RN Role Performed Surgeon - Primary Director Of Laboratory Operations - Primary Scrub - Primary Time In 05/09/23 13:08:00 05/09/23 13:08:00 05/09/23 13:08:00 Time Out 05/09/23 13:15:00 05/09/23 13:15:00 05/09/23 13:15:00 Procedure LUMBAR EPIDURAL STEROID LUMBAR EPIDURAL STEROID LUMBAR EPIDURAL STEROID INJECTION(.) INJECTION(.) INJECTION(.) Comments Last Modified By: Tamiko Martinez RN, RN, Madison A Pritchard RN, Madison A 05/09/23 13:14:47 05/09/23 13:14:47 05/09/23 13:14:47 Entry 4 Case Attendee Raheem HSIEHRJohanne Cerrato Role Performed Tissue Specialist Time In 05/09/23 13:08:00 Time Out 05/09/23 [...] and tissue Entry 1 Skin Integrity Intact, [place], Warm, and Skin Abnormality No Dry Outcomes [...] RN Outcomes (more content not included)... Normal [facility] Main OR Preoperative Recordo n 05-09-2023 Main OR Preoperative Record Holding Area Document Type [facility] Summary Primary Physician: Junito Salvador MD Finalized Date/Time: 05/09/23 12:49:52 Pt. Name: STEPHANIE WASSERMAN [place]/Sex: 1945 Female Med Rec #: [id number] Physician: Junito Salvador MD Financial #: [id number] Pt. Type: P Room/Bed: / Admit/Disch: 05/09/23 [...] By: Bruna Kirkpatrick RN 05/09/23 12:49 Normal [facility] Operative Reporton Operative Report Patient: STEPHANIE [...] EDT Respiratory Rate 15 br/min . Normal [facility] Comment on above: Result Comment: Elec tronically Signed By: Madeleine GARSIA, Junito Najera.boogie\Date and Time Signed: 05/09/23 13:15 EDT Office Visiton 05-06-2023 Follow-up visit [id number] Stephanie Wasserman 1945 F Date Provider Department Center 05/06/2023 ARIPREETI Trejo CARD [facility] Family History Problem Relation Age of Onset Lung disease Mother Diabetes Mother's Sister Family Status - Relation Status Age at Mother Father Mother's Sister Other Level of Service:59170 UT OFFICE/OUTPATIENT ESTABLISHED MOD MDM 30-39 MIN Normal [facility] GI PANEL (PCR)on 01-10-2023 Adenovirus F 40/41 Not detected Normal NOT DETECTED [facility] Comment on above: Performed By: #### G IPANEL #### [facility] [address] [place] [address] Dr. Lakshmi Smith Astrovirus Not detected Normal NOT DETECTED [facility] Comment on above: Performed By: #### G IPANEL #### [facility] [address] [place] [address] Dr. Lakshmi Smith C. Diff toxin A/B Not detected Normal NOT DETECTED [facility] Comment on above: Performed By: #### G IPANEL #### [facility] [address] [place] [address] Dr. Lakshmi Smith Campylobacter Not detected Normal NOT DETECTED [facility] Comment on above: Performed By: #### G IPANEL #### [facility] [address] [address] [address] Lakshmi Smith Cryptosporidium Not detected Normal NOT DETECTED [facility] Comment on above: Performed By: #### G IPANEL #### [facility] [address] [address] [address] Lakshmi Smith Cyclos. Cayetanensis Not detected Normal NOT DETECTED [facility] Comment on above: Performed By: #### G IPANEL #### [facility] [address] [place] [address] Dr. Lakshmi Smith E. Coli O157 Not Applicable Normal Not Applicable [facility] Comment on above: Performed By: #### G IPANEL #### [facility] [address] [place] [address] Dr. Lakshmi Smith ECristal histolytica Not detected Normal NOT DETECTED [facility] Comment on above: Performed By: #### G IPANEL #### [facility] [address] [place] [address] Dr. Lakshmi Smith EAEC Not detected Normal NOT DETECTED [facility] Comment on above: Performed By: #### G IPANEL #### [facility] [address] [place] [address] Dr. Lakshmi Smith EIEC Not detected Normal NOT DETECTED [facility] Comment on above: Performed By: #### G IPANEL #### [facility] [address] [place] [address] Dr. Lakshmi Smith EPEC Not detected Normal NOT DETECTED [facility] Comment on above: Performed By: #### G IPANEL #### [facility] [address] [place] [address] Dr. Lakshmi Smith ETEC Not detected Normal NOT DETECTED [facility] Comment on above: Performed By: #### G IPANEL #### [facility] [address] [place] [address] Dr. Lakshmi Pedro Lamblia Not detected Normal NOT DETECTED [facility] Comment on above: Performed By: #### G IPANEL #### [facility] [address] [place] [address] Dr. Lakshmi BENAVIDES CONTROLS PASSED Normal [facility] Comment on above: Performed By: #### G IPANEL #### [facility] [address] [place] [address] Dr. Lakshmi NOONAN BETSY HEADER GI PANEL BACTERIA Normal T [facility] Comment on above: Performed By: #### G IPANEL #### [facility] [address] [place] [address] Dr. Lakshmi NOONANHD ECOLI GI PANEL DIARRHEAGEN IC E.COLI / SHIGELLA Normal The [facility] Comment on above: Performed By: #### G IPANEL #### [facility] [address] [place] [address] Dr. Lakshmi PEREZ INFO SEE BELOW Normal [facility] Comment on above: Result Comment: EAEC - Enteroaggregative E. Coli EPEC- Enteropathogenic E. Coli ETEC- Enterotoxigenic E. Coli lt/st STEC- Shigella-like toxin-producing E. Coli stx1/stx2 EIEC- Shigella/Enteroinvasive E. Coli Performed By: #### G IPANEL #### [facility] [address] [address] [address] Lakshmi PEREZ PARASITES GI PANEL PARASITES Normal [facility] Comment on above: Performed By: #### G IPANEL #### [facility] [address] [address] [address] Lakshmi PEREZ VIRUS GI PANEL VIRUSES Normal [facility] Comment on above: Performed By: #### G IPANEL #### [facility] [address] [place] [address] Dr. Lakshmi Smith Norovirus GI/GII Not detected Normal NOT DETECTED [facility] Comment on above: Performed By: #### G IPANEL #### [facility] [address] [address] [address] Lakshmi Smith P. Shigelloides Not detected Normal NOT DETECTED [facility] Comment on above: Performed By: #### G IPANEL #### [facility] [address] [place] [address] Dr. Lakshmi Smith Rotavirus A Detected Abnormal NOT DETECTED [facility] Comment on above: Performed By: #### G IPANEL #### [facility] [address] [place] [address] Dr. Lakshmi Smith Salmonella Not detected Normal NOT DETECTED [facility] Comment on above: Performed By: #### G IPANEL #### [facility] [address] [place] [address] Dr. Lakshmi Smith Sapovirus Not detected Normal NOT DETECTED [facility] Comment on above: Performed By: #### G IPANEL #### [facility] [address] [address] [address] Lakshmi Smith STEC Not detected Normal NOT DETECTED [facility] Comment on above: Performed By: #### G IPANEL #### [facility] [address] [address] [address] Lakshmi Smith Vibrio Not detected Normal NOT DETECTED [facility] Comment on above: Performed By: #### G IPANEL #### [facility] [address] [address] [address] Lakshmi Smith Vibrio Cholera Not detected Normal NOT DETECTED [facility] Comment on above: Performed By: #### G IPANEL #### [facility] [address] [address] [address] Lakshmi Smith Y. Enterocolitica Not detected Normal NOT DETECTED [facility] Comment on above: Performed By: #### G IPANEL #### [facility] [address] [place] [address] Dr. Lakshmi Smith CBC AUTO DIFFon 01-09-2023 BASO # 0.0 103/ul Normal 0.0-0.1 [facility] Comment on above: Performed By: #### C BC ####[facility] [address] [place] [address]Dr. Lakshmi Smith Basophils/100 WBC (Bld) 0.3 % Normal 0.2-2.0 [facility] Comment on above: Performed By: #### C BC ####[facility] W[address] [place], [place] [address]DrCristal Smith EO # 0.5 103/ul Normal 0.0-0.7 [facility] Comment on above: Performed By: #### C BC ####[facility] Abr[address] [place], [place] [address]DrCristal Smith Eosinophils/100 WBC (Bld) 5.6 % Normal 0.9-7.0 [facility] Comment on above: Performed By: #### C BC ####[facility] [address]spwhsv[address] [place] [address]Dr. Lakshmi Smith Erythrocyte distribution width (RBC) [Ratio] 13.9 % Normal 11.0-15.0 [facility] Comment on above: Performed By: #### C BC ####[facility] [address] [place] [address]Dr. Robertajulien Smith Hematocrit (Bld) [Volume fraction] 45.6 % Normal 36.0-48.0 [facility] Comment on above: Performed By: #### C BC ####[facility] [address] [place] [address]Dr. Lakshmi Smith Hemoglobin (Bld) [Mass/Vol] 15.2 g/dL Normal 12.0-16.0 [facility] Comment on above: Performed By: #### C BC ####[facility] Q[address]wl[address] [place], [place] [address]Dr. Lakshmi Smith IG # 0.06 10e3/ul Critically high 0.00-0.03 [facility] Comment on above: Performed By: #### C BC ####[facility] [address]iby[address] [place], [place] [address]Dr. Lakshmi Smith IG % 0.6 % Critically high 0.0-0.5 [facility] Comment on above: Performed By: #### C BC ####[facility] [address] [place], [place] [address]Dr. Lakshmi Smith LYMPH # 2.2 103/ul Normal 1.2-3.8 [facility] Comment on above: Performed By: #### C BC ####[facility] H[address] [place], [place] [address]Dr. Lakshmi Smith Lymphocytes/100 WBC (Bld) 23.4 % Normal 20.5-60.0 [facility] Comment on above: Performed By: #### C BC ####[facility] [address]frc[address] [place], [place] [address]Dr. Lakshmi Smith MANUAL DIFF REQ NO Normal [facility] Comment on above: Performed By: #### C BC ####[facility] V[address]frc[address] [place], [place] [address]Dr. Lakshmi Smith MCH (RBC) [Entitic mass] 29.8 pg Normal 26.7-34.0 [facility] Comment on above: Performed By: #### C BC ####[facility] [address] [place] [id number]. Lakshmi Smith MCHC (RBC) [Mass/Vol] 33.3 g/dL Normal 29.9-35.2 [facility] Comment on above: Performed By: #### C BC ####[facility] [address]eb[address] [place] [id number]. Lakshmi Smith MCV (RBC) [Entitic vol] 89.4 fL Normal 81.0-99.0 [facility] Comment on above: Performed By: #### C BC ####[facility] [address] [place], [place] [address]Dr. Lakshmi Luis MONO # 1.3 103/ul Critically high 0.3-0.8 [facility] Comment on above: Performed By: #### C BC ####[facility] [address] [place] [id number]. Lakshmi Smith Monocytes/100 WBC (Bld) 13.1 % Critically high 1.7-12.0 [facility] Comment on above: Performed By: #### C BC ####[facility] [address] [place], [place] [address]Dr. Lakshmi Smith NEUT # 5.4 103/ul Normal 1.4-6.5 [facility] Comment on above: Performed By: #### C BC ####[facility] On[address] [place], [place] [address]Dr. Lakshmi Smith Neutrophils/100 WBC (Bld) 57.0 % Normal 43.0-75.0 [facility] Comment on above: Performed By: #### C BC ####[facility] [address] [place], [place] [address]Dr. Lakshmi Smith Platelet mean volume (Bld) [Entitic vol] 10.4 fL Normal 9.5-13.5 [facility] Comment on above: Performed By: #### C BC ####[facility] [address] [place], [place] [address]Dr. Lakshmi Smith PLT 290 103/ul Normal 150-450 [facility] Comment on above: Performed By: #### C BC ####[facility] [address] [place], [place] [address]Pb. Lakshmi Smith RBC 5.10 106/ul Normal 4.20-5.40 [facility] Comment on above: Performed By: #### C BC ####[facility] [address] [place], [place] [address]JiCristal Smith WBC 9.5 103/ul Normal 4.0-11.0 [facility] Comment on above: Performed By: #### C BC ####[facility] [address] [place], [place] [address]My. Lak[address] Smith CT ABD/PELVIS WO CONon 01-09 [...] calculus. No hydronephrosis. Electronically authenticated by: RICHARD OWLESLIE Date: 2023-01-09 10:41 Normal [facility] ER URINE PROFILEon 3 Bilirubin Ql (U) Negative Normal NEGATIVE [facility] Comment on above: Performed By: #### E RUR #### [facility] Laboratory [address] [place] [address] Dr. Lakshmi Smith Clarity (U) CLEAR Normal CLEAR [facility] Comment on above: Performed By: #### E RUR #### [facility] [address] [place] [address] Dr. Lakshmi Smith Color (U) YELLOW Normal YELLOW [facility] Comment on above: Performed By: #### E RUR #### [facility] [address] [place] [address] Dr. Lakshmi VERMA A micrscopic examination will be performed if indicated. Normal [facility] Comment on above: Performed By: #### E RUR #### [facility] [address] [place] [address] Dr. Lakshmi Smith Glucose Ql (U) Negative Normal NEGATIVE [facility] Comment on above: Performed By: #### E RUR #### [facility] [address] [place] [address] Dr. Lakshmi Smith Hemoglobin Ql (U) Negative Normal NEGATIVE [facility] Comment on above: Performed By: #### E RUR #### [facility] [address] [place] [address] Dr. Lakshmi Smith Ketones Ql (U) Negative Normal NEGATIVE [facility] Comment on above: Performed By: #### E RUR #### [facility] [address] [place] [address] Dr. Lakshmi Smith LEUKOCYTES Negative Normal NEGATIVE [facility] Comment on above: Performed By: #### E RUR #### [facility] [address] [place] [address] Dr. Lakshmi Smith Nitrite Ql (U) Negative Normal NEGATIVE [facility] Comment on above: Performed By: #### E RUR #### [facility] [address] [place] [address] Dr. Lakshmi Smith pH (U) 5.5 [pH] Normal 5-9 [facility] Comment on above: Performed By: #### E RUR #### [facility] [address] [place] [address] Dr. Lakshmi Smith Protein (U) [Mass/Vol] 30 mg/dL Abnormal NEGATIVE/ TRACE [facility] Comment on above: Performed By: #### E RUR #### [facility] [address] [place] [address] Dr. Lakshmi Smith SPEC GRAVITY 1.025 Normal 1.005-<=1.025 [facility] Comment on above: Performed By: #### E RUR #### [facility] [address] [place] [address] Dr. Lakshmi Smith UR MICRO IND NOT INDICATED Normal [facility] Comment on above: Performed By: #### E RUR #### [facility] [address] [place] [address] Dr. Lakshmi Smith Urobilinogen Qn (U) 0.2 {Jamir'U}/dL Normal 0.2 - 1. 0 [facility] Comment on above: Performed By: #### E RUR #### [facility] [address] [place] [address] Dr. Lakshmi Smith LIPASEon 01-09-2023 Lipase [Catalytic activity/Vol] 111.0 U/L Normal 73.0-393.0 [facility] Comment on above: Performed By: #### L IPA, CMP #### [facility] [address] [place] [address] Dr. Lakshmi Smith PROF 14(COMP METB)on 023 Albumin [Mass/Vol] 3.6 g/dL Normal 3.4-5.0 [facility] Comment on above: Performed By: #### L IPA, CMP #### [facility] [address] [place] [address] Dr. Lakshmi Smith Albumin/Globulin [Mass ratio] 0.8 {ratio} Normal [facility] Comment on above: Performed By: #### L IPA, CMP #### [facility] [address] [address] [address] Lakshmi Smith ALP [Catalytic activity/Vol] 72 U/L Normal 46-116 [facility] Comment on above: Performed By: #### L IPA, CMP #### [facility] [address] [address] [address] Lakshmi Smith ALT [Catalytic activity/Vol] 32 U/L Normal 14-59 [facility] Comment on above: Performed By: #### L IPA, CMP #### [facility] [address] [address] [address] Lakshmi Smith Anion gap [Moles/Vol] 11.6 mmol/L Normal [facility] Comment on above: Performed By: #### L IPA, CMP #### [facility] [address] [address] [address] Lakshmi Smith AST [Catalytic activity/Vol] 29 U/L Normal 15-37 [facility] Comment on above: Performed By: #### L IPA, CMP #### [facility] [address] [address] [address] Lakshmi Smith Bilirubin [Mass/Vol] 0.3 mg/dL Normal 0.2-1.0 [facility] Comment on above: Performed By: #### L IPA, CMP #### [facility] [address] [address] [address] Lakshmi Smith Calcium [Mass/Vol] 8.2 mg/dL Critically low 8.5-10.1 [facility] Comment on above: Performed By: #### L IPA, CMP #### [facility] [address] [address] [address] Lakshmi Smith Chloride [Moles/Vol] 110 mmol/L Critically high 98-107 [facility] Comment on above: Performed By: #### L IPA, CMP #### [facility] [address] [address] [address] Lakshmi Smith CO2 [Moles/Vol] 22.7 mmol/L Normal 21.0-32.0 [facility] Comment on above: Performed By: #### L IPA, CMP #### [facility] [address] [address] [address] Lakshmi Smith Creatinine [Mass/Vol] 1.01 mg/dL Normal 0.55-1.02 [facility] Comment on above: Performed By: #### L IPA, CMP #### [facility] [address] [address] [address] Lakshmi Smith EGFR-AF [place] >60 Normal >=60 [facility] Comment on above: Performed By: #### L IPA, CMP #### [facility] [address] [address] [address] Lakshmi Smith EGFR-NON AF [place] 53 mL/min/1.73m2 Critically low >=60 [facility] Comment on above: Performed By: #### L IPA, CMP #### [facility] [address] [address] [address] Lakshmi Smith Globulin (S) [Mass/Vol] 4.3 g/dL Normal [facility] Comment on above: Performed By: #### L IPA, CMP #### [facility] [address] [address] [address] Lakshmi Smith Glucose [Mass/Vol] 113 mg/dL Critically high 74-106 [facility] Comment on above: Performed By: #### L IPA, CMP #### [facility] [address] [address] [address] Lakshmi Smith Potassium [Moles/Vol] 3.3 mmol/L Critically low 3.5-5.1 [facility] Comment on above: Performed By: #### L IPA, CMP #### [facility] [address] [address] [address] Lakshmi Smith Protein [Mass/Vol] 7.9 g/dL Normal 6.4-8.2 [facility] Comment on above: Performed By: #### L IPA, CMP #### [facility] [address] [address] [address] Lakshmi Smith Sodium [Moles/Vol] 141 mmol/L Normal 136-145 [facility] Comment on above: Performed By: #### L IPA, CMP #### [facility] [address] [address] [address] Lakshmi Smith Urea nitrogen [Mass/Vol] 26.0 mg/dL Critically high 7.0-18.0 [facility] Comment on above: Performed By: #### L IPA, CMP #### [facility] [address] [address] [address] Lakshmi Smith Urea nitrogen/Creatinine [Mass ratio] 25.7 mg/mg [facility] Comment on above: Performed By: #### L IPA, CMP #### [facility] [address] [address] [address] Lakshmi Smith XR LSPINE MIN 4 [...] by: ANGLE NGUYEN Date: 2022-10-27 15:02 Normal [facility] XR ANKLE LT MIN 3 Von 2021 XR ANKLE LT MIN 3 V EXAM: XR ANKLE LT AZ N 3 V HISTORY: Pain of left [...] LANE FLORES Date: 2022-08-25 20:09 Normal [facility] POINT OF CARE GLUCOSEon 06-13 Glucose [Mass/Vol] 110 mg/dL Critically high 74-106 [facility] Comment on above: Performed By: #### P OCGLUC ####[facility] [address] [place] [address]Dr. Lakshmi Smith Glucose [Mass/Vol] 125 mg/dL Critically high 74-106 [facility] Comment on above: Performed By: #### P OCGLUC ####[facility] [address] [place] [address]Dr. Lakshmi Smith Covid-19 PCR (CVDTBH)on 06-13 SARS-CoV-2 (COVID-19) RNA EDWARD+probe Ql (Unsp spec) Not detected Normal NOT DETECTED [facility] Comment on above: Result Comment: This test is not yet approved or cleared by the [place] FDA. When there are no FDA-approved or cleared tests available, and other criteria are met, FDA can make tests available under an emergency access mechanism called an Emergency Use Authorization (EUA). The EUA for this test is supported by the [employer] of Health and Human Service's (HHS's) declaration [...] consistent with SARS-CoV-2. Performed By: #### C VDTBH #### [facility] [address] [place], [place] [address] Dr. Lakshmi Smith CBC AUTO DIFFon 06-24-2022 BASO # 0.1 103/ul Normal 0.0-0.1 [facility] Comment on above: Performed By: #### C BC ####[facility] [address] [place] [id number] Smith Basophils/100 WBC (Bld) 1.3 % Normal 0.2-2.0 [facility] Comment on above: Performed By: #### C BC ####[facility] [address] [place] [address]DrCristal Smith EO # 0.5 103/ul Normal 0.0-0.7 [facility] Comment on above: Performed By: #### C BC ####[facility] [address] [place] [address]DrCristal Smith Eosinophils/100 WBC (Bld) 6.8 % Normal 0.9-7.0 [facility] Comment on above: Performed By: #### C BC ####[facility] [address] [place] [address]DrCristal Smith Erythrocyte distribution width (RBC) [Ratio] 13.7 % Normal 11.0-15.0 [facility] Comment on above: Performed By: #### C BC ####[facility] [address] [place] [address]DrCristal Smith Hematocrit (Bld) [Volume fraction] 36.5 % Normal 36.0-48.0 [facility] Comment on above: Performed By: #### C BC ####[facility] [address] [place] [id number] Smith Hemoglobin (Bld) [Mass/Vol] 12.3 g/dL Normal 12.0-16.0 [facility] Comment on above: Performed By: #### C BC ####[facility] [address] [place] [id number] Smith IG # 0.03 10e3/ul Normal 0.00-0.03 [facility] Comment on above: Performed By: #### C BC ####[facility] [address] [place] [address]Dr. Lakshmi Smith IG % 0.4 % Normal 0.0-0.5 [facility] Comment on above: Performed By: #### C BC ####[facility] [address] [place] [id number]. Lakshmi Smith LYMPH # 2.1 103/ul Normal 1.2-3.8 [facility] Comment on above: Performed By: #### C BC ####[facility] [address] [place] [address]Dr. Lakshmi Smith Lymphocytes/100 WBC (Bld) 28.2 % Normal 20.5-60.0 [facility] Comment on above: Performed By: #### C BC ####[facility] [address] [place], [place] [address]Dr. Lakshmi Smith MANUAL DIFF REQ NO Normal [facility] Comment on above: Performed By: #### C BC ####[facility] [address] [place] [id number]. Lakshmi Smith MCH (RBC) [Entitic mass] 29.4 pg Normal 26.7-34.0 [facility] Comment on above: Performed By: #### C BC ####[facility] [address] [place] [address]Dr. Lakshmi Smith MCHC (RBC) [Mass/Vol] 33.7 g/dL Normal 29.9-35.2 [facility] Comment on above: Performed By: #### C BC ####[facility] [address] [place] [address]Dr. Lakshmi Smith MCV (RBC) [Entitic vol] 87.3 fL Normal 81.0-99.0 [facility] Comment on above: Performed By: #### C BC ####[facility] [address] [place], [place] [address]Dr. Lakshmi Smith MONO # 0.7 103/ul Normal 0.3-0.8 [facility] Comment on above: Performed By: #### C BC ####[facility] [address] [place] [id number]. Lakshmi Smith Monocytes/100 WBC (Bld) 9.6 % Normal 1.7-12.0 [facility] Comment on above: Performed By: #### C BC ####[facility] [address] [place] [id number]. Lakshmi Smith NEUT # 4.1 103/ul Normal 1.4-6.5 [facility] Comment on above: Performed By: #### C BC ####[facility] [address] [place] [id number]. Lakshmi Smith Neutrophils/100 WBC (Bld) 53.7 % Normal 43.0-75.0 [facility] Comment on above: Performed By: #### C BC ####[facility] [address] [place] [address]Dr. Lakshmi Smith Platelet mean volume (Bld) [Entitic vol] 10.2 fL Normal 9.5-13.5 [facility] Comment on above: Performed By: #### C BC ####[facility] [address] [place] [address]Dr. Lakshmi Smith PLT 252 103/ul Normal 150-450 [facility] Comment on above: Performed By: #### C BC ####[facility] [address] [place] [id number]. Lakshmi Smith RBC 4.18 106/ul Critically low 4.20-5.40 [facility] Comment on above: Performed By: #### C BC ####[facility] [address] [place] [phone]. Lakshmi Smith WBC 7.5 103/ul Normal 4.0-11.0 [facility] Comment on above: Performed By: #### C BC ####[facility] [address] [place] [id number]. Lakshmi Smith PROF CHEM 8 (BAS METB)on Anion gap [Moles/Vol] 11.7 mmol/L Normal [facility] Comment on above: Performed By: #### B MP #### [facility] [address] [address] [address] Lakshmi Smith Calcium [Mass/Vol] 9.9 mg/dL Normal 8.5-10.1 [facility] Comment on above: Performed By: #### B MP #### [facility] [address] [address] [address] Lakshmi Smith Chloride [Moles/Vol] 103 mmol/L Normal 98-107 [facility] Comment on above: Performed By: #### B MP #### [facility] [address] [address] [address] Lakshmi Smith CO2 [Moles/Vol] 31.1 mmol/L Normal 21.0-32.0 [facility] Comment on above: Performed By: #### B MP #### [facility] [address] [address] [address] Lakshmi Smith Creatinine [Mass/Vol] 1.03 mg/dL Critically high 0.55-1.02 [facility] Comment on above: Performed By: #### B MP #### [facility] [address] [address] [address] Lakshmi Smith EGFR-AF [place] >60 Normal >=60 [facility] Comment on above: Performed By: #### B MP #### [facility] [address] [address] [address] Lakshmi Smith EGFR-NON AF [place] 52 mL/min/1.73m2 Critically low >=60 [facility] Comment on above: Performed By: #### B MP #### [facility] [address] [address] [address] Lakshmi Smith Glucose [Mass/Vol] 148 mg/dL Critically high 74-106 [facility] Comment on above: Performed By: #### B MP #### [facility] [address] [address] [address] Lakshmi Smith Potassium [Moles/Vol] 3.8 mmol/L Normal 3.5-5.1 [facility] Comment on above: Performed By: #### B MP #### [facility] [address] [place], [place] [address] Dr. Lakshmi Smith Sodium [Moles/Vol] 142 mmol/L Normal 136-145 [facility] Comment on above: Performed By: #### B MP #### [facility] [address] [place], [place] [address] Dr. Lakshmi Smith Urea nitrogen [Mass/Vol] 24.0 mg/dL Critically high 7.0-18.0 [facility] Comment on above: Performed By: #### B MP #### [facility] [address] [place], [place] [address] Dr. Lakshmi Smith Urea nitrogen/Creatinine [Mass ratio] 23.3 mg/mg Normal [facility] Comment on above: Performed By: #### B MP #### [facility] [address] [place], [place] [address] Dr. Lakshmi Smith ECHOCARDIO M/2D COMPLETEon 0 04-30-2022 ECHOCARDIO M/2D COMPLETE Patient: STEPHANIE WASSERMAN Exam Date: 04/30/2022 : 1945 Gender:F Ordering : CARYN GRECO Admission #: [id number] Family : Order #: [id number] CLICK HERE TO VIEW EXAM ECHOCARDIOGRAM REPORT [...] Florian M.D. on 04/30/2022 at 19:10 Normal [facility] MRI ANKLE LT WO CONon 2021 MRI [...] by: YOLANDA LOYA Date: 2022-04-25 16:47 Normal [facility] XR pre/post mri xrayon 03-13 XR pre/post mri xray [facility] Main [place] [address] [place] [address] MRI Report Signed Patient: Stephanie Wasserman MR#: [id number] 565 : 1945 Acct:[id number] Age/Sex: 75 / F ADM Date: 03/13/21 Loc: MR Room: Type: [facility] Attending Dr: Dalila Rodriguez NP Ordering Provider: Dalila Rodriguez NP Date of Service: 03/13/21 MR/MR ankle LT wo con: [id number] ([id number]) XR/XR pre/post mri xray: [id number] Copies to: [...] and posterior tibial tendons, the flexor and flagsetter tendons, the peroneus tendons, and the Achilles [...] Powell Jr., M.D.03/13/2021 8:30 PM Dictation Location: [place] [address] Transcribed By: [facility] 03/13/212029 Dictated By: Cuba Powell Jr, MD 03/13/212004 Signed By: 03/13/212029 [facility] Vital Signs Date Time Vital Sign Value Performing Clinician Faci lity 06-06-2023 14:10-0400 Diastolic blood pressure 70 mm[Hg] Danyelle [email or web address] [facility] 06-06-2023 14:10-0400 Heart rate 67 /min Grover [email or web address] [facility] 06-06-2023 14:10-0400 Mean blood pressure 93 mm[Hg] Danyelle [email or web address] [facility] 06-06-2023 14:10-0400 Respiratory rate 14 /min Danyelle [email or web address] [facility] 06-06-2023 14:10-0400 Systolic blood pressure 140 mm[Hg] Danyelle [email or web address] [facility] 05-09-2023 13:18-0400 Heart rate 59 /min Junito Salvador [facility] 05-09-2023 13:18-0400 SaO2% (BldA) [Mass fraction] 100 % Junito Madeleine [facility] 05-09-2023 13:18-0400 Diastolic blood pressure 66 mm[Hg] Junito Madeleine [facility] 05-09-2023 13:18-0400 Mean blood pressure 98 mm[Hg] Junitoanirudh Salvador [facility] 05-09-2023 13:18-0400 Systolic blood pressure 161 mm[Hg] Junito Madeleine [facility] 05-09-2023 13:18-0400 Respiratory rate 16 /min Junito Madeleine [facility] 05-09-2023 13:10-0400 Diastolic blood pressure 81 mm[Hg] Junito Madeleine [facility] 05-09-2023 13:10-0400 Heart rate 72 /min Junito Madeleine [facility] 05-09-2023 13:10-0400 Respiratory rate 14 /min Junito Madeleine [facility] 05-09-2023 13:10-0400 SaO2% (BldA) [Mass fraction] 98 % Junito Madeleine [facility] 05-09-2023 13:10-0400 Systolic blood pressure 165 mm[Hg] Junito Madeleine [facility] 05-09-2023 12:42-0400 Heart rate 58 /min Junito Madeleine [facility] 05-09-2023 12:42-0400 SaO2% (BldA) [Mass fraction] 98 % Junito Madeleine [facility] 05-09-2023 12:41-0400 Body temperature 98.24 [degF] Junito Madeleine [facility] 05-09-2023 12:41-0400 Diastolic blood pressure 80 mm[Hg] Junito Madeleine [facility] 05-09-2023 12:41-0400 Mean blood pressure 105 mm[Hg] Junito Madeleine [facility] 05-09-2023 12:41-0400 Systolic blood pressure 155 mm[Hg] Junito Madeleine [facility] 05-09-2023 12:41-0400 Respiratory rate 15 /min Junito Madeleine [facility] 03-17-2023 14:02-0400 Diastolic blood pressure 66 mm[Hg] Lopez Zumbar [facility] 03-17-2023 14:02-0400 Heart rate 64 /min Lopez Zumbar [facility] 03-17-2023 14:02-0400 Mean blood pressure 94 mm[Hg] Lopez Zumbar [facility] 03-17-2023 14:02-0400 Respiratory rate 14 /min Lopez Zumbar [facility] 03-17-2023 14:02-0400 Systolic blood pressure 149 mm[Hg] Lopez Zumbar [facility] 02-10-2023 13:42-0400 Diastolic blood pressure 71 mm[Hg] Lopez Zumbar [facility] 02-10-2023 13:42-0400 Heart rate 64 /min Lopez Zumbar [facility] 02-10-2023 13:42-0400 Mean blood pressure 94 mm[Hg] Lopez Zumbar [facility] 02-10-2023 13:42-0400 Respiratory rate 12 /min Lopez Zumbar [facility] 02-10-2023 13:42-0400 Systolic blood pressure 141 mm[Hg] Lopez Zumbar [facility] Encounters Encounter Date Encounter Type Care Provider Facility Start: 07-26-2024 ambulatory [employer] Luzmaria Swanson ity:[facility] [place] Start: 06-28-2024 ambulatory [employer] Luzmaria L Britney Facil ity:[facility] José Start: 05-01-2024 ambulatory Jason Timmons Facility :[facility] Start: 05-01-2024 End: 05-01-2024 ambulatory [employer] Luzmaria L Britney Facility:[facility] Start: 05-01-2024 End: 05-01-2024 Patient encounter procedure Luzmaria L Britney [facility] Start: 04-23-2024 End: 04-23-2024 Lab Drop off Luzmaria L Britney [facility] Start: 04-23-2024 End: 04-23-2024 ambulatory [employer] Luzmaria L Britney Facility:[facility] Start: 03-28-2024 End: 03-28-2024 ambulatory [employer] Luzmaria L Britney Facility:[facility] [place] Start: 03-14-2024 End: 03-16-2024 ambulatory [facility] Start: 03-06-2024 End: 03-06-2024 ambulatory PANFILO A FELTER Not Available Start: 02-28-2024 End: 02-28-2024 ambulatory GERRI TRIVEDI Not Available Start: 02-02-2024 End: 02-02-2024 ambulatory GERRI TRIVEDI Not Available Start: 01-10-2024 End: 01-10-2024 ambulatory PANFILO A FELTER Not Available Start: 01-05-2024 End: 01-05-2024 Lab Drop off Luzmaria L Britney [facility] Start: 01-05-2024 End: 01-05-2024 ambulatory [employer] Luzmaria L Britney Facility:[facility] Start: 10-04-2023 End: 10-04-2023 ambulatory [employer] Luzmaria L Britney Facility:[facility] [place] Start: 06-06-2023 End: 06-06-2023 ambulatory PIPER Kellogg Facility:[facility] Start: 06-06-2023 End: 06-06-2023 Pain Management Danyelle Kellogg [facility] Start: 06-01-2023 End: 06-01-2023 Lab Drop off Luzmaria Tan [facility] Start: 06-01-2023 End: 06-01-2023 ambulatory [employer] Luzmaria Tan Facility:[facility] Start: 05-09-2023 End: 05-09-2023 ambulatory MD Junito Salvador Facility:[facility] Start: 05-09-2023 End: 05-09-2023 Pain Management Junito Salvador [facility] Start: 05-06-2023 End: 05-06-2023 ambulatory [facility] Start: 03-17-2023 End: 03-17-2023 Pain Management Lopez Blackmanumbar [facility] Start: 03-01-2023 End: 03-01-2023 Patient encounter procedure Lopez Hiralumbar [facility] Start: 02-10-2023 End: 02-10-2023 Patient encounter procedure Lopez Zumbar [facility] Start: 02-10-2023 End: 02-10-2023 Pain Management Lopez Zumbar [facility] Start: 01-19-2023 End: 01-19-2023 Patient encounter procedure Luzmaria L Britney [facility] Start: 01-10-2023 End: 01-10-2023 ambulatory RONNA NIETO . Facility:[facility] Start: 01-09-2023 End: 01-09-2023 ambulatory RONNA NIETO . Facility:[facility] Start: 12-23-2022 End: 01-14-2023 Pre-admission assessment Lopez Collins [facility] Start: 11-02-2022 End: 11-19-[address] REBEL SNELL . Facility:[facility] Start: 10-27-2022 End: 10-28-[address] REBEL SNELL . Facility:[facility] Start: 08-24-2022 End: 08-25-2022 ambulatory RICK PETER Facility:[facility] Start: 07-11-2022 Encounter for preprocedural laboratory examination [facility] Start: 07-08-2022 End: 07-09-[address] REBEL SNELL . Facility:[facility] Start: 07-05-2022 End: 07-06-2022 ambulatory [facility] Fatemeh [facility] Facility:[facility] Start: 07-05-2022 End: 07-06-2022 Encounter for preprocedural laboratory examination [facility] Facility:[facility] Start: 06-26-2022 Encounter for preprocedural cardiovascular examination [facility] Start: 06-24-2022 End: 06-25-[address] REBEL SNELL . Facility:[facility] Start: 04-30-2022 End: 05-01-[address] REBEL SNELL . Facility:[facility] Start: 04-23-2022 End: 04-24-[address] REBEL SNELL . Facility:[facility] Start: 04-08-2022 End: 04-09-[address] ANGLE NGUYEN Facility:[facility] Start: 03-16-2022 End: 03-17-[address] REBEL SNELL . Facility:[facility] Procedures Date Procedure Procedure Detail Performing Clinician Start: 05-09-2023 Epidural injection o f lumbar spine using fluoroscopic guidance Danyelle Kellogg Comment on above: L5/S1- 25% relief Start: 06-12-2022 Ankle region structu re (body structure) Lopez Collins Comment on above: josé Cholecystectomy Lopez Zumb ar Excision of breast tissue Za isabel Zumbar History of mastectomy S/P mastectomy Luzmaria Britney Immunizations Immunization Date Immunization Notes Care Provider Fa [facility] 06-02-2023 influenza virus vaccine, unspecified formulation Luzmaria Britney [facility] 05-27-2022 influenza virus vaccine, unspecified formulation Lopez Zumbar [facility] 06-19-2021 influenza virus vaccine, unspecified formulation Lopez Zumbar [facility] 10-30-2020 SARS-CoV-2 (COVID-19 ) mRNA-1273 vaccine Lopez Zumbar [facility] 05-27-2020 influenza virus vaccine, unspecified formulation Lopez Zumbar [facility] 06-07-2019 influenza virus vaccine, unspecified formulation Lopez Zumbar [facility] 05-31-2018 influenza virus vaccine, unspecified formulation Lopez Zumbar [facility] 04-10-2018 pneumococcal conjuga te vaccine, 13 valent Lopez Zumbar [facility] 08-29-2017 influenza virus vaccine, unspecified formulation Lopez Zumbar [facility] 06-28-2017 influenza virus vaccine, unspecified formulation Lopez Zumbar [facility] 06-11-2016 influenza virus vaccine, unspecified formulation Lopez Zumbar [facility] 06-12-2015 influenza virus vaccine, unspecified formulation Lopez Collins [facility] 05-23-2015 influenza virus vaccine, unspecified formulation Lopez Collins [facility] Payers Date Payer Category Payer Medicare [id number] 1945 Unknown [id number] 2.16.84 0.1.999056.3.579.2.593 1945 Unknown [id number] 2.16.84 0.1.898940.3.579.2.593 1944 Unknown [id number] 2.16.84 0.1.824057.3.579.2.593 1944 Unknown [id number] 2.16.84 0.1.673655.3.579.2.593 1944 Unknown [id number] 2.16.84 0.1.923955.3.579.2.593 1944 Unknown [id number] 2.16.84 0.1.292722.3.579.2.593 1944 Unknown [id number] 2.16.84 0.1.391143.3.579.2.593 1944 Unknown [id number] 2.16.84 0.1.151571.3.579.2.593 1944 Unknown [id number] 2.16.84 0.1.599599.3.579.2.593 1944 Unknown [id number] 2.16.84 0.1.320607.3.579.2.593 1944 Unknown [id number] 2.16.84 0.1.960588.3.579.2.593 1944 Unknown [id number] 2.16.84 0.1.273745.3.579.2.593 1944 Unknown [id number] 2.16.84 0.1.303804.3.579.2.1259 --194 Unknown [id number] 2.16.84 0.1.520277.3.579.2.1259 194 Unknown [id number] 2.16.84 0.1.066454.3.579.2.1259 194 Unknown [id number] 2.16.84 0.1.878688.3.579.2.1259 1944 Unknown [id number] 2.16.8 40.1.014727.3.579.2.727 1944 Unknown [id number] 2.16.8 40.1.462923.3.579.2.727 1944 Unknown [id number] 2.16.8 40.1.740240.3.579.2.727 1944 Unknown [id number] 2.16.8 40.1.647694.3.579.2.727 1944 Unknown [id number] 2.16.8 40.1.169937.3.579.2.727 194 Unknown [id number] 2.16.8 40.1.141067.3.579.2.727 1944 Unknown [id number] 2.16.8 40.1.777482.3.579.2.727 1944 Unknown [id number] 2.16.8 40.1.878046.3.579.2.727 1944 Unknown [id number] 2.16.8 40.1.119127.3.579.2.727 194 Unknown [id number] 2.16.8 40.1.726981.3.579.2.727 1944 Unknown [id number] 2.16.8 40.1.398062.3.579.2.727 194 Unknown [id number] 2.16.8 40.1.773819.3.579.2.727 1944 Unknown [id number] 2.16.8 40.1.965596.3.579.2.727 1944 Unknown [id number] 2.16.8 40.1.687296.3.579.2.727 1944 Unknown [id number] 2.16.8 40.1.324590.3.579.2.727 Social History Date Type Detail Facility Start: 01-04-2023 End: 04-23-2024 Tobacco smoking status Never smoked tobacco (finding) [facility] Sex Assigned At Female [facility] Tobacco smoking status Never [facility] Medical Equipment Procedure Code Equipment Code Equipment Origin al Text Equipment Identifier Dates lancets, See Instructions, 100 EA, 12, to check BS daily e11.69, [employer], Supply, 167, cm, 03/28/24 15:04:00 EDT, Height/Length Dosing, 80.2, kg, 03/28/24 15:04:00 EDT, Weight Dosing Start: 04-23-2024 test strips true metrix, See Instructions, 100 EA, 12, test stripts to test BS daily e.11, [employer], Supply, 167, cm, 03/28/24 15:04:00 EDT, Height/Length Dosing, 80.2, kg, 03/28/24 15:04:00 EDT, Weight Dosing Start: 04-23-2024 lancets, See Instructions, 100 EA, 12, to check BS daily e11.69, [employer], Supply, 167, cm, 03/28/24 15:04:00 EDT, Height/Length Dosing, 80.2, kg, 03/28/24 15:04:00 EDT, Weight Dosing Start: 04-23-2024 test strips true metrix, See Instructions, 100 EA, 12, test stripts to test BS daily e.11.69, [employer], Supply, 167, cm, 03/28/24 15:04:00 EDT, Height/Length Dosing, 80.2, kg, 03/28/24 15:04:00 EDT, Weight Dosing Start: 04-23-2024 Functional Status Date Assessment Result Facility 06-06-2023 Functional Status N/A [facility] 05-09-2023 Functional Status N/A [facility] 03-17-2023 Functional Status N/A [facility] 02-10-2023 Functional Status N/A [facility] Clinical Notes 04-09-2022 to 04-23-2024 Laboratory Note Date & Type Note Facility 04-23-2024 Note Pt called office to report that since starting hydrochlorothiazide she has felt aweful Therefore, pt may stop hydrochlorothiazide and continue lorsartan 100 mg daily Have BMP and BNP labs completed to assess renal function and electrolytes, and CHF Preeti Thomas [facility] Cardiology Available 7a-5pm via [employer] Chat Pager [phone] [facility] 04-16-2024 Note Provider called pt t o review echocardiogram results, and recommended to start hydrochlorothiazide 12.5 mg daily for water retention and HTN, and to call office for any concerns- lightheadedness/dizziness, near syncope or syncope. If she does well on this medication will send script for Losartan 100mg/hydrochlorothiazide 12.5 mg daily- for now sent 30 day script with refills for hydrochlorothiazide in light she thinks she has 3-4 months worth of losartan currently. Asked her to call office when she has only 1-2 months of pills left of losartan so we can send the combo med script into her mail order pharmacy- she voiced understanding. D/W with her to have BMP drawn in 1-2 weeks after starting hydrochlorothiazide to check renal function and electrolytes- she voiced understanding Preeti Thomas [facility] Cardiology Available 7a-5pm via [employer] Chat Pager [phone] [facility] 03-14-2024 Note [facility], no SOB with res t or ADLs Will order echocardiogram to assess cardiac function and valvular function Pulm function test to assess function for any obstructive process- and asked pt to F/U with PCP to review PFT [facility] 03-14-2024 Note PCP has started pt o n lipitor for elevated Chol/LDL Denied any myalgias [facility] 03-14-2024 Note Pt admits b/p at ruperto e typically is <130/76-80 and controlled Continue losartan and norvasc [facility] 03-14-2024 Note Stable, no concernin g symptoms, palpitations, lightheadedness/dizziness or syncope [facility] 03-14-2024 Note Patient here for 1 y [...] All other systems reviewed and are negative. [facility] 03-14-2024 Note [facility]TP CARDIOLOGY PROGR ESS NOTE [...] RTC 3 months after diagnostic testing completed [facility] 10-06-2023 Evaluation + Plan note Future Scheduled [id number] 10/06/23 [facility] 06-06-2023 Evaluation + Plan note Extrac [...] she decides to do. ALFREDA score: 24% [facility]08-28-2023 Note [id number]:127[facility] 05-06-2023 NotePrescription for lipid profile provided to patient Continue heart healthy [facility]Un[facility]23 Note Hypertension is Well-controlled blood pressure 108/64 continue amlodipine and losartan Recent kidney function in December was [facility]Un[facility] 05-06-2023 NoteCurrently patient denies any concerning symptoms She still does not want to take a beta-edel or have any ischemic evaluation Discussed with patient red flag symptoms and when to call office or 911 and she voiced understanding and agreementUnSalem [facility] Medical Center08-25-2023 NotePatient here for 6 mo follow [...] balance. All other systems reviewed and are negative.[facility] 05-06-2023 NoteUTP CARDIOLOGY PROGRESS NOTE HPI: Stephanie Wasserman [...] profile provided to patient (more content not included)...[facility]07-06-2023 Evaluation + Plan note Extracted from: Title:Clinical Document Author:Arielle Collins MD Date:03/17/23 [...] on an as-needed basis for repeat evaluation. [facility]06-01-2023 Evaluation + Plan noteExtracted from: Title:Clinical [...] Date:03/17/2023 01:45:00 PM Scheduled Provider:Lopez Collins MD Location:[facility] Appointment Type:Pain Management - Follow Up (FT) [facility]07-29-2022 NotePROCEDURE: XR ANKLE LT MIN 3 V HISTORY: Pain of left ankle joint after falling COMPARISON: XR ankle left 07/06/2021 FINDINGS: BONES:No fracture, acute abnormality, or significant arthropathy. SOFT TISSUES:No visible soft tissue swelling. EFFUSION:None visible. OTHER: Negative. IMPRESSION: 1. No acute bone abnormality or significant degenerative joint disease. Electronically authenticated by: ANGLE NGUYEN Date: 2022-04-09 08:05[facility] No data available for this section [facility] Future Appointments Appointment Date:03/17/2023 01:45:00 PM Scheduled Provider:Lopez Collins MD Location:[facility] Appointment Type:Pain Management - [facility] Up [facility] Future Appointments Appointment Date:06/06/2023 02:00:00 PM Scheduled Provider:Danyelle Kellogg PA-C Location[facility] Appointment Type:Pain Management - [facility] Up [facility] Future Appointments Appointment Date:07/26/2024 11:20:00 AM Scheduled Provider:Luzmaria Lamas Location:[facility] Appointment Type:FM Open Diagnostic Tests Pending * HgbA1c 04/23/24 Future Scheduled Tests Laboratory* HgbA1c 10/06/23 Radiology* MA Mamm Screen w/CAD if perf and 3D Junior 04/23/24 [facility] Evaluation + Plan note Future Appointments Appointment Date:05/07/2024 03:30:00 PM Scheduled Provider: [facility] Appoint[facility] Type:DM Diabetes Initial public relations professional 59 (F Appointment Date:07/26/2024 11:20:00 AM Scheduled Provider:Luzmaria Lamas Location:[facility] Appointment Type: Open [facility] Scheduled Tests Laboratory* HgbA1c 10/06/23 [facility] Hospital Discharge instructions No data available for this section [facility] No data available for this section [facility] Summary Purpose Family History No Family History Records FoundNo Family History Records Found No data available for this section No Family History Records Found No data available for this section No Family History Records Found No data available for this section No Family History Records FoundNo Family History Records Found Advance Directives No Advanced Directives Records FoundNo Advanced Directives Records FoundNo Advanced Directives Records FoundNo Advanced Directives Records FoundNo Advanced Directives Records FoundNo Advanced Directives Records Found Additional Source Comments INFORMATION SOURCE (unrecogn ized section and content) DATE CREATED AUTHOR 12/15/2021 [facility] DATE CREATED AUTHOR AUTHOR'S ORGANIZ ATION 01/14/2023 [facility] DATE CREATED AUTHOR AUTHOR'S ORGANIZ ATION 03/07/2024 [facility] EPIC DATE CREATED AUTHOR AUTHOR'S ORGANIZ ATION 04/25/2024 [facility] DATE CREATED AUTHOR AUTHOR'S ORGANIZ ATION 05/06/2024 [facility] Patient Care team informatio n (unrecognized section and content) Personnel Name: Luzmaria Lamas Address: Address: [address] [place] [address]- Personnel Name: Luzmaria Lamas Address: Address: [address] [place] [address]- Personnel Name: Luzmaria Lamas Address: Address: [address] [place] [address]- Personnel Name: Luzmaria Lamas Address: Address: [address] [place] [address]- Personnel Name: Luzmaria Lamas Address: Address: [address] [place] [address]- Personnel Name: Luzmaria Lamas Address: Address: [address] [place] [address]- Personnel Name: Luzmaria Lamas Address: Address: [address] [place] [address]- Personnel Name: Luzmaria Lamas Address: Address: [address] [place] [address]- Personnel Name: Luzmaria Lamas Address: Address: [address] [place] [address]- Personnel Name: Luzmaria Lamas Address: Address: [address] [place] [address]- Personnel Name: Luzmaria Lamas Address: Address: [address] [place] [address]- Personnel Name: Luzmaria Lamas Address: Address: [address] [place] [address]- FOR RECORDS PERTAINING TO PATIENTS WHO ARE [...] BE BASED ON THE PRIMARY CLINICAL RECORDS. [facility] [employer] [facility]. provides no warranty or guarantee of the accuracy or completeness of information in this document.
[2024-05-07 11:42] LABS: Anion Gap 15.2; BUN Creatinine Ratio 17.5; Calcium 9.1 mg/dL (8.5-10.1); Carbon Dioxide 26.2 mmol/L (21.0-32.0); Chloride 103 mmol/L (98-107); Estimated GFR (African America >60 (>=60); Estimated GFR (Non-African Ame >60 (>=60); Glucose 145 mg/dL (74-106); Potassium 4.4 mmol/L (3.5-5.1); Sodium 140 mmol/L (136-145)
== END 2024-05-07 10:24 | disposition home or self-care (01) ==
LOC: LAB 10:25
PROVIDERS: PCP Nurse Practitioner; Visit Provider Nurse Practitioner
DX: R06.09 Other forms of dyspnea (principal); I10 Essential (primary) hypertension
CPT/HCPCS: 36415; 80048; 83880

== ENCOUNTER 2025-05-24 12:54 | Outpatient (OUT) | payer MEDICARE, SELFPAY ==
--- OUTSIDE RECORDS SUMMARY | 2025-05-24 12:58 | XMS_ITS | Clinical Summary ---
Author Organization [facility] Healthcare Address [address] [place] [address] Care Team Providers Care Field Artillery Fire Control Man Name Role Phone Unavailable Primary Care Provider Unavailabl e Allergies Active Allergy Reactions Criticality Noted Date Comments Amoxicillin-Pot Clavulanate 01/26/2021 Other Reaction(s): GI Disturbance Other reaction(s): GI Disturbance Aspirin 01/10/2024 Other Reaction(s): Unknown Cephalexin Other 01/26/2021 Other Reaction(s): GI Disturbance Erythromycin Unknown 01/10/2024 Other Reaction(s): Stomach upset Fluconazole 05/19/2022 Other Reaction(s): Unknown Moxifloxacin Hives 01/26/2021 Naproxen Unknown,Other 05/19/2022 Quinapril 05/19/2022 Quinapril Hcl Other 01/10/2024 Sulfa Antibiotics 05/19/2022 Sulfamethoxazole-Trimetho prim Hives,Other 01/26/2021 Medications albuterol HFA 90 mcg/act inhaler INHALE 2 PUFFS BY MOUTH EVERY 4 TO 6 HOURS 3 Active amLODIPine (Norvasc) 10 MG tablet Take 10 mg by mouth in the morning. 4 Active biotin 1 MG capsule Take by mouth Daily Active calcium carbonate 1500 (600 Ca) MG tablet Take 600 mg by mouth in the morning and 600 mg in the evening. Take with meals. Active famotidine (Pepcid) 40 MG tablet Take 40 mg by mouth 4 Active fluticasone (Flovent HFA) 44 MCG/ACT inhaler = 2 puff(s), Inhalation, BID, # 10.6 gram, Refills(s) 0, Pharmacy: [facility] Mail Delivery, 167, cm, 01/05/24 11:25:00 EDT, Height/Length Dosing, 80.1, kg, 01/05/24 11:25:00 EDT, Weight Dosing 4 Active ibuprofen 200 MG tablet every 6 (six) hours Active Lactobacillus Acid-Pectin (Acidophilus/Ci trus Pectin) tablet Take by mouth 3 (three) times a day with meals Active losartan (Cozaar) 100 MG tablet Take 100 mg by mouth 4 Active metFORMIN (Glucophage) 500 MG tablet Take 500 mg by mouth 4 Active omeprazole (PriLOSEC) [address] capsule 1 (one) time each day at the same time Active atorvastatin (Lipitor) 20 MG tablet 4 Active Active Problems No known active problems Family History Medical History Relation Name Comments Melanoma Neg Hx Social History Tobacco Use Types Packs/Day Years Used Date Smoking Tobacco: Never Smokeless Tobacco: Never Tobacco Cessation:Counseling Given: Not Answered Alcohol Use Standard Drinks/Week Comments Defer 0 (1 standard drink = 0.6 oz pur e alcohol) Comments Unknown Sex and Gender Information Value Date Recorded Sex Assigned at Not on file Legal Sex Female 7:13 PM EDT Gender Identity Not on file Sexual Orientation Not on file Last Filed Vital Signs Vital Sign Reading Time Taken Comments Blood Pressure 132/74 02/28/2024 1:58 PM EDT Pulse - - Temperature - - Respiratory Rate - - Oxygen Saturation - - Inhaled Oxygen Concentration - - Weight 79.4 kg (175 lb) 01/22/2021 12:00 PM EDT Height 170.2 cm (5' 7 ) 01/22/2021 12:00 PM EDT Body Mass Index 27.41 01/22/2021 12:00 PM EDT Plan of Treatment Upcoming Encounters Date Type Department Care Team (Late st Contact Info) Description 07/04/2025 1:00 PM EDT Office Visit [facility] [address] [place] [id number] Naomi Esposito APRN-AUTO SERVICE ADVISOR [address] [place] [address] Health Maintenance Due Date Last Done Comments Pneumococcal Vaccine: 65+ Ye ars (2 of 2 - PPSV23) 04/10/2019 04/10/2018 Influenza Vaccine (#1) 2025 , 06/02/2023, 05/27/2022, Additional history exists Insurance MEDICARE ADVANTAGE
--- OUTSIDE RECORDS SUMMARY | 2025-05-24 12:58 | XMS_ITS | Encounter Summary ---
Author Organization [facility] Address [address] [place] [address] Care Team Providers Care Retail Loss Prevention Officer Name Role Phone Pia Snell MD Primary Care Provider [phone] Jason Timmons MD Primary Care Provider [phone] Luzmaria TanP-C Primary Care Provider [phone] Reason for Visit * Reason Comments Med Refill Encounter Details Date Type Department Care Team (Late st Contact Info) Description 07/21/[address] [address] Kaiser Garay MD [address] [place] [address] Essential hypertension Social History Tobacco Use Types Packs/Day Years Used Date Smoking Tobacco: Never Smokeless Tobacco: Never Alcohol Use Standard Drinks/Week Comments Yes 0 (1 standard drink = 0.6 oz pur e alcohol) occasional Comments Unknown Sex and Gender Information Value Date Recorded Sex Assigned at Female 05/20/2025 1:55 PM EDT Legal Sex Female 12:31 PM EDT Gender Identity Female 05/20/2025 1:55 PM EDT Sexual Orientation Heterosexual or Straight 04/2025 1:55 PM EDT documented as of this encounter Plan of Treatment Upcoming Encounters Date Type Department Care Team (Late st Contact Info) Description 05/24/2025 1:20 PM EDT Office Visit [address] [address] Chepe Lima MD [address] [place] [address] documented as of this encounter Visit Diagnoses Diagnosis Essential hypertension Unspecified essential hypertension documented in this encounter Care Teams Retail Loss Prevention Officer Relationship Specialty Start Date End Date Pia Snell MD [address] [facility] P[facility] - General 05/19/22 05/05/23 Jason Timmons MD [address] [place] [address] PCP - General Family Medicine 05/06/23 05/20/25 Luzmaria Tan FNP-C [address] [place] [address] PCP - General Nurse Practitioner 05/21/25 documented as of this encounter
--- OUTSIDE RECORDS SUMMARY | 2025-05-24 12:58 | XMS_ITS | Clinical Summary ---
Author Organization [facility] Address [address] [place] [address] Care Team Providers Care Kinesiology Professor Name Role Phone Luzmaria Tan [address] LIGHT-C Primary Care Provider [phone] Allergies Active Allergy Reactions Criticality Noted Date Comments Quinapril 05/19/2022 Amoxicillin-Pot Clavulanate 01/27/20 21 Other reaction(s): GI Disturbance Naproxen Sodium 05/19/2022 Moxifloxacin 05/19/2022 Cephalexin 05/19/2022 Fluconazole 05/19/2022 Sulfa (Sulfonamide Antibiotics) 05/19/2022 Sulfamethoxazole-Trimethopr im Hives 01/26/2021 Medications albuterol 90 mcg/actuation inhaler INHALE 2 PUFFS BY MOUTH EVERY 4 HOURS 10/04/19 23 Active calcium citrate (Calcitrate) 200 mg (950 mg) tablet See Instructions , Daily, Refills(s) 0 02/11/20 23 Active atorvastatin (Lipitor) 20 mg tablet Take 20 mg by mouth at bedtime. 01/13/20 24 Active metFORMIN (Glucophage) 500 mg tablet Take 500 mg by mouth with breakfast and with evening meal. 01/05/20 24 Active omeprazole (PriLOSEC) [address] capsule Take 20 mg by mouth before breakfast. Active losartan (Cozaar) 100 mg tabletIndications :Benign essential HTN Take 1 tablet (100 mg) by mouth in the morning. 90 tablet 3 07/30/20 24 025 Active True Metrix Glucose Test Strip strip 10/23/19 25 Active Breztri Aerosphere 160-9-4.8 mcg/actuation HFA aerosol inhaler every 12 (twelve) hours. 10/01/20 [address] capsule Take 40 mg by mouth. 10/24/19 Active TRUEplus Lancets 33 gauge misc 10/23/19 Active aluminum hydrox-magnesium carb (Gaviscon Extra Strength) 160-105 mg tablet,chewable 4 tab(s), Chewed, TID for indigestion, 100 tab(s), Refill(s) 6, [facility], 167, cm, 10/24/24 10:54:00 EST, Height/Lengt h Dosing, 81.5, kg, 10/24/24 10:54:00 EST, Weight Dosing 10/24/19 25 Active fenofibrate (Tricor) 48 mg tabletIndications :Hyperlipidemia, unspecified hyperlipidemia type Take 1 tablet (48 mg) by mouth in the morning. 90 tablet 3 12/04/19 25 026 Active amLODIPine (Norvasc) 10 mg tabletIndications :Essential hypertension Take 1 tablet (10 mg) by mouth once daily as directed. 90 tablet 2 05/20/20 25 Active amLODIPine (Norvasc) 10 mg tabletIndications :Essential hypertension TAKE 1 TABLET EVERY MORNING 90 tablet 3 07/09/20 24 025 Discontinued Active Problems Problem Noted Date Diagnosed Date BMI 29.0-29.9,adult 11/21/2024 Chronic obstructive pulmonary disease 11/21/2024 Contact with and (suspected) exposure to environmental tobacco smoke (acute) (chronic) 11/21/2024 Other secondary pulmonary hypertension Diastolic dysfunction 05/09/2024 History of malignant neoplasm of breast 05/07/20 Overview (05/07/2024): Noted in 11/19/2022 H&P [address] Dr[address] Snell and 12/21/2022 office note. Added per outpatient CDI policy and marked breast cancer as not chronic. Excessive thirst 03/14/2024 Fatigue 03/14/2024 S/P mastectomy 03/14/2024 Wellness examination 03/14/2024 Arthritis 05/06/2023 05/06/2023 Osteoarthritis 05/06/2023 05/06/2023 Breast cancer 05/06/2023 05/06/2023 Cervical radiculitis 05/06/2023 05/06/2023 Chronic cough 05/06/2023 05/06/2023 Diabetes mellitus, type II 05/06/202305/06 Assessment & Plan (03/14/2024 3:27 PM EDT): Diabetes is managed by PCP Episodic tension type headache 05/06/2023 0 05/06/2023 GERD (gastroesophageal reflux disease) 05/06/2023 Hearing deficit 05/06/2023 05/06/2023 Hypothyroidism 05/06/2023 05/06/2023 Lower back pain 05/06/2023 05/06/2023 Mononucleosis 05/06/2023 05/06/2023 Sciatica 05/06/2023 05/06/2023 Non-sustained ventricular tachycardia 05/06/2023 Assessment & Plan (03/14/2024 3:23 PM EDT): Stable, no concerning symptoms, palpitations, lightheadedness/dizziness or syncope Assessment & Plan (05/06/2023 11:51 AM EDT): Currently patient denies any concerning symptoms She still does not want to take a beta-edel or have any ischemic evaluation Discussed with patient red flag symptoms and when to call office or 911 and she voiced understanding and agreement Dyspnea on exertion 08/28/2022 Assessment & Plan (03/14/2024 3:27 PM EDT): FULLER, no SOB with rest or ADLs Will order echocardiogram to assess cardiac function and valvular function Pulm function test to assess function for any obstructive process- and asked pt to F/U with PCP to review PFT Assessment & Plan (08/28/2022 8:32 AM EST): -reluctant to a stress test at this time -risks explained to patient -states if no improvement between now and follow up she will do stress test -follow up in 3 months or sooner Hypertension 04/20/2022 05/06/2023 Assessment & Plan (03/14/2024 3:24 PM EDT): Pt admits b/p at home typically is <130/76-80 and controlled Continue losartan and norvasc Assessment & Plan (05/06/2023 11:51 AM EDT): Hypertension is Well-controlled blood pressure 108/64 continue amlodipine and losartan Recent kidney function in December was normal Hyperlipidemia 04/20/2022 05/06/2023 Assessment & Plan (03/14/2024 3:25 PM EDT): PCP has started pt on lipitor for elevated Chol/LDL Denied any myalgias Assessment & Plan (05/06/2023 11:52 AM EDT): Prescription for lipid profile provided to patient Continue heart healthy diet Resolved Problems Problem Noted Date Diagnosed Date Resolved Date Hyperlipemia 05/19/2022 05/06/2023 Essential hypertension 05/19/202205/06 Assessment & Plan (08/28/2022 8:33 AM EST): Hypertension is stable -continue losartan, amlodipine Encounters Date Type Department Care Team Description 05/22/2025 Orders Only [place] [address] [place] [address] ProviderCharito MD 05/18/2025 Refill [facility] [address] [place] [address] Kaiser Garay MD Essential hypertension from Last 3 Months Family History Medical History Relation Name Comments Lung disease Mother Diabetes Mother's Sister Relation Name Status Comments Father Mother Mother's Sister Other Social History Tobacco Use Types Packs/Day Years Used Date Smoking Tobacco: Never Smokeless Tobacco: Never Tobacco Cessation:Counseling Given: Not Answered Alcohol Use Standard Drinks/Week Comments Not Currently 0 (1 standard drink = 0.6 oz pur e alcohol) occasional [place] Safety & Environment Answer Date Rec orded Fear of Current or Ex-Partner Not on file Emotionally Abused Not on file 11/03/2023 Physically Abused Not on file 11/03/2023 Sexually Abused Not on file 11/03/2023 Physically or Sexually Abused Not on file Comments Unknown Sex and Gender Information Value Date Recorded Sex Assigned at Female 05/20/2025 1:55 PM EDT Legal Sex Female 12:31 PM EDT Gender Identity Female 05/20/2025 1:55 PM EDT Sexual Orientation Heterosexual or Straight 04/2025 1:55 PM EDT Last Filed Vital Signs Vital Sign Reading Time Taken Comments Blood Pressure 125/61 11/21/2024 1:58 PM EDT Pulse 67 11/21/2024 1:58 PM EDT Temperature - - Respiratory Rate - - Oxygen Saturation 98% 11/21/2024 1:58 PM EDT Inhaled Oxygen Concentration - - Weight 80.7 kg (178 lb) 11/21/2024 1:58 PM EDT Height 167.6 cm (5' 6 ) 11/21/2024 1:58 PM EDT Body Mass Index 28.73 11/21/2024 1:58 PM EDT Plan of Treatment Upcoming Encounters Date Type Department Care Team (Late st Contact Info) Description 05/24/2025 1:20 PM EDT Office Visit [facility] [address] [place] [address] Chepe Lima MD [address] [place] [address] [address] [place] [address] Health Maintenance Due Date Last Done Comments Diabetes: Hemoglobin A1C 1945 Medicare Annual Wellness (AWV) 1945 Diabetes: Retinopathy Screening 1954 Depression Screening 1956 Diabetes: Urine Protein Screening 11/28/1963 Zoster Vaccines (1 of 2) 1994 Fall Risk Screening 2009 COVID-19 Vaccine (2 - season) 2025 10/30/2020 Influenza Vaccine (#1) 2025 , 06/02/2023, 05/27/2022, Additional history exists Adult Tetanus 01/16/2035 01/16/2025 Pneumococcal Vaccine: 50+ Years Completed 09/16/2024, 04/10/2018 HIB Vaccines Aged Out No longer eligi ble based on patient's age to complete this topic HPV Vaccines Aged Out No longer eligi ble based on patient's age to complete this topic IPV Vaccines Aged Out No longer eligi ble based on patient's age to complete this topic Meningococcal B Vaccine Aged Out No l onger eligible based on patient's age to complete this topic Meningococcal Vaccine Aged Out No araceli willie eligible based on patient's age to complete this topic Rotavirus Vaccines Aged Out No longer eligible based on patient's age to complete this topic Procedures Procedure Name Priority Date/Time Associated Diagnosis Comments ALT Routine 05/22/2025 8:04 AM EDT AST Routine 05/22/2025 8:04 AM EDT LIPID PANEL Routine 05/22/2025 8:04 AM EDT from Last 3 Months Results * ALT (05/22/2025 8:04 AM EDT) Blood Venous blood specimen / Unknown [facility] Provider MD LAB BLOOD ORDERABLES Kely l Result * AST (05/22/2025 8:04 AM EDT) Blood Venous blood specimen / Unknown [facility] Provider MD LAB BLOOD ORDERABLES Kely l Result * Lipid panel (05/22/2025 8:04 AM EDT) Blood Venous blood specimen / Unknown [facility] Provider MD LAB BLOOD ORDERABLES Kely l Result from Last 3 Months Insurance [employer] MEDICARE ADVANTAGE Care Teams Kinesiology Professor Relationship Specialty Start Date End Date Luzmaria Tan FNP-C [address] [place] [address] PCP - General Nurse Practitioner 05/21/25
--- OUTSIDE RECORDS SUMMARY | 2025-05-24 12:58 | XMS_ITS | Encounter Summary ---
Author Organization [facility] Address [address] [place] [address] Care Team Providers Care Railroad Car Repairman Name Role Phone Luzmaria Tan HERB GROWER-C Primary Care Provider [phone] Encounter Details Date Type Department Care Team (Late st Contact Info) Description 05/22/2025 Orders Only [address] [address] ProviderCharito MD [address] [place], [place] [id number] Social History Tobacco Use Types Packs/Day Years Used Date Smoking Tobacco: Never Smokeless Tobacco: Never Alcohol Use Standard Drinks/Week Comments Not Currently [...] Description 05/24/2025 1:20 PM EDT Office Visit [address] [phone] Chepe Lima MD [address] [place] [address] documented as of this encounter Procedures Procedure Name Priority Date/Time Associated Diagnosis Comments ALT Routine 05/22/2025 8:04 AM EDT AST Routine 05/22/2025 8:04 AM EDT LIPID PANEL Routine 05/22/2025 8:04 AM EDT documented in this encounter Results * ALT (05/22/2025 8:04 AM EDT) Blood Venous blood specimen / Unknown [facility] Provider MD LAB BLOOD ORDERABLES Kely l Result * AST (05/22/2025 8:04 AM EDT) Blood Venous blood specimen / Unknown [facility] Provider MD LAB BLOOD ORDERABLES Kely l Result * Lipid panel (05/22/2025 8:04 AM EDT) Blood Venous blood specimen / Unknown [facility] Provider MD LAB BLOOD ORDERABLES Kely l Result documented in this encounter Visit Diagnoses Not on filedocumented in this encounter Care Teams Railroad Car Repairman Relationship Specialty Start Date End Date Luzmaria Tan FNP-C [address] [place] [address] PCP - General Nurse Practitioner 05/21/25 documented as of this encounter
--- OUTSIDE RECORDS SUMMARY | 2025-05-24 12:58 | XMS_ITS | Clinical Summary ---
Author Organization [employer] Address [id number] [address] [place] [address] Care Team Providers Care Nanotechnology Engineering Technologist Name Role Phone Pia Snell MD Primary Care Provider [phone] Allergies Active Allergy Reactions Criticality Noted Date Comments Amoxicillin-Pot Clavulanate GI Disturbance 01/10 Moxifloxacin Hives 01/26/2021 Sulfamethoxazole-Trimethoprim Hives 2020 Cephalexin GI Disturbance 01/26/2021 Medications amLODIPine (NORVASC) 10 mg tablet Take 10 mg by mouth daily. Active atenoloL (TENORMIN) 50 mg tablet Take 50 mg by mouth daily. Active baclofen (LIORESAL) 10 mg tablet Take 10 mg by mouth as needed for muscle spasms. Active calcium carbonate (OS-RENZO) 600 mg (1,500 mg) tablet Take 600 mg by mouth 2 (two) times a day with meals. Active biotin 1 mg capsule Take by mouth daily. With collagen Active acidophilus-pec tin, citrus 25 million cell -100 mg tablet Take by mouth 3 (three) times a day with meals. Active Active Problems No known active problems Family History Medical History Relation Name Comments No Known Problems Father COPD Mother Relation Name Status Comments Father Mother Social History Tobacco Use Types Packs/Day Years Used Date Smoking Tobacco: Never Smokeless Tobacco: Never Alcohol Use Standard Drinks/Week Comments Never 0 (1 standard drink = 0.6 oz pur e alcohol) Childcare Answer Date Recorded Childcare Unknown 02/21/2019 Employment Answer Date Recorded Employment Unknown 02/21/2019 Comments No Sex and Gender Information Value Date Recorded Sex Assigned at Not on file Legal Sex Female 12:09 PM EDT Gender Identity Not on file Sexual Orientation Not on file Last Filed Vital Signs Vital Sign Reading Time Taken Comments Blood Pressure 154/71 02/04/2021 9:59 AM EDT Pulse 49 02/04/2021 9:53 AM EDT Temperature 36 C (96.8 F) 02/04/2021 8:20 AM EDT Respiratory Rate 17 02/04/2021 9:53 AM EDT Oxygen Saturation 99% 02/04/2021 9:59 AM EDT Inhaled Oxygen Concentration - - Weight 79.4 kg (175 lb) 02/04/2021 6:27 AM EDT Height 170.2 cm (5' 7 ) 02/04/2021 6:27 AM EDT Body Mass Index 27.41 02/04/2021 6:27 AM EDT Plan of Treatment Health Maintenance Due Date Last Done Comments Depression Screening 1957 Tobacco Screening 1957 DTaP,Tdap and Td Vaccines (1 - Tdap) 11/28/1963 Zoster (Shingles) Vaccine (1 of 2) 1994 Fall Risk Screening 2009 Influenza Vaccine 05/13/2025 05/27/2020, , 05/31/2018, Additional history exists Medical Devices Not on file Insurance [employer] MEDICARE Care Teams Nanotechnology Engineering Technologist Relationship Specialty Start Date End Date Pia Snell MD PCP - General Family Medicine 01/26/21
--- OUTSIDE RECORDS SUMMARY | 2025-05-24 12:58 | XMS_ITS | Encounter Summary ---
Author Organization [facility] Address [address] [place] [address] Care Team Providers Care Universal Worker Assisted Living Name Role Phone Jason Timmons MD Primary Care Provider [phone] Reason for Visit * Reason Comments Med Refill Encounter Details Date Type Department Care Team (Late st Contact Info) Description 05/18/2025 Refill [facility] [address] [place] [address] Kaiser Garay MD [address] [place] [address] [address] [place] [address] Essential hypertension Social History Tobacco Use Types [...] Description 05/24/2025 1:20 PM EDT Office Visit [facility] [address] [place] [address] Chepe Lima MD [address] [place] [address] [address] [place] [address] documented as of this encounter Visit Diagnoses Diagnosis Essential hypertension Unspecified essential hypertension documented in this encounter Care Teams Universal Worker Assisted Living Relationship Specialty Start Date End Date Jason Timmons MD [address] [place] [address] PCP - General Family Medicine 05/06/23 05/20/25 documented as of this encounter
--- OUTSIDE RECORDS SUMMARY | 2025-05-24 13:01 | XMS_ITS | CCD ---
Author Organization [facility] Care Team Providers Care Recovery Analyst Name Role Phone LANE JORDAN Consulting Unavailable [...] Unavailable ZIEBER, DR ANGLE Quan Consulting Unavailable SNLEL ., DR REBEL Ji Primary Care Unavailable [...] Unavailable ROSA ., HOANG PIZANO Consulting Unavailable NICOLE COLLNIS Consulting Unavailable SUSAN IBARRA Consulting Unavailable EMILIA ., RONNA Admitting Unavailable EMILIA ., RONNA Consulting Unavailable SNELL ., DR REBEL Ji Primary Care Unavailable EMILIA ., RONNA Attending Unavailable RICHARD DAVIS Consulting Unavailable BritneyLuzmaria Primary Care Physician PANFILO ESPOSITO Attending Unavailable GERRI TRIVEDI Attending Unavailable GERRI TRIVEDI Attending Unavailable PANFILO ESPOSITO Attending Unavailable Unavailable Primary Care Provider UnavailAdeline Box V Unavailable Unavailable Britney, GRADUATE TEACHING ASSOCIATE Luzmaria L Admitting Unavailable Britney, GRADUATE TEACHING ASSOCIATE Luzmaria L Attending Unavailable Britney, GRADUATE TEACHING ASSOCIATE Luzmaria L Attending Unavailable Britney, GRADUATE TEACHING ASSOCIATE Luzmaria L Admitting Unavailable Britney, GRADUATE TEACHING ASSOCIATE Luzmaria L Attending Unavailable Britney, GRADUATE TEACHING ASSOCIATE Luzmaria L Attending Unavailable Britney, GRADUATE TEACHING ASSOCIATE Luzmaria L Attending Unavailable Britney, GRADUATE TEACHING ASSOCIATE Luzmaria L Attending Unavailable Britney, GRADUATE TEACHING ASSOCIATE Luzmaria L Attending Unavailable Britney, GRADUATE TEACHING ASSOCIATE Luzmaria L Attending Unavailable Britney, GRADUATE TEACHING ASSOCIATE Luzmaria L Attending Unavailable MD Jason Timmons Attending Unavailable MD Jason Timmons Referring Unavailable WILLIAMPREETI Attending Unavailable JESSICA CARLOS Attending Unavailable LEXIE WHITTEN Attending Unavailable LEXIE WHITTEN Admitting Unavailable LEXIE WHITTEN Attending Unavailable IAN RAND Attending UnavailSampson Fulton Attending Unavaila ble Britney, Luzmaria Lou Attending Unavailable Britney, Luzmaria L Attending Unavailable Britney, Luzmaria L Attending Unavailable Britney, Luzmaria L Attending Unavailable Britney, Luzmaria L Attending Unavailable Britney, Luzmaria L Admitting Unavailable Britney, Luzmaria L Attending Unavailable Britney, Luzmaria L Referring Unavailable Britney, Luzmaria L Admitting Unavailable Britney, Luzmaria L Attending Unavailable Britney, Luzmaria L Referring Unavailable Britney, Luzmaria L Attending Unavailable Britney, Luzmaria L Admitting Unavailable Britney, Luzmaria L Admitting Unavailable Britney, Luzmaria Blake Attending Unavailable LEXIE WHITTEN Attending Unavailable LEXIE WHITTEN Admitting Unavailable LEXIE WHITTEN Admitting Unavailable LEXIE WHITTEN Attending Unavailable MD Jason Timmons Attending Unavailable Britney, Luzmaria Blake Referring Unavailable Britney, Luzmaria Blake Attending Unavailable Britney, Luzmaria Blake Admitting Unavailable FISH, LEXIE Attending Unavailable FISH, LEXIE Admitting Unavailable ALEXIS RAND Attending Unavailable Allergies Allergy Classification Reported Allergen(s) Allergy Type Date of Onset Reaction(s) Facility (1 source) Amoxicillin / Clavulanate Drug Allergy 02-14-20 15 [facility] (1 source) Aspirin Drug Allergy [facility] (7 sources) Cephalexin; Translations: [cephalexin] Drug Allergy 05-29-20 13 [facility] (1 source) Erythromycin Drug Allergy 05-29-20 13 [facility] (6 sources) Fluconazole; Translations: [Diflucan] Drug Allergy [facility] (2 sources) Fluconazole; Translations: [FLUCONAZOLE] Drug Allergy 05-19-20 22 [facility] (6 sources) moxifloxacin; Translations: [Avelox] Drug Allergy 05-29-20 13 [facility] (6 sources) Naproxen; Translations: [Anaprox] Drug Allergy [facility] (1 source) Sulfamethoxazole / Trimethoprim Drug Allergy 05-29-20 13 [facility] (1 source) COVID-19 (SARS-CoV-2) vaccine, josee cell Drug allergy (disorder) 10-30-19 21 [facility] (20 sources) Cephalexin; Translations: [cephalexin] Drug Allergy 01-27-20 Unknown (qualifier value), Other [facility] (19 sources) Fluconazole; Translations: [fluconazole] Drug Allergy Unknown (qualifier value) [facility] (20 sources) moxifloxacin; Translations: [moxifloxacin] Drug Allergy 01-27-20 Unknown (qualifier value), Hives [facility] (20 sources) Naproxen; Translations: [naproxen] Drug Allergy 05-19-20 22 Unknown (qualifier value), Unknown, Other [facility] (20 sources) quinapril; Translations: [quinapril] Drug Allergy 05-19-20 22 Unknown (qualifier value) [facility] (20 sources) Sulfonamides (Antibiotic); Translations: [sulfa drugs] Drug allergy Unknown (qualifier value) [facility] (20 sources) Erythromycin; Translations: [erythromycin] Drug Allergy 01-10-20 24 Unknown [facility] (3 sources) Aluminum aspirin Drug Allergy 01-10-20 24 [facility] (3 sources) Fluconazole Allergy to substance 05-19-20 22 [facility] (3 sources) quinapril Drug Allergy 01-10-20 24 Other [facility] (4 sources) Sulfamethoxazole / Trimethoprim; Translations: [SULFAMETHOXAZOLE-T RIMETHOPRIM] Drug Allergy 01-27-20 21 Hives, Other [facility] (3 sources) Sulfonamides (Antibiotic) Drug Intolerance 05-19-20 22 [facility] (4 sources) Amoxicillin-Pot Clavulanate; Translations: [AMOXICILLIN-POT CLAVULANATE] Drug Intolerance 01-27-20 21 [facility] (1 source) Naproxen; Translations: [NAPROXEN SODIUM] Drug Allergy 05-19-20 [facility] (1 source) Sulfonamides (Antibiotic); Translations: [SULFA (SULFONAMIDE ANTIBIOTICS)] Propensity to adverse reactions to drug (disorder) 05-19-20 [facility] Medications Current Medications Medication Drug Class(es) Dates Sig (Normalized) Sig (Original) [id number] 200 actuat albuterol 0.09 mg/actuat metered dose inhaler (3 sources) beta2-Adrenergic Agonist Start: 04-04-2023 take 2 puff(s) by mouth every four to six hours albuterol HFA 90 mcg/act inhaler INHALE 2 PUFFS BY MOUTH EVERY 4 TO 6 HOURS 04/04/2023 Active Albuterol (Eqv-Ventolin HFA) 90 mcg/inh inhalation aerosol (18 sources) Start: 04-23-2024 take 2 puff(s) by inhalation every six hours Albuterol (Eqv-Ventolin HFA) 90 mcg/inh inhalation aerosol 2 puff(s), Inhalation, q6hr, 8.5 gm, Refill(s) 6, INHALE 2 PUFFS BY MOUTH EVERY 4 HOURS, [facility], 167, cm, 04/23/24 15:13:00 EDT, Height/Length Dosing, 79.7, kg, 04/23/24 15:13:00 EDT, Weight Dosing Start Date: 04/23/24 Status: Ordered Start: 01-04-2023 take 2 puff(s) by in halation every six hours Albuterol (Eqv-Ventolin HFA) 90 mcg/inh inhalation aerosol 2 puff(s), Inhalation, q6hr, 8.5 gm, Refill(s) 2, INHALE 2 PUFFS BY MOUTH EVERY 4 HOURS, [facility], 167, cm, 01/04/23 11:24:00 EDT, Height/Length Dosing, 79.3, kg, 01/04/23 11:24:00 EDT, Weight Dosing Start Date: 01/04/23 Status: Ordered aluminum hydroxide 160 mg / magnesium carbonate 105 mg chewable tablet (4 sources) Start: 10-24-2024 take 4 tablets by mouth three times daily Gaviscon Extra Strength 160 mg-105 mg oral tablet, chewable 4 tab(s), Chewed, TID for indigestion, 100 tab(s), Refill(s) 6, [facility], 167, cm, 10/24/24 10:54:00 EST, Height/Length Dosing, 81.5, kg, 10/24/24 10:54:00 EST, Weight Dosing Start Date: 10/24/24 Status: Ordered amLODIPine 10 mg oral tablet (20 sources) Dihydropyridine Calcium Channel Edel Start: 11-25-2022 take 1 tablet by mouth in the morning amLODIPine 10 mg Tab TAKE 1 TABLET BY MOUTH IN THE MORNING Start Date: 11/25/22 Status: Ordered atorvastatin 20 mg oral tablet (11 sources) HMG-CoA Reductase Inhibitor Start: 01-13-2024 take 1 tablet by mouth once daily atorvastatin 20 mg Tab 20 mg = 1 tab(s), Oral, Daily, # 90 tab(s), Refills(s) 3, Pharmacy: [facility], 167, cm, 01/05/24 11:25:00 EDT, Height/Length Dosing, 80.1, kg, 01/05/24 11:25:00 EDT, Weight Dosing Start Date: 01/13/24 Status: Ordered baclofen 10 mg oral tablet (2 sources) gamma-Aminobutyric Acid-ergic Agonist Start: 11-25-2022 baclofen 10 mg Tab Refills(s) 0 Start Date: 11/25/22 Status: Ordered biotin 1 mg oral capsule (3 sources) biotin 1 MG capsule Take by mouth Daily Active Breast prosthetic and bra (9 sources) Start: 11-14-2023 Breast prosthetic and bra Breast prosthetic and bra, See Instructions, 4 EA, 0, due to mastectomy 4 bras 1prostetic, Supply Start Date: 11/14/23 Status: Ordered Breztri Aerosphere inhalation aerosol (8 sources) Start: 03-28-2024 take 2 puff(s) by inhalation twice daily Breztri Aerosphere inhalation aerosol 2 puff(s), Inhalation, BID, 10.7 gm, Refill(s) 5, [facility], 167, cm, 03/28/24 15:04:00 EDT, Height/Length Dosing, 80.2, kg, 03/28/24 15:04:00 EDT, Weight Dosing Start Date: 03/28/24 Status: Ordered calcium carbonate 1500 mg oral tablet (3 sources) take 1 tablet by mouth in the morning calcium carbonate 1500 (600 Ca) MG tablet Take 600 mg by mouth in the morning and 600 mg in the evening. Take with meals. Active calcium citrate 950 mg oral tablet (16 sources) Start: 02-10-2023 calcium (as calcium citrate) 200 mg oral tablet See Instructions, Daily, Refills(s) 0 Start Date: 02/10/23 Status: Ordered Collagen Skin Renewal (12 sources) Start: 04-21-2023 Collagen Skin Renewal Refill(s) 0 Start Date: 04/21/23 Status: Ordered esomeprazole 40 mg delayed release oral capsule (4 sources) Proton Pump Inhibitor Start: 10-24-2024 Nexium 40 mg Cap-EC 40 mg = 1 cap(s), Oral, BIDAC, # 90 cap(s), Refills(s) 3, Pharmacy: [facility], 167, cm, 10/24/24 10:54:00 EST, Height/Length Dosing, 81.5, kg, 10/24/24 10:54:00 EST, Weight Dosing Start Date: 10/24/24 Status: Ordered famotidine 40 mg oral tablet (20 sources) Histamine-2 Receptor Antagonist Start: 01-05-2024 End: 12-30-2024 take 1 tablet by mouth once daily at bedtime famotidine 40 mg Tab 40 mg = 1 tab(s), Oral, Once a day (at bedtime), X 90 day(s), # 90 tab(s), Refills(s) 3, Pharmacy: [facility], 167, cm, 01/05/24 11:25:00 EDT, Height/Length Dosing, 80.1, kg, 01/05/24 11:25:00 EDT, Weight Dosing Start Date: 01/05/24 Stop Date: 12/30/24 Status: Ordered Start: 05-05-2023 take 1 tablet by lizeth th once daily at bedtime famotidine 40 mg Tab 40 mg = 1 tab(s), Oral, Once a day (at bedtime), # 90 tab(s), Refills(s) 0, Pharmacy: [facility], 167, cm, 03/17/23 14:09:00 EDT, Height/Length Dosing, 78, kg, 02/10/23 14:07:00 EDT, Weight Dosing Start Date: 05/05/23 Status: Ordered Start: 02-10-2023 take 1 tablet by lizeth th once daily at bedtime famotidine 40 mg Tab 40 mg = 1 tab(s), Oral, Once a day (at bedtime), # 90 tab(s), Refills(s) 0, Pharmacy: [facility], 167, cm, 01/04/23 11:24:00 EDT, Height/Length Dosing, 79.3, kg, 01/04/23 11:24:00 EDT, Weight Dosing Start Date: 02/10/23 Status: Ordered Start: 11-30-2022 take 1 tablet by lizeth th once daily at bedtime famotidine 40 mg Tab 40 mg = 1 tab(s), Oral, Once a day (at bedtime), # 90 tab(s), Refills(s) 0, Pharmacy: [facility] Start Date: 11/30/22 Status: Ordered 120 actuat fluticasone propionate 0.044 mg/actuat metered dose inhaler (18 sources) Corticosteroid Start: 01-05-2024 take 2 puff(s) by inhalation twice daily fluticasone (Flovent HFA) 44 MCG/ACT inhaler = 2 puff(s), Inhalation, BID, # 10.6 gram, Refills(s) 0, Pharmacy: [facility], 167, cm, 01/05/24 11:25:00 EDT, Height/Length Dosing, 80.1, kg, 01/05/24 11:25:00 EDT, Weight Dosing 01/05/2024 Active Start: 01-05-2024 take 2 puff(s) by in halation twice daily Flovent HFA 44 Aerosol = 2 puff(s), Inhalation, BID, # 10.6 gram, Refills(s) 0, Pharmacy: [facility], 167, cm, 01/05/24 11:25:00 EDT, Height/Length Dosing, 80.1, kg, 01/05/24 11:25:00 EDT, Weight Dosing Start Date: 01/05/24 Status: Ordered Start: 11-25-2022 fluticasone Na cas 0.05 mg/inh [place] Refill(s) 0 Start Date: 11/25/22 Status: Ordered Fosfomycin Tromethamine 3 g oral granule for reconstitution (2 sources) Start: 11-25-2022 Fosfomycin Tromethamine 3 g oral granule for reconstitution USE 1 PACKET BY MOUTH DIRECTED Start Date: 11/25/22 Status: Ordered Glucosamine (5 sources) Start: 02-10-2023 glucosamine See Instructions, daily, Refills(s) 0 Start Date: 02/10/23 Status: Ordered ibuprofen 200 mg oral tablet (3 sources) Nonsteroidal Anti-inflammatory Drug ibuprofen 200 MG tablet every 6 (six) hours Active lactobacillus acidophilus [id number] unt / pectin 100 mg oral tablet (3 sources) Lactobacillus Acid-Pectin (Acidophilus/[place] Pectin) tablet Take by mouth 3 (three) times a day with meals Active losartan potassium 100 mg oral tablet (20 sources) Angiotensin 2 Receptor Edel Start: 11-25-2022 End: 10-30-2024 take 1 tablet by mouth once daily losartan 100 mg Tab 100 mg = 1 tab(s), Oral, Daily, Refills(s) 0 Start Date: 11/25/22 Status: Ordered meloxicam 15 mg oral tablet (8 sources) Nonsteroidal Anti-inflammatory Drug Start: 12-21-2022 take 1 tablet by mouth once daily meloxicam 15 mg Tab 15 mg = 1 tab(s), Oral, Daily, # 30 tab(s), Refills(s) 0, Pharmacy: [facility], 167, cm, 12/21/22 13:10:00 EDT, Height/Length Dosing, 79.3, kg, 12/21/22 13:10:00 EDT, Weight Dosing Start Date: 12/21/22 Status: Ordered metFORMIN hydrochloride 500 mg oral tablet (12 sources) Biguanide Start: 10-16-2024 take 1 tablet by mouth twice daily metformin 500 mg Tab 500 mg = 1 tab(s), Oral, BID, # 180 tab(s), Refills(s) 4, Pharmacy: [facility], 167, cm, 07/26/24 12:01:00 EST, Height/Length Dosing, 81.8, kg, 07/26/24 12:01:00 EST, Weight Dosing Start Date: 10/16/24 Status: Ordered Start: 01-05-2024 take 1 tablet by lizeth th twice daily metformin 500 mg Tab 500 mg = 1 tab(s), Oral, BID, # 180 tab(s), Refills(s) 1, Pharmacy: [facility], 167, cm, 04/23/24 15:13:00 EDT, Height/Length Dosing, 79.7, kg, 04/23/24 15:13:00 EDT, Weight Dosing Start Date: 04/23/24 Status: Ordered [facility] Prescription (8 sources) Start: 04-17-2024 [facility] Prescription [facility] Prescription, See Instructions, 1 kit(s), 1, True metrix air meter kit, [facility], Supply, 167, cm, 03/28/24 15:04:00 EDT, Height/Length Dosing, 80.2, kg, 03/28/24 15:04:00 EDT, Weight Dosing Start Date: 04/17/24 Status: Ordered Multi Vitamin+ (3 sources) Start: 04-21-2023 Multi Vitamin+ Refill(s) 0 Start Date: 04/21/23 Status: Ordered Nature's Bounty Probiotic (12 sources) Start: 04-21-2023 Nature's Bount y Probiotic Refill(s) 0 Start Date: 04/21/23 Status: Ordered omeprazole 20 mg delayed release oral capsule (3 sources) Proton Pump Inhibitor omeprazole (PriLOSEC) [address] capsule 1 (one) time each day at the same time Active predniSONE 10 mg oral tablet (2 sources) [...] [DIAPH HERNIA W/O OBST/GANGRENE] Onset: 3 Episodic Administrative/social admission (1 source) Counseling procedure with explicit context; Translations: [Dietary counseling and surveillance] Episodic Benign neoplasm of uterus (19 sources) Uterine leiomyoma 11-26-2022 Episodic Cancer of breast (8 sources) Malignant tumor of breast 02-10-2023 Chronic Cancer of breast (11 sources) Personal history of malignant neoplasm of breast; Translations: [History of malignant neoplasm of breast] Onset: 3 03-27-2024 Episodic Comment on above: Noted in 11/19/[address] Snell and 12/21/2022 office note. Added per outpatient CDI policy and marked breast cancer as not chronic. Cardiac dysrhythmias (6 sources) Supraventricular tachycardia; Translations: [Cardiac arrhythmia, unspecified] Onset: 2 Chronic Diabetes mellitus without complication (20 sources) Type 2 diabetes mellitus without complications; Translations: [Type 2 diabetes mellitus] Onset: 2 11-25-2022 Chronic Comment on above: Linked per outpatien t CDI policy. Diabetes mellitus without complication (1 source) Prediabetes; Translations: [PREDIABETES] Onset: 3 Episodic Disorders of lipid metabolism (13 sources) Hyperlipidemia, unspecified; Translations: [Hypercholesterolemia] Onset: 2 01-05-2024 Chronic Esophageal disorders (20 sources) Gastro-esophageal reflux disease without esophagitis; Translations: [Gastroesophageal reflux disease] Onset: 3 11-25-2022 Chronic Essential hypertension (20 sources) Essential (primary) hypertension; Translations: [Hypertensive disorder] Onset: 3 11-25-2022 Chronic Genitourinary symptoms and ill-defined conditions (1 source) Personal history of urinary (tract) infections; Translations: [PERS HX URINARY TRACT INFECTIONS] Onset: 3 Episodic Glaucoma (19 sources) Glaucoma 11-26-2022 Chronic Headache; including migraine (19 sources) Episodic tension-type headache 11-25-2022 Chronic Hemorrhoids (19 sources) Hemorrhoids 11-26-2022 Episodic Malaise and fatigue (13 sources) Other fatigue; Translations: [Fatigue] Onset: 2 06-01-2023 Episodic Noninfectious gastroenteritis (1 source) Noninfective gastroenteritis and colitis, unspecified; Translations: [NONINFECTIVE GE AND COLITIS UNS] Onset: 3 Episodic Osteoarthritis (20 sources) Unspecified osteoarthritis, unspecified site; Translations: [Arthritis] Onset: 3 11-25-2022 Chronic Comment on above: L spine W L5-S1 narr owing Osteoporosis (20 sources) Age-related osteoporosis without current pathological fracture; Translations: [Osteoporosis] Onset: 3 11-26-2022 Chronic Other aftercare (1 source) Other halfway (current) drug therapy; Translations: [OTH [facility] CURRENT DRUG THERAPY] Onset: 3 Episodic Other and ill-defined heart disease (2 sources) Other ill-defined heart diseases; Translations: [Other ill-defined heart diseases] Onset: 4 Chronic Other and unspecified benign neoplasm (2 sources) Melanocytic nevus of trunk; Translations: [Melanocytic nevi of trunk] 07-03-2024 Episodic Other circulatory disease (2 sources) Spider nevus; Translations: [Nevus, non-neoplastic] 07-03-2024 Episodic Other connective tissue disease (19 sources) Achilles tendinitis 11-26-2022 Episodic Other ear and sense organ disorders (17 sources) Hearing loss 02-10-2023 Chronic Other gastrointestinal disorders (4 sources) Diarrhea, unspecified; Translations: [DIARRHEA UNSPECIFIED] Onset: 3 Episodic Other lower respiratory disease (8 sources) Chronic cough 02-10-2023 Episodic Other lower respiratory disease (10 sources) Cough 10-04-2023 Episodic Other lower respiratory disease (10 sources) Dyspnea 10-04-2023 Episodic Other nutritional; endocrine; and metabolic disorders (12 sources) Excessive thirst 06-01-2023 Episodic Other nutritional; endocrine; and metabolic disorders (7 sources) Overweight in adulthood with body mass index of 25 or more but less than 30 07-26-2024 Episodic Other screening for suspected conditions (not mental disorders or infectious disease) (1 source) Screening for malignant neoplasm of colon done; Translations: [Encounter for screening for malignant neoplasm of colon] Onset: 5 Episodic Other skin disorders (2 sources) Seborrheic keratosis; Translations: [Other seborrheic keratosis] 07-03-2024 Episodic Other skin disorders (2 sources) Lentiginosis; Translations: [Other melanin hyperpigmentation] 07-03-2024 Episodic Other skin disorders (2 sources) Actinic keratosis; Translations: [Actinic keratosis] 07-03-2024 Episodic Pneumonia (except that caused by tuberculosis or sexually transmitted disease) (19 sources) Pneumonia 11-26-2022 Episodic Residual codes; unclassified [...] left side] Onset: 3 Episodic Thyroid disorders (19 sources) Hypothyroidism 11-25-2022 Chronic Unclassified (1 source) PERSONAL HISTORY OF COVID-19; Translations: [PERSONAL HISTORY OF COVID-19] Onset: 3 Unclassified (1 source) CONTACT W/AND (SUSP) EXPOS COVID-19; Translations: [CONTACT W/AND (SUSP) EXPOS COVID-19] Onset: 2 Unclassified (20 sources) Patient encounter status 06-01-2023 Unclassified (1 source) Other ventricular tachycardia; Translations: [Other ventricular tachycardia] Onset: 3 Viral infection (19 sources) Infectious mononucleosis 11-25-2022 Episodic Past or [...] IN LEFT FOOT] Onset: 07-21-2022 Episodic Other lower respiratory disease (2 sources) Other forms of dyspnea; Translations: [Other forms of dyspnea] Onset: 08-28-2022 Episodic Other non-traumatic joint disorders (5 sources) [...] left ankle, sequela] Onset: 04-27-2022 Episodic Unclassified (19 sources) BRCA2 mutation carrier detection test 11-26-2022 Unclassified (1 source) Other ventricular tachycardia; Translations: [Other ventricular tachycardia] Onset: 03-14-2024 Viral infection (19 sources) Disease caused by 2019-nCoV 11-26-2022 Results Test Name Value Interpretation Reference Range Facility [facility] Mamm Screen w/CAD if perf and 3D RTon 05-21-2025 [place] Mamm Screen w/CAD if perf and 3D RT Exam Date/Time: 05/21/2025 12:03 EDT Reason for Exam: Z12.31;Screening Report IMPRESSION: BIRADS 2 BENIGN FINDINGS, NORMAL INTERVAL FOLLOW-UP.12 MONTH RECALL. CLINICAL HISTORY: Screening, Z12.31. COMPARISON: 05/01/2024. COMMENT: Patient has a history of left mastectomy. Tomosynthesis views of the right breast were obtained. There are scattered areas of fibroglandular density. There are small stable nodular densities. There are vascular calcifications. No dominant breast mass nor neoplastic calcifications are identified. There has been no significant change from the previous exam. The examination was reviewed with Computer Aided Detection. Breast Density: No Mammography is very important to your health. The current [place] [employer] and National [employer] guidelines recommends annual mammography beginning at age 40. This facility utilizes a reminder system to ensure all patients receive reminder notifications at the appropriate time based on the recommendations of this exam. Board Certified Radiologists. Accredited by the ACR and FDA. Ordering Provider: Luzmaria Tan FINAL REPORT Dictated: 05/21/2025 3:55 pm Jamin Garcias M.D. Signed (Electronic Signature): 05/21/2025 3:55 pm Signed by: Jamin Garcias M.D. Transcribed by: ALEXANDREA Technologist: TALYA Assessment: BI-RADS Category 2-Benign finding Recommendation: Normal interval follow-up Normal [facility] Ambulatory Visit Summaryon 0 02-06-2025 Ambulatory Visit Summary Ambulatory Visit Summary STEPHANIE WASSERMAN :1945 Visit Date:02/06/2025 Ambulatory Visit Instructions Your Diagnosis Shingles rash Non-smoker BMI 28.0-28.9,adult Your Care Team Attending Physician - ALEXIS RAND CNP Primary Care Physician - Luzmaria Lamas This Is Your Medications List gabapentin (gabapentin 300 mg Cap) valacyclovir (valacyclovir 1 g Tab) Contact prescribing physician if questions or concerns Misc Prescription (Breast prosthetic and bra) Misc Prescription (Misc DME Prescription) Misc Prescription (lancets) Misc Prescription (test strips true metrix) albuterol (Albuterol (Eqv-Ventolin HFA) 90 mcg/inh inhalation aerosol) aluminum hydroxide-magnesium carbonate (Gaviscon Extra Strength 160 mg-105 mg oral tablet, chewable) amlodipine (amLODIPine 10 mg Tab) ascorbic acid-collagen (Collagen Skin Renewal) atorvastatin (atorvastatin 20 mg Tab) bifidobacterium-lactoba cillus (Nature's Bounty Probiotic) budesonide/formoterol/g lycopyrrolate (Breztri Aerosphere inhalation aerosol) calcium citrate (calcium (as calcium citrate) 200 mg oral tablet) esomeprazole (Nexium 40 mg Cap-EC) fenofibrate (fenofibrate 48 mg Tab) losartan (losartan 100 mg Tab) metformin (metformin 500 mg Tab) Procedures Performed Epidural injection of lumbar spine using fluoroscopic guidance (05/09/2023), Ankle (06/12/2022), Cholecystectomy, Mastectomy. Discharge Vitals Temperature (Oral) 36.3 ???C Heart Rate (Peripheral) 66 Respiratory Rate 18 Blood Pressure 128/84 Height 167.0 cm Height 66 in Weight 80.8 kg Weight 178.133 lb BMI 28.97 What to do next Scheduled Follow-Up Appointments Tuesday 10:40 AM EST With: Jason Timmons MD Where: [address] [address]- Tuesday 11:00 AM EST With: Where: [address] [address]- Medications What How Much When Why Instructions New gabapentin (gabapentin 300 mg Cap) 1 Capsules By Mouth 2 times a day Shingles rash Non-smoker BMI 28.0-28.9,adult Overweight (BMI 25.0-29.9) Pickup at [facility] 1985 New valacyclovir (valacyclovir 1 g Tab) 1 Tablets By Mouth 3 times a day Shingles rash Non-smoker BMI 28.0-28.9,adult Overweight (BMI 25.0-29.9) Duration: 7 Days Pickup at [facility] 1985 Unchanged albuterol (Albuterol (Eqv-Ventolin HFA) 90 mcg/ inh inhalation aerosol) 2 Puffs Inhalation Every 6 hours INHALE 2 PUFFS BY MOUTH EVERY 4 HOURS Contact prescribing physician if questions or concerns Unchanged aluminum hydroxide-magnesium carbonate (Gaviscon Extra Strength 160 mg-105 mg oral tablet, chewable) 4 Tablets Chewed 3 times a day as needed for for indigestion Screen for colon cancer GERD (gastroesophageal reflux disease) History of breast cancer Contact prescribing physician if questions or concerns Unchanged amlodipine (amLODIPine 10 mg Tab) TAKE 1 TABLET BY MOUTH IN THE MORNING Contact prescribing physician if questions or concerns Unchanged ascorbic acid-collagen (Collagen Skin Renewal) Contact prescribing physician if questions or concerns Unchanged atorvastatin (atorvastatin 20 mg Tab) 1 Tablets By Mouth Every day S/P mastectomy Contact prescribing physician if questions or concerns Unchanged bifidobacterium-lactoba cillus (Nature's Bounty Probiotic) Contact prescribing physician if questions or concerns Unchanged budesonide/ formoterol/ glycopyrrolate (Breztri Aerosphere inhalation aerosol) 2 Puffs Inhalation 2 times a day Type 2 diabetes mellitus with hypercholesterolemia BMI 28.0-28.9,adult Overweight Nonsmoker Contact prescribing physician if questions or concerns Unchanged calcium citrate (calcium (as calcium citrate) 200 mg oral tablet) See instructions Daily Contact prescribing physician if questions or concerns Unchanged esomeprazole (Nexium 40 mg Cap-EC) 1 Capsules By Mouth Twice a day (before meals) Screen for colon cancer GERD (gastroesophageal reflux disease) History of breast cancer Contact prescribing physician if questions or concerns Unchanged fenofibrate (fenofibrate 48 mg Tab) 1 Tablets TAKE 1 TABLET BY MOUTH IN THE MORNING Contact prescribing physician if questions or concerns Unchanged losartan (losartan 100 mg Tab) 1 Tablets By Mouth Every day Contact prescribing physician if questions or concerns Unchanged metformin (metformin 500 mg Tab) 1 Tablets By Mouth 2 times a day Type 2 diabetes mellitus BMI 28.0-28.9,adult Non-smoker Contact prescribing physician if questions or concerns Unchanged Misc Prescription (Breast prosthetic and bra) See instructions S/P mastectomy due to mastectomy 4 bras 1prostetic Contact prescribing physician if questions or concerns Unchanged Misc Prescription (lancets) See instructions to check BS daily e11.69 Contact prescribing physician if ques (more content not included)... Normal [facility] Medicine Office/Clini c Noteon 02-06-2025 Family Medicine Office/Clinic Note Family Medicine Office/Clinic Note Chief Complaint The patient presents with pain and rash suspected to be shingles. HPI Staff Stephanie is a 79 year old female presenting with possible Shingles Onset: noticed rash last night shoulder and neck pain she has spots right side no itching but very painful She did have shingles 30 years ago History of Present Illness 79 [address] patient of Dr[address] Timmons presents for evaluation of possible shingles. She reports shoulder and neck pain over the past few days, which she initially attributed to previous shoulder issues, but upon observation, she discovered a rash on her back and arms. The rash is confirmed to be shingles, characterized by its painful nature. The patient had a prior episode of shingles approximately 30 years ago and was unaware of the possibility of recurrence. She reports the area is painful. Review of Systems PHQ Score Initial Depression Screen Score: 0 SCORE - General: Denies pruritus; reports significant discomfort. - Skin: Reports a painful rash on the back and arms. - Musculoskeletal: Reports pain in the shoulder and neck. Physical Exam Vitals & Measurements T: 36.3 ???C(Oral) HR: 66(Peripheral) RR: 18 BP: 128/84 SpO2: 97% HT: 66 in HT: 167.0 cm WT: 178.133 lb WT: 80.8 kg BMI: 28.97 General: alert, no acute distress Skin: vesicles along the posterior right shoulder extending down the right bicep area Head: no trauma, normocephalic Neck: Trachea midline, no adenopathy, no tenderness Eye: normal conjunctiva, sclera clear Cardiovascular: regular rate and rhythm, normal peripheral perfusion Respiratory: Lungs CTA, respirations non labored Neurological: oriented x 4, LOC appropriate for age speech normal Assessment/Plan 1. Shingles rash (B02.9: Zoster without complications) - Prescribed Valacyclovir for antiviral treatment. - Advised to verify insurance coverage for the shingles vaccine. - Informed about the recurrence potential of shingles and current treatment guidelines. - Advised to delay vaccination for six months post-outbreak clearance. - Medication Agreement completed at this visit - OARRS reviewed and found to be appropriate - F/U with pcp if no improvement in 3-5 days Ordered: gabapentin, 300 mg = 1 cap(s), Oral, BID, # 28 cap(s), Refills(s) 0, Pharmacy: [facility], 167, cm, 02/06/25 12:42:00 EDT, Height/Length Dosing, 80.8, kg, 02/06/25 12:42:00 EDT, Weight Dosing valacyclovir, 1 gm = 1 tab(s), Oral, TID, X 7 day(s), # 21 tab(s), Refills(s) 0, [facility], cm, 02/06/25 12:42:00 EDT, Height/Length Dosing, 80.8, kg, 02/06/25 12:42:00 EDT, Weight Dosing 2. Non-smoker (Z78.9: Other specified health status) - No action required for non-smoking status. Ordered: gabapentin, 300 mg = 1 cap(s), Oral, BID, # 28 cap(s), Refills(s) 0, Pharmacy: [facility], 167, cm, 02/06/25 12:42:00 EDT, Height/Length Dosing, 80.8, kg, 02/06/25 12:42:00 EDT, Weight Dosing valacyclovir, 1 gm = 1 tab(s), Oral, TID, X 7 day(s), # 21 tab(s), Refills(s) 0, [facility], [facility], cm, 02/06/25 12:42:00 EDT, Height/Length Dosing, 80.8, kg, 02/06/25 12:42:00 EDT, Weight Dosing Body Mass Index (BMI) documented 3008F Current tobacco non-user 1036F Depression Screening Negative 3352F Influenza immunization status assessed 1030F Medication list documented in medical record 1159F Most recent diastolic blood pressure 80-89 mm Hg 3079F Patient screen for fall risk: no falls in last year or 1 fall with no injury in last year 1101F Review of all meds by a prescribing practitioner or clinical pharmacist documented in EHR 1160F Systolic BP <130 mm Hg (Most Recent) 3074F 3. BMI 28.0-28.9,adult (Z68.28: Body mass index [BMI] 28.0-28.9, adult) The standard range for ages 18 and older is >=18.5 and < 25 kg/m2. Your BMI today was above this range, this falls in the overweight to obese category and there are medical benefits to weight loss. We can offer counselling, referral, and/or medical support in addressing this problem. Your BMI and weight management will be followed at subsequent visits. Ordered: gabapentin, 300 mg = 1 cap(s), Oral, BID, # 28 cap(s), Refills(s) 0, Pharmacy: [facility], 167, cm, 02/06/25 12:42:00 EDT, Height/Length Dosing, 80.8, kg, 02/06/25 12:42:00 EDT, Weight Dosing valacyclovir, 1 gm = 1 tab(s), Oral, TID, X 7 day(s), # 21 tab(s), Refills(s) 0, Pharmacy: [facility], 167, cm, 02/06/25 12:42:00 EDT, Height/Length Dosing, 80.8, kg, 02/06/25 12:42:00 EDT, Weight Dosing Body Mass Index (BMI) documented 3008F Current tobacco non-user 1036F Depression Screening Negative 3352F Influenza immunization status assessed 1030F Medication list documented in medical record 1159F Most recent diastolic blood pressure 80-89 mm Hg 3079F Patient screen for fall risk: no falls in last year or 1 fall with no injury in last year 1101F Review of all meds by a prescribing practitio (more content not included)... Normal [facility] Comment on above: Result Comment: Elec tronically Signed By: ALEXIS RAND CNP\.boogie\Date and Time Signed: 02/06/25 13:05 EDT Josie 01-25-2025 ALT No additional P-5'-P [Catalytic activity/Vol] 16 Int._Unit/L Normal 6-[address] [facility] Comment on above: Performed By: #### 2 [id number] #### [facility] [address] [place] [address] Juan Miguel 01-25-2025 AST [Catalytic activity/Vol] 17 Int._Unit/L Normal 5-[address] [facility] Comment on above: Performed By: #### 2 [id number] #### [facility] [address] [place] [address] CHEMISTRYOrdered By: SYSTEM SYSTEM on 01-25-2025 ALT No additional P-5'-P [Catalytic activity/Vol] 16 [iU]/d Normal 6 - 46 Int._Unit/L Remisol Chem AST [Catalytic activity/Vol] 17 [iU]/d Normal 5 - 43 Int._Unit/L Remisol Chem Cholesterol [Mass/Vol] 154 mg/dL Normal 120 - 200 mg/dL Remisol Chem Cholesterol in HDL [Mass/Vol] 50 mg/dL Invalid Interpretation Code Remisol Chem Comment on above: Result Comment: '>= 60 LOW RISK' '<= 40 HIGH RISK' Cholesterol in LDL [Mass/Vol] 83 mg/dL Normal <=129mg/dL Remisol Chem Cholesterol in VLDL [Mass/Vol] 29 mg/dL Normal 7 - 40 mg/dL Remisol Chem Triglyceride [Mass/Vol] 147 mg/dL Normal <=149mg/dL Remisol Chem Lipid Panelon 01-25-2025 Cholesterol [Mass/Vol] 154 mg/dL Normal 120-[address] [facility] Comment on above: Performed By: #### 2 [id number] #### [facility] [address] [place] [address] Cholesterol in HDL [Mass/Vol] 50 mg/dL Invalid Interpretation Code [facility] Comment on above: Result Comment: '>= 60 LOW RISK' '<= 40 HIGH RISK' Performed By: #### 2 [id number] #### [facility] [address] [place] [address] Cholesterol in LDL [Mass/Vol] 83 mg/dL Normal <=[address] [facility] Comment on above: Performed By: #### 2 [id number] #### [facility] [address] [place] [address] Cholesterol in VLDL [Mass/Vol] 29 mg/dL Normal 7-[address] [facility] Comment on above: Performed By: #### 2 [id number] #### [facility] [address] [place] [address] Triglyceride [Mass/Vol] 147 mg/dL Normal <=[address] [facility] Comment on above: Performed By: #### 2 [id number] #### [facility] [address] [place] [address] Ambulatory Visit Summaryon 0 12-27-2024 Ambulatory Visit Summary Ambulatory Visit Summary STEPHANIE WASSERMAN :1945 Visit Date:12/27/2024 Ambulatory Visit Instructions Your Diagnosis Hypercholesteremia HTN (hypertension) Type 2 diabetes mellitus BMI 28.0-28.9,adult Non-smoker Your Care Team Attending Physician - Luzmaria Lamas Primary Care Physician - Luzmaria Lamas This Is Your Medications List Misc Prescription (Breast prosthetic and bra) Misc Prescription (Misc DME Prescription) Misc Prescription (lancets) Misc Prescription (test strips true metrix) albuterol (Albuterol (Eqv-Ventolin HFA) 90 mcg/inh inhalation aerosol) aluminum hydroxide-magnesium carbonate (Gaviscon Extra Strength 160 mg-105 mg oral tablet, chewable) amlodipine (amLODIPine 10 mg Tab) ascorbic acid-collagen (Collagen Skin Renewal) atorvastatin (atorvastatin 20 mg Tab) bifidobacterium-lactoba cillus (Nature's Bounty Probiotic) budesonide/formoterol/g lycopyrrolate (Breztri Aerosphere inhalation aerosol) calcium citrate (calcium (as calcium citrate) 200 mg oral tablet) esomeprazole (Nexium 40 mg Cap-EC) fenofibrate (fenofibrate 48 mg Tab) losartan (losartan 100 mg Tab) metformin (metformin 500 mg Tab) Procedures Performed Epidural injection of lumbar spine using fluoroscopic guidance (05/09/2023), Ankle (06/12/2022), Cholecystectomy, Mastectomy. Discharge Vitals Heart Rate (Peripheral) 68 Respiratory Rate 18 Blood Pressure 142/66 Height 167.0 cm Height 66 in Weight 79.15 kg Weight 174.496 lb BMI 28.38 What to do next Scheduled Follow-Up Appointments Tuesday 10:40 AM EST With: Jason Timmons MD Where: [address] [address]- Tuesday 11:00 AM EST With: Where: [address] [address]- Medications What How Much When Why Instructions Unchanged albuterol (Albuterol (Eqv-Ventolin HFA) 90 mcg/ inh inhalation aerosol) 2 Puffs Inhalation Every 6 hours INHALE 2 PUFFS BY MOUTH EVERY 4 HOURS Unchanged aluminum hydroxide-magnesium carbonate (Gaviscon Extra Strength 160 mg-105 mg oral tablet, chewable) 4 Tablets Chewed 3 times a day as needed for for indigestion Screen for colon cancer GERD (gastroesophageal reflux disease) History of breast cancer Unchanged amlodipine (amLODIPine 10 mg Tab) TAKE 1 TABLET BY MOUTH IN THE MORNING Unchanged ascorbic acid-collagen (Collagen Skin Renewal) Unchanged atorvastatin (atorvastatin 20 mg Tab) 1 Tablets By Mouth Every day S/P mastectomy Unchanged bifidobacterium-lactoba cillus (Nature's Bounty Probiotic) Unchanged budesonide/ formoterol/ glycopyrrolate (Breztri Aerosphere inhalation aerosol) 2 Puffs Inhalation 2 times a day Type 2 diabetes mellitus with hypercholesterolemia BMI 28.0-28.9,adult Overweight Nonsmoker Unchanged calcium citrate (calcium (as calcium citrate) 200 mg oral tablet) See instructions Daily Unchanged esomeprazole (Nexium 40 mg Cap-EC) 1 Capsules By Mouth Twice a day (before meals) Screen for colon cancer GERD (gastroesophageal reflux disease) History of breast cancer Unchanged fenofibrate (fenofibrate 48 mg Tab) 1 Tablets TAKE 1 TABLET BY MOUTH IN THE MORNING Unchanged losartan (losartan 100 mg Tab) 1 Tablets By Mouth Every day Unchanged metformin (metformin 500 mg Tab) 1 Tablets By Mouth 2 times a day Type 2 diabetes mellitus BMI 28.0-28.9,adult Non-smoker Unchanged Misc Prescription (Breast prosthetic and bra) See instructions S/P mastectomy due to mastectomy 4 bras 1prostetic Unchanged Misc Prescription (lancets) See instructions to check BS daily e11.69 Unchanged Misc Prescription (Misc DME Prescription) See instructions True metrix air meter kit Unchanged Misc Prescription (test strips true metrix) See instructions test stripts to test BS daily e.11.69 Allergies Accupril (Unknown) Anaprox (Unknown) Avelox (Unknown) Diflucan (Unknown) cephalexin (Unknown) erythromycin (Stomach upset) sulfa drugs (Unknown) Problems Ongoing - Any problem that you are currently receiving treatment for. BMI 29.0-29.9,adult Breast cancer screening by mammogram Cervical radiculitis Cough Episodic tension type headache Excessive thirst Fatigue GERD (gastroesophageal reflux disease) Hearing deficit History of breast cancer HTN (hypertension) Hypercholesteremia Hypothyroidism Lower back pain Mononucleosis Osteoarthritis S/P mastectomy Sciatica Screen for colon cancer Shortness of breath Type 2 diabetes mellitus Type 2 diabetes mellitus with hypercholesterolemia Wellness examination Historical - Any problem that you are no longer receiving treatment for. Achilles tendonitis Arthritis Breast cancer 2, early onset gene mutation carrier detection test COVID-19 Fibroids Glaucoma Hemorrhoids Osteoporosis Pneumonia (more content not included)... Normal [facility] Family Medicine Office/Clini c Noteon 12-27-2024 Family Medicine Office/Clinic Note Family Medicine Office/Clinic Note HPI Staff Stephanie is a 79 year old female presenting Patient is here for follow up on Diabetes. How often are you checking your blood sugars? 1 times per day What are your average readings? fasting low 100's Paresthesias, Ulcerations or sores? no Lisinopril, aspirin, statin therapy? Yes Foot Exam: Eye Exam: not in the last year Last A1c: Hgb A1C %: 5.9 % (11/26/24 08:16:00) Questions/Concerns: pt need refill on atorvastatin History of Present Illness pt presents today for 6 month follow up . med check Review of Systems PHQ Score Initial Depression Screen Score: 0 SCORE Physical Exam Vitals & Measurements HR: 68(Peripheral) RR: 18 BP: 142/66 SpO2: 96% HT: 167.0 cm HT: 66 in WT: 79.15 kg WT: 174.496 lb BMI: 28.38 General: alert, no acute distress ENMT: oral mucosa moist, no pharyngeal erythema or exudate Cardiovascular: regular rate and rhythm, normal peripheral perfusion Respiratory: Lungs CTA, respirations non labored Extremities: no deformity, no trauma Neurological: oriented x 4, LOC appropriate for age, CN II-XII intact, motor strength equal & normal bilaterally, speech normal Assessment/Plan 1. Hypercholesteremia (E78.00: Pure hypercholesterolemia, unspecified) reviewed labs. cardiology added fibrinate for elevated triglycerides. will send refills on statin. RTC 6 months for AMW visit Ordered: Body Mass Index (BMI) documented 3008F Current tobacco non-user 1036F Depression Screening Negative 3352F HBA1C <7.0 Most Recent Level 3044F Most recent diastolic blood pressure <80 mm Hg 3078F Most recent systolic blood pressure >= 140 mm Hg 3077F Patient screen for fall risk: no falls in last year or 1 fall with no injury in last year 1101F 2. HTN (hypertension) (I10: Essential (primary) hypertension) BP at goal Ordered: Body Mass Index (BMI) documented 3008F Current tobacco non-user 1036F Depression Screening Negative 3352F HBA1C <7.0 Most Recent Level 3044F Most recent diastolic blood pressure <80 mm Hg 3078F Most recent systolic blood pressure >= 140 mm Hg 3077F Patient screen for fall risk: no falls in last year or 1 fall with no injury in last year 1101F 3. Type 2 diabetes mellitus (E11.9: Type 2 diabetes mellitus without complications) HGBA1C 5.9 Ordered: Body Mass Index (BMI) documented 3008F Current tobacco non-user 1036F Depression Screening Negative 3352F HBA1C <7.0 Most Recent Level 3044F Most recent diastolic blood pressure <80 mm Hg 3078F Most recent systolic blood pressure >= 140 mm Hg 3077F Patient screen for fall risk: no falls in last year or 1 fall with no injury in last year 1101F 4. BMI 28.0-28.9,adult (Z68.28: Body mass index [BMI] 28.0-28.9, adult) BMI education given Ordered: Body Mass Index (BMI) documented 3008F Current tobacco non-user 1036F Depression Screening Negative 3352F HBA1C <7.0 Most Recent Level 3044F Most recent diastolic blood pressure <80 mm Hg 3078F Most recent systolic blood pressure >= 140 mm Hg 3077F Patient screen for fall risk: no falls in last year or 1 fall with no injury in last year 1101F 5. Non-smoker (Z78.9: Other specified health status) continue not smoking Ordered: Body Mass Index (BMI) documented 3008F Current tobacco non-user 1036F Depression Screening Negative 3352F HBA1C <7.0 Most Recent Level 3044F Most recent diastolic blood pressure <80 mm Hg 3078F Most recent systolic blood pressure >= 140 mm Hg 3077F Patient screen for fall risk: no falls in last year or 1 fall with no injury in last year 1101F Orders: famotidine, 40 mg = 1 tab(s), Oral, Once a day (at bedtime), X 90 day(s), # 90 tab(s), Refills(s) 3, Pharmacy: [facility], 167, cm, 01/05/24 11:25:00 EDT, Height/Length Dosing, 80.1, kg, 01/05/24 11:25:00 EDT, Weight Dosing Follow-up No qualifying data available Problem List/Past Medical History Ongoing BMI 29.0-29.9,adult Breast cancer screening by mammogram Cervical radiculitis Cough Episodic tension type headache Excessive thirst Fatigue GERD (gastroesophageal reflux disease) Hearing deficit History of breast cancer HTN (hypertension) Hypercholesteremia Hypothyroidism Lower back pain Mononucleosis Osteoarthritis S/P mastectomy Sciatica Screen for colon cancer Shortness of breath Type 2 diabetes mellitus Type 2 diabetes mellitus with hypercholesterolemia Wellness examination Historical Achilles tendonitis Arthritis Breast cancer 2, 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 Medications Albuterol (Eqv-Ventolin HFA) 90 mcg/inh inhalation aerosol, 2 puff(s), Inhalation, q6hr, 6 refills amLODIPine 10 mg Tab atorvastatin 20 mg Tab, (more content not included)... Normal [facility] Comment on above: Result Comment: Elec tronically Signed By: Luzmaria Lamas\.br\Date and Time Signed: 12/27/24 10:45 EDT Josie 11-26-2024 ALT No additional P-5'-P [Catalytic activity/Vol] 15 Int._Unit/L Normal 6-[address] [facility] Comment on above: Performed By: #### 2 [id number] #### [facility] [address] [place] [address] Juan Miguel 11-26-2024 AST [Catalytic activity/Vol] 15 Int._Unit/L Normal 5-[address] [facility] Comment on above: Performed By: #### 2 [id number] #### [facility] [address] [place] [address] BMPon 11-26-2024 Anion gap [Moles/Vol] 11 mmol/L Normal 6-[address] [facility] Comment on above: Performed By: #### 2 [id number] #### [facility] [address] [place] [address] Calcium [Mass/Vol] 8.9 mg/dL Normal 8.9-11.[address] [facility] Comment on above: Performed By: #### 2 [id number] #### [facility] [address] [place] [address] Chloride [Moles/Vol] 104 mmol/L Normal 101-111 [facility] Comment on above: Performed By: #### 2 [id number] #### [facility] [address] [place] [address] CO2 [Moles/Vol] 29 mmol/L Normal 21-31 [facility] Comment on above: Performed By: #### 2 [id number] #### [facility] [address] [place] [address] Creatinine [Mass/Vol] 0.8 mg/dL Normal 0.5-1.[address] [facility] Comment on above: Performed By: #### 2 [id number] #### [facility] [address] [place] [address] Glucose [Mass/Vol] 115 mg/dL Normal 55-[address] [facility] Comment on above: Performed By: #### 2 [id number] #### [facility] [address] [place] [address] Potassium [Moles/Vol] 3.8 mmol/L Normal 3.5-5.[address] [facility] Comment on above: Performed By: #### 2 [id number] #### [facility] [address] [place] [address] Sodium [Moles/Vol] 140 mmol/L Normal 135-[address] [facility] Comment on above: Performed By: #### 2 [id number] #### [facility] [address] [place] [address] Urea nitrogen [Mass/Vol] 13 mg/dL Normal 5-[address] [facility] Comment on above: Performed By: #### 2 [id number] #### [facility] [address] [place] [address] Urea nitrogen/Creatinine [Mass ratio] 16 No Units Normal 10-[address] [facility] Comment on above: Performed By: #### 2 [id number] #### [facility] [address] [place] [address] BNPon 11-26-2024 Natriuretic peptide B (Bld) [Mass/Vol] 80 pg/mL Normal 5-[address] [facility] Comment on above: Performed By: #### 1 [id number] #### [facility] [address] [place] [address] CHEMISTRYOrdered By: SYSTEM SYSTEM on 11-26-2024 ALT No additional P-5'-P [Catalytic activity/Vol] 15 [iU]/d Normal 6 - 46 Int._Unit/L Remisol Chem Anion gap [Moles/Vol] 11 mmol/L Normal 6 - 16 mEq/L Remisol Chem AST [Catalytic activity/Vol] 15 [iU]/d Normal 5 - 43 Int._Unit/L [facility] Calcium [Mass/Vol] 8.9 mg/dL Normal 8.9 - 11. 1 mg/dL [facility] Chloride [Moles/Vol] 104 mmol/L Normal 101 - 1 11 mmol/L [facility] Cholesterol [Mass/Vol] 162 mg/dL Normal 120 - 200 mg/dL [facility] Cholesterol in HDL [Mass/Vol] 53 mg/dL Invalid Interpretation Code [facility] Comment on above: Result Comment: '>= 60 LOW RISK' '<= 40 HIGH RISK' Cholesterol in LDL [Mass/Vol] 93 mg/dL Normal <=129mg/dL [facility] Cholesterol in VLDL [Mass/Vol] 46 mg/dL High 7 - 40 mg/dL [facility] CO2 [Moles/Vol] 29 mmol/L Normal 21 - 31 mmol/L [facility] Creatinine [Mass/Vol] 0.8 mg/dL Normal 0.5 - 1.3 mg/dL [facility] Chem eGFR 74 mL/min/1.73 m2 Normal >=59mL/min /1. 73 m2 [facility] Glucose [Mass/Vol] 115 mg/dL Normal 55 - 199 mg/dL [facility] Potassium [Moles/Vol] 3.8 mmol/L Normal 3.5 - 5.3 mmol/L [facility] Sodium [Moles/Vol] 140 mmol/L Normal 135 - 145 mmol/L [facility] Triglyceride [Mass/Vol] 229 mg/dL High <=149mg/dL [facility] Urea nitrogen [Mass/Vol] 13 mg/dL Normal 5 - 21 mg/dL [facility] Urea nitrogen/Creatinine [Mass ratio] 16 mg/mg Normal 10 - 20 [facility] CHEMISTRYOrdered By: Yeimi Garcia on 11-26-2024 HbA1c (Bld) [Mass fraction] 5.9 % Normal <=5.9% [facility] ChemAutoSS CHEMISTRYOrdered By: Marietta Sandoval on 11-26-2024 Natriuretic peptide B (Bld) [Mass/Vol] 80 pg/mL Normal 5 - 80 pg/mL [facility] HemeManSS [id number] 11-26-2024 HbA1c (Bld) [Mass fraction] 5.9 % Normal <=5.[address] [facility] Comment on above: Performed By: #### [id number] #### [facility] [address] [place] [address] Lipid Panelon 11-26-2024 Cholesterol [Mass/Vol] 162 mg/dL Normal 120-[address] [facility] Comment on above: Performed By: #### 2 [id number] #### [facility] [address] [place] [address] Cholesterol in HDL [Mass/Vol] 53 mg/dL Invalid Interpretation Code [facility] Comment on above: Result Comment: '>= 60 LOW RISK' '<= 40 HIGH RISK' Performed By: #### [id number] #### [facility] [address] [place] [address] Cholesterol in LDL [Mass/Vol] 93 mg/dL Normal <=[address] [facility] Comment on above: Performed By: #### 2 [id number] #### [facility] [address] [place] [address] Cholesterol in VLDL [Mass/Vol] 46 mg/dL High 7-[address] [facility] Comment on above: Performed By: #### 2 [id number] #### [facility] [address] [place] [address] Triglyceride [Mass/Vol] 229 mg/dL High <=[address] [facility] Comment on above: Performed By: #### 2 [id number] #### [facility] [address] [place] [address] eGFRon 11-26-2024 eGFR 74 mL/min/1.73 m2 Normal >=[address] [facility] Comment on above: Performed By: #### 1 [id number] #### [facility] [address] [place] [address] Office Visiton 11-21-2024 Follow-up visit [id number] Stephanie Wasserman 1945 F Date Provider Department Center 11/21/2024 [id number] WHITTEN [facility] Family History Problem Relation Age of Onset Lung disease Mother Diabetes Mother's Sister Family Status - Relation Status Age at Mother Father Mother's Sister Other Level of Service:07768 NE OFFICE/OUTPATIENT ESTABLISHED MOD MDM 30 MIN Reason for Visit and Comments: 6 month follow up [Other] Hypertension [458644] NSVT [Other] Diabetes [34] Normal [facility] Ambulatory Visit Summaryon 0 10-31-2024 Ambulatory Visit Summary Ambulatory Visit Summary OMIDSATINDERSTEPHANIE :1945 Visit Date:10/31/2024 Ambulatory Visit Instructions Your Diagnosis URI with cough and congestion Non-smoker BMI 29.0-29.9,adult Overweight (BMI 25.0-29.9) Cough Body mass index [BMI] pediatric, 85th percentile to less than 95th percentile for age Your Care Team Attending Physician - ALEXIS RAND CNP Primary Care Physician - Luzmaria Lamas This Is Your Medications List azithromycin (azithromycin 250 mg Tab) benzonatate (Tessalon 100 mg Cap) Contact prescribing physician if questions or concerns Misc Prescription (Breast prosthetic and bra) Misc Prescription (Misc DME Prescription) Misc Prescription (lancets) Misc Prescription (test strips true metrix) albuterol (Albuterol (Eqv-Ventolin HFA) 90 mcg/inh inhalation aerosol) aluminum hydroxide-magnesium carbonate (Gaviscon Extra Strength 160 mg-105 mg oral tablet, chewable) amlodipine (amLODIPine 10 mg Tab) ascorbic acid-collagen (Collagen Skin Renewal) atorvastatin (atorvastatin 20 mg Tab) bifidobacterium-lactoba cillus (Nature's Bounty Probiotic) budesonide/formoterol/g lycopyrrolate (Breztri Aerosphere inhalation aerosol) calcium citrate (calcium (as calcium citrate) 200 mg oral tablet) esomeprazole (Nexium 40 mg Cap-EC) famotidine (famotidine 40 mg Tab) losartan (losartan 100 mg Tab) metformin (metformin 500 mg Tab) [Image Removed: STOP]Stop taking these medications budesonide/formoterol/g lycopyrrolate (Breztri Aerosphere inhalation aerosol) Procedures Performed Epidural injection of lumbar spine using fluoroscopic guidance (05/09/2023), Ankle (06/12/2022), Cholecystectomy, Mastectomy. Discharge Vitals Temperature (Oral) 36.6 ???C Heart Rate (Peripheral) 72 Respiratory Rate 20 Blood Pressure 122/82 Height 167.0 cm Height 66 in Weight 81.1 kg Weight 178.795 lb BMI 29.08 What to do next Scheduled Follow-Up Appointments 2024 10:20 AM EDT With: Luzmaria Lamas Where: [address] [address]- Tuesday 11:00 AM EST With: Where: [facility] [place] [address] [id number]- Medications What How Much When Why Instructions New azithromycin (azithromycin 250 mg Tab) 1 Packets By Mouth As Directed URI with cough and congestion Duration: 5 Days as directed on package labeling Pickup at [facility] 1985 New benzonatate (Tessalon 100 mg Cap) 1 Capsules By Mouth 3 times a day URI with cough and congestion Duration: 7 Days Pickup at [facility] 1985 Unchanged albuterol (Albuterol (Eqv-Ventolin HFA) 90 mcg/ inh inhalation aerosol) 2 Puffs Inhalation Every 6 hours INHALE 2 PUFFS BY MOUTH EVERY 4 HOURS Contact prescribing physician if questions or concerns Unchanged aluminum hydroxide-magnesium carbonate (Gaviscon Extra Strength 160 mg-105 mg oral tablet, chewable) 4 Tablets Chewed 3 times a day as needed for for indigestion Screen for colon cancer GERD (gastroesophageal reflux disease) History of breast cancer Contact prescribing physician if questions or concerns Unchanged amlodipine (amLODIPine 10 mg Tab) TAKE 1 TABLET BY MOUTH IN THE MORNING Contact prescribing physician if questions or concerns Unchanged ascorbic acid-collagen (Collagen Skin Renewal) Contact prescribing physician if questions or concerns Unchanged atorvastatin (atorvastatin 20 mg Tab) 1 Tablets By Mouth Every day S/P mastectomy Contact prescribing physician if questions or concerns Unchanged bifidobacterium-lactoba cillus (Nature's Bounty Probiotic) Contact prescribing physician if questions or concerns Unchanged budesonide/ formoterol/ glycopyrrolate (Breztri Aerosphere inhalation aerosol) 2 Puffs Inhalation 2 times a day Type 2 diabetes mellitus with hypercholesterolemia BMI 28.0-28.9,adult Overweight Nonsmoker Contact prescribing physician if questions or concerns Unchanged calcium citrate (calcium (as calcium citrate) 200 mg oral tablet) See instructions Daily Contact prescribing physician if questions or concerns Unchanged esomeprazole (Nexium 40 mg Cap-EC) 1 Capsules By Mouth Twice a day (before meals) Screen for colon cancer GERD (gastroesophageal reflux disease) History of breast cancer Contact prescribing physician if questions or concerns Unchanged famotidine (famotidine 40 mg Tab) 1 Tablets By Mouth Once a day (at bedtime) Duration: 90 Days Contact prescribing physician if questions or concerns Unchanged losartan (losartan 100 mg Tab) 1 Tablets By Mouth Every day Contact prescribing physician if questions or concerns Unchanged metformin (metformin 500 mg Tab) 1 Tablets By Mouth 2 times a day Type 2 diabetes mellitus BMI 28.0-28.9,adult Non-smoker Contact prescribing physician if questions or concerns Unchanged Misc Prescription (Breast prosthetic (more content not included)... Normal [facility] Family Medicine Office/Clini c Noteon 10-31-2024 Family Medicine Office/Clinic Note Family Medicine Office/Clinic Note HPI Staff Stephanie is a 78 year old female presenting with cough and congestion Symptoms started- Tuesday Headache- a little bit Body aches- no Earache- no Runny/stuffy nose- yes runny Problem with Smell- no Problem with Taste- no Sore throat- a little bit Cough- yes Scratchy or tickle in throat- yes Chest symptoms- SOB- yes Lung Hx asthma, bronchitis, chest colds- COPD Fever/chills- no COVID exposure- no Tried- Mucinex and Robitussin has not helped at all COVID tested IO- NEG FLU tested IO today- NEG I have reviewed and verified the staff HPI to be accurate for this encounter. History of Present Illness 78 year old patient of IAN Wilson presents for an acute visit due to cough and congestion that started on Tuesday.She denies headache, ear pain, and fever. She reports she has a slight sore throat and was recently diagnosed with mild COPD and is a know diabetic. She states she tried about three doses of Mucinex and some Robitussin without any improvement. She states in the past she has received a Z-pack and that has worked well as she has multiple medication allergies. Review of Systems PHQ Score Initial Depression Screen Score: 0 SCORE Physical Exam Vitals & Measurements T: 36.6 ???C(Oral) HR: 72(Peripheral) RR: 20 BP: 122/82 SpO2: 97% HT: 66 in HT: 167.0 cm WT: 81.1 kg WT: 178.795 lb BMI: 29.08 General: alert, no acute distress ENMT: TM's clear, oral mucosa moist, no pharyngeal erythema or exudate Cardiovascular: regular rate and rhythm, normal peripheral perfusion Respiratory: Lungs CTA, respirations non labored Extremities: no deformity, no trauma Neurological: oriented x 4, LOC appropriate for age, CN II-XII intact, motor strength equal & normal bilaterally, sensation equal & normal bilaterally, speech normal Assessment/Plan 1. URI with cough and congestion (J06.9: Acute upper respiratory infection, unspecified) POC COVID & INFLUENZA- negative Start Azithromycin 250 mg as directed f/u with pcp if no improvement in 3-5 days Ordered: azithromycin, = 1 packet(s), Oral, As Directed, as directed on package labeling, X 5 day(s), # 6 tab(s), Refills(s) 0, Pharmacy: [facility], 167, cm, 10/31/24 11:00:00 EST, Height/Length Dosing, 81.1, kg, 10/31/24 11:00:00 EST, Weight Dosing benzonatate, 100 mg = 1 cap(s), Oral, TID, X 7 day(s), # 21 cap(s), Refills(s) 0, Pharmacy: [facility], 167, cm, 10/31/24 11:00:00 EST, Height/Length Dosing, 81.1, kg, 10/31/24 11:00:00 EST, Weight Dosing 2. Non-smoker (Z78.9: Other specified health status) Encouraged to continue is a non-smoker Ordered: Body Mass Index (BMI) documented 3008F Current tobacco non-user 1036F Depression Screening Negative 3352F Influenza immunization status assessed 1030F Most recent diastolic blood pressure 80-89 mm Hg 3079F Patient screen for fall risk: no falls in last year or 1 fall with no injury in last year 1101F Systolic BP <130 mm Hg (Most Recent) 3074F 3. BMI 29.0-29.9,adult (Z68.29: Body mass index [BMI] 29.0-29.9, adult) The standard range for ages 18 and older is >=18.5 and < 25 kg/m2. Your BMI today was above this range, this falls in the overweight to obese category and there are medical benefits to weight loss. We can offer counselling, referral, and/or medical support in addressing this problem. Your BMI and weight management will be followed at subsequent visits. Ordered: Body Mass Index (BMI) documented 3008F Current tobacco non-user 1036F Depression Screening Negative 3352F Influenza immunization status assessed 1030F Most recent diastolic blood pressure 80-89 mm Hg 3079F Patient screen for fall risk: no falls in last year or 1 fall with no injury in last year 1101F Systolic BP <130 mm Hg (Most Recent) 3074F 4. Overweight (BMI 25.0-29.9) (E66.3: Overweight) Ordered: Body Mass Index (BMI) documented 3008F Current tobacco non-user 1036F Depression Screening Negative 3352F Influenza immunization status assessed 1030F Most recent diastolic blood pressure 80-89 mm Hg 3079F Patient screen for fall risk: no falls in last year or 1 fall with no injury in last year 1101F Systolic BP <130 mm Hg (Most Recent) 3074F 5. Cough (R05.9: Cough, unspecified) Ordered: Influenza Type A&B POC 32175 Rapid COVID POC 63870 Body mass index [BMI] pediatric, 85th percentile to less than 95th percentile for age (Z68.53: Body mass index [BMI] pediatric, 85th percentile to less than 95th percentile for age) Follow-up No qualifying data available Patient Education Upper Respiratory Infection, Adult, [id number] Problem List/Past Medical History Ongoing BMI 29.0-29.9,adult Breast cancer screening by mammogram Cervical radiculitis Cough Episodic tension type headache Excessive thirst Fatigue GERD (gastroesophageal reflux disease) Hearing deficit History of breast cancer HTN (hypertension) Hypercholesteremia (more content not included)... Normal [facility] Comment on above: Result Comment: Elec tronically Signed By: ALEXIS RAND CNP\.boogie\Date and Time Signed: 10/31/24 11:33 EST .Interpretation:on HCV Ab IA Ql Comment Invalid Interpretation Code [facility] Comment on above: Result Comment: Not infected with HCV unless early or acute infection is suspected (which may be delayed in an immunocompromised individual), or other evidence exists to indicate HCV infection. Performed at: [facility] [address] [id number] PhD Susan Valdivia Performed By: #### 2 [id number] #### [facility] [address] [place] [address] HCV Antibody RFX to Quant PC Tera 10-27-2024 HCV IgG IA Ql Non-Reactive Invalid Interpretation Code Non Reactive [facility] Comment on above: Result Comment: Perf ormed at: [facility] [address] [id number] PhD Susan Valdivia Performed By: #### 2 [id number] #### [facility] [address] [place] [address] Ambulatory Visit Summaryon 0 10-24-2024 Ambulatory Visit Summary Ambulatory Visit Summary STEPHANIE WASSERMAN :1945 Visit Date:10/24/2024 Ambulatory Visit Instructions Your Diagnosis Screen for colon cancer GERD (gastroesophageal reflux disease) History of breast cancer Your Care Team Attending Physician - Rhonda GARSIA, Sampson Guerrero Primary Care Physician - Luzmaria Lamas This Is Your Medications List aluminum hydroxide-magnesium carbonate (Gaviscon Extra Strength 160 mg-105 mg oral tablet, chewable) esomeprazole (Nexium 40 mg Cap-EC) Contact prescribing physician if questions or concerns Misc Prescription (Breast prosthetic and bra) Misc Prescription (Misc DME Prescription) Misc Prescription (lancets) Misc Prescription (test strips true metrix) albuterol (Albuterol (Eqv-Ventolin HFA) 90 mcg/inh inhalation aerosol) amlodipine (amLODIPine 10 mg Tab) ascorbic acid-collagen (Collagen Skin Renewal) atorvastatin (atorvastatin 20 mg Tab) bifidobacterium-lactoba cillus (Nature's Bounty Probiotic) budesonide/formoterol/g lycopyrrolate (Breztri Aerosphere inhalation aerosol) calcium citrate (calcium (as calcium citrate) 200 mg oral tablet) famotidine (famotidine 40 mg Tab) losartan (losartan 100 mg Tab) metformin (metformin 500 mg Tab) [Image Removed: STOP]Stop taking these medications omeprazole (omeprazole 20 mg Cap-DR) Procedures Performed Epidural injection of lumbar spine using fluoroscopic guidance (05/09/2023), Ankle (06/12/2022), Cholecystectomy, Mastectomy. Discharge Vitals Heart Rate (Peripheral) 63 Blood Pressure 136/76 Height 167 cm Height 66 in Weight 81.5 kg Weight 179.677 lb BMI 29.22 What to do next Scheduled Follow-Up Appointments 2024 9:20 AM EST With: Where: [address] [id number]- 2024 10:20 AM EDT With: Luzmaria Lamas Where: [address] [address]- Tuesday 11:00 AM EST With: Where: [address] [address]- Medications What How Much When Why Instructions New aluminum hydroxide-magnesium carbonate (Gaviscon Extra Strength 160 mg-105 mg oral tablet, chewable) 4 Tablets Chewed 3 times a day as needed for for indigestion Screen for colon cancer GERD (gastroesophageal reflux disease) History of breast cancer Refills: 6 Pickup at [facility] 1985 New esomeprazole (Nexium 40 mg Cap-EC) 1 Capsules By Mouth Twice a day (before meals) Screen for colon cancer GERD (gastroesophageal reflux disease) History of breast cancer Refills: 3 Pickup at [facility] 1985 Unchanged albuterol (Albuterol (Eqv-Ventolin HFA) 90 mcg/ inh inhalation aerosol) 2 Puffs Inhalation Every 6 hours INHALE 2 PUFFS BY MOUTH EVERY 4 HOURS Contact prescribing physician if questions or concerns Unchanged amlodipine (amLODIPine 10 mg Tab) TAKE 1 TABLET BY MOUTH IN THE MORNING Contact prescribing physician if questions or concerns Unchanged ascorbic acid-collagen (Collagen Skin Renewal) Contact prescribing physician if questions or concerns Unchanged atorvastatin (atorvastatin 20 mg Tab) 1 Tablets By Mouth Every day S/P mastectomy Contact prescribing physician if questions or concerns Unchanged bifidobacterium-lactoba cillus (Nature's Bounty Probiotic) Contact prescribing physician if questions or concerns Unchanged budesonide/ formoterol/ glycopyrrolate (Breztri Aerosphere inhalation aerosol) 2 Puffs Inhalation 2 times a day Type 2 diabetes mellitus with hypercholesterolemia BMI 28.0-28.9,adult Overweight Nonsmoker Contact prescribing physician if questions or concerns Unchanged calcium citrate (calcium (as calcium citrate) 200 mg oral tablet) See instructions Daily Contact prescribing physician if questions or concerns Unchanged famotidine (famotidine 40 mg Tab) 1 Tablets By Mouth Once a day (at bedtime) Duration: 90 Days Contact prescribing physician if questions or concerns Unchanged losartan (losartan 100 mg Tab) 1 Tablets By Mouth Every day Contact prescribing physician if questions or concerns Unchanged metformin (metformin 500 mg Tab) 1 Tablets By Mouth 2 times a day Type 2 diabetes mellitus BMI 28.0-28.9,adult Non-smoker Contact prescribing physician if questions or concerns Unchanged Misc Prescription (Breast prosthetic and bra) See instructions S/P mastectomy due to mastectomy 4 bras 1prostetic Contact prescribing physician if questions or concerns Unchanged Misc Prescription (lancets) See instructions to check BS daily e11.69 Contact prescribing physician if questions or concerns Unchanged Misc Prescription (Misc DME Prescription) See instructions True metrix air meter kit Contact prescribing physician if questions or concerns Unchanged Misc Prescription (test strips true metrix) See (more content not included)... Normal [facility] Gastroenterology Office/Clin ic Noteon 10-24-2024 Gastroenterology Office/Clinic Note Gastroenterology Office/Clinic Note Chief Complaint GERD HPI Staff New patient is a(n) 78 year old female who was referred by Dr. Con May (chemical waste management technician) for GERD. GERD: Onset of symptoms: Years Improving/worsening factors: tomato based- worsens Treatment's tried: -Omeprazole (Prilosec) - yes (20mg daily) -Pantoprazole (Protonix) - no -Esomeprazole (Nexium) - no -Lanosprazole (Prevacid) - no -Dexlansoprazole (Dexilant) - no -Rabeprazole (Aciphex) - no -Famotidine (Pepcid) - yes (40mg daily) -Vonoprazon (Voquezna) - no No previous EGD/Colonoscopy in chart. Has pt had one is the past? No Denies recent imaging/labs. CT abd/pelvis 01/09/23 @ [facility]: IMPRESSION: 1. Nonspecific fluid-filled small bowel and colonic loops, concerning for enterocolitis. 2. Colonic diverticulosis without diverticulitis. 3. 2 mm left inferior pole nonobstructing calculus. No hydronephrosis. Stool testing 01/10/23 @ [place]: negative GI panel besides a positive rotavirus A History of Present Illness Reviewed HPI collected by staff Review of Systems PHQ Score Initial Depression Screen Score: 0 SCORE All systems reviewed, negative; Except for above Physical Exam Vitals & Measurements HR: 63(Peripheral) BP: 136/76 HT: 66 in HT: 167 cm WT: 81.5 kg WT: 179.677 lb BMI: 29.22 General: in Nad Abdomen: Soft, NTND Assessment/Plan 1. Screen for colon cancer (Z12.11: Encounter for screening for malignant neoplasm of colon) Not interested in scopes at this time 2. GERD (gastroesophageal reflux disease) (K21.9: Gastro-esophageal reflux disease without esophagitis) Symptoms started a couple years ago C/o acid reflux, mostly postprandial Worse with tomato-based foods Minimal relief with Omeprazole and Famotidine Offered EGD +/- [facility], she would like to defer for now. Will maximize PPI therapy Will switch Omeprazole to Nexium BID, continue with Famotidine. Recommended Gaviscon and TUMs prn. Discussed LSM. Avoid laying down for 4 hours after eating If no improvement, can consider switching PPI to pantoprazole and moving forward with EGD 3. History of breast cancer (Z85.3: Personal history of malignant neoplasm of breast) I, Pooja Moseley, personally scribed for Sampson Ellis on 10/24/2024 11:26:00. . Documentation recorded by Francheska Moseley, accurately reflects the services I performed and decisions made by me. Sampson Ellis MD Follow-up No qualifying data available Problem List/Past Medical History Ongoing BMI 29.0-29.9,adult Breast cancer screening by mammogram Cervical radiculitis Cough Episodic tension type headache Excessive thirst Fatigue GERD (gastroesophageal reflux disease) Hearing deficit History of breast cancer HTN (hypertension) Hypercholesteremia Hypothyroidism Lower back pain Mononucleosis Osteoarthritis S/P mastectomy Sciatica Screen for colon cancer Shortness of breath Type 2 diabetes mellitus Type 2 diabetes mellitus with hypercholesterolemia Wellness examination Historical Achilles tendonitis Arthritis Breast cancer 2, 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 Medications Albuterol (Eqv-Ventolin HFA) 90 mcg/inh inhalation aerosol, 2 puff(s), Inhalation, q6hr, 6 refills amLODIPine 10 mg Tab atorvastatin 20 mg Tab, 20 mg= 1 tab(s), Oral, Daily, 3 refills Breast prosthetic and bra, See Instructions Breztri Aerosphere inhalation aerosol, 2 puff(s), Inhalation, BID, 5 refills calcium (as calcium citrate) 200 mg oral tablet, See Instructions Collagen Skin Renewal famotidine 40 mg Tab, 40 mg= 1 tab(s), Oral, Once a day (at bedtime), 3 refills Gaviscon Extra Strength 160 mg-105 mg oral tablet, chewable, 4 tab(s), Chewed, TID, PRN, 6 refills lancets, See Instructions, 12 refills losartan 100 mg Tab, 100 mg= 1 tab(s), Oral, Daily metformin 500 mg Tab, 500 mg= 1 tab(s), Oral, BID, 4 refills Misc DME Prescription, See Instructions, 1 refills Nature's Bounty Probiotic Nexium 40 mg Cap-EC, 40 mg= 1 cap(s), Oral, BIDAC, 3 refills test strips true metrix, See Instructions, 12 refills Allergies Accupril (Unknown) Anaprox (Unknown) Avelox (Unknown) Diflucan (Unknown) cephalexin (Unknown) erythromycin (Stomach upset) sulfa drugs (Unknown) Social History Alcohol - Denies Alcohol Use, 01/04/2023 Household alcohol concerns: No., 07/26/2024 Substance Abuse - Denies Substance Abuse, 01/04/2023 Household substance abuse concerns: No., 07/26/2024 Tobacco - Denies Tobacco Use, 01/04/2023 Never (less than 100 in lifetime) Tobacco Use:. Never Smokeless Tobacco Use:., 10/24/2024 Family History Family (more content not included)... Normal [facility] Comment on above: Result Comment: Elec tronically Signed By: Sampson Ellis MD\.br\Date and Time Signed: 10/24/24 11:45 EST\.br\Electronically Co-Signed By: Pooja Moseley MA\.br\Date and Time Co-Signed: 10/24/24 11:37 EST BD Bone Density DEXAon 07-28 [facility] Bone Density DEXA Exam Date/Time: 07/27/2024 13:08 EST Reason for Exam: E28.39;Post menopausal Report IMPRESSION: OSTEOPENIA. The 10 year probability (FRAX) of a major osteoporotic fracture based on the left femoral neck bone marrow density is: 23.3%, and hip fracture 7.8%. EXAM: BD Bone Density DEXA DATE: 07/27/2024 12:52 PM CLINICAL HISTORY: Post menopausal, E28.39. COMPARISON: None available. COMMENTS: The lumbar spine, distal left forearm, and both hips were scanned. The mean bone mineral density from L1 to L4 is 1.671 g/cm2 and this value is 4.1 standard of deviation above the standard reference value for a young adult. Bone mineral density of the left femoral neck is 0.755 g/cm2 and this value is -2.0 standard of deviation below the standard reference value. Bone mineral density of the right femoral neck is 0.802 g/cm2 and this value is -1.7 standard of deviation below the standard reference value. Bone mineral density left radius 33% is 0.915 g/cm2 and this value is 0.3 standard of deviation above the standard reference value. These values meet WHO criteria for osteopenia. RECOMMENDATIONS: 1. All patients should optimize her calcium and vitamin D intake. 2. Consider FDA-approved medical therapies in postmenopausal women and minimal age 50 years and older, based on the following: - hip or vertebral (clinical or morphometric) fracture. - T-score less than or equal to -2.5 at the femoral neck or spine after the appropriate evaluation to exclude secondary causes. - Low bone density (T score between -1.0 and -2.5 at the femoral neck or spine) and a 10 year probability of hip fracture greater than or equal to 3% or a 10-year probability of a major osteoporosis-related fracture greater than or equal to 20% based on FRAX calculation. - Clinician judgment and/or patient preferences may indicate treatment for palpable attenuation fracture probability is above or below these levels. Report - Further guidance on treatment can be found at the National Osteoporosis Foundation's website: bonesource.org 3. Patients with diagnosis of osteoporosis or high risk for fracture. There are irregular bone mineral density tests. For patients eligible for Medicare, routine testing is allowed once every 2 years. Testing frequency can be increased to 1 year for patient's history of rapidly progressing disease, those who are receiving or discontinuing medical therapy to restore bone mass or have additional risk factors. Ordering Provider: Luzmaria Tan FINAL REPORT Dictated: 07/28/2024 8:17 am Andrea Dudley MD Signed (Electronic Signature): 07/28/2024 8:17 am Signed by: Andrea Dudley MD Transcribed by: ALEXANDREA Technologist: HAYDE Townsend [facility] Ambulatory Visit Summaryon 1 09-26-2023 Ambulatory Visit Summary Ambulatory Visit Summary STEPHANIE WASSERMAN :1945 Visit Date:07/26/2024 Ambulatory Visit Instructions Your Diagnosis Encounter for initial annual wellness visit (AWV) in Medicare patient Type 2 diabetes mellitus Type 2 diabetes mellitus with hypercholesterolemia Hypercholesteremia, Pure hypercholesterolemia, unspecified Hearing deficit Ovarian failure due to menopause Osteoarthritis Encounter for hepatitis C screening test for low risk patient HTN (hypertension) Advanced directives, counseling/discussion Over weight Your Care Team Attending Physician - Luzmaria Lamas Primary Care Physician - Luzmaria Lamas This Is Your Medications List Misc Prescription (Breast prosthetic and bra) Misc Prescription (Misc DME Prescription) Misc Prescription (lancets) Misc Prescription (test strips true metrix) albuterol (Albuterol (Eqv-Ventolin HFA) 90 mcg/inh inhalation aerosol) amlodipine (amLODIPine 10 mg Tab) ascorbic acid-collagen (Collagen Skin Renewal) atorvastatin (atorvastatin 20 mg Tab) bifidobacterium-lactoba cillus (Nature's Bounty Probiotic) budesonide/formoterol/g lycopyrrolate (Breztri Aerosphere inhalation aerosol) calcium citrate (calcium (as calcium citrate) 200 mg oral tablet) famotidine (famotidine 40 mg Tab) fluticasone nasal (fluticasone Nasal 0.05 mg/inh [place]) losartan (losartan 100 mg Tab) metformin (metformin 500 mg Tab) Procedures Performed Epidural injection of lumbar spine using fluoroscopic guidance (05/09/2023), Ankle (06/12/2022), Cholecystectomy, Mastectomy. Discharge Vitals Heart Rate (Peripheral) 68 Blood Pressure 140/80 Height 167 cm Height 66 in Weight 81.8 kg Weight 180.338 lb BMI 29.33 What to do next Scheduled Follow-Up Appointments Tuesday 1:00 PM EST With: Where: [facility] 2024 9:20 AM EST With: Where: [address] [id number] 2024 10:20 AM EDT With: Luzmaria Lamas Where: [address] [address]- Tuesday 11:00 AM EST With: Where: [address] [address]- You Need to Complete the Following HCV Antibody RFX to Quant PCR, Blood, Routine collect, 07/26/24, Order for future visit, Lab Collect, Encounter for hepatitis C screening test for low risk patient, Not Required, Print Label By Order Location HgbA1c, Blood, Routine collect, 07/26/24, Order for future visit, Lab Collect, Type 2 diabetes mellitus BMI 29.0-29.9,adult Non-smoker, Required & Missing, Print Label By Order Location [facility] Bone Density DEXA, 07/27/24, Routine, Order for Future Visit, Transport Mode: Ambulatory, Reason: Post menopausal, Reason: E28.39, Ovarian failure due to menopause, No, 180, pp_set_radiology_subspe cialty, Not Required, [facility] Medications What How Much When Why Instructions Unchanged albuterol (Albuterol (Eqv-Ventolin HFA) 90 mcg/ inh inhalation aerosol) 2 Puffs Inhalation Every 6 hours INHALE 2 PUFFS BY MOUTH EVERY 4 HOURS Unchanged amlodipine (amLODIPine 10 mg Tab) TAKE 1 TABLET BY MOUTH IN THE MORNING Unchanged ascorbic acid-collagen (Collagen Skin Renewal) Unchanged atorvastatin (atorvastatin 20 mg Tab) 1 Tablets By Mouth Every day S/P mastectomy Unchanged bifidobacterium-lactoba cillus (Nature's Bounty Probiotic) Unchanged budesonide/ formoterol/ glycopyrrolate (Breztri Aerosphere inhalation aerosol) 2 Puffs Inhalation 2 times a day Type 2 diabetes mellitus with hypercholesterolemia BMI 28.0-28.9,adult Overweight Nonsmoker Unchanged calcium citrate (calcium (as calcium citrate) 200 mg oral tablet) See instructions Daily Unchanged famotidine (famotidine 40 mg Tab) 1 Tablets By Mouth Once a day (at bedtime) Duration: 90 Days Unchanged fluticasone nasal (fluticasone Nasal 0.05 mg/ inh [place]) Unchanged losartan (losartan 100 mg Tab) 1 Tablets By Mouth Every day Unchanged metformin (metformin 500 mg Tab) 1 Tablets By Mouth 2 times a day Type 2 diabetes mellitus BMI 28.0-28.9,adult Non-smoker Unchanged Misc Prescription (Breast prosthetic and bra) See instructions S/P mastectomy due to mastectomy 4 bras 1prostetic Unchanged Misc Prescription (lancets) See instructions to check BS daily e11.69 Unchanged Misc Prescription (Misc DME Prescription) See instructions True metrix air meter kit Unchanged Misc Prescription (test strips true metrix) See instructions test stripts to test BS daily e.11.69 Allergies Accupril (Unknown) Anaprox (Unknown) Avelox (Unknown) Diflucan (Unknown) cephalexin (Unknown) erythromycin (Stomach upset) sulfa drugs (Unknown) Problems Ongoing - Any problem that you are currently receiving treatment for. BMI 29.0-29.9,adul (more content not included)... Normal [facility] Family Medicine Office/Clini c Noteon 07-27-2024 Family Medicine Office/Clinic Note Family Medicine Office/Clinic Note Chief Complaint Initial Medicare Wellness Review of Systems PHQ Score Initial Depression Screen Score: 0 SCORE Physical Exam Vitals & Measurements HR: 68(Peripheral) BP: 140/80 SpO2: 96% HT: 167 cm HT: 66 in WT: 81.8 kg WT: 180.338 lb BMI: 29.33 Assessment/Plan 1. Encounter for initial annual wellness visit (AWV) in Medicare patient (Z00.00: Encounter for general adult medical examination without abnormal findings) The patient was given a customized and personalized print out of all the current AHRQ USPSTF???s recommendations for preventative services and all current CDC recommended immunizations, relevant risk recommendations and the following patient brochures were given. Reviewed Medicare Prevention Services checklist. CDC-Falls Prevention and home safety screening reviewed. Patient denies any falls in last 12 months, voices no worry about falling. Exhibits no problems with sitting, standing or ambulation. Patient aware with keeping walk way area free of clutter to prevent tripping and/or falling. [place] Advance Directives reviewed. Documents provided to patient. See #9. Patient reports daughter assists with some ADL???s and Instrumental ADL???s such as cleaning. Cognitive screening completed with memory and clock face drawing. No deficits noted . Patient recited 2/3 memory words. Immunization record reviewed, discussed Shingrix vaccine with educational handout and availability. 1 COVID vaccines have been administered. Allergies and medications reviewed and up to date. No concerns with taking medication as prescribed. Reviewed OTC medications, medication list up to date. Blood tests were reviewed: Discussed what tests need to be updated. Labs were ordered, will have completed prior to next PCP visit. Labs to be completed with [facility]. No concerns with bowel/ bladder. Patient has never had a Colonoscopy and screenings are no longer necessary due to age. Mammogram Screening: Completed 05/01/2024 Reviewed pain symptoms: Patient denies pain today. Reviewed all outside providers that patient follows. Last visit summary notes available in chart and/or have been requested. Patient declines any signs or symptoms of depression at this time. 8 minutes spent with screening and documentation. PHQ2 screening score 0. Patient denies alcohol use. 8 minutes spent with screening and documentation. Audit score 0. Follow up scheduled with PCP, 12/27/2024 AWV has been scheduled, 07/29/2025 Medicare provides yearly screening for alcohol and depression concerns. This is completed during our Medicare wellness visit for those who do not have a current diagnosis of depression or concerns with alcohol use. I spent a total of 17 minutes on this date of service which included preparing to see the patient, face to face patient care, completing clinical documentation, obtaining and/or reviewing separately obtained history, counseling and educating the patient with handouts. Explanations were provided with reviewing questionnaires. AUDIT risk assessment screening completed, risk score 0 with patient denying concerns with use. Completed PHQ-2 risk assessment for depression with risk score 0, negative findings. Patient has been reminded to notify the provider if there would be a change or concerns with symptoms with fear, unable to sleep, worrying too much or feeling down and/or sad with lost of interest with daily activities. Will continue to monitor with screening yearly during Medicare wellness visits. 2. Type 2 diabetes mellitus (E11.9: Type 2 diabetes mellitus without complications) Patient is compliant on current DM medication: metformin. Patient does monitors BS at home: DM stoplight handout reviewed with s/s to monitor for and report to PCP. Discussed ADA dietary recommendations with low carbs and reduce sugar intake. Patient encouraged to increase daily physical activity, adequate water intake and maintain a healthy weight. Pt follows up with PCP with yearly DM foot checks. Follows up with yearly DM eye exams, last visit notes available in chart for review. PCP ordered A1C. 3. Type 2 diabetes mellitus with hypercholesterolemia (E11.69: Type 2 diabetes mellitus with other specified complication) see #2 Reviewed healthy lifestyle with low fat diet and exercise regimen. When you are overweight our body produces more lipids. Risk also increases with family history of hyperlipidemia and with monitoring alcohol use and avoid smoking. Pt voices understanding with importance of monitoring dietary intake to reduce risk factors associated with CVA. Taking statin medications daily as directed. Will continue to follow up with office visits with updated labs as directed. 4. Hypercholesteremia, (E78.00: Pure hypercholesterolemia, unspecified)Pure hypercholesterolemia, unspecified see #3 5. Hearing deficit (H91.90: Unspecified hearing loss, unspecified ear) Patient currently wears hearing aides. Patient reports that they help a lot. 6. (more content not included)... Normal [facility] Comment on above: Result Comment: Elec tronically Signed By: Luzmaria Lamas\.br\Date and Time Signed: 07/27/24 09:54 EST\.br\Electronically Co-Signed By: Antonieta Wick\.br\Date and Time Co-Signed: 07/26/24 16:10 EST Ambulatory Visit Summaryon 09-25-2023 Ambulatory Visit Summary Ambulatory Visit Summary STEPHANIE WASSERMAN :1945 Visit Date:07/26/2024 Ambulatory Visit Instructions Your Diagnosis Type 2 diabetes mellitus BMI 29.0-29.9,adult Non-smoker Your Care Team Attending Physician - Luzmaria Lamas Primary Care Physician - Luzmaria Lamas This Is Your Medications List Misc Prescription (Breast prosthetic and bra) Misc Prescription (Misc DME Prescription) Misc Prescription (lancets) Misc Prescription (test strips true metrix) albuterol (Albuterol (Eqv-Ventolin HFA) 90 mcg/inh inhalation aerosol) amlodipine (amLODIPine 10 mg Tab) ascorbic acid-collagen (Collagen Skin Renewal) atorvastatin (atorvastatin 20 mg Tab) bifidobacterium-lactoba cillus (Photomedexs Bounty Probiotic) budesonide/formoterol/g lycopyrrolate (Breztri Aerosphere inhalation aerosol) calcium citrate (calcium (as calcium citrate) 200 mg oral tablet) famotidine (famotidine 40 mg Tab) fluticasone nasal (fluticasone Nasal 0.05 mg/inh [place]) losartan (losartan 100 mg Tab) metformin (metformin 500 mg Tab) Procedures Performed Epidural injection of lumbar spine using fluoroscopic guidance (05/09/2023), Ankle (06/12/2022), Cholecystectomy, Mastectomy. Discharge Vitals Heart Rate (Peripheral) 68 Respiratory Rate 18 Blood Pressure 140/80 Height 167 cm Height 66 in Weight 81.8 kg Weight 180.338 lb BMI 29.33 What to do next Scheduled Follow-Up Appointments 2024 9:20 AM EST With: Where: [place] [id number]- 2024 10:20 AM EDT With: Luzmaria Lamas Where: [address] [address] Medications What How Much When Why Instructions Unchanged albuterol (Albuterol (Eqv-Ventolin HFA) 90 mcg/ inh inhalation aerosol) 2 Puffs Inhalation Every 6 hours INHALE 2 PUFFS BY MOUTH EVERY 4 HOURS Unchanged amlodipine (amLODIPine 10 mg Tab) TAKE 1 TABLET BY MOUTH IN THE MORNING Unchanged ascorbic acid-collagen (Collagen Skin Renewal) Unchanged atorvastatin (atorvastatin 20 mg Tab) 1 Tablets By Mouth Every day S/P mastectomy Unchanged bifidobacterium-lactoba cillus (Nature's Bounty Probiotic) Unchanged budesonide/ formoterol/ glycopyrrolate (Breztri Aerosphere inhalation aerosol) 2 Puffs Inhalation 2 times a day Type 2 diabetes mellitus with hypercholesterolemia BMI 28.0-28.9,adult Overweight Nonsmoker Unchanged calcium citrate (calcium (as calcium citrate) 200 mg oral tablet) See instructions Daily Unchanged famotidine (famotidine 40 mg Tab) 1 Tablets By Mouth Once a day (at bedtime) Duration: 90 Days Unchanged fluticasone nasal (fluticasone Nasal 0.05 mg/ inh [place]) Unchanged losartan (losartan 100 mg Tab) 1 Tablets By Mouth Every day Unchanged metformin (metformin 500 mg Tab) 1 Tablets By Mouth 2 times a day Type 2 diabetes mellitus BMI 28.0-28.9,adult Non-smoker Unchanged Misc Prescription (Breast prosthetic and bra) See instructions S/P mastectomy due to mastectomy 4 bras 1prostetic Unchanged Misc Prescription (lancets) See instructions to check BS daily e11.69 Unchanged Misc Prescription (Misc DME Prescription) See instructions True metrix air meter kit Unchanged Misc Prescription (test strips true metrix) See instructions test stripts to test BS daily e.11.69 Allergies Accupril (Unknown) Anaprox (Unknown) Avelox (Unknown) Diflucan (Unknown) cephalexin (Unknown) erythromycin (Stomach upset) sulfa drugs (Unknown) Problems Ongoing - Any problem that you are currently receiving treatment for. Breast cancer screening by mammogram Cervical radiculitis Cough Episodic tension type headache Excessive thirst Fatigue GERD (gastroesophageal reflux disease) Hearing deficit History of breast cancer HTN (hypertension) Hypercholesteremia Hypothyroidism Lower back pain Mononucleosis Osteoarthritis S/P mastectomy Sciatica Shortness of breath Type 2 diabetes mellitus Type 2 diabetes mellitus with hypercholesterolemia Wellness examination Historical - Any problem that [...] your care. Normal [facility] Family Medicine Office/Clini c Noteon 07-26-2024 Family Medicine Office/Clinic Note Family Medicine Office/Clinic Note HPI Staff PLEASE SPEAK WITH PATIENT ABOUT SCHEDULING [facility] APPT Stephanie is a 78 year old female presenting with 3 month f/u Do you have any of the following symptoms? Eye Exam: 01/2024 Last A1C: Apr 23, 2024 (5.7) Statin: Atorvastatin 20 mg checks blood sugars daily, average 90-110 History of Present Illness pt presents today for follow up on DM Review of Systems PHQ Score Initial Depression Screen Score: 0 SCORE Physical Exam Vitals & Measurements HR: 68(Peripheral) RR: 18 BP: 140/80 SpO2: 96% HT: 66 in HT: 167 cm WT: 81.8 kg WT: 180.338 lb BMI: 29.33 General: alert, no acute distress ENMT: oral [...] Type 2 diabetes mellitus without complications) pt presents today for 3 month follow up on DM. Last HGBA1C was normal. blood sugars are running 90-110. will recheck that in 3 months. pt is doing well. denies needs. will see [facility] nurse after this visit. RTC in December for annual exam. 2. BMI 29.0-29.9,adult (Z68.29: Body mass index [BMI] 29.0-29.9, adult) BMI education given 3. Non-smoker (Z78.9: Other specified health status) continue not smoking Follow-up No qualifying data available Problem List/Past [...] mcg/inh inhalation aerosol, 2 puff(s), Inhalation, q6hr, 6 refills amLODIPine 10 mg Tab atorvastatin 20 mg Tab, 20 mg= 1 tab(s), Oral, Daily, 3 refills Breast prosthetic and bra, See Instructions Breztri Aerosphere inhalation aerosol, 2 puff(s), Inhalation, BID, 5 refills calcium (as calcium citrate) 200 mg oral tablet, See Instructions Collagen Skin Renewal famotidine 40 mg Tab, 40 mg= 1 tab(s), Oral, Once a day (at bedtime), 3 refills fluticasone Nasal 0.05 mg/inh Monahans lancets, See Instructions, 12 refills losartan 100 mg Tab, 100 mg= 1 tab(s), Oral, Daily metformin 500 mg Tab, 500 mg= 1 tab(s), Oral, BID, 1 refills Misc DME Prescription, See Instructions, 1 refills Nature's Bounty Probiotic test strips true metrix, See Instructions, 12 refills Allergies Accupril (Unknown) Anaprox (Unknown) Avelox (Unknown) Diflucan (Unknown) cephalexin (Unknown) erythromycin (Stomach upset) sulfa drugs (Unknown) Social History Alcohol - Denies Alcohol Use, 01/04/2023 Household alcohol concerns: No., 01/04/2023 Substance Abuse - Denies Substance Abuse, 01/04/2023 Household substance abuse concerns: No., 01/04/2023 Tobacco - Denies Tobacco Use, 01/04/2023 Never (less than 100 in lifetime) Tobacco Use:. Never Smokeless Tobacco Use:. Cigarettes, 07/26/2024 Family History Family history is negative Immunizations Vaccine Date Status influenza virus vaccine, inactivated 06/04/2024 Recorded influenza virus vaccine, inactivated 06/02/2023 Recorded influenza virus vaccine, inactivated 05/27/2022 Recorded influenza virus vaccine, inactivated 06/19/2021 Recorded SARS-CoV-2 (COVID-19) mRNA-1273 vaccine 10/30/2020 Recorded influenza virus vaccine, inactivated 05/27/2020 Recorded influenza virus vaccine, inactivated 06/07/2019 Recorded influenza virus vaccine, inactivated 05/31/2018 Recorded pneumococcal 13-valent vaccine 04/10/2018 Recorded influenza virus vaccine, inactivated 08/29/2017 Recorded influenza virus vaccine, inactivated 06/28/2017 Recorded influenza virus vaccine, inactivated 06/11/2016 Recorded influenza virus vaccine, inactivated 06/12/2015 Recorded influenza virus vaccine, inactivated 05/23/2015 Recorded Normal [facility] Comment on above: Result Comment: Elec tronically Signed By: Luzmaria Lamas\.br\Date and Time Signed: 07/26/24 11:43 EST No Panel Informationon 07-03 [facility] Office Visiton 05-09-2024 Follow-up visit [id number] Stephanie Wasserman 1945 F Date Provider Department Center 05/09/2024 [facility]vana[facility]JESSICA [facility]LOS [facility] Family History Problem Relation Age of Onset Lung disease Mother Diabetes Mother's Sister Family Status - Relation Status Age at Mother Father Mother's Sister Other Level of Service:65084 NE OFFICE/OUTPATIENT ESTABLISHED MOD MDM 30 MIN Reason for Visit and Comments: ECHO f/u [Other] Shortness of Breath [[id number]] Normal [facility] Reminderson 05-07-2024 Reminders Reminders From: Luzmaria Lamas To: [facility] - Clinical; Sent: 05/07/2024 12:51:45 EDT Show up: 05/07/2024 12:52:00 EDT Subject: Ambulatory Reminder Due Date/Time: 05/08/2024 12:51:00 EDT mammogram was negative Results: Date Result Type Result Name 05/04/2024 15:15 Radiology [place] Mamm Screen w/CAD if perf and 3D RT From: Maria D Harkins M.A. (B - Clinical) To: Luzmaria Lamas; Sent: 05/07/2024 16:16:28 EDT Show up: 05/07/2024 16:16:00 EDT Subject: RE: Ambulatory Reminder Spoke to patient verbalized understanding the message below Normal [facility] [place] Mamm Screen w/CAD if perf and [...] VERY IMPORTANT TO YOUR HEALTH. THE CURRENT CITIZEN OF [place] COLLEGE OF RADIOLOGY AND NATIONAL COMPREHENSIVE CANCER [...] 2-Benign finding Recommendation: Normal interval follow-up Normal [facility] Reminderson 04-30-2024 Reminders Reminders From: Luzmaria Lamas To: [facility] - Clinical; Sent: 04/30/2024 07:53:00 EDT Show up: 04/30/2024 07:53:00 EDT Subject: Ambulatory Reminder Due Date/Time: 05/01/2024 07:52:00 EDT HGBA1C was 5.7. this is great! Results: Date Result Name Value Ref Range 04/23/2024 15:50 Hgb A1C % 5.7 % ( - <=5.9) Stephanie called and advised of A1C results Normal [facility] [id number] 04-28-2024 HbA1c (Bld) [Mass fraction] 5.7 % Normal <=5.[address] [facility] Comment on above: Performed By: #### [id number] #### [facility] [address] [place] [address] Family Medicine Office/Clini c Noteon 04-23-2024 Family [...] she will need a new prescription at [facility] in [place] ( Metformin 500 mg) History of Present [...] and she feels awful, but she ate [employer] last night. discussed making healthy food [...] BID, # 180 tab(s), Refills(s) 1, [facility], [facility], cm, 04/23/24 15:13:00 EDT, Height/Length Dosing, 79.7, kg, 04/23/24 15:13:00 EDT, Weight Dosing [facility] Internal Ambulatory Referral HgbA1c 2. Breast cancer screening by mammogram (Z12.31: Encounter for screening mammogram for malignant neoplasm of breast) mammogram ordered Ordered: [place] Mamm Screen w/CAD if perf and 3D Junior 3. BMI 28.0-28.9,adult (Z68.28: Body mass index [BMI] 28.0-28.9, adult) BMI education Ordered: metformin, 500 mg = 1 tab(s), Oral, BID, # 180 tab(s), Refills(s) 1, Pharmacy: [facility], 167, cm, 04/23/24 15:13:00 EDT, Height/Length Dosing, 79.7, kg, 04/23/24 15:13:00 EDT, Weight Dosing [facility] Internal Ambulatory Referral [place] Mamm Screen w/CAD if perf and 3D Junior 4. Non-smoker (Z78.9: Other specified health status) continue not smoking Ordered: metformin, 500 mg = 1 tab(s), Oral, BID, # 180 tab(s), Refills(s) 1, [facility]acy: [facility] 1986, 167, cm, 04/23/24 15:13:00 EDT, Height/Length Dosing, 79.7, kg, 04/23/24 15:13:00 EDT, Weight Dosing [facility] Internal Ambulatory Referral MA Mamm Screen w/CAD if perf and 3D Junior Orders: albuterol, 2 puff(s), Inhalation, q6hr, 8.5 gm, Refill(s) 6, INHALE 2 PUFFS BY MOUTH EVERY 4 HOURS, [facility], 167, cm, 03/28/24 15:04:00 EDT, Height/Length Dosing, 80.2, kg, 03/28/24 15:04:00 EDT, Weight Dosing albuterol, 2 puff(s), Inhalation, q6hr, 8.5 gm, Refill(s) 6, INHALE 2 PUFFS BY MOUTH EVERY 4 HOURS, [facility], 167, cm, 04/23/24 15:13:00 EDT, Height/Length Dosing, 79.7, kg, 04/23/24 15:13:00 EDT, Weight Dosing Misc Prescription, test strips true metrix, See Instructions, 100 EA, 12, test stripts to test BS daily e.11.69, [facility], Supply, 167, cm, 03/28/24 15:04:00 EDT, Height/Length Dosing, 80.2, kg, 03/28/24 15:04:00 EDT, Weight Dosing Misc Prescription, lancets, See Instructions, 100 EA, 12, to check BS daily e11.69, [facility], Supply, 167, cm, 03/28/24 15:04:00 [...] Epidural inj (more content not included)... Normal [facility] Comment on above: Result Comment: Elec tronically Signed By: Luzmaria Lamas\.br\Date and Time Signed: 04/23/24 15:43 EDT Orders Onlyon 04-23-2024 Orders Only [id number] Stephanie Wasserman 1945 F Date Provider Department Center 04/23/2024 PREETI RAMÍREZ Family History Problem Relation Age of Onset Lung disease Mother Diabetes Mother's Sister Family Status - Relation Status Age at Mother Father Mother's Sister Other [facility] 36on 04-17-2024 36 Regarding echo resul t from 04/13/2024: Preeti Rodriguez, AREN Mckeon MA Provider called pt to review echocardiogram [...] of losartan so we can send the [employer] med script into her mail order pharmacy- [...] BMP done please. Thanks! BMP faxed to [facility]. Margret, can you put this message in your box for a reminder phone call in 1-2 weeks? Thanks. Normal [facility] Orders Onlyon 04-16-2024 Orders Only [id number] Stephanie Wasserman 1945 F Date Provider Department Center 04/16/2024 PREETI RAMÍREZ Family History Problem Relation Age of Onset Lung disease Mother Diabetes Mother's Sister Family Status - Relation Status Age at Mother Father Mother's Sister Other [facility] Family Medicine Office/Clini c Noteon 03-28-2024 Family [...] puff(s), Inhalation, BID, 10.7 gm, Refill(s) 5, [facility], 167, cm, 03/28/24 [...] puff(s), Inhalation, BID, 10.7 gm, Refill(s) 5, [facility], 167, cm, 03/28/24 15:04:00 EDT, Height/Length Dosing, 80.2, kg, 03/28/24 15:04:00 EDT, Weight Dosing fluticasone, = 2 puff(s), Inhalation, BID, # 10.6 gram, Refills(s) 0, Pharmacy: [facility], 167, cm, 01/05/24 11:25:00 [...] puff(s), Inhalation, BID, 10.7 gm, Refill(s) 5, [facility], 167, cm, 03/28/24 15:04:00 [...] puff(s), Inhalation, BID, 10.7 gm, Refill(s) 5, [facility], 167, cm, 03/28/24 15:04:00 EDT, Height/Length Dosing, 80.2, kg, 03/28/24 15:04:00 EDT, Weight Dosing fluticasone, = 2 puff(s), Inhalation, BID, # 10.6 gram, Refills(s) 0, Pharmacy: [facility], 167, cm, 01/05/24 [...] 2 PUFFS BY MOUTH EVERY 4 HOURS, [facility], 167, cm, 03/28/24 15:04:00 EDT, Height/Length Dosing, 80.2, kg, 03/28/24 15:04:00 EDT, Weight Dosing albuterol, 2 puff(s), Inhalation, q6hr, 8.5 gm, Refill(s) 2, INHALE 2 PUFFS BY MOUTH EVERY 4 HOURS, [facility], 167, cm, 01/04/23 11:24:00 EDT, Height/Length Dosing, 79.3, kg, 01/04/23 11:24:00 EDT, Weight Dosing Follow-up No qualifying data available Problem List/Past Medical Hist (more content not included)... Normal [facility] Comment on above: Result Comment: Elec tronically Signed By: Luzmaria Lamas\.br\Date and Time Signed: 03/28/24 15:31 EDT Office Visiton 03-14-2024 Follow-up visit [id number] Stephanie Wasserman 1945 F Date Provider Department Center 03/14/2024 PREETI RAMÍREZ BH CARD [facility] Family History Problem Relation Age of Onset Lung disease Mother Diabetes Mother's Sister Family Status - Relation Status Age at Mother Father Mother's Sister Other Level of Service:28239 NE OFFICE/OUTPATIENT ESTABLISHED MOD MDM 30 MIN Normal [facility] Reminderson 01-09-2024 Reminders - From: Luzmaria Lamas To: [facility] - Clinical; Sent: 01/06/2024 12:27:23 EDT Show [...] a 90 day script and sent to [facility]. Normal [facility] Ambulatory Visit Summaryon 0 01-05-2024 Ambulatory Visit Summary STEPHANIE WASSERMAN :1945 Visit Date:01/05/2024 Ambulatory Visit Instructions Your Diagnosis Hypercholesteremia Type 2 diabetes mellitus BMI 28.0-28.9,adult Non-smoker Your Care Team Attending Physician - Luzmaria Lamas Primary Care Physician - Luzmaria Lamas This Is Your Medications List [facility] Prescription (Breast prosthetic and bra) albuterol (Albuterol (Eqv-Ventolin HFA) 90 mcg/inh inhalation aerosol) amlodipine (amLODIPine 10 mg Tab) ascorbic acid-collagen (Collagen Skin Renewal) bifidobacterium-lactoba cillus (DoveConviene's Bounty Probiotic) calcium citrate (calcium (as calcium citrate) 200 mg oral tablet) famotidine (famotidine 40 mg Tab) fluticasone (Flovent HFA 44 Aerosol) fluticasone nasal (fluticasone Nasal 0.05 mg/inh [place]) losartan (losartan 100 mg Tab) metformin (metformin [...] Duration: 90 Days Refills: 3 Pickup at [facility] Mail [facility] New fluticasone (Flovent HFA 44 Aerosol) 2 Puffs Inhalation 2 times a day Hypercholesteremia Type 2 diabetes mellitus BMI 28.0-28.9,adult Non-smoker Pickup at [facility] Mail Delivery New metformin (metformin 500 mg Tab) 1 Tablets By Mouth 2 times a day Type 2 diabetes mellitus Refills: 3 Pickup at [facility] Mail Delivery Unchanged albuterol (Albuterol [...] fluticasone nasal (fluticasone Nasal 0.05 mg/ inh [place]) Unchanged losartan (losartan 100 mg Tab) 1 Tablets By Mouth Every day Unchanged Misc Prescription (Breast prosthetic and bra) See instructions 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 Normal [facility] CHEMISTRYOrdered By: SYSTEM SYSTEM on 01-05-2024 Cholesterol [...] (Bld) [Mass fraction] 5.9 % Normal <=5.9% [facility] ChemAutoSS Family Medicine Office/Clini c [...] BID, # 10.6 gram, Refills(s) 0, Pharmacy: [facility], 167, cm, 01/05/24 11:25:00 EDT, Height/Length Dosing, 80.1, kg, 01/05/24 11:25:00 EDT, Weight Dosing HgbA1c Lab Specimen Collect [id number] Lipid Panel 2. Type 2 diabetes mellitus (E11.9: Type 2 diabetes mellitus without complications) Will draw HGBA1C today. pt is taking 1/2 tab in am and 1/2 tab in Pm of metformin Ordered: fluticasone, = 2 puff(s), Inhalation, BID, # 10.6 gram, Refills(s) 0, [facility]acy[facility], 167, cm, 01/05/24 11:25:00 EDT, Height/Length Dosing, 80.1, kg, 01/05/24 11:25:00 EDT, Weight Dosing metformin, 500 mg = 1 tab(s), Oral, BID, # 60 tab(s), Refills(s) 0, [facility]acy[facility], 167, cm, 10/04/23 14:41:00 EST, Height/Length Dosing, 79.5, kg, 10/04/23 14:41:00 EST, Weight Dosing metformin, 500 mg = 1 tab(s), Oral, BID, # 180 tab(s), Refills(s) 3, [facility], 167, cm, 01/05/24 11:25:00 EDT, Height/Length Dosing, 80.1, kg, 01/05/24 11:25:00 EDT, Weight Dosing HgbA1c Lab Specimen Collect [id number] Lipid Panel 3. BMI 28.0-28.9,adult (Z68.28: Body mass index [BMI] 28.0-28.9, adult) BMI education complete Ordered: fluticasone, = 2 puff(s), Inhalation, BID, # 10.6 gram, Refills(s) 0, [facility], 167, cm, 01/05/24 11:25:00 EDT, Height/Length Dosing, 80.1, kg, 01/05/24 11:25:00 EDT, Weight Dosing HgbA1c Lab Specimen Collect 34380 Lipid Panel 4. Non-smoker (Z78.9: Other specified health status) continue not smoking Ordered: fluticasone, = 2 puff(s), Inhalation, BID, # 10.6 gram, Refills(s) 0, Pharmacy: [facility], 167, cm, 01/05/24 11:25:00 EDT, Height/Length Dosing, 80.1, kg, 01/05/24 11:25:00 EDT, Weight Dosing HgbA1c Lab Specimen Collect [id number] Lipid Panel Orders: famotidine, 40 mg = 1 tab(s), Oral, Once a day (at bedtime), X 90 day(s), # 90 tab(s), Refills(s) 3, Pharmacy: [facility], 167, cm, 01/05/24 11:25:00 EDT, Height/Length Dosing, 80.1, kg, 01/05/24 11:25:00 EDT, Weight Dosing famotidine, 40 mg = 1 tab(s), Oral, Once a day (at bedtime), # 90 tab(s), Refills(s) 1, Pharmacy: [facility], 167, cm, 06/06/23 14:18:00 [...] mg o (more content not included)... Normal [facility] Comment on above: Result Comment: Elec tronically Signed By: Luzmaria Lamas\.br\Date and Time Signed: 01/05/24 13:00 EDT [id number] 01-05-2024 HbA1c (Bld) [Mass fraction] 5.9 % Normal <=5.[address] [facility] Comment on above: Performed By: #### 7 [id number] ####[facility] [address] [place] [address] Lipid Panelon 01-05-2024 Cholesterol [Mass/Vol] 215 mg/dL High 120-[address] [facility] Comment on above: Performed By: #### 7 [id number] ####[facility] [address] [place] [address] Cholesterol in HDL [Mass/Vol] 45 mg/dL Invalid Interpretation Code [facility] Comment on above: Result Comment: '>= 60 LOW RISK' '<= 40 HIGH RISK' Performed By: #### 7 [id number], [id number] ####[facility] [address] [place] [address] Cholesterol in LDL [Mass/Vol] 137 mg/dL High <=[address] [facility] Comment on above: Performed By: #### 7 [id number] ####[facility] [address] [place] [address] Cholesterol in VLDL [Mass/Vol] 74 mg/dL High 7-[address] [facility] Comment on above: Performed By: #### 7 [id number] ####[facility] [address] [place] [address] Triglyceride [Mass/Vol] 371 mg/dL High <=[address] [facility] Comment on above: Performed By: #### 7 [id number], [id number] ####[facility] [address] [facility] [place] [address] RAD - MISCon 10-06-2023 RAD - MISC [id number] IFF Normal [facility] Physician Orderon 10-05-2023 Physician Order [id number] IFF Normal [facility] Ambulatory Visit Summaryon 0 10-04-2023 Ambulatory Visit [...] Tab) fluticasone nasal (fluticasone Nasal 0.05 mg/inh [place]) losartan (losartan 100 mg Tab) methylPREDNISolone (Medrol [...] as directed on package labeling Pickup at [facility] New benzonatate (benzonatate 200 mg oral capsule) 1 Capsules By Mouth 3 times a day Cough Shortness of breath BMI 29.0-29.9,adult Non-smoker Duration: 10 Days Pickup at [facility] New methylPREDNISolone (Medrol 4 mg Tab) 1 Packets By Mouth As Directed Cough Shortness of breath BMI 29.0-29.9,adult Non-smoker Duration: 6 Days as directed on package labeling Pickup at [facility] Unchanged albuterol (Albuterol [...] fluticasone nasal (fluticasone Nasal 0.05 mg/ inh [place]) Unchanged losartan (losartan 100 mg Tab) 1 Tablets By Mouth Every day Unchanged multivitamin (Multi Vitamin+) Pharmacy Information [facility]: [address], [place] [phone] Allergies Accupril (Unknown) Anaprox (Unknown) Avelox (Unknown) [...] your care. Normal [facility] Family Medicine Office/Clini c Noteon 10-04-2023 Family [...] chest x ray pt will go to [facility]. pt states she does use [...] day(s), # 6 tab(s), Refills(s) 0, Pharmacy: [facility], 167, cm, 10/04/23 14:41:00 EST, Height/Length Dosing, 79.5, kg, 10/04/23 14:41:00 EST, Weight Dosing benzonatate, 200 mg = 1 cap(s), Oral, TID, X 10 day(s), # 30 cap(s), Refills(s) 0, Pharmacy: [facility], 167, cm, 10/04/23 14:41:00 EST, Height/Length Dosing, 79.5, kg, 10/04/23 14:41:00 EST, Weight Dosing methylPREDNISolone, = 1 packet(s), Oral, As Directed, as directed on package labeling, X 6 day(s), # 21 tab(s), Refills(s) 0, Pharmacy: [facility], 167, cm, 10/04/23 14:41:00 EST, Height/Length Dosing, 79.5, kg, 10/04/23 14:41:00 EST, Weight Dosing 2. Shortness of breath (R06.02: Shortness of breath) chest x ray ordered Ordered: azithromycin, = 1 packet(s), Oral, As Directed, as directed on package labeling, X 5 day(s), # 6 tab(s), Refills(s) 0, Pharmacy: [facility], 167, cm, 10/04/23 14:41:00 EST, Height/Length Dosing, 79.5, kg, 10/04/23 14:41:00 EST, Weight Dosing benzonatate, 200 mg = 1 cap(s), Oral, TID, X 10 day(s), # 30 cap(s), Refills(s) 0, Pharmacy: [facility], 167, cm, 10/04/23 14:41:00 EST, Height/Length Dosing, 79.5, kg, 10/04/23 14:41:00 EST, Weight Dosing methylPREDNISolone, = 1 packet(s), Oral, As Directed, as directed on package labeling, X 6 day(s), # 21 tab(s), Refills(s) 0, Pharmacy: [facility], 167, cm, 10/04/23 14:41:00 EST, Height/Length Dosing, 79.5, kg, 10/04/23 14:41:00 EST, Weight Dosing 3. BMI 29.0-29.9,adult (Z68.29: Body mass index [BMI] 29.0-29.9, adult) BMI education complete Ordered: azithromycin, = 1 packet(s), Oral, As Directed, as directed on package labeling, X 5 day(s), # 6 tab(s), Refills(s) 0, Pharmacy: [facility], 167, cm, 10/04/23 14:41:00 EST, Height/Length Dosing, 79.5, kg, 10/04/23 14:41:00 EST, Weight Dosing benzonatate, 200 mg = 1 cap(s), Oral, TID, X 10 day(s), # 30 cap(s), Refills(s) 0, Pharmacy: [facility], 167, cm, 10/04/23 14:41:00 EST, Height/Length Dosing, 79.5, kg, 10/04/23 14:41:00 EST, Weight Dosing methylPREDNISolone, = 1 packet(s), Oral, As Directed, as directed on package labeling, X 6 day(s), # 21 tab(s), Refills(s) 0, Pharmacy: [facility], 167, cm, 10/04/23 14:41:00 EST, Height/Length Dosing, 79.5, kg, 10/04/23 14:41:00 EST, Weight Dosing 4. Non-smoker (Z78.9: Other specified health status) continue not smoking Ordered: azithromycin, = 1 packet(s), Oral, As Directed, as directed on package labeling, X 5 day(s), # 6 tab(s), Refills(s) 0, Pharmacy: [facility], 167, cm, 10/04/23 14:41:00 EST, Height/Length Dosing, 79.5, kg, 10/04/23 14:41:00 EST, Weight Dosing benzonatate, 200 mg = 1 cap(s), Oral, TID, X 10 day(s), # 30 cap(s), Refills(s) 0, Pharmacy: [facility], 167, cm, 10/04/23 14:41:00 EST, Height/Length Dosing, 79.5, kg, 10/04/23 14:41:00 EST, Weight Dosing methylPREDNISolone, = 1 packet(s), Oral, As Directed, as directed on package labelin (more content not included)... Normal [facility] Comment on above: Result Comment: Elec tronically Signed By: Luzmaria Lamas\.br\Date and Time Signed: 10/04/23 15:03 EST CHEMISTRYOrdered By: SYSTEM SYSTEM on 06-01-2023 Albumin [...] 75 mL/min/1.73 m2 Normal >=59mL/min/1. 73 m2 [facility] Chem S Globulin (S) [Mass/Vol] 3.6 g/dL [...] Remisol Triglyceride [Mass/Vol] 303 mg/dL High <=149mg/dL [facility] Remisol TSH Qn 2.15 m[IU]/L Normal 0.34 - 5.60 mcIU/mL [facility] Remisol Urea nitrogen [Mass/Vol] 24 mg/dL High 5 - 21 mg/dL [facility] Remisol Urea nitrogen/Creatinine [Mass ratio] 30 mg/mg High 10 - 20 [facility] Remisol CHEMISTRYOrdered By: Judith Quick se on 06-01-2023 HbA1c (Bld) [Mass fraction] 6.1 % High <=5.9% [facility] ChemAutoSS HEMATOLOGYOrdered By: SYSTEM SYSTEM on 06-01-2023 Basophils/100 [...] 14.4 % High 10.9 - 14.2 % [facility] Heme[facility]SS Hematocrit (Bld) [Volume fraction] 41.3 % Normal 34.0 - 46.0 % [facility] Hemoglobin (Bld) [Mass/Vol] 13.9 g/dL Normal 12.0 - 16.0 gm/dL [facility] MCH (RBC) [Entitic mass] 29.6 pg Normal 27.0 - 34.0 pg [facility] MCHC (RBC) [Mass/Vol] 33.7 g/dL Normal 31.4 - 36.0 gm/dL [facility] MCV (RBC) [Entitic vol] 87.7 fL Normal 80.0 - 100.0 fL [facility] Platelet mean volume (Bld) [Entitic vol] 8.8 fL Normal 6.4 - 10.8 fL [facility] Platelets (Bld) [#/Vol] 258.0 E9/L Normal 150.0 - 500.0 E9/L [facility] RBC (Bld) [#/Vol] 4.7 E12/L Normal 4.3 - 5.9 E12/L [facility] WBC corrected for nucl RBC Auto (Bld) [#/Vol] 6.2 E9/L Normal 4.0 - 11.0 E9/L [facility] HemeAutoSS CHEMISTRYOrdered By: Lab ROP User on 05-09-2023 Glucose [Mass/Vol] 93 mg/dL Normal 55 - 99 mg/dL FTM C POC Subsection POC Device SN [id number] Invalid Interpretation Code [facility] POC Subsection POC User ID [id number] Invalid Interpretation Code [facility] POC Subsection POC Username JESSICA KIRKPATRICK Invalid Interpretation Code [facility] POC Subsection GI PANEL (PCR)on 01-10-2023 Adenovirus F 40/41 Not detected Normal NOT DETECTED [facility] Comment on above: Performed By: #### G IPANEL #### [facility] [address] [place] [address] Dr. Lakshmi Smith Astrovirus Not detected Normal NOT DETECTED [facility] Comment on above: Performed By: #### G IPANEL #### [facility] [address] [address] [address] Lakshmi Smith C. Diff toxin A/B Not detected Normal NOT DETECTED [facility] Comment on above: Performed By: #### G IPANEL #### [facility] [address] [address] [address] Lakshmi Smith Campylobacter Not detected Normal NOT DETECTED [facility] Comment on above: Performed By: #### G IPANEL #### [facility] [address] [place] [address] Dr. Lakshmi Smith Cryptosporidium Not detected Normal NOT DETECTED [facility] Comment on above: Performed By: #### G IPANEL #### [facility] [address] [address] [address] Lakshmi Smith Cyclos. Cayetanensis Not detected Normal NOT DETECTED [facility] Comment on above: Performed By: #### G IPANEL #### [facility] [address] [place] [address] Dr. Lakshmi Smith E. Coli O157 Not Applicable Normal Not Applicable [facility] Comment on above: Performed By: #### G IPANEL #### [facility] [address] [place] [address] Dr. Lakshmi Smith E. histolytica Not detected Normal NOT DETECTED [facility] Comment on above: Performed By: #### G IPANEL #### [facility] [address] [place] [address] Dr. Lakshmi Smith EAEC Not detected Normal NOT DETECTED [facility] Comment on above: Performed By: #### G IPANEL #### [facility] [address] [place] [address] Dr. Lakshmi Smith EIEC Not detected Normal NOT DETECTED [facility] Comment on above: Performed By: #### G IPANEL #### [facility] [address] [place] [address] Dr. Lakshmi Smith EPEC Not detected Normal NOT DETECTED [facility] Comment on above: Performed By: #### G IPANEL #### [facility] [address] [place] [address] Dr. Lakshmi Smith ETEC Not detected Normal NOT DETECTED [facility] Comment on above: Performed By: #### G IPANEL #### [facility] [address] [address] [address] Lakshmi Pedro Lamblia Not detected Normal NOT DETECTED [facility] Comment on above: Performed By: #### G IPANEL #### [facility] [address] [address] [address] Lakshmi BENAVIDES CONTROLS PASSED Normal [facility] Comment on above: Performed By: #### G IPANEL #### [facility] [address] [address] [address] Lakshmi MEYER HEADER GI PANEL BACTERIA Normal T [facility] Comment on above: Performed By: #### G IPANEL #### [facility] [address] [address] [address] Lakshmi PEREZ ECOLI GI PANEL DIARRHEAGEN IC E.COLI / SHIGELLA Normal [facility] Comment on above: Performed By: #### G IPANEL #### [facility] [address] [place] [address] Dr. Lakshmi PEREZ INFO SEE BELOW Normal [facility] Comment on above: Result Comment: EAEC - Enteroaggregative E. Coli EPEC- Enteropathogenic E. Coli ETEC- Enterotoxigenic E. Coli lt/st STEC- Shigella-like toxin-producing E. Coli stx1/stx2 EIEC- Shigella/Enteroinvasive E. Coli Performed By: #### G IPANEL #### [facility] [address] [place] [address] Dr. Lakshmi PEREZ PARASITES GI PANEL PARASITES Normal [facility] Comment on above: Performed By: #### G IPANEL #### [facility] [address] [place] [address] Dr. Lakshmi PEREZ VIRUS GI PANEL VIRUSES Normal [facility] Comment on above: Performed By: #### G IPANEL #### [facility] [address] [place] [address] Dr. Lakshmi Smith Norovirus GI/GII Not detected Normal NOT DETECTED [facility] Comment on above: Performed By: #### G IPANEL #### [facility] [address] [place] [address] Dr. Lakshmi Smith P. Shigelloides Not detected Normal NOT DETECTED [facility] Comment on above: Performed By: #### G IPANEL #### [facility] [address] [place] [address] Dr. Lakshmi Smith Rotavirus A Detected Abnormal NOT DETECTED The [facility] Comment on above: Performed By: #### G IPANEL #### [facility] [address] [place] [address] Dr. Lakshmi Smith Salmonella Not detected Normal NOT DETECTED [facility] Comment on above: Performed By: #### G IPANEL #### [facility] [address] [place] [address] Dr. Lakshmi Smith Sapovirus Not detected Normal NOT DETECTED [facility] Comment on above: Performed By: #### G IPANEL #### [facility] [address] [place] [address] Dr. Lakshmi Smith STEC Not detected Normal NOT DETECTED [facility] Comment on above: Performed By: #### G IPANEL #### [facility] [address] [place] [address] Dr. Lakshmi Smith Vibrio Not detected Normal NOT DETECTED [facility] Comment on above: Performed By: #### G IPANEL #### [facility] [address] [place] [address] Dr. Lakshmi Smith Vibrio Cholera Not detected Normal NOT DETECTED [facility] Comment on above: Performed By: #### G IPANEL #### [facility] [address] [place] [address] Dr. Lakshmi Smith Y. Enterocolitica Not detected Normal NOT DETECTED [facility] Comment on above: Performed By: #### G IPANEL #### [facility] [address] [place] [address] Dr. Lakshmi Smith CBC AUTO DIFFon 01-09-2023 BASO # 0.0 103/ul Normal 0.0-0.1 [facility] Comment on above: Performed By: #### C BC ####[facility] [address] [place] [address]Dr. Lakshmi Smith Basophils/100 WBC (Bld) 0.3 % Normal 0.2-2.0 [facility] Comment on above: Performed By: #### C BC ####[facility] [address] [place], [place] [address]Dr. Lakshmi Smith EO # 0.5 103/ul Normal 0.0-0.7 [facility] Comment on above: Performed By: #### C BC ####[facility] [address] [place], [place] [address]Dr. Lakshmi Smith Eosinophils/100 WBC (Bld) 5.6 % Normal 0.9-7.0 [facility] Comment on above: Performed By: #### C BC ####[facility] [address] [place], [place] [address]Dr. Lakshmi Smith Erythrocyte distribution width (RBC) [Ratio] 13.9 % Normal 11.0-15.0 [facility] Comment on above: Performed By: #### C BC ####[facility] [address] [place], [place] [address]Dr. Lakshmi Smith Hematocrit (Bld) [Volume fraction] 45.6 % Normal 36.0-48.0 [facility] Comment on above: Performed By: #### C BC ####[facility] [address] [place], [place] [address]Dr. Lakshmi Smith Hemoglobin (Bld) [Mass/Vol] 15.2 g/dL Normal 12.0-16.0 [facility] Comment on above: Performed By: #### C BC ####[facility] [address] [place], [place] [address]Dr. Lakshmi Smith IG # 0.06 10e3/ul Critically high 0.00-0.03 [facility] Comment on above: Performed By: #### C BC ####[facility] [address] [place], [place] [address]Dr. Lakshmi Smith IG % 0.6 % Critically high 0.0-0.5 [facility] Comment on above: Performed By: #### C BC ####[facility] [address] [place], [place] [address]Dr. Robertajulien Luis LYMPH # 2.2 103/ul Normal 1.2-3.8 [facility] Comment on above: Performed By: #### C BC ####[facility] [address] [place] [address]Dr. Lakshmi Luis Lymphocytes/100 WBC (Bld) 23.4 % Normal 20.5-60.0 [facility] Comment on above: Performed By: #### C BC ####[facility] [address] [place] [address]Dr. Robertajulien Smith MANUAL DIFF REQ NO Normal [facility] Comment on above: Performed By: #### C BC ####[facility] [address] [place] [address]Dr. Lakshmi Luis MCH (RBC) [Entitic mass] 29.8 pg Normal 26.7-34.0 [facility] Comment on above: Performed By: #### C BC ####[facility] [address] [place] [address]Dr. Lakshmi Luis MCHC (RBC) [Mass/Vol] 33.3 g/dL Normal 29.9-35.2 [facility] Comment on above: Performed By: #### C BC ####[facility] [address] [place], [place] [address]Dr. Lakshmi Smith MCV (RBC) [Entitic vol] 89.4 fL Normal 81.0-99.0 [facility] Comment on above: Performed By: #### C BC ####[facility] [address] [place] [address]Dr. Lakshmi Smith MONO # 1.3 103/ul Critically high 0.3-0.8 [facility] Comment on above: Performed By: #### C BC ####[facility] [address] [place] [address]Dr. Lakshmi Smith Monocytes/100 WBC (Bld) 13.1 % Critically high 1.7-12.0 [facility] Comment on above: Performed By: #### C BC ####[facility] [address] [place], [place] [address]Dr. Lakshmi Smith NEUT # 5.4 103/ul Normal 1.4-6.5 [facility] Comment on above: Performed By: #### C BC ####[facility] [address] [place] [address]Dr. Lakshmi Smith Neutrophils/100 WBC (Bld) 57.0 % Normal 43.0-75.0 [facility] Comment on above: Performed By: #### C BC ####[facility] [address] [place] [address]Dr. Lakshmi Smith Platelet mean volume (Bld) [Entitic vol] 10.4 fL Normal 9.5-13.5 [facility] Comment on above: Performed By: #### C BC ####[facility] [address] [place] [address]Dr. Lakshmi Smith PLT 290 103/ul Normal 150-450 [facility] Comment on above: Performed By: #### C BC ####[facility] [address] [place] [address]Dr. Lakshmi Smith RBC 5.10 106/ul Normal 4.20-5.40 [facility] Comment on above: Performed By: #### C BC ####[facility] [address] [place] [address]Dr. Lakshmi Smith WBC 9.5 103/ul Normal 4.0-11.0 [facility] Comment on above: Performed By: #### C BC ####[facility] [address] [place] [address]. Lakshmi Smith CT ABD/PELVIS WO CONon 01-09 [...] RICHARD DAVIS Date: 2023-01-09 10:41 Normal [facility] ER URINE PROFILEon 3 Bilirubin Ql (U) Negative Normal NEGATIVE [facility] Comment on above: Performed By: #### E RUR #### [facility] [address] [place] [address] Dr. Lakshmi Smith Clarity (U) CLEAR Normal CLEAR [facility] Comment on above: Performed By: #### E RUR #### [facility] [address] [place] [address] Dr. Lakshmi Smith Color (U) YELLOW Normal YELLOW [facility] Comment on above: Performed By: #### E RUR #### [facility] [address] [place] [address] Dr. Lakshmi VERMA A micrscopic examination will be performed if indicated. Normal [facility] Comment on above: Performed By: #### E RUR #### [facility] [address] [place] [address] Dr. Lakshmi Smith Glucose Ql (U) Negative Normal NEGATIVE [facility] Comment on above: Performed By: #### E RUR #### [facility] [address] [place] [address] Dr. Lakshmi Smith Hemoglobin Ql (U) Negative Normal NEGATIVE [facility] Comment on above: Performed By: #### E RUR #### [facility] [address] [place] [address] Dr. Lakshmi Smith Ketones Ql (U) Negative Normal NEGATIVE [facility] Comment on above: Performed By: #### E RUR #### [facility] [address] [place] [address] Dr. Lakshmi Smith LEUKOCYTES Negative Normal NEGATIVE [facility] Comment on above: Performed By: #### E RUR #### [facility] [address] [place] [address] Dr. Lakshmi Smith Nitrite Ql (U) Negative Normal NEGATIVE [facility] Comment on above: Performed By: #### E RUR #### [facility] [address] [place] [address] Dr. Lakshmi Smith pH (U) 5.5 [pH] Normal 5-9 [facility] Comment on above: Performed By: #### E RUR #### [facility] [address] [place] [address] Dr. Lakshmi Smith Protein (U) [Mass/Vol] 30 mg/dL Abnormal NEGATIVE/ TRACE [facility] Comment on above: Performed By: #### E RUR #### [facility] [address] [place] [address] Dr. Lakshmi Smith SPEC GRAVITY 1.025 Normal 1.005-<=1.025 [facility] Comment on above: Performed By: #### E RUR #### [facility] [address] [place] [address] Dr. Lakshmi Smith UR MICRO IND NOT INDICATED Normal [facility] Comment on above: Performed By: #### E RUR #### [facility] [address] [place] [address] Dr. Lakshmi Smith Urobilinogen Qn (U) 0.2 {Jamir'U}/dL Normal 0.2 - 1. 0 [facility] Comment on above: Performed By: #### E RUR #### [facility] [address] [place] [address] Dr. Lkashmi Smith LIPASEon 01-09-2023 Lipase [Catalytic activity/Vol] 111.0 U/L Normal 73.0-393.0 [facility] Comment on above: Performed By: #### L IPA, CMP #### [facility] [address] [place] [address] Dr. Lakshmi Smith PROF 14(COMP METB)on 023 Albumin [Mass/Vol] 3.6 g/dL Normal 3.4-5.0 [facility] Comment on above: Performed By: #### L IPA, CMP #### [facility] [address] [place] [address] Dr. Lakshmi Smith Albumin/Globulin [Mass ratio] 0.8 {ratio} Normal [facility] Comment on above: Performed By: #### L IPA, CMP #### [facility] [address] [place] [address] Dr. Lakshmi Smith ALP [Catalytic activity/Vol] 72 U/L Normal 46-116 [facility] Comment on above: Performed By: #### L IPA, CMP #### [facility] [address] [place] [address] Dr. Lakshmi Smith ALT [Catalytic activity/Vol] 32 U/L Normal 14-59 [facility] Comment on above: Performed By: #### L IPA, CMP #### [facility] [address] [place] [address] Dr. Lakshmi Smith Anion gap [Moles/Vol] 11.6 mmol/L Normal [facility] Comment on above: Performed By: #### L IPA, CMP #### [facility] [address] [place] [address] Dr. Lakshmi Smith AST [Catalytic activity/Vol] 29 U/L Normal 15-37 [facility] Comment on above: Performed By: #### L IPA, CMP #### [facility] [address] [address] [address] Lakshmi Smith Bilirubin [Mass/Vol] 0.3 mg/dL Normal 0.2-1.0 [facility] Comment on above: Performed By: #### L IPA, CMP #### [facility] [address] [place] [address] Dr. Lakshmi Smith Calcium [Mass/Vol] 8.2 mg/dL Critically low 8.5-10.1 [facility] Comment on above: Performed By: #### L IPA, CMP #### [facility] [address] [address] [address] Lakshmi Smith Chloride [Moles/Vol] 110 mmol/L Critically high 98-107 [facility] Comment on above: Performed By: #### L IPA, CMP #### [facility] [address] [place] [address] Dr. Lakshmi Smith CO2 [Moles/Vol] 22.7 mmol/L Normal 21.0-32.0 [facility] Comment on above: Performed By: #### L IPA, CMP #### [facility] [address] [place] [address] Dr. Lakshmi Smith Creatinine [Mass/Vol] 1.01 mg/dL Normal 0.55-1.02 [facility] Comment on above: Performed By: #### L IPA, CMP #### [facility] [address] [place] [address] Dr. Lakshmi Smith EGFR-AF CITIZEN [place] >60 Normal >=60 [facility] Comment on above: Performed By: #### L IPA, CMP #### [facility] [address] [place] [address] Dr. Lakshmi Smith EGFR-NON AF CITIZEN [place] 53 mL/min/1.73m2 Critically low >=60 [facility] Comment on above: Performed By: #### L IPA, CMP #### [facility] [address] [place] [address] Dr. Lakshmi Smith Globulin (S) [Mass/Vol] 4.3 g/dL Normal [facility] Comment on above: Performed By: #### L IPA, CMP #### [facility] [address] [address] [address] Lakshmi Smith Glucose [Mass/Vol] 113 mg/dL Critically high 74-106 [facility] Comment on above: Performed By: #### L IPA, CMP #### [facility] [address] [address] [address] Lakshmi Smith Potassium [Moles/Vol] 3.3 mmol/L Critically low 3.5-5.1 [facility] Comment on above: Performed By: #### L IPA, CMP #### [facility] [address] [address] [address] Lakshmi Smith Protein [Mass/Vol] 7.9 g/dL Normal 6.4-8.2 [facility] Comment on above: Performed By: #### L IPA, CMP #### [facility] [address] [address] [address] Lakshmi Smith Sodium [Moles/Vol] 141 mmol/L Normal 136-145 [facility] Comment on above: Performed By: #### L IPA, CMP #### [facility] [address] [place] [address] [address] Lakshmi Smith Urea nitrogen [Mass/Vol] 26.0 mg/dL Critically high 7.0-18.0 [facility] Comment on above: Performed By: #### L IPA, CMP #### [facility] [address] [address] [address] Lakshmi Smith Urea nitrogen/Creatinine [Mass ratio] 25.7 mg/mg Normal [facility] Comment on above: Performed By: #### L IPA, CMP #### [facility] [address] [address] [address] Lakshmi Smith XR LSPINE MIN 4 [...] by: ANGLE NGUYEN Date: 2022-10-27 15:02 Normal [facility] XR ANKLE LT MIN 3 Von 2021 XR ANKLE LT MIN 3 V EXAM: XR ANKLE LT ID N 3 V HISTORY: Pain of left [...] by: LANE FLORES Date: 2022-08-25 20:09 Normal [facility] POINT OF CARE GLUCOSEon 06-13 Glucose [Mass/Vol] 110 mg/dL Critically high 74-106 [facility] Comment on above: Performed By: #### P OCGLUC ####[facility] [address] [place], [place] [address]Io. Lakshmi Smith Glucose [Mass/Vol] 125 mg/dL Critically high 74-106 [facility] Comment on above: Performed By: #### P OCGLUC ####[facility] [address] [place], [place] [address]Zs. Lakshmi Smith Covid-19 PCR (CVDTB)on 06-13 SARS-CoV-2 (COVID-19) RNA EDWARD+probe Ql (Unsp spec) Not detected Normal NOT DETECTED [facility] Comment on above: Result Comment: This test is not yet approved or cleared by the [place] FDA. When there are no FDA-approved or cleared tests available, and other criteria are met, FDA can make tests available under an emergency access mechanism called an Emergency Use Authorization (EUA). The EUA for this test is supported by the [place] of Health and Human Service's (HHS's) declaration [...] consistent with SARS-CoV-2. Performed By: #### C VDTB #### [facility] [address] [address] [address] Lakshmi Smith CBC AUTO DIFFon 06-24-2022 BASO # 0.1 103/ul Normal 0.0-0.1 [facility] Comment on above: Performed By: #### C BC ####[facility] [address] [place] [address]Dr. Lakshmi Smith Basophils/100 WBC (Bld) 1.3 % Normal 0.2-2.0 [facility] Comment on above: Performed By: #### C BC ####[facility] [address] [place] [address]Dr. Lakshmi Smith EO # 0.5 103/ul Normal 0.0-0.7 [facility] Comment on above: Performed By: #### C BC ####[facility] [address] [place] [address]Dr. Lakshmi Smith Eosinophils/100 WBC (Bld) 6.8 % Normal 0.9-7.0 [facility] Comment on above: Performed By: #### C BC ####[facility] [address] [place], [place] [address]Dr. Lakshmi Smith Erythrocyte distribution width (RBC) [Ratio] 13.7 % Normal 11.0-15.0 [facility] Comment on above: Performed By: #### C BC ####[facility] [address] [place], [place] [address]Dr. Lakshmi Smith Hematocrit (Bld) [Volume fraction] 36.5 % Normal 36.0-48.0 [facility] Comment on above: Performed By: #### C BC ####[facility] [address] [place], [place] [address]Dr. Lakshmi Smith Hemoglobin (Bld) [Mass/Vol] 12.3 g/dL Normal 12.0-16.0 [facility] Comment on above: Performed By: #### C BC ####[facility] [address] [place], [place] [address]Dr. Lakshmi Smith IG # 0.03 10e3/ul Normal 0.00-0.03 [facility] Comment on above: Performed By: #### C BC ####[facility] [address] [place], [place] [address]Dr. Robertajulien Smith IG % 0.4 % Normal 0.0-0.5 [facility] Comment on above: Performed By: #### C BC ####[facility] [address] [place], [place] [address]Dr. Robertajulien Smith LYMPH # 2.1 103/ul Normal 1.2-3.8 [facility] Comment on above: Performed By: #### C BC ####[facility] [address] [place], [place] [address]Dr. Robertajulien Smith Lymphocytes/100 WBC (Bld) 28.2 % Normal 20.5-60.0 [facility] Comment on above: Performed By: #### C BC ####[facility] [address] [place], [place] [address]Dr. Lakshmi Smith MANUAL DIFF REQ NO Normal [facility] Comment on above: Performed By: #### C BC ####[facility] [address] [place], [place] [address]Dr. Lakshmi Luis MCH (RBC) [Entitic mass] 29.4 pg Normal 26.7-34.0 [facility] Comment on above: Performed By: #### C BC ####[facility] [address] [place] [address]Dr. Lakshmi Smith MCHC (RBC) [Mass/Vol] 33.7 g/dL Normal 29.9-35.2 [facility] Comment on above: Performed By: #### C BC ####[facility] [address] [place] [address]Dr. Lakshmi Luis MCV (RBC) [Entitic vol] 87.3 fL Normal 81.0-99.0 [facility] Comment on above: Performed By: #### C BC ####[facility] [address] [place] [address]Dr. Lakshmi Luis MONO # 0.7 103/ul Normal 0.3-0.8 [facility] Comment on above: Performed By: #### C BC ####[facility] [address] [place] [address]Dr. Robertajulien Smith Monocytes/100 WBC (Bld) 9.6 % Normal 1.7-12.0 [facility] Comment on above: Performed By: #### C BC ####[facility] [address] [place] [address]Dr. Lakshmi Smith NEUT # 4.1 103/ul Normal 1.4-6.5 [facility] Comment on above: Performed By: #### C BC ####[facility] [address] [place] [address]Dr. Robertajulien Smith Neutrophils/100 WBC (Bld) 53.7 % Normal 43.0-75.0 [facility] Comment on above: Performed By: #### C BC ####[facility] [address] [place] [address]Dr. Robertajulien Smith Platelet mean volume (Bld) [Entitic vol] 10.2 fL Normal 9.5-13.5 [facility] Comment on above: Performed By: #### C BC ####[facility] [address] [place], [place] [address]Os. Lakshmi Smith PLT 252 103/ul Normal 150-450 [facility] Comment on above: Performed By: #### C BC ####[facility] [address] [place], [place] [address]IbCristal Smith RBC 4.18 106/ul Critically low 4.20-5.40 [facility] Comment on above: Performed By: #### C BC ####[facility] [address] [place], [place] [address]Ek. Lakshmi Smith WBC 7.5 103/ul Normal 4.0-11.0 [facility] Comment on above: Performed By: #### C BC ####[facility] [address] [place] [address]DrCristal Smith PROF CHEM 8 (BAS METB)on Anion gap [Moles/Vol] 11.7 mmol/L Normal [facility] Comment on above: Performed By: #### B MP #### [facility] [address] [address] [address] Lakshmi Smith Calcium [Mass/Vol] 9.9 mg/dL Normal 8.5-10.1 [facility] Comment on above: Performed By: #### B MP #### [facility] [address] [address] [address] Lakshmi Smith Chloride [Moles/Vol] 103 mmol/L Normal 98-107 [facility] Comment on above: Performed By: #### B MP #### [facility] [address] [address] [address] Lakshmi Smith CO2 [Moles/Vol] 31.1 mmol/L Normal 21.0-32.0 [facility] Comment on above: Performed By: #### B MP #### [facility] [address] [address] [address] Lakshmi Smith Creatinine [Mass/Vol] 1.03 mg/dL Critically high 0.55-1.02 [facility] Comment on above: Performed By: #### B MP #### [facility] [address] [address] [address] Lakshmi Smith EGFR-AF CITIZEN [place] >60 Normal >=60 [facility] Comment on above: Performed By: #### B MP #### [facility] [address] [address] [address] Lakshmi Smith EGFR-NON AF CITIZEN [place] 52 mL/min/1.73m2 Critically low >=60 [facility] Comment on above: Performed By: #### B MP #### [facility] [address] [address] [address] Lakshmi Smith Glucose [Mass/Vol] 148 mg/dL Critically high 74-106 [facility] Comment on above: Performed By: #### B MP #### [facility] [address] [address] [address] Lakshmi Smith Potassium [Moles/Vol] 3.8 mmol/L Normal 3.5-5.1 [facility] Comment on above: Performed By: #### B MP #### [facility] [address] [address] [address] Lakshmi Smith Sodium [Moles/Vol] 142 mmol/L Normal 136-145 [facility] Comment on above: Performed By: #### B MP #### [facility] [address] [address] [address] Lakshmi Smith Urea nitrogen [Mass/Vol] 24.0 mg/dL Critically high 7.0-18.0 [facility] Comment on above: Performed By: #### B MP #### [facility] [address] [address] [address] Lakshmi Smith Urea nitrogen/Creatinine [Mass ratio] 23.3 mg/mg Normal [facility] Comment on above: Performed By: #### B MP #### [facility] [id number] Lakshmi Smith ECHOCARDIO M/2D COMPLETEon 0 04-30-2022 ECHOCARDIO M/2D COMPLETE Patient: STEPHANIE WASSERMAN Exam Date: 04/30/2022 : 1945 Gender:F Ordering : CARYN GRECO Admission #: [id number] Family : Order #: [id number] CLICK HERE TO VIEW EXAM ECHOCARDIOGRAM REPORT [...] Florian M.D. on 04/30/2022 at 19:10 Normal [facility] MRI ANKLE LT WO CONon 2021 [...] by: YOLANDA LOYA Date: 2022-04-25 16:47 Normal [facility] XR pre/post mri xrayon 03-13 XR pre/post mri xray [facility] [place] [address] [place] [address] MRI Report Signed Patient: Stephanie Wasserman MR#: [id number] 565 : 1945 Acct:[id number] Age/Sex: 75 / F ADM Date: 03/13/21 Loc: Room: Type: [facility] Attending Dr: Dalila Rodriguez NP Ordering Provider: Dalila Rodriguez NP Date of Service: 03/13/21 MR/MR ankle LT wo con: S93.492A ([id number]) XR/XR pre/post mri xray: S93.492A Copies to: [...] and posterior tibial tendons, the flexor and plant assigner tendons, the peroneus tendons, and the Achilles [...] Powell Jr., M.D.03/13/2021 8:30 PM Dictation Location: [place] [address] Transcribed By: [facility] 03/13/212029 Dictated By: Cuba Powell Jr, MD 03/13/212004 Signed By: 03/13/212029 [facility] Vital Signs Date Time Vital Sign Value Performing Clinician Facility 10-24-2024 10:47-0500 Blood Pressure Location Braden Sarmin [facility] 10-24-2024 10:47-0500 Diastolic blood pressure 76 mm[Hg] [facility] 10-24-2024 10:47-0500 Heart rate 63 /[facility] 10-24-2024 10:47-0500 Systolic blood pressure 136 mm[Hg] Sampson Ellis [facility] 06-06-2023 14:10-0400 Diastolic blood pressure 70 mm[Hg] Danyelle Kellogg [facility] 06-06-2023 14:10-0400 Heart rate 67 /min Danyelle Kellogg [facility] 06-06-2023 14:10-0400 Mean blood pressure 93 mm[Hg] Danyelle Kellogg [facility] 06-06-2023 14:10-0400 Respiratory rate 14 /min Danyelle Kellogg [facility] 06-06-2023 14:10-0400 Systolic blood pressure 140 mm[Hg] Danyelle Kellogg [facility] 05-09-2023 13:18-0400 Heart rate 59 /min Junito Madeleine [facility] 05-09-2023 13:18-0400 SaO2% (BldA) [Mass fraction] 100 % Junito Madeleine [facility] 05-09-2023 13:18-0400 Diastolic blood pressure 66 mm[Hg] Junito Madeleine [facility] 05-09-2023 13:18-0400 Mean blood pressure 98 mm[Hg] Junito Madeleine [facility] 05-09-2023 13:18-0400 Systolic blood pressure 161 mm[Hg] Junito Madeleine [facility] 05-09-2023 13:18-0400 Respiratory rate 16 /min Junito Madeleine [facility] 05-09-2023 13:10-0400 Diastolic blood pressure 81 mm[Hg] Junito Madeleine [facility] 05-09-2023 13:10-0400 Heart rate 72 /min Junito Madeleine [facility] 05-09-2023 13:10-0400 Respiratory rate 14 /min Junito Madeleine [facility] 05-09-2023 13:10-0400 SaO2% (BldA) [Mass fraction] 98 % Junito Madeleine [facility] 05-09-2023 13:10-0400 Systolic blood pressure 165 mm[Hg] Junito Madeleine [facility] 05-09-2023 12:42-0400 Heart rate 58 /min Junito Madeleine [facility] 05-09-2023 12:42-0400 SaO2% (BldA) [Mass fraction] 98 % Junito Madeleine [facility] 05-09-2023 12:41-0400 Body temperature 98.24 [degF] Junito Madeleine [facility] 05-09-2023 12:41-0400 Diastolic blood pressure 80 mm[Hg] Junito Madeleine [facility] 05-09-2023 12:41-0400 Mean blood pressure 105 mm[Hg] Junito Madeleine [facility] 05-09-2023 12:41-0400 Systolic blood pressure 155 mm[Hg] [facility] [facility] 05-09-2023 12:41-0400 Respiratory rate 15 /min Junito Madeleine [facility] 03-17-2023 14:02-0400 Diastolic blood pressure 66 mm[Hg] Lopez Zumbar [facility] 03-17-2023 14:02-0400 Heart rate 64 /min Lopez Zumbar [facility] 03-17-2023 14:02-0400 Mean blood pressure 94 mm[Hg] Lopez Zumbar [facility] 03-17-2023 14:02-0400 Respiratory rate 14 /min Lopez Zumbar [facility] 03-17-2023 14:02-0400 Systolic blood pressure 149 mm[Hg] Lopez Zumbar [facility] 02-10-2023 13:42-0400 Diastolic blood pressure 71 mm[Hg] Lopez Zumbar [facility] 02-10-2023 13:42-0400 Heart rate 64 /min Lopez Zumbar [facility] 02-10-2023 13:42-0400 Mean blood pressure 94 mm[Hg] Olpez Zumbar [facility] 02-10-2023 13:42-0400 Respiratory rate 12 /min Lopez Zumbar [facility] 02-10-2023 13:42-0400 Systolic blood pressure 141 mm[Hg] Lopez Zumbar [facility] Encounters Encounter Date Encounter Type Care Provider Facility Start: 07-29-2025 ambulatory MD Jason Swanson [facility] [place] Start: 05-21-2025 End: 05-21-2025 ambulatory Luzmaria Tan Facility:[facility] Start: 02-06-2025 End: 02-06-2025 ambulatory ALEXIS RAND Facility:[facility] Start: 01-25-2025 End: 01-25-2025 ambulatory LEXIE WHITTEN Facility:[facility] Start: 01-25-2025 End: 01-25-2025 Patient encounter procedure LEXIE WHITTEN [facility] Start: 12-27-2024 End: 12-27-2024 ambulatory Luzmaria L Britney Facility:[facility] Start: 11-26-2024 End: 11-26-2024 [facility] Start: 11-26-2024 End: 11-26-2024 Patient encounter procedure LEXIE WHITTEN [facility] Start: 11-21-2024 End: 11-21-2024 ambulatory [facility] Start: 10-31-2024 End: 10-31-2024 ambulatory IAN RAND Facility:[facility] Start: 10-26-2024 End: 10-26-2024 Patient encounter procedure Luzmaria L Britney [facility] Start: 10-26-2024 End: 10-26-2024 Lab Drop off Luzmaria L Britney [facility] Start: 10-26-2024 End: 10-26-2024 ambulatory Luzmaria L Britney Facility:[facility] Start: 10-25-2024 ambulatory Luzmaria L Britney Facility: [facility] Start: 10-24-2024 End: 10-24-2024 ambulatory Braden Talal Sarmini Facility:[facility] Start: 10-24-2024 End: 10-24-2024 Patient encounter procedure Braden Talal Sarmini [facility] Start: 09-21-2024 ambulatory Braden Sarmini Facili ty:[facility] Start: 07-27-2024 End: 07-27-2024 ambulatory Luzmaria L Britney Facility:[facility] Start: 07-27-2024 End: 07-27-2024 Patient encounter procedure Luzmaria L Britney [facility] Start: 07-26-2024 End: 07-26-2024 ambulatory GRADUATE TEACHING ASSOCIATE Luzmaria L Britney Facility:[facility] Start: 07-03-2024 End: 07-03-2024 Bamboo flowsheet Panfilo Lemuser RIVET HEATER-UNDERTAKER ASSISTANT Work Phone: [facility] Start: 07-03-2024 End: 07-03-2024 Bamboo flowsheet Panfilo Lemuser RIVET HEATER-UNDERTAKER ASSISTANT Work Phone: [facility] Start: 07-03-2024 End: 07-03-2024 Office outpatient visit 15 minutes Panfilo Lemuser RIVET HEATER-UNDERTAKER ASSISTANT Work Phone: [facility] Comment on above: Seborrheic keratosis (Primary Dx); Melanocytic nevus of trunk; Lentigines; Actinic keratosis; Capillary angioma Start: 06-28-2024 ambulatory GRADUATE TEACHING ASSOCIATE Luzmaria L Britney Facil ity:[facility] Start: 05-09-2024 End: 05-09-2024 ambulatory [facility] Start: 05-01-2024 End: 08-05-2024 ambulatory MD Jason Timmons Facility:[facility] Start: 05-01-2024 End: 08-05-2024 Recurring Jason Timmons [facility] Start: 05-01-2024 End: 05-01-2024 ambulatory Luzmaria L Britney Facility:[facility] Start: 05-01-2024 End: 05-01-2024 Patient encounter procedure Luzmaria L Britney [facility] Start: 04-23-2024 End: 04-23-2024 Lab Drop off Luzmaria L Britney [facility] Start: 04-23-2024 End: 04-23-2024 ambulatory GRADUATE TEACHING ASSOCIATE Luzmaria L Britney Facility:[facility] Start: 03-28-2024 End: 03-28-2024 ambulatory GRADUATE TEACHING ASSOCIATE Luzmaria L Britney Facility:[facility] Start: 03-14-2024 End: 03-16-2024 ambulatory PREETI WILLIAM [facility] Start: 03-06-2024 End: 03-06-2024 ambulatory PANFILO King FELTER Not Available Start: 02-28-2024 End: 02-28-2024 ambulatory GERRI TRIVEDI Not Available Start: 02-02-2024 End: 02-02-2024 ambulatory GERRI Ji TRIVEDI Not Available Start: 01-10-2024 End: 01-10-2024 ambulatory PANFILO A FELTER Not Available Start: 01-05-2024 End: 01-05-2024 Lab Drop off Luzmaria L Britney [facility] Start: 01-05-2024 End: 01-05-2024 ambulatory GRADUATE TEACHING ASSOCIATE Luzmaria L Britney Facility:[facility] Start: 10-04-2023 End: 10-04-2023 ambulatory GRADUATE TEACHING ASSOCIATE Luzmaria L Britney Facility:[facility] Start: 06-06-2023 End: 06-06-2023 Pain Management Danyelle Kellogg [facility] Start: 06-01-2023 End: 06-01-2023 Lab Drop off Luzmaria L Britney [facility] Start: 05-09-2023 End: 05-09-2023 Pain Management Junito Salvador [facility] Start: 03-17-2023 End: 03-17-2023 Pain Management Lopez Collins [facility] Start: 03-01-2023 End: 03-01-2023 Patient encounter procedure Lopez Collins [facility] Start: 02-10-2023 End: 02-10-2023 Patient encounter procedure Lopez Collins [facility] Start: 02-10-2023 End: 02-10-2023 Pain Management Lopez Collins [facility] Start: 01-19-2023 End: 01-19-2023 Patient encounter procedure Luzmaria Tan [facility] Start: 01-10-2023 End: 01-10-2023 ambulatory RONNA NIETO . Facility:[facility] Start: 01-09-2023 End: 01-09-2023 ambulatory RONNA NIETO . Facility:[facility] Start: 12-23-2022 End: 01-14-2023 Pre-admission assessment Lopez Collins [facility] Start: 11-02-2022 End: 11-19-[address] REBEL SNELL . Facility:[facility] Start: 10-27-2022 End: 10-28-[address] REBEL SNELL . Facility:[facility] Start: 08-24-2022 End: 08-25-2022 ambulatory RICK PETER Facility:[facility] Start: 07-11-2022 Encounter for preprocedural laboratory examination [facility] Start: 07-08-2022 End: 07-09-[address] REBEL SNELL . Facility:[facility] Start: 07-05-2022 End: 07-06-[address] JORD[address] Facility:[facility] Start: 07-05-2022 End: 07-06-2022 Encounter for preprocedural laboratory examination L[address] JRODAN Facility:[facility] Start: 06-26-2022 Encounter for preprocedural cardiovascular examination [facility] JORD[address] [facility] Start: 06-24-2022 End: 06-25-[address] REBEL SNELL . Facility:[facility] Start: 04-30-2022 End: 05-01-[address] REBEL SNELL . Facility:[facility] Start: 04-23-2022 End: 04-24-[address] REBEL SNELL . Facility:[facility] Start: 04-08-2022 End: 04-09-[address] ANGLE NGUYEN Facility:[facility] Start: 03-16-2022 End: 03-17-[address] REBEL SNELL . Facility: Procedures Date Procedure Procedure Detail Performing Clinician Start: 07-03-2024 CRYOTHERAPY SKIN LESION Panfilo Esposito APRN-UNDERTAKER ASSISTANT Work Phone: Start: 05-09-2023 Epidural injection o f lumbar spine using fluoroscopic guidance Danyelle Kellogg Comment on above: L5/S1- 25% relief Start: 06-12-2022 Ankle region structu re (body structure) Lopez Collins Comment on above: josé Cholecystectomy Lopezmarly ramirez Excision of breast tissue Melvina isabel Collins History of mastectomy S/P mastectomy Luzmaria Tan Plan of Treatment Date Care Activity Detail Author Start: 07-29-2025 ambulatory Ambulatory Facility:[facility] Start: 07-04-2025 End: 07-04-2025 Patient encounter procedure 07/04/2025 1:00 PM EDT Office Visit [facility] [address] [place] [address] Panfilo Esposito APRN-UNDERTAKER ASSISTANT [address] [place] [address] [facility] Start: 07-03-2024 End: 07-03-2024 Patient encounter procedure 07/03/2024 1:05 PM EDT Office Visit [facility] [address] [place] [id number] Panfilo Esposito, RIVET HEATER-UNDERTAKER ASSISTANT [address] [facility] [address] [place] [address] Arrived [facility] Comment on above: Arrived Start: 05-13-2024 Influenza vaccination Influenza Vacc ine (#1) [facility] Start: 04-10-2019 Pneumococcal Vaccine : 65+ Years (2 of 2 - PPSV23 or PCV20) Pneumococcal Vaccine: 65+ Years (2 of 2 - PPSV23 or PCV20) [facility] Immunizations Immunization Date Immunization Notes Care Provider Fa cili 06-04-2024 influenza virus vaccine, unspecified formulation Panfilo Esposito RIVET HEATER-UNDERTAKER ASSISTANT Work Phone: [facility] 06-02-2023 influenza virus vaccine, unspecified formulation Luzmaria Tan [facility] 05-27-2022 influenza virus vaccine, unspecified formulation Lopez Zumbar [facility] 06-19-2021 influenza virus vaccine, unspecified formulation Lopez Zumbar [facility] 10-30-2020 SARS-CoV-2 (COVID-19 ) mRNA-1273 vaccine Lopez Zumbar [facility] 05-27-2020 influenza virus vaccine, unspecified formulation Lopez Zumbar [facility] 06-07-2019 influenza virus vaccine, unspecified formulation Lopez Zumbar [facility] 05-31-2018 influenza virus vaccine, unspecified formulation Lopez Zumbar [facility] 04-10-2018 pneumococcal conjuga te vaccine, 13 valent Lopez Zumbar [facility] 08-29-2017 influenza virus vaccine, unspecified formulation Lopez Zumbar [facility] 06-28-2017 influenza virus vaccine, unspecified formulation Lopez Zumbar [facility] 06-11-2016 influenza virus vaccine, unspecified formulation Lopez Zumbar [facility] 06-12-2015 influenza virus vaccine, unspecified formulation Lopez Zumbar [facility] 05-23-2015 influenza virus vaccine, unspecified formulation Lopez Zumbar [facility] Payers Date Payer Category Payer Private Health Insurance [facility] [id number] 2021 Medicare (Managed Care) [facility] Member Subscriber Plan / Payer (Effective 2021-Present) Name: Stephanie Wasserman Relation to Subscriber: Self Name: Stephanie Wasserman Payer ID: [id number] (NAIC) Type: Not on file Address: [place] [id number] 1960 Medicare [id number] 1945 Unknown [id number] 2.16.840.1.090292.3.579 .2.593 1944 Unknown [id number] 2.840.1.830207.3.579 .2.593 1944 Unknown [id number] 2.840.1.573445.3.579 .2.593 1944 Unknown [id number] 216.840.1.830131.3.579 .2.593 1944 Unknown [id number] 2.16.840.1.535140.3.579 .2.593 1944 Unknown [id number] 2.16.840.1.348908.3.579 .2.593 1944 Unknown [id number] 2.16.840.1.281748.3.579 .2.593 1944 Unknown [id number] 2.16.840.1.049724.3.579 .2.593 1944 Unknown [id number] 2.16.840.1.947406.3.579 .2.593 1944 Unknown [id number] 2.16.840.1.936268.3.579 .2.593 1944 Unknown [id number] 2.16.840.1.393270.3.579 .2.593 1944 Unknown [id number] 2.16.840.1.218864.3.579 .2.593 1944 Unknown [id number] 2.16.840.1.040290.3.579 .2.1259 1944 Unknown [id number] 2.16.840.1.649057.3.579 .2.1259 1944 Unknown [id number] 2.16.840.1.667913.3.579 .2.1259 1944 Unknown [id number] 2.16.840.1.269873.3.579 .2.1259 1944 Unknown [id number] 2.16.840.1.661737.3.579 .2.727 1944 Unknown [id number] 2.16.840.1.754096.3.579 .2.727 1944 Unknown [id number] 2.16.840.1.896457.3.579 .2.727 5 Unknown [id number] 2.16.840.1.293487.3.579 .2.72 1944 Unknown [id number] 2.16.840.1.975302.3.579 .2. 1944 Unknown [id number] 2.16.840.1.133855.3.579 .2.72 1944 Unknown [id number] 2.16.840.1.505747.3.579 .2. 1944 Unknown [id number] 2.16.840.1.706477.3.579 .2 1944 Unknown [id number] 2.16.840.1.898332.3.579 .2 1944 Unknown [id number] 2..840.1.880693.3.579 .2 1944 Unknown [id number] 2.16.840.1.878764.3.579 .2. 1944 Unknown [id number] 2.16.840.1.555583.3.579 .2 1944 Unknown [id number] 2.16.840.1.312470.3.579 .2 1944 Unknown [id number] 2.840.1.701317.3.579 .2 1944 Unknown [id number] 2.16.840.1.295278.3.579 .2. 1944 Unknown [id number] 2.16.840.1.239328.3.579 .2. 1944 Unknown [id number] 2.16.840.1.051904.3.579 .2. 1944 Unknown [id number] 2.16.840.1.088764.3.579 .2 1944 Unknown [id number] 2.16.840.1.161281.3.579 .2.727 1944 Unknown [id number] 2.16.840.1.481705.3.579 .2.727 1944 Unknown [id number] 2.16.840.1.276419.3.579 .2.727 1944 Unknown [id number] 2.16.840.1.929165.3.579 .2.727 1944 Unknown [id number] 2.16.840.1.414465.3.579 .2.727 1944 Unknown [id number] 2.16.840.1.113134.3.579 .2.727 1944 Unknown [id number] 2.16.840.1.241031.3.579 .2.727 1944 Unknown [id number] 2.16.840.1.623933.3.579 .2.727 1944 Unknown [id number] 2.16.840.1.252330.3.579 .2.727 Social History Date Type Detail Facility Start: 01-04-2023 End: 10-31-2024 Tobacco smoking status Never smoked tobacco (finding) [facility] Comment on above: denies use. Start: 03-06-2024 End: 07-03-2024 Sex Assigned At Female [facility] Tobacco smoking status Never [facility] Comment on above: denies use. Start: 01-10-2024 Tobacco use and exposure Smoke less tobacco non-user [facility] Start: 03-06-2024 End: 07-03-2024 Alcoholic beverage intake Defer [facility] Start: 03-06-2024 End: 07-03-2024 History of Social function [facility] Start: 1945 Sex assigned at Not on file [facility] Sexual Orientation [facility] Sex Female (finding) [facility] Medical Equipment Procedure Code Equipment Code Equipment Origin al Text Equipment Identifier Dates lancets, See Instructions, 100 EA, 12, to check BS daily e11.69, [facility], Supply, 167, cm, 03/28/24 15:04:00 EDT, Height/Length Dosing, 80.2, kg, 03/28/24 15:04:00 EDT, Weight Dosing Start: 04-23-2024 test strips true metrix, See Instructions, 100 EA, 12, test stripts to test BS daily e.11.69, [facility], 167, cm, 03/28/24 15:04:00 EDT, Height/Length Dosing, 80.2, kg, 03/28/24 15:04:00 EDT, Weight Dosing Start: 04-23-2024 lancets, See Instructions, 100 EA, 12, to check BS daily e11.69, [facility], Supply, 167, cm, 03/28/24 15:04:00 EDT, Height/Length Dosing, 80.2, kg, 03/28/24 15:04:00 EDT, Weight Dosing Start: 04-23-2024 test strips true metrix, See Instructions, 100 EA, 12, test stripts to test BS daily e.11.69, [facility], 167, cm, 03/28/24 15:04:00 EDT, Height/Length Dosing, 80.2, kg, 03/28/24 15:04:00 EDT, Weight Dosing Start: 04-23-2024 lancets, See Instructions, 100 EA, 12, to check BS daily e11.69, [facility] Supply, 167, cm, 03/28/24 15:04:00 EDT, Height/Length Dosing, 80.2, kg, 03/28/24 15:04:00 EDT, Weight Dosing Start: 04-23-2024 test strips true metrix, See Instructions, 100 EA, 12, test stripts to test BS daily e.11.69, [facility], Supply, 167, cm, 03/28/24 15:04:00 EDT, Height/Length Dosing, 80.2, kg, 03/28/24 15:04:00 EDT, Weight Dosing Start: 04-23-2024 lancets, See Instructions, 100 EA, 12, to check BS daily e11.69, [facility], 167, cm, 03/28/24 15:04:00 EDT, Height/Length Dosing, 80.2, kg, 03/28/24 15:04:00 EDT, Weight Dosing Start: 04-23-2024 test strips true metrix, See Instructions, 100 EA, 12, test stripts to test BS daily e.11.69, [facility], 167, cm, 03/28/24 15:04:00 EDT, Height/Length Dosing, 80.2, kg, 03/28/24 15:04:00 EDT, Weight Dosing Start: 04-23-2024 lancets, See Instructions, 100 EA, 12, to check BS daily e11.69, [facility] Supply, 167, cm, 03/28/24 15:04:00 EDT, Height/Length Dosing, 80.2, kg, 03/28/24 15:04:00 EDT, Weight Dosing Start: 04-23-2024 test strips true metrix, See Instructions, 100 EA, 12, test stripts to test BS daily e.11.69, [facility] Supply, 167, cm, 03/28/24 15:04:00 EDT, Height/Length Dosing, 80.2, kg, 03/28/24 15:04:00 EDT, Weight Dosing Start: 04-23-2024 lancets, See Instructions, 100 EA, 12, to check BS daily e11.69, [facility], 167, cm, 03/28/24 15:04:00 EDT, Height/Length Dosing, 80.2, kg, 03/28/24 15:04:00 EDT, Weight Dosing Start: 04-23-2024 test strips true metrix, See Instructions, 100 EA, 12, test stripts to test BS daily e.11.69, [facility], 167, cm, 03/28/24 15:04:00 EDT, Height/Length Dosing, 80.2, kg, 03/28/24 15:04:00 EDT, Weight Dosing Start: 04-23-2024 lancets, See Instructions, 100 EA, 12, to check BS daily e11.69, [facility], Supply, 167, cm, 03/28/24 15:04:00 EDT, Height/Length Dosing, 80.2, kg, 03/28/24 15:04:00 EDT, Weight Dosing Start: 04-23-2024 test strips true metrix, See Instructions, 100 EA, 12, test stripts to test BS daily e.11.69, [facility], Supply, 167, cm, 03/28/24 15:04:00 EDT, Height/Length Dosing, 80.2, kg, 03/28/24 15:04:00 EDT, Weight Dosing Start: 04-23-2024 lancets, See Instructions, 100 EA, 12, to check BS daily e11.69, [facility], Supply, 167, cm, 03/28/24 15:04:00 EDT, Height/Length Dosing, 80.2, kg, 03/28/24 15:04:00 EDT, Weight Dosing Start: 04-23-2024 test strips true metrix, See Instructions, 100 EA, 12, test stripts to test BS daily e.11.69, [facility] [place] [facility], Supply, 167, cm, 03/28/24 15:04:00 EDT, Height/Length Dosing, 80.2, kg, 03/28/24 15:04:00 EDT, Weight Dosing Start: 04-23-2024 Functional Status Date Assessment Result Facility 10-24-2024 Functional Status N/A [facility] 06-06-2023 Functional Status N/A [facility] 05-09-2023 Functional Status N/A [facility] 03-17-2023 Functional Status N/A [facility] 02-10-2023 Functional Status N/A [facility] Clinical Notes 04-09-2022 to 02-06-2025 Panfilo Esposito, RIVET HEATER-UNDERTAKER ASSISTANT - 07/03/2024 1:05 PM EDTLaboratory Note Date & Type Note Facility 02-06-2025 Note Patient Education Infectious Disease Shingles Shingles is an infection. It gives you a painful skin rash and blisters that have fluid in them. Shingles is caused by the same germ (virus) that causes chickenpox. Shingles only happens in people who: ??? Have had chickenpox. ??? Have been given a shot (vaccine) to protect against chickenpox. Shingles is rare in this group. What are the causes? This condition is caused by varicella-zoster virus. This is the same germ that causes chickenpox. After a person is exposed to the germ, the germ stays in the body but is not active (dormant). Shingles develops if the germ becomes active again (is reactivated). This can happen many years after the first exposure to the germ. It is not known what causes this germ to become active again. What increases the risk? People who have had chickenpox or received the chickenpox shot are at risk for shingles. This infection is more common in people who: ??? Are older than 60 years of age. ??? Have a weakened disease-fighting system (immune system), such as people with: ? HIV (human immunodeficiency virus). ? AIDS (acquired immunodeficiency syndrome). ? Cancer. ??? Are taking medicines that weaken the immune system, such as organ transplant medicines. ??? Have a lot of stress. What are the signs or symptoms? The first symptoms of shingles may be itching, tingling, or pain in an area on your skin. A rash will show on your skin a few days or weeks later. This is what usually happens: ??? The rash is likely to be on one side of your body. ??? The rash usually has a shape like a belt or a band. Over time, the rash turns into fluid-filled blisters. ??? The blisters will break open and change into scabs. ??? The scabs usually dry up in about 2?3 weeks. You may also have: ??? A fever. ??? Chills. ??? A headache. ??? A feeling like you may vomit (nausea). How is this treated? The rash may last for several weeks. There is not a specific cure for this condition. Your doctor may prescribe medicines. Medicines may: ??? Help with pain. ??? Help you get better sooner. ??? Help to prevent long-term problems. ??? Help with itching (antihistamines). If the area involved is on your face, you may need to see a specialist. This may be an eye doctor or an ear, nose, and throat (ENT) doctor. Follow these instructions at home: Medicines ??? Take [id number]-[id number] and prescription medicines only as told by your doctor. ??? Put on an anti-itch cream or numbing cream where you have a rash, blisters, or scabs. Do this as told by your doctor. Helping with itching and discomfort ??? Put cold, wet cloths (cold compresses) on the area of the rash or blisters as told by your doctor. ??? Cool baths can help you feel better. Try adding baking soda or dry oatmeal to the water to lessen itching. Do not bathe in hot water. ??? Use calamine lotion as told by your doctor. Blister and rash care ??? Keep your rash covered with a loose bandage (dressing). ??? Wear loose clothing that does not rub on your rash. ??? Wash your hands with soap and water for at least 20 seconds before and after you change your bandage. If you cannot use soap and water, use hand chief marketing officer. ??? Change your bandage as told by your doctor. ??? Keep your rash and blisters clean. To do this, wash the area with mild soap and cool water as told by your doctor. ??? Check your rash every day for signs of infection. Check for: ? More redness, swelling, or pain. ? Fluid or blood. ? Warmth. ? Pus or a bad smell. ??? Do not scratch your rash. Do not pick at your blisters. To help you to not scratch: ? Keep your fingernails clean and cut short. ? Wear gloves or mittens when you sleep, if scratching is a problem. General instructions ??? Rest as told by your doctor. ??? Wash your hands often with soap and water for at least 20 seconds. If you cannot use soap and water, use hand chief marketing officer. Doing this lowers your chance of getting a skin infection. ??? Your infection can cause chickenpox in people who have never had chickenpox or never got a chickenpox vaccine shot. If you have blisters that did not change into scabs yet, try not to touch other people or be around other people, especially: ? Babies. ? women. ? Children who have areas of red, itchy, or rough skin (eczema). ? Older people who have organ transplants. ? People who have a long-term (chronic) illness, like cancer or AIDS. ??? Keep all follow-up visits. How is this prevented? A vaccine shot is the best way to prevent shingles and protect against shingles problems. If you have not had a vaccine shot, talk with your doctor about getting it. Where to find more information ??? Centers for Disease Control and Prevention: www.cdc.gov Contact a doctor if: ??? Your pain does not get better with medicine. ??? Your pain does not (more content not included)... [facility] 11-21-2024 Note [place] [facility] - [facility] Subjective Stephanie Wasserman is a 78 y.o. year old female patient being seen for 6 month follow up, Hypertension, NSVT, and Diabetes Patient Active Problem List Diagnosis Dyspnea on exertion Arthritis Osteoarthritis Breast cancer (CMS/HCC) Cervical radiculitis Chronic cough Diabetes mellitus, type II (CMS/HCC) Episodic tension type headache GERD (gastroesophageal reflux disease) Hearing deficit Hypothyroidism Lower back pain Mononucleosis Sciatica Hypertension Hyperlipidemia Non-sustained ventricular tachycardia (CMS/HCC) Excessive thirst Fatigue S/P mastectomy Wellness examination History of malignant neoplasm of breast Diastolic dysfunction BMI 29.0-29.9,adult Chronic obstructive pulmonary disease (CMS/HCC) Contact with and (suspected) exposure to environmental tobacco smoke (acute) (chronic) Other secondary pulmonary hypertension (CMS/HCC) HPI The patient has history of nonsustained V. tach declined ischemic evaluation or beta-edel, hypertension, hyperlipidemia, diabetes mellitus She is here today for follow-up visit. She continues to have exertional dyspnea but she reports that using inhalers has helped. She becomes short of breath when she walks about 3-4 blocks. She denies any chest discomfort at rest or with exertion. She denies orthopnea or paroxysmal nocturnal dyspnea or dizziness or palpitations. She admits occasional mild legs edema. She denies legs discomfort on exertion. She admits feeling off balance sometimes when she stands up or while she is walking ROS All systems were reviewed and they were negative except for the positive findings noted above in the history Past Medical History: Diagnosis Date Diabetes mellitus (CMS/HCC) Hypertension PVC (premature ventricular contraction) Past Surgical History: Procedure Laterality Date ANKLE SURGERY CHOLECYSTECTOMY FOOT SURGERY Left 06/2022 MASTECTOMY Family History Problem Relation Name Age of Onset Lung disease Mother Diabetes Mother's Sister Social History Tobacco Use Smoking status: Never Smokeless tobacco: Never Substance Use Topics Alcohol use: Not Currently Comment: occasional Drug use: Never Allergies Allergies Allergen Reactions Accupril [Quinapril] Amoxicillin-Pot Clavulanate Other reaction(s): GI Disturbance Anaprox [Naproxen Sodium] Avelox [Moxifloxacin] Cephalexin Diflucan [Fluconazole] Sulfa (Sulfonamide Antibiotics) Sulfamethoxazole-Trimethoprim Hives Medications Current Outpatient Medications: albuterol 90 mcg/actuation inhaler, INHALE 2 PUFFS BY MOUTH EVERY 4 HOURS, Disp: , Rfl: aluminum hydrox-magnesium carb (Gaviscon Extra Strength) 160-105 mg tablet,chewable, 4 tab(s), Chewed, TID for indigestion, 100 tab(s), Refill(s) 6, [facility], 167, cm, 10/24/24 10:54:00 EST, Height/Length Dosing, 81.5, kg, 10/24/24 10:54:00 EST, Weight Dosing, Disp: , Rfl: amLODIPine (Norvasc) 10 mg tablet, TAKE 1 TABLET EVERY MORNING, Disp: 90 tablet, Rfl: 3 atorvastatin (Lipitor) 20 mg tablet, Take 20 mg by mouth at bedtime., Disp: , Rfl: Breztri Aerosphere 160-9-4.8 mcg/actuation HFA aerosol inhaler, every 12 (twelve) hours., Disp: , Rfl: calcium citrate (Calcitrate) 200 mg (950 mg) tablet, See Instructions, Daily, Refills(s) 0, Disp: , Rfl: losartan (Cozaar) 100 mg tablet, Take 1 tablet (100 mg) by mouth in the morning., Disp: 90 tablet, Rfl: 3 metFORMIN (Glucophage) 500 mg tablet, Take 500 mg by mouth with breakfast and with evening meal., Disp: , Rfl: NexIUM [address] capsule, Take 40 mg by mouth., Disp: , Rfl: True Metrix Glucose Test Strip strip, , Disp: , Rfl: TRUEplus Lancets 33 gauge misc, , Disp: , Rfl: omeprazole (PriLOSEC) [address] capsule, Take 20 mg by mouth before breakfast., Disp: , Rfl: Objective Visit Vitals BP 125/61 (BP Location: Right arm, Patient Position: Sitting) Pulse 67 Ht 1.676 m (5' 6 ) Wt 80.7 kg (178 lb) SpO2 98% BMI 28.73 kg/m??? Smoking Status Never BSA 1.94 m??? Physical exam: GENERAL: alert and oriented x3, well developed, in no acute distress. HEAD: atraumatic, normocephalic. EYES: VALARIE, EOMI. NECK: trachea midline, no JVD present, no carotid bruits present. CARDIAC: S1, S2 present. RRR. No murmur, rubs, or gallops. RESPIRATORY: CTAB, no increased effort of breathing, no rales, rhonchi, or wheezing. ABDOMEN: soft, nontender, nondistended. EXTREMITIES: Trace edema particularly around the ankles and feet, varicose veins were noted. No rash/skin discoloration present. NEURO: strength/sensation equal and symmetric in bilateral upper and lower extremities. PSYCH: appropriate mood, affect, and judgement. Recent Labs 05/07/2024 Sodium 140, potassium 4.4, BUN 14, creatinine 0.8, GFR above 60, calcium 9.1, proBNP 133, normal less than 1800 next 01/05/2024 HbA1c 4 5.9% Cholesterol 215, triglycerides 371, HDL 45, (more content not included)... [facility] 10-31-2024 Note Patient Education Infectious Disease Upper Respiratory Infection, Adult An upper respiratory infection (URI) affects the nose, throat, and upper airways that lead to the lungs. The most common type of URI is often called the common cold. URIs usually get better on their own, without medical treatment. What are the causes? A URI is caused by a germ (virus). You may catch these germs by: ??? Breathing in droplets from an infected person's cough or sneeze. ??? Touching something that has the germ on it (is contaminated) and then touching your mouth, nose, or eyes. What increases the risk? You are more likely to get a URI if: ??? You are very young or very old. ??? You have close contact with others, such as at work, school, or a health care facility. ??? You smoke. ??? You have long-term (chronic) heart or lung disease. ??? You have a weakened disease-fighting system (immune system). ??? You have nasal allergies or asthma. ??? You have a lot of stress. ??? You have poor nutrition. What are the signs or symptoms? Runny or stuffy (congested) nose. ??? Cough. ??? Sneezing. ??? Sore throat. ??? Headache. ??? Feeling tired (fatigue). ??? Fever. ??? Not wanting to eat as much as usual. ??? Pain in your forehead, behind your eyes, and over your cheekbones (sinus pain). ??? Muscle aches. ??? Redness or irritation of the eyes. ??? Pressure in the ears or face. How is this treated? URIs usually get better on their own within 7?10 days. Medicines cannot cure URIs, but your doctor may recommend certain medicines to help relieve symptoms, such as: ??? Lroh-tzr-rtxfhgi cold medicines. ??? Medicines to reduce coughing (cough suppressants). Coughing is a type of defense against infection that helps to clear the nose, throat, windpipe, and lungs (respiratory system). Take these medicines only as told by your doctor. ??? Medicines to lower your fever. Follow these instructions at home: Activity ??? Rest as needed. ??? If you have a fever, stay home from work or school until your fever is gone, or until your doctor says you may return to work or school. ? You should stay home until you cannot spread the infection anymore (you are not contagious). ? Your doctor may have you wear a face mask so you have less risk of spreading the infection. Relieving symptoms ??? Rinse your mouth often with salt water. To make salt water, dissolve ??1 tsp (3?6 g) of salt in 1 cup (237 mL) of warm water. ??? Use a cool-mist humidifier to add moisture to the air. This can help you breathe more easily. Eating and drinking ??? Drink enough fluid to keep your pee (urine) pale yellow. ??? Eat soups and other clear broths. General instructions ??? Take hjjw-mnu-wudaiky and prescription medicines only as told by your doctor. ??? Do not smoke or use any products that contain nicotine or tobacco. If you need help quitting, ask your doctor. ??? Avoid being where people are smoking (avoid secondhand smoke). ??? Stay up to date on all your shots (immunizations), and get the flu shot every year. ??? Keep all follow-up visits. How to prevent the spread of infection to others ??? Wash your hands with soap and water for at least 20 seconds. If you cannot use soap and water, use hand chief marketing officer. ??? Avoid touching your mouth, face, eyes, or nose. ??? Cough or sneeze into a tissue or your sleeve or elbow. Do not cough or sneeze into your hand or into the air. Contact a doctor if: ??? You are getting worse, not better. ??? You have any of these: ? A fever or chills. ? Brown or red mucus in your nose. ? Yellow or brown fluid (discharge)coming from your nose. ? Pain in your face, especially when you bend forward. ? Swollen neck glands. ? Pain when you swallow. ? White areas in the back of your throat. Get help right away if: ??? You have shortness of breath that gets worse. ??? You have very bad or constant: ? Headache. ? Ear pain. ? Pain in your forehead, behind your eyes, and over your cheekbones (sinus pain). ? Chest pain. ??? You have long-lasting (chronic) lung disease along with any of these: ? Making high-pitched whistling sounds when you breathe, most often when you breathe out (wheezing). ? Long-lasting cough (more than 14 days). ? Coughing up blood. ? A change in your usual mucus. ??? You have a stiff neck. ??? You have changes in your: ? Vision. ? Hearing. ? Thinking. ? Mood. These symptoms may be an emergency. Get help right away. Call 911. ??? Do not wait to see if the symptoms will go away. ??? Do not drive yourself to the hospital. Summary ??? An upper respiratory infection (URI) is caused by a germ (virus). The most common type of URI is often called the common cold. ??? URIs usually get better within 7?10 days. ??? Take jtek-frm-rkaojwh and prescription med (more content not included)... [facility] 07-26-2024 Note Patient Education Emergency Medicine Heart Attack A heart attack occurs when blood and oxygen supply to the heart is cut off. A heart attack can cause damage to the heart that cannot be fixed. A heart attack is also called a myocardial infarction, or ID. If you think you are having a heart attack, do not wait to see if the symptoms will go away. Get medical help right away. What are the causes? This condition may be caused by: ??? A fatty substance (plaque) in the blood vessels (arteries). This can block the flow of blood to the heart. ??? A blood clot in the blood vessels that go to the heart. The blood clot blocks blood flow. ??? An abnormal heartbeat. ??? Some diseases, such as problems in red blood cells (anemia)orproblems in breathing (respiratory failure). ??? Tightening (spasm) of a blood vessel that cuts off blood to the heart. ??? A tear in a blood vessel of the heart. Other causes may include: ??? Using drugs such as cocaine or methamphetamine. ??? Low blood pressure. What increases the risk? Aging. The risk gets higher as you get older. ??? Having a personal or family history of chest pain, heart attack, stroke, or narrowing of the arteries in the legs, arms, head, or stomach (peripheral vascular disease). ??? Having taken chemotherapy or immune-suppressing medicines. ??? Being male. ??? Being overweight or obese. ??? Having any of these conditions: ? High blood pressure. ? High cholesterol. ? Diabetes. ??? Making lifestyle choices such as: ? Drinking too much alcohol. ? Not getting regular exercise. ? Smoking. What are the signs or symptoms? Chest pain. It may feel like: ? Crushing or squeezing. ? Tightness, pressure, fullness, or heaviness. ??? Pain in the arm, neck, jaw, back, or upper body. ??? Heartburn. ??? Upset stomach (indigestion). ??? Shortness of breath. ??? Feeling like you may vomit (nauseous). ??? Cold sweats. ??? Sudden light-headedness, dizziness, or passing out. ??? Feeling tired. How is this treated? A heart attack must be treated as soon as possible. Treatment may include: ??? Medicines to: ? Break up or dissolve blood clots. ? Thin your blood and help prevent blood clots. ? Treat blood pressure. ? Improve blood flow to the heart. ? Reduce pain. ? Reduce cholesterol. ??? Procedures to widen a blocked artery and keep it open. ??? Open heart surgery. ??? Making your heart strong again (cardiac rehabilitation) through exercise, education, and counseling. Follow these instructions at home: Medicines ??? Take amwn-nia-eihdeyf and prescription medicines only as told by your doctor. ??? Do not take these medicines unless your doctor says it is okay: ? NSAIDs, such as ibuprofen, naproxen, or celecoxib. ? Any vitamins or supplements. ? Hormone replacement therapy that has estrogen with or without progestin. ??? If you are taking blood thinners: ? Talk with your doctor before taking any medicines that have aspirin or NSAIDs, such as ibuprofen. ? Take medicines exactly as told. Take them at the same time each day. ? Avoid doing things that could hurt or bruise you. Take action to prevent falls. ? Wear an alert bracelet or carry a card that shows you are taking blood thinners. Lifestyle ??? Do not smoke or use any products that contain nicotine or tobacco. If you need help quitting, ask your doctor. ??? Avoid secondhand smoke. ??? Exercise regularly. Ask your doctor about a cardiac rehab program. ??? Eat heart-healthy foods. Your doctor will tell you what foods to eat. ??? Stay at a healthy weight. ??? Learn ways to lower your stress level. ??? Do not use illegal drugs. Alcohol use ??? Do not drink alcohol if: ? Your doctor tells you not to drink. ? You are , may be , or are planning to become . ??? If you drink alcohol: ? Limit how much you have to: ? 0?1 drink a day for women. ? 0?2 drinks a day for men. ? Know how much alcohol is in your drink. In the [place] one drink equals one 12 oz bottle of beer (355 mL), one 5 oz glass of wine (148 mL), or one 1? oz glass of hard liquor (44 mL). General instructions ??? Work with your doctor to treat other problems you may have, such as diabetes or high blood pressure. ??? Get screened for depression. Get treatment if needed. ??? Keep your vaccines up to date. Get the flu shot (influenza vaccine) every year. ??? Keep all follow-up visits. Contact a doctor if: ??? You feel very sad. ??? You have trouble doing your daily activities. ??? You get light-headed or dizzy. Get help right away if: ??? You have sudden, unexplained discomfort in your chest, arms, back, neck, jaw, or upper body. ??? You have shortness of breath. ??? You have sudden sweating or clammy skin. ??? You feel like you may vomit or you vomit. ??? You fe (more content not included)... [facility] 07-03-2024 History of Present illness Narrative Skin Check Location: Patient requests a full body skin examination Dermatologic history: history of Basal Cell Carcinoma Last visit: 4 months ago, had MOHS surgery on right cheek Established patient All pertinent medical history, medications, and allergies were reviewed. General Exam: alert, oriented to person, place, and time, normal affect, well appearing Unaccompanied Scalp, Examined , exam limited by hair Right leg Examined Head, Face Examined Left leg Examined Neck Examined Right foot Examined Chest Examined Left foot Examined Back Examined Buttocks Examined Abdomen Examined Digits,nails: Examined Right arm Examined Left arm Examined Lymphatics: Not examined Hands Examined 1. Seborrheic keratosis Stuck on verrucous, sotomayor-brown papules and plaques. Patient was counseled regarding these benign growths. Removal is normally not necessary, but they may be removed if they are symptomatic or for cosmetic reasons. 2. Melanocytic nevus of trunk Scattered benign appearing, regular brown to light brown melanocytic papules and macules with similar morphology Counseled regarding these benign growths. Rarely, a nevus can develop into malignant melanoma, so any changing nevi should be promptly re-evaluated. 3. Lentigines Scattered sotomayor macules in sun-exposed areas. The patient was informed that lentigines are benign pigmented lesions that occur on sun-exposed and sun-damaged skin. No treatment is necessary. Recommended regular use of broad spectrum sunscreen SPF 30 or higher 4. Actinic keratosis (2) Left Parotid Area, Right [place] Erythematous scaly papules Patient was counseled regarding these sun-induced growths that can develop into squamous cell carcinoma if left untreated. Discussed treatment with cryotherapy. It was emphasized that any treated lesions that fail to resolve should be re-evaluated. Cryotherapy performed today; see procedure note Diagnosis: Actinic keratosis Indication: Precancerous Location: see skin exam Consent: Verbal consent was obtained and risks were discussed, including, but not limited to risks of scarring, darker or development manager pigmentary changes, recurrence, incomplete removal and infection. Method: Liquid nitrogen was used to treat the lesion(s) with two 5-10 second freeze-thaw cycles. Number of lesions treated: 2 Post-procedure instructions: Instructions were given orally and in writing. The office will be contacted if the lesion fails to resolve despite treatment, or if a side effect develops such as abnormal crusting, scabbing, redness or tenderness Cryotherapy, skin lesion - Left Parotid Area, Right [place] 5. Capillary angioma Scattered ramirez-red papule(s). The patient was informed that angiomas are benign growths on the the skin. No treatment is necessary. Next Visit: 1 year documented in this encounter [facility] 05-09-2024 Note Pt is here for follo w up Pulm function test/echo . Pt denies any chest pain, sob, palpatations. Review of Systems Constitutional: Positive for malaise/fatigue. Cardiovascular: Positive for dyspnea on exertion (worsening) and leg swelling. Respiratory: Positive for shortness of breath. Musculoskeletal: Positive for arthritis, back pain and joint pain. Neurological: Positive for light-headedness. All other systems reviewed and are negative. [facility] 05-09-2024 Note Cardiovascular Medic [facility] SUBJECTIVE Chief Complaint Patient presents with ECHO f/u Shortness of Breath Stephanie Wasserman is a 78 y.o. female here for follow-up. HPI PMHx: HTN, HLD, NSVT (declined ischemic eval or BB in the past) 05/09/24 She saw josselyn last month for c/o worsened SOB with exertion for 2-3 months. Josselyn ordered an ECHO. RVSP mildly elevated at 37, grade 1 DD noted. Attempted to start her on hydrochlorothiazide but she was not able to tolerate this. She felt too drowsy taking it. She has since stopped taking it and she feels better. She had a follow-up BMP/BNP 05/07/24 which showed normal kidney function and NTproBNP low at 133. Today she states she feels well overall outside of her FULLER. Her LE swelling is mild and stable. Denies c/o CP, dyspnea, orthopnea, PND, LE edema, dizziness/LH, palpitations, syncope. She will be seeing pulmonary next month. Patient Active Problem List Diagnosis Dyspnea on exertion Arthritis Osteoarthritis Breast cancer (CMS/HCC) Cervical radiculitis Chronic cough Diabetes mellitus, type II (CMS/HCC) Episodic tension type headache GERD (gastroesophageal reflux disease) Hearing deficit Hypothyroidism Lower back pain Mononucleosis Sciatica Hypertension Hyperlipidemia Non-sustained ventricular tachycardia (CMS/HCC) Excessive thirst Fatigue S/P mastectomy Wellness examination History of malignant neoplasm of breast Diastolic dysfunction Past Medical History: Diagnosis Date Hypertension PVC (premature ventricular contraction) Family History Problem Relation Name Age of Onset Lung disease Mother Diabetes Mother's Sister Social History Tobacco Use Smoking status: Never Smokeless tobacco: Never Substance Use Topics Alcohol use: Not Currently Comment: occasional Drug use: Never Allergies Allergen Reactions Accupril [Quinapril] Amoxicillin-Pot Clavulanate Other reaction(s): GI Disturbance Anaprox [Naproxen Sodium] Avelox [Moxifloxacin] Cephalexin Diflucan [Fluconazole] Sulfa (Sulfonamide Antibiotics) Sulfamethoxazole-Trimethoprim Hives Review of Systems Constitutional: Negative for chills, decreased appetite, fever, malaise/fatigue and weight gain. Cardiovascular: Positive for dyspnea on exertion and leg swelling. Negative for chest pain, irregular heartbeat, near-syncope, orthopnea, palpitations, paroxysmal nocturnal dyspnea and syncope. Hematologic/Lymphatic: Negative for bleeding problem. Does not bruise/bleed easily. OBJECTIVE Visit Vitals BP 131/65 (BP Location: Right arm, Patient Position: Sitting) Pulse 66 Ht 1.676 m (5' 6 ) Wt 78.9 kg (174 lb) SpO2 96% BMI 28.08 kg/m??? Smoking Status Never BSA 1.92 m??? Medications: Current Outpatient Medications: albuterol 90 mcg/actuation inhaler, INHALE 2 PUFFS BY MOUTH EVERY 4 HOURS, Disp: , Rfl: amLODIPine (Norvasc) 10 mg tablet, TAKE 1 TABLET EVERY MORNING, Disp: 90 tablet, Rfl: 3 atorvastatin (Lipitor) 20 mg tablet, Take 20 mg by mouth at bedtime., Disp: , Rfl: calcium citrate (Calcitrate) 200 mg (950 mg) tablet, See Instructions, Daily, Refills(s) 0, Disp: , Rfl: famotidine (Pepcid) 40 mg tablet, , Disp: , Rfl: losartan (Cozaar) 100 mg tablet, Take 1 tablet (100 mg) by mouth in the morning., Disp: 90 tablet, Rfl: 3 metFORMIN (Glucophage) 500 mg tablet, Take 500 mg by mouth with breakfast and with evening meal., Disp: , Rfl: omeprazole (PriLOSEC) [address] capsule, Take 20 mg by mouth before breakfast., Disp: , Rfl: fluticasone (Flonase) 50 mcg/actuation nasal spray, USE 2 SPRAY(S) IN EACH NOSTRIL ONCE DAILY, Disp: , Rfl: Physical Exam Vitals reviewed. Constitutional: Appearance: Normal appearance. HENT: Head: Normocephalic and atraumatic. Right Ear: External ear normal. Left Ear: External ear normal. Eyes: Extraocular Movements: Extraocular movements intact. Conjunctiva/sclera: Conjunctivae normal. Pupils: Pupils are equal, round, and reactive to light. Neck: Vascular: No carotid bruit. Cardiovascular: Rate and Rhythm: Normal rate and regular rhythm. Pulses: Normal pulses. Heart sounds: Normal heart sounds. Pulmonary: Effort: Pulmonary effort is normal. Breath sounds: Normal breath sounds. Abdominal: General: Bowel sounds are normal. Palpations: Abdomen is soft. Musculoskeletal: Cervical back: Neck supple. Right lower leg: Edema present. Left lower leg: Edema present. Comments: Trace bilateral edema Skin: General: Skin is warm and dry. Neurological: General: No focal deficit present. Mental Status: She is alert and oriented to person, place, and time. Psychiatric: Mood and Affect: Mood normal. Behavior: Behavior normal. Thought Content: Thought content normal. Judgment: Judgment normal. Labs: 05/07/24 Cr 0.8, BUN 14, K 4.4, Na 140, eGFR >60 NTproBNP 133 01/05/24 A1C 5.9- normal Chol 215, Trig 371, HDL 45, LDL 137 (more content not included)... [facility] 04-23-2024 Note Pt called office to report that since starting hydrochlorothiazide she has felt aweful Therefore, pt may stop hydrochlorothiazide and continue lorsartan 100 mg daily Have BMP and BNP labs completed to assess renal function and electrolytes, and CHF Preeti Rodriguez [facility] Cardiology Available 7a-5pm via Mar[employer] Chat Pager [phone] [facility] 04-16-2024 Note Provider called pt t o [...] function and electrolytes- she voiced understanding Preeti Rodriguez [facility] Cardiology Available 7a-5pm via [employer] Chat Pager [phone] [facility] 03-14-2024 Note [facility] FULLER, no SOB with res t or ADLs Will order echocardiogram to assess cardiac function and valvular function Pulm function test to assess function for any obstructive process- and asked pt to F/U with PCP to review PFT [facility] 03-14-2024 Note PCP has started pt o n lipitor for elevated Chol/LDL Denied any myalgias [facility] 03-14-2024 Note Pt admits b/p at ruperto e typically is <130/76-80 and controlled Continue losartan and norvasc [facility] 03-14-2024 Note Stable, no concernin g symptoms, palpitations, lightheadedness/dizziness or syncope [facility] 03-14-2024 Note [facility] CARDIOLOGY PROGR ESS NOTE [...] RTC 3 months after diagnostic testing completed [facility] 03-14-2024 Note Patient here for 1 y [...] All other systems reviewed and are negative. [facility] [facility] 10-06-2023 Evaluation + Plan note Future Scheduled [id number] 10/06/23 [facility] 06-06-2023 Evaluation + Plan note Extrac [...] she decides to do. ALFREDA score: 24% [facility]07-06-2023 Evaluation + Plan noteExtracted from: Title:Clinical Document [...] on an as-needed basis for repeat evaluation. [facility]06-01-2023 Evaluation + Plan noteExtracted from: Title:Clinical [...] Date:03/17/2023 01:45:00 PM Scheduled Provider:Lopez Collins MD Location:[facility] Appointment Type:Pain Management - Follow Up (FT) [facility]07-29-2022 NotePROCEDURE: XR ANKLE LT MIN 3 V HISTORY: Pain of left ankle joint after falling COMPARISON: XR ankle left 07/06/2021 FINDINGS: BONES:No fracture, acute abnormality, or significant arthropathy. SOFT TISSUES:No visible soft tissue swelling. EFFUSION:None visible. OTHER: Negative. IMPRESSION: 1. No acute bone abnormality or significant degenerative joint disease. Electronically authenticated by: ANGLE NGUYEN Date: 2022-04-09 08:05[facility] No data available for this section [facility] Future Appointments Appointment Date:03/17/2023 01:45:00 PM Scheduled Provider:Lopez Collins MD [facility] Type:Pain Management - Follow Up (FT[facility] Future Appointments Appointment Date:06/06/2023 02:00:00 PM Scheduled Provider:Danyelle Kellogg PA-C Location:[facility] Appointment Type:Pain Management - Follow Up (FT) [facility] Future Appointments Appointment Date:07/26/2024 11:20:00 AM Scheduled Provider:Luzmaria Lamas Location:[facility] Appointment Type:FM Open Diagnostic Tests Pending * HgbA1c 04/23/24 Future Scheduled Tests Laboratory* HgbA1c 10/06/23 Radiology* MA Mamm Screen w/CAD if perf and 3D Junior 04/23/24 [facility] evaluation + Plan note Future Appointments Appointment Date:05/07/2024 03:30:00 PM Scheduled Provider: [facility] Appointment Type:DM Diabetes 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 59 (F Appointment Date:07/26/2024 11:20:00 AM Scheduled Provider:Luzmaria Lamas Location:[facility] Appointment Type: Open Future Scheduled Tests Laboratory* HgbA1c 10/06/23 [facility] [employer] + Plan note Future Appointments Appointment Date:10/25/2024 09:20:00 AM Scheduled Provider: Location:[facility] Appointment Type:FM Lab Draw Appointment Date:12/27/2024 10:20:00 AM Scheduled Provider:Luzmaria Lamas [facility] Appointment Type:FM Open Appointment Date:07/29/2025 11:00:00 AM Scheduled Provider: Location:[facility] Appointment Type:FM Medicare Wellness Subsequent Future Scheduled Tests Laboratory* HgbA1c 07/26/24 * HgbA1c 10/06/23 * HCV Antibody RFX to Quant PCR 07/26/24 [facility] Evaluation + Plan note Future Appointments Appointment Date:10/26/2024 11:00:00 AM Scheduled Provider: Location:[facility] Appointment Type: Nurse Visit Appointment Date:12/27/2024 10:20:00 AM Scheduled Provider:Luzmaria Lamas Location:[facility] Appointment Type: Open Appointment Date:07/29/2025 11:00:00 AM Scheduled Provider: Location:[facility] Appointment Type: Medicare Wellness Subsequent Future Scheduled Tests Laboratory* HgbA1c 07/26/24 * HgbA1c 10/06/23 * HCV Antibody RFX to Quant PCR 07/26/24 [facility] evaluation + Plan note Future Appointments Appointment Date:12/27/2024 10:20:00 AM Scheduled Provider:Luzmaria Lamas Location:[facility] Appointment Type: Open Appointment Date:07/29/2025 11:00:00 AM Scheduled Provider: Location:[facility] Appointment Type:FM Medicare Wellness Subsequent Future Scheduled Tests Laboratory* HgbA1c 10/06/23 [facility] evaluation + Plan note Future Appointments Appointment Date:12/27/2024 10:20:00 AM Scheduled Provider:Luzmaria Lamas Location:[facility] Appointment Type: Open Appointment Date:07/29/2025 11:00:00 AM Scheduled Provider: Location:[facility] Appointment Type:FM Medicare Wellness Subsequent Diagnostic Tests Pending * HCV Antibody RFX to Quant PCR 10/26/24 Future Scheduled Tests Laboratory* HgbA1c 10/06/23 [facility] evaluation + Plan note Future Appointments Appointment Date:12/27/2024 10:20:00 AM Scheduled Provider:Luzmaria Lamas Location[facility] Appointment Type: Open Appointment Date:07/29/2025 11:00:00 AM Scheduled Provider: Location:[facility] Appointment Type: Medicare Wellness Subsequent [facility] Evaluation + Plan note Future Appointments Appointment Date:07/29/2025 10:40:00 AM Scheduled Provider:Jason Timmons MD Location:[facility] Appointment Type:FM Open Appointment Date:07/29/2025 11:00:00 AM Scheduled Provider: Location[facility] Appointment Type:FM Medicare Wellness Subsequent [facility] evaluation note* Diagnosis Seborrheic keratosis- Primary Melanocytic nevus of trunk Benign neoplasm of skin of trunk, except scrotum Lentigines Actinic keratosis Capillary angioma Nevus, non-neoplastic [facility] in [facility] No data available for this section [facility] No data available for this section [facility] Summary Purpose Family History No Family History Records FoundNo Family History Records Found No data available for this section No Family History Records Found No data available for this section No data available for this section No data available for this section No data available for this section No Family History Records Found No data available for this section No data available for this section No data available for this section No [...] section and content) DATE CREATED AUTHOR 12/15/2021 [facility] DATE CREATED AUTHOR AUTHOR'S ORGANIZ ATION 01/14/2023 [facility] DATE CREATED AUTHOR AUTHOR'S ORGANIZ ATION 03/07/2024 [facility] DATE CREATED AUTHOR AUTHOR'S ORGANIZ ATION 08/07/2024 [facility] DATE CREATED AUTHOR AUTHOR'S ORGANIZ ATION 10/29/2024 [facility] DATE CREATED AUTHOR AUTHOR'S ORGANIZ ATION 11/24/2024 [facility] DATE CREATED AUTHOR AUTHOR'S ORGANIZ ATION 2024 [facility] DATE CREATED AUTHOR AUTHOR'S ORGANIZ ATION 11/28/2024 [facility] DATE CREATED AUTHOR AUTHOR'S ORGANIZ ATION 12/29/2024 [facility] DATE CREATED AUTHOR AUTHOR'S ORGANIZ ATION 01/26/2025 [facility] DATE CREATED AUTHOR AUTHOR'S ORGANIZ ATION 05/23/[address] [facility] Patient Care team informatio n (unrecognized section and content) Personnel Name: Luzmaria Lamas Address: Address: [address] [place] [address]- Personnel Name: Luzmaria Lamas Address: Address: [address] [place] [address]- Personnel Name: Luzmaria Lamas Address: Address: [address] [place] [address]- Personnel Name: Luzmaria Lamas Address: Address: [address] [place] [address]- Personnel Name: Luzmaria Lamas Address: Address: [address] [place] [address]- Personnel Name: Luzmaria Lamas L Address: Address: [address] [place] [address]- Personnel Name: Luzmaria Lamas L Address: Address: [address] [place] [address]- Personnel Name: Luzmaria Lamas Address: Address: [address] [place] [address]- Personnel Name: Luzmaria Lamas L Address: Address: [address] [place] [address]- Personnel Name: Luzmaria Lamas Address: Address: [address] [place] [id number]- Personnel Name: Luzmaria Lamas L Address: Address: [address] [place] [id number]- Personnel Name: Luzmaria Lamas L Address: Address: [address] [place], [place] [id number]- Personnel Name: Luzmaria Lamas L Address: Address: [address] [place], [place] [id number]- Name: BrunswickBessAdeline V Personnel Name: Lee Ann Lamasdi L Address: Address: [address] [place] [address]- Name: Brunswick Adeline V Personnel Name: Luzmaria Lamas L Address: Address: [address] [place] [address]- Name: Bess Dengonne V Personnel Name: Luzmaria Lamas L Address: Address: [address] [place], [place] [id number]- Name: Brunswick Adeline V Personnel Name: Luzmaria Lamas L Address: Address: [address] [place] [address]- Name: Brunswick Adeline V Personnel Name: Luzmaria Lamas L Address: Address: [address] [place] [address]- Name: Bess Dengonne V Personnel Name: Luzmaria Lamas L Address: [address] [place] [address]- [employer]: Name: Bess Dengonne Georgiana Reason for Visit (unrecogniz ed section and content) Reason Comments Skin Check FOR RECORDS PERTAINING TO PATIENTS WHO ARE [...] BE BASED ON THE PRIMARY CLINICAL RECORDS. [facility], [facility]. provides no warranty or guarantee of the accuracy or completeness of information in this document.
[2025-05-24 14:47] LABS: Thyroid Stimulating Hormone 3.347 uIU/mL (0.358-3.740)
== END 2025-05-24 12:55 | disposition home or self-care (01) ==
LOC: LAB 12:55
PROVIDERS: PCP Nurse Practitioner; Visit Provider Internal Medicine Cardiovascular Disease
DX: I49.9 Cardiac arrhythmia, unspecified (principal)
CPT/HCPCS: 36415; 84443